=== PATIENT | female | born 1970 | race Caucasian/White ===

== ENCOUNTER 2023-03-22 10:15 | Outpatient (OUT) | payer BC, SELFPAY ==
[2023-03-22 10:49] LABS: Basophils Percent Auto 0.6 % (0.2-2.0); Eosinophils Absolute Auto 0.3 10^3/uL (0.0-0.7); Eosinophils Percent Auto 4.5 % (0.9-7.0); Hematocrit 43.8 % (36.0-48.0); Hemoglobin 14.2 g/dL (12.0-16.0); Immature Granulocytes Abs Auto 0.05 10^3/uL (0.00-0.03); Immature Granulocytes Pct Auto 0.7 % (0.0-0.5); Lymphocytes Absolute Auto 2.2 10^3/uL (1.2-3.8); Lymphocytes Percent Auto 30.7 % (20.5-60.0); Mean Corpuscular HGB Conc 32.4 g/dL (29.9-35.2); Mean Corpuscular Hemoglobin 29.3 pg (26.7-34.0); Mean Corpuscular Volume 90.3 fL (81.0-99.0); Mean Platelet Volume 8.5 fL (9.5-13.5); Monocytes Absolute Auto 0.5 10^3/uL (0.3-0.8); Monocytes Percent Auto 7.1 % (1.7-12.0); Neutrophils Percent Auto 56.4 % (43.0-75.0); Platelet Count 314 10^3/uL (150-450); Red Blood Count 4.85 10^6/uL (4.20-5.40); Red Cell Distribution Width 12.6 % (11.0-15.0); White Blood Count 7.1 10^3/uL (4.0-11.0)
[2023-03-22 11:02] LABS: INR 0.97; Partial Thromboplastin Time 28.5 sec (22.3-36.2); Prothrombin Time 10.3 sec (9.0-11.6)
[2023-03-22 11:44] LABS: Estimated Average Glucose 114 mg/dL; Glycohemoglobin A1C 5.6 % (4.5-6.2)
[2023-03-22 12:12] LABS: Alanine Aminotransferase 27 U/L (14-59); Albumin Globulin Ratio 0.9; Albumin Level 3.5 g/dL (3.4-5.0); Alkaline Phosphatase 122 U/L (46-116); Amylase 32 U/L (25-115); Anion Gap 12.2; Aspartate Amino Transferase 15 U/L (15-37); BUN Creatinine Ratio 24.7; Bilirubin Total 0.3 mg/dL (0.2-1.0); Calcium 9.2 mg/dL (8.5-10.1); Carbon Dioxide 26.6 mmol/L (21.0-32.0); Chloride 107 mmol/L (98-107); Chol HDL Ratio 4.7; Cholesterol 214 mg/dL (<=200); Estimated GFR (African America >60 (>=60); Estimated GFR (Non-African Ame >60 (>=60); Free Thyroxine Index 2.01 (1.30-4.50); Glucose 107 mg/dL (74-106); HDL Cholesterol 46 mg/dL (40-60); Potassium 3.8 mmol/L (3.5-5.1); Sodium 142 mmol/L (136-145); Thyroid Stimulating Hormone 1.529 uIU/mL (0.358-3.740); Total Protein 7.5 g/dL (6.4-8.2); Triglycerides 61 mg/dL (<=150); VLDL CHOLESTEROL 12.2 mg/dL
[2023-03-23 10:11] LABS: Insulin 18.6 uIU/mL (2.6-24.9)
== END 2023-03-22 10:16 | disposition home or self-care (01) ==
PROVIDERS: PCP Family Medicine; Visit Provider Family Medicine
DX: R10.11 Right upper quadrant pain (principal); D35.2 Benign neoplasm of pituitary gland; R23.8 Other skin changes; E78.5 Hyperlipidemia, unspecified; Z87.898 Personal history of other specified conditions; R73.09 Other abnormal glucose; Z12.12 Encounter for screening for malignant neoplasm of rectum; D64.9 Anemia, unspecified
CPT/HCPCS: 36415; 80053; 80061; 82150; 83036; 83525; 83540; 83690; 84436; 84443; 84479; 85002; 85025; 85610; 85730

== ENCOUNTER 2023-03-25 10:47 | Outpatient (OUT) | payer BC, SELFPAY ==
--- NOTE | 2023-03-25 11:00 | US_ITS ---
The [address] [address] Patient Name: FRED TREJO MRN: [id number] date: 1970 Sex: F Assigned Patient Location: US Current Patient Location: US Accession/Order Number: [id number] Exam Date: 03/25/2023 11:01 Report Date: 03/25/2023 11:44 At the request of: PAULETTE JAFFE Procedure: US right upper quadrant EXAMINATION: US right upper quadrant HISTORY: Right Upper Quadrant Pain R10.11 COMPARISON: No relevant comparison available. TECHNIQUE: Transabdominal evaluation of the right upper quadrant. FINDINGS: LIVER: Slightly increased echogenicity suggestive of fatty infiltration. Color Doppler demonstrates patent hepatic veins. PORTAL VEIN: Duplex Doppler demonstrates normal hepatopetal flow pattern with flow velocity averaging 29 cm/s. GALLBLADDER: No visible gallstones, wall thickening, or pericholecystic free fluid. Negative sonographic Persaud's sign. BILIARY: No abnormal dilation or stones. Common bile duct diameter is within normal limits. PANCREASE: No visible mass, abnormal atrophy, or duct dilation. KIDNEY: Nonobstructing 6 mm stone within inferior pole. Size: 9.8 x 5.2 x 5.2 cm US/US right upper quadrant IMPRESSION: 1. Mild fatty infiltration of the liver. 2. Nonobstructing right nephrolithiasis. 3. No acute findings to account for patient's symptoms. Electronically authenticated by: TIFFANY DAVALOS Date: 03/25/2023 11:44
== END 2023-03-25 10:48 | disposition home or self-care (01) ==
LOC: US 10:50
PROVIDERS: PCP Family Medicine; Visit Provider Family Medicine
DX: R10.11 Right upper quadrant pain (principal)
CPT/HCPCS: 76705

== ENCOUNTER 2023-10-05 14:50 | Outpatient (OUT) | payer BC, SELFPAY ==
--- NOTE | 2023-10-05 14:56 | XR_ITS ---
The [address] [address] Patient Name: FRED TREJO MRN: [id number] date: 1970 Sex: F Assigned Patient Location: LAB Current Patient Location: Accession/Order Number: [id number] Exam Date: 10/05/2023 15:00 Report Date: 10/06/2023 07:25 At the request of: PAULETTE JAFFE Procedure: XR knee LT 3V PROCEDURE: XR knee LT 3V HISTORY: M25.562pain in left knee , chronic COMPARISON: None. FINDINGS: BONES:Marked narrowing of the lateral joint space with gepi-[id number]-joto contact. Large periarticular degenerative osteophytes involving all 3 compartments. No fracture or dislocation. SOFT TISSUES:No visible soft tissue swelling. EFFUSION:None visible. OTHER: Negative. XR/XR knee LT 3V IMPRESSION: 1. Marked degenerative joint disease. No acute bone abnormality. Electronically authenticated by: TIFFANY DAVALOS Date: 10/06/2023 07:25
== END 2023-10-05 14:51 | disposition home or self-care (01) ==
LOC: LAB 14:51
PROVIDERS: PCP Family Medicine; Visit Provider Family Medicine
DX: M25.562 Pain in left knee (principal); M17.12 Unilateral primary osteoarthritis, left knee
CPT/HCPCS: 73562

== ENCOUNTER 2023-12-06 08:49 | Outpatient (OUT) | payer BC, SELFPAY ==
--- NOTE | 2023-12-06 09:06 | XR_ITS ---
The [address] [address] Patient Name: FRED TREJO MRN: [id number] date: 1970 Sex: F Assigned Patient Location: LAB Current Patient Location: Accession/Order Number: [id number] Exam Date: 12/06/2023 09:11 Report Date: 12/07/2023 05:42 At the request of: PAULETTE JAFFE Procedure: XR chest 2V EXAMINATION: XR chest 2V HISTORY: Acute Bronchiolitis J21.9 COMPARISON: XR chest 08/22/2016 FINDINGS: LUNGS: Slight wall thickening of a few central bronchi. No convincing infiltrates. Opacity within left lung base favors a prominent pericardial fat pad. VASCULATURE: No increased pulmonary vasculature. PLEURA: No pneumothorax, effusion, or pleural thickening. CARDIAC: No cardiomegaly or cardiac silhouette abnormality. MEDIASTINUM: No visible mass or adenopathy. BONES: No fracture or visible bone lesion. OTHER: Negative. XR/XR chest 2V IMPRESSION: 1. Mild bronchial wall thickening compatible with bronchiolitis. 2. No convincing peripheral infiltrates to suggest pneumonia. Electronically authenticated by: TIFFANY DAVALOS Date: 12/07/2023 05:42
[2023-12-06 09:12] LABS: Basophils Absolute Auto 0.1 10^3/uL (0.0-0.1); Basophils Percent Auto 0.5 % (0.2-2.0); Eosinophils Absolute Auto 0.1 10^3/uL (0.0-0.7); Eosinophils Percent Auto 0.9 % (0.9-7.0); Hematocrit 42.5 % (36.0-48.0); Hemoglobin 13.8 g/dL (12.0-16.0); Immature Granulocytes Abs Auto 0.08 10^3/uL (0.00-0.03); Immature Granulocytes Pct Auto 0.8 % (0.0-0.5); Lymphocytes Absolute Auto 2.9 10^3/uL (1.2-3.8); Lymphocytes Percent Auto 29.5 % (20.5-60.0); Mean Corpuscular HGB Conc 32.5 g/dL (29.9-35.2); Mean Corpuscular Hemoglobin 29.1 pg (26.7-34.0); Mean Corpuscular Volume 89.5 fL (81.0-99.0); Mean Platelet Volume 8.3 fL (9.5-13.5); Monocytes Absolute Auto 0.8 10^3/uL (0.3-0.8); Monocytes Percent Auto 8.2 % (1.7-12.0); Neutrophils Percent Auto 60.1 % (43.0-75.0); Platelet Count 319 10^3/uL (150-450); Red Blood Count 4.75 10^6/uL (4.20-5.40); Red Cell Distribution Width 12.8 % (11.0-15.0); White Blood Count 9.9 10^3/uL (4.0-11.0)
[2023-12-06 09:35] LABS: Alanine Aminotransferase 27 U/L (14-59); Albumin Globulin Ratio 0.8; Albumin Level 3.1 g/dL (3.4-5.0); Alkaline Phosphatase 141 U/L (46-116); Aspartate Amino Transferase 15 U/L (15-37); BUN Creatinine Ratio 19.1; Bilirubin Total 0.3 mg/dL (0.2-1.0); Calcium 9.4 mg/dL (8.5-10.1); Carbon Dioxide 27.7 mmol/L (21.0-32.0); Chloride 103 mmol/L (98-107); Estimated GFR (African America >60 (>=60); Estimated GFR (Non-African Ame 52 (>=60); Globulin 3.9 g/dL; Glucose 146 mg/dL (74-106); Potassium 3.7 mmol/L (3.5-5.1); Sodium 141 mmol/L (136-145)
== END 2023-12-06 08:50 | disposition home or self-care (01) ==
LOC: LAB 08:51
PROVIDERS: PCP Family Medicine; Visit Provider Family Medicine
DX: J21.9 Acute bronchiolitis, unspecified (principal); R05.9 Cough, unspecified
CPT/HCPCS: 36415; 71046; 80053; 85025

== ENCOUNTER 2024-02-08 10:37 | Outpatient (OUT) | payer BC, SELFPAY ==
--- NOTE | 2024-02-08 10:45 | XR_ITS ---
[address] [address] Patient Name: FRED TREJO MRN: [id number] date: 1970 Sex: F Assigned Patient Location: [facility] Current Patient Location: [facility] Accession/Order Number: [id number] Exam Date: 02/08/2024 10:50 Report Date: 02/08/2024 11:06 At the request of: PAULETTE JAFFE Procedure: XR knee HAYDEE 3V EXAMINATION: XR knee HAYDEE 3V HISTORY: Osteoarthritis M19.90 COMPARISON: No relevant comparison available. FINDINGS: RIGHT FINDINGS: BONES: No acute fracture or dislocation. Moderate to severe tricompartmental osteoarthropathy with marginal osteophyte formation. Moderate medial Joint space narrowing. Enthesopathic spurring of the patella at the quadriceps insertion SOFT TISSUES: Negative. No visible soft tissue swelling. OTHER: Negative. LEFT FINDINGS: BONES: No acute fracture or dislocation. Moderate to severe tricompartmental osteoarthropathy with marginal osteophyte formation. Severe lateral joint space narrowing. Enthesopathic spurring of the patella at the quadriceps insertion SOFT TISSUES: Negative. No visible soft tissue swelling. OTHER: Negative. 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
== END 2024-02-08 10:38 | disposition home or self-care (01) ==
LOC: RAD 10:38
PROVIDERS: PCP Family Medicine; Visit Provider Family Medicine
DX: M19.90 Unspecified osteoarthritis, unspecified site (principal); M17.0 Bilateral primary osteoarthritis of knee
CPT/HCPCS: 73562

== ENCOUNTER 2024-04-16 11:09 | Outpatient (OUT) | payer BC, SELFPAY ==
--- OUTSIDE RECORDS SUMMARY | 2024-04-16 11:16 | XMS_ITS | CCD ---
Author Organization [facility] CliniSytx Care Team Providers Care Skeiner Name Role Phone Paulette Santana MD Primary Care Provider [phone] JUAN BATISTA Referring Unavailable PAULETTE SANTANA Primary Care Unavailable SIGRIDY ., DR CALDWELL Consulting Unavailable HOY ., DR CALDWELL Primary Care Unavailable HOY ., DR CALDWELL Attending Unavailable HOY ., DR CALDWELL Admitting Unavailable ZIEBER, DR ASHOK Tucker Consulting Unavailable TERRENCE ., KESHIA Attending Unavailable TERRENCE ., KESHIA Admitting Unavailable HOY ., DR CALDWELL Primary Care Unavailable JOAN THOMAS Consulting UnavailESSENCE Pemberton Consulting Unavailable HOY ., DR CALDWELL Primary Care Unavailable HOY ., DR CALDWELL Attending Unavailable HOY ., DR CALDWELL Admdenice Unavailable SHILO, DR ADELAIDA Bingham Consulting Unavailable HOY ., DR CALDWELL Primary Care Unavailable MATILDE HENLEY Attending Unavailable MATILDE HENLEY Admitting Unavailable MATILDE HENLEY Consulting Unavailable HOY ., DR CALDWELL Consulting Unavailable HOY ., DR CALDWELL Primary Care Unavailable HOY ., DR CALDWELL Attending Unavailable HOY ., DR CALDWELL Admitting Unavailable HOY ., DR CALDWELL Consulting Unavailable HOY ., DR CALDWELL Primary Care Unavailable HOY ., DR CALDWELL Attending Unavailable HOY ., DR CALDWELL Admdenice Unavailable WEST, DR ADELAIDA Bingham Consulting Unavailable HOY ., DR CALDWELL Consulting Unavailable HOY ., DR CALDWELL Primary Care Unavailable HOY ., DR CALDWELL Attending Unavailable HOY ., DR CALDWELL Admitting Unavailable HOY ., DR CALDWELL Consulting Unavailable HOY ., DR CALDWELL Primary Care Unavailable HOY ., DR CALDWELL Attending Unavailable HOY ., DR CALDWELL Admdencie Unavailable HOY ., DR CALDWELL Consulting Unavailable HOY ., DR CALDWELL Primary Care Unavailable HOY ., DR CALDWELL Attending Unavailable HOY ., DR CALDWELL Admitting Unavailable DR ASHOK GRIER Consulting Unavailable ALANNAH ., DR CALDWELL Consulting Unavailable ALANNAH Walker, DR CALDWELL Primary Care Unavailable ALANNAH Walker, DR CALDWELL Attending Unavailable ALANNAH Walker, DR CALDWELL Admitting Unavailable JODI WEBER Consulting Unavailable Paulette Santana Primary Care Physician Niall RUSSELL Attending Unavailable Niall RUSSELL Attending Unavailable Niall RUSSELL Attending Unavailable DERREK Carrillo Attending Provider Matilde Carrillo Unavailable Matilde Carrillo Attending Unavailable Matilde Carrillo Admitting Unavailable Medications Current Medications Medication Drug Class(es) Dates Sig (Normalized) Sig (Original) amitriptyline hydrochloride 100 mg oral tablet (3 sources) Tricyclic Antidepressant Start: 10-06-2020 amitriptyline (ELAVIL) 100 MG tablet baclofen 20 mg oral tablet (3 sources) gamma-Aminobutyric Acid-ergic Agonist Start: 10-06-2020 baclofen (LIORESAL) 20 MG tablet diclofenac sodium 75 mg delayed release oral tablet (2 sources) Nonsteroidal Anti-inflammatory Drug Start: 10-06-2020 take 1 tablet by mouth twice daily diclofenac sodium 75 mg Oral EC Tab 75 mg = 1 tab(s), Oral, BID, # 60 tab(s), Refills(s) 0 Start Date: 10/06/20 Status: Ordered take 1 capsule by [facility] every eight hours Diclofenac 35 MG 1 capsule as needed Ora lly Three times a day Active levothyroxine sodium 0.05 mg oral tablet (2 sources) l-Thyroxine Start: 12-29-2022 take 1 tablet by mouth once daily levothyroxine 50 mcg (0.05 mg) Tab 50 mcg = 1 tab(s), Oral, Daily, Refills(s) 0 Start Date: 12/29/22 Status: Ordered take 1 tablet by [facility] once daily in the morning Levothyroxine Sodium 25 MCG 1 tablet in the morning on an empty stomach Orally Once a day Active liothyronine sodium 0.005 mg oral tablet (2 sources) l-Triiodothyronine Start: 12-29-2022 take 4 tablets by mouth once daily liothyronine 5 mcg Tab 20 mcg = 4 tab(s), Oral, Daily, Refills(s) 0 Start Date: 12/29/22 Status: Ordered take 1 tablet by khadar th every twenty-four hours Liothyronine Sodium 5 MCG 1 tablet on an empty stomach Orally Once a day Active lisinopril 40 mg oral tablet (3 sources) Angiotensin Converting Enzyme Inhibitor Start: 12-18-2021 lisinopril (PRINIVIL;ZESTRIL) 40 MG tablet Start: 10-06-2020 lisinopril 40 mg Tab 20 mg = 0.5 tab(s), Oral, Daily, Refills(s) 0 Start Date: 10/06/20 Status: Ordered take 1 tablet by khadar th every twenty-four hours Lisinopril 20 MG 1 tablet Orally Once a day Active mirtazapine 30 mg oral table t (3 sources) Start: 11-23-2021 mirtazapine (R EMERON) 30 MG tablet Start: 10-06-2020 take 2 tablets by mo [facility] once daily at bedtime mirtazapine 30 mg Tab 60 mg = 2 tab(s), Oral, Once a day (at bedtime), Refills(s) 0 Start Date: 10/06/20 Status: Ordered risperiDONE 2 mg oral tablet (4 sources) Atypical Antipsychotic Start: 10-06-2020 risperi DONE (RISPERDAL) 2 MG tablet Completed/Discontinued Medications Medication Drug Class(es) Dates Sig (Normalized) Sig (Original) tiZANidine 4 mg oral tablet (1 source) Central alpha-2 Adrenergic Agonist take 1-2 tablets by mouth at bedtime as needed for muscle spasms tiZANidine HCl 4 MG TAKE 1 TO 2 TABLETS BY MOUTH AT BEDTIME NEEDED FOR MUSCLE SPASMS Oral for 20 Not-Taking Problems Active Problems Problem Classification Problem Date Documented Da te Episodic/Chronic Allergic reactions (2 sources) Dermatitis, unspecified; Translations: [Vesicular eczema] Onset: 07-06-2022 10-06-2020 Episodic Anxiety disorders (1 source) Anxiety disorder, unspecified; Translations: [ANXIETY DISORDER UNSPECIFIED] Onset: 07-06-2022 Chronic Chronic obstructive pulmonary disease and bronchiectasis (4 sources) Centrilobular emphysema; Translations: [CENTRILOBULAR EMPHYSEMA] Onset: 12-04-2021 Chronic Essential hypertension (2 sources) Essential (primary) hypertension; Translations: [Hypertensive disorder] Onset: 07-06-2022 10-06-2020 Chronic Headache; including migraine (1 source) Migraine 10-06-2020 Chronic Mood disorders (1 source) Mood disorders; Translations: [DEPRESSION UNSPECIFIED] Onset: 07-06-2022 Neoplasms of unspecified nature or uncertain behavior (3 sources) Neoplasm of uncertain behavior of skin; Translations: [Neoplasm of uncertain behavior of skin] Onset: 01-11-2023 Episodic Osteoarthritis (4 sources) Unspecified osteoarthritis, unspecified site; Translations: [Unilateral primary osteoarthritis, right knee] Onset: 02-24-2022 Chronic Other and unspecified benign neoplasm (1 source) Benign neoplasm of soft tissue 10-06-2020 Episodic Other and unspecified benign neoplasm (1 source) Dermal cellular nevus 10-30-2020 Episodic Other and unspecified benign neoplasm (1 source) Pituitary adenoma 10-06-2020 Episodic Other gastrointestinal disorders (1 source) Irritable bowel syndrome without diarrhea; Translations: [IRRITABLE BOWEL SYND W/O DIARRHEA] Onset: 07-06-2022 Chronic Other gastrointestinal disorders (1 source) Irritable bowel syndrome 10-06-2020 Chronic Other non-traumatic joint disorders (5 sources) Pain in right knee; Translations: [PAIN IN RIGHT KNEE] Onset: 11-01-2022 Episodic Other nutritional; endocrine; and metabolic disorders (1 source) Body mass index 40+ - severely obese 01-11-2023 Chronic Other nutritional; endocrine; and metabolic disorders (1 source) Morbid obesity 01-11-2023 Chronic Other screening for suspected conditions (not mental disorders or infectious disease) (4 sources) Encounter for screening mammogram for malignant neoplasm of breast; Translations: [ENC SCR MAMMO MALIG NEOPLASM BREAST] Onset: 10-05-2022 Episodic Other skin disorders (1 source) Epidermoid cyst 10-10-2020 Episodic Other skin disorders (1 source) Multiple actinic keratoses 10-06-2020 Episodic Other upper respiratory infections (1 source) Chronic sinusitis, unspecified; Translations: [CHRONIC SINUSITIS UNSPECIFIED] Onset: 12-09-2021 Chronic Other upper respiratory infections (1 source) Acute sinusitis, unspecified; Translations: [ACUTE SINUSITIS UNSPECIFIED] Onset: 09-19-2022 Episodic Residual codes; unclassified (1 source) Insomnia 12-29-2022 Episodic Spondylosis; intervertebral disc disorders; other back problems (1 source) Degeneration of lumbar intervertebral disc 10-06-2020 Chronic Spondylosis; intervertebral disc disorders; other back problems (1 source) Cervical radiculopathy 10-06-2020 Episodic Thyroid disorders (4 sources) Hypothyroidism, unspecified; Translations: [HYPOTHYROIDISM UNSPECIFIED] Onset: 09-21-2022 Chronic Unclassified (4 sources) CONTACT W/AND (SUSP) EXPOS COVID-19; Translations: [CONTACT W/AND (SUSP) EXPOS COVID-19] Onset: 12-09-2021 Unclassified (1 source) Pain in right knee; Translations: [Pain in right knee] Onset: 04-13-2023 Past or Other Problems Problem Classification Problem Date Documented Date Episodic/Chronic Coagulation and hemorrhagic disorders (1 source) Spontaneous ecchymoses; Translations: [SPONTANEOUS ECCHYMOSES] Onset: 2 Episodic Diabetes mellitus without complication (1 source) Other abnormal glucose; Translations: [OTHER ABNORMAL GLUCOSE] Onset: 2 Episodic E Codes: Fall (1 source) Fall on same level from slipping, tripping and stumbling with subsequent striking against unspecified object, initial encounter; Translations: [FALL SAME LVL SLIP STRK UNS OBJ INT] Onset: 2 Episodic Immunizations and screening for infectious disease (1 source) Encounter for immunization; Translations: [ENCOUNTER FOR IMMUNIZATION] Onset: 2 Episodic Joint disorders and dislocations; trauma-related (1 source) Dislocation of metacarpophalangeal joint of left thumb, initial encounter; Translations: [DISLOCATION MCP JOINT LT THUMB INIT] Onset: 2 Episodic Malaise and fatigue (4 sources) Other fatigue; Translations: [OTHER FATIGUE] Onset: 2 Episodic Other aftercare (1 source) Other alf (current) drug therapy; Translations: [OTH MCC CURRENT DRUG THERAPY] Onset: 2 Episodic Other connective tissue disease (4 sources) Pain in left hand; Translations: [PAIN IN LEFT HAND] Onset: 3 Episodic Other injuries and conditions due to external causes (3 sources) Unspecified injury of left wrist, hand and finger(s), initial encounter; Translations: [UNS INJ LT WRIST HAND FINGERS INIT] Onset: 2 Episodic Other lower respiratory disease (1 source) Personal history of pneumonia (recurrent); Translations: [PERSONAL HX OF PNEUMONIA RECURRENT] Onset: 2 Episodic Screening and history of mental health and substance abuse codes (1 source) Personal history of nicotine dependence; Translations: [PERSONAL HISTORY OF NICOTINE DEPEND] Onset: 2 Episodic Unclassified (1 source) CONTACT W/AND (SUSP) EXPOS COVID-19; Translations: [CONTACT W/AND (SUSP) EXPOS COVID-19] Onset: 3 Results Test Name Value Interpretation Reference Range Facility XR knee RT 4V*on 04-13-2023 XR knee RT 4V* [place] [address] XRay Report Signed Patient: Fred Qureshi MR#: [id number] : 1970 Acct:[id number] Age/Sex: 52 / F ADM Date: 04/13/23 Loc: XDUC Room: Type: [facility] Attending Dr: Matilde ANGLIN Copies to: DERREK Head Ordering Provider: DERREK Head Date of Service: 04/13/23 XR/XR knee RT 4V*: Acute pain of right knee 4 views right knee plain film COMPARISON: None HISTORY: Right knee injury. Superior patellar pain. ACUTE FINDINGS: None DEGENERATIVE CHANGE: Moderate degeneration. SOFT TISSUE FINDINGS: Unremarkable JOINT EFFUSION: None POSTOP CHANGES: None BONE MINERALIZATION: Adequate XR/XR knee RT 4V* IMPRESSION: No acute findings Impression dictated by: Jose Moran M.D.04/13/2023 2:33 PM Dictation Location: [place] [address] Transcribed By: [facility] 04/13/23 143 Dictated By: Jose Moran DO 04/13/23 143 Signed By: 04/13/23 143 Normal [facility] XR knee RT 4V* [facility] [employer] Other XR knee RT 4V* [facility] Other XR knee RT 4V* [facility] Other XR knee RT 4V* [place] [address] No rt [facility] Other XR knee RT 4V* XRay Report [employer] Other XR knee RT 4V* Signed [employer] Other XR knee RT 4V* Patient: Sampson Qureshi MR#: [id number] [facility] Other XR knee RT 4V* 5905 [employer] Other XR knee RT 4V* : 1970 Acct:[id number] [facility] Other XR knee RT 4V* Age/Sex: 52 / F ADM Date: 04/13/23 Turn Other XR knee RT 4V* Loc: XDUCLY Room: Ty pe: REG CLI Turn Other XR knee RT 4V* Attending Dr: Matilde ANGLIN Turn Other XR knee RT 4V* Copies to: DERREK Head Turn Other XR knee RT 4V* Ordering Provider: DERREK Head Turn Other XR knee RT 4V* Date of Service: 04/13/23 Turn Other XR knee RT 4V* XR/XR knee RT 4V*: Acute pain of right knee Turn Other XR knee RT 4V* 4 views right knee plain film Turn Other XR knee RT 4V* COMPARISON: None [employer] Other XR knee RT 4V* HISTORY: Right knee injury. Superior patellar pain. Turn Other XR knee RT 4V* ACUTE FINDINGS: None Turn Other XR knee RT 4V* DEGENERATIVE CHANGE: Moderate degeneration. Turn Other XR knee RT 4V* SOFT TISSUE FINDINGS : Unremarkable Turn Other XR knee RT 4V* JOINT EFFUSION: None Turn Other XR knee RT 4V* POSTOP CHANGES: None Turn Other XR knee RT 4V* BONE MINERALIZATION: Adequate Turn Other XR knee RT 4V* XR/XR knee RT 4V* Turn Other XR knee RT 4V* IMPRESSION: No acute findings Turn Other XR knee RT 4V* Impression dictated by: Jose Moran M.D.04/13/2023 2:33 PM Turn Other XR knee RT 4V* Dictation Location: [place] [address] Turn Other XR knee RT 4V* Transcribed By: ARPIT 04/13/23 [facility] Turn Other XR knee RT 4V* Dictated By: Jose Moran DO 04/13/23 [facility] Turn Other XR knee RT 4V* Signed By: [employer] Other XR knee RT 4V* 04/13/23 [facility] [employer] Other Ambulatory Visit Summaryon 0 02-01-2023 Ambulatory Visit Summary FRED QURESHI :1970 Visit Date:02/01/2023 Ambulatory Visit Instructions Your Diagnosis Neoplasm of uncertain behavior of skin of forearm Your Care Team Attending Physician - Niall RUSSELL MD Primary Care Physician - Paulette Santana MD This Is Your Medications List Contact prescribing physician if questions or concerns amitriptyline (amitriptyline 100 mg oral tablet) baclofen (baclofen 20 mg Tab) diclofenac (diclofenac sodium 75 mg Oral EC Tab) levothyroxine (levothyroxine 50 mcg (0.05 mg) Tab) liothyronine (liothyronine 5 mcg Tab) lisinopril (lisinopril 40 mg Tab) mirtazapine (mirtazapine 30 mg Tab) risperidone (Risperdal 2 mg Tab) Procedures Performed Benign neoplasm of face, Breast reduction, Excision of ganglion cyst of wrist, recurrent, Tubal ligation. What to do next Scheduled Follow-Up Appointments Tuesday 1:00 PM EDT With: Niall RUSSELL MD Where: General Surgery Saima/Roberta Martinez [facility] General Surgery Office/Clini c Noteon 02-01-2023 General Surgery Office/Clinic Note Chief Complaint in-office excisional biopsy HPI Staff Presents for in-office excisional biopsy left forearm. History of Present Illness here for excisional biopsy changing lesion left arm; no change since recent evaluation. Review of Systems ROS - Provider Constitutional: no fever, no sweats, no weight loss. Eyes: no glasses, no blurred vision, no visual loss. ENMT: no dentures, no hoarseness, no swallowing difficulties, no hearing loss, no ear infection(s), no nose bleeds. Cardiovascular: normal blood pressure, no chest pain, regular heartbeat, no heart murmur. Respiratory: no shortness of breath, no cough, no asthma, no wheezing. Gastrointestinal: no nausea, no vomiting, no diarrhea, no constipation, no blood in stool, no change in bowel habits, no abdominal pain, no hepatitis. Genitourinary: no kidney stones, no urine infection, no dysuria. Musculoskeletal: no pain, no weakness. Skin: no changing moles, no rash, no skin lumps. Neurologic: no seizures, no epilepsy, no headache. Psychiatric: no emotional or psychiatric problem. Heme/Lymph: no bleeding problems, no anemia, no blood clots, no transfusions. Allergy/Immunologic: no swollen lymph nodes/glands, no IV drug abuse. Other: Additional ROS info: Except as noted in the above Review of Systems and in the History of Present Illness, all other systems have been reviewed and are negative or noncontributory. Physical Exam skin: 5 mm raised, nonpigmented lesion left arm, no ulceration. Procedure patient brought to the procedure room, placed in supine position, area prepped and draped in sterile fashion; anesthetized with 1 % lidocaine; lesion excised in elliptical fashion down to subcutaneous fat; closed with interrupted 4-0 nylon sutures; total length of incision 1.2 cm; tolerated well; ebl < 2ml; sterile dressing applied. Assessment/Plan 1. Neoplasm of uncertain behavior of skin of forearm (D48.5: Neoplasm of uncertain behavior of skin) excised under local anesthesia; patient tolerated well; tylenol or ibuprofen for pain; f/u in 7-10 days for suture removal; call sooner if problems/questions. 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 Medications amitriptyline 100 mg oral tablet, 100 mg= 1 tab(s), Oral, Once a day (at bedtime) baclofen 20 mg Tab, Oral, Bedtime diclofenac sodium 75 mg Oral EC Tab, 75 mg= 1 tab(s), Oral, BID levothyroxine 50 mcg (0.05 mg) Tab, 50 mcg= 1 tab(s), Oral, Daily liothyronine 5 mcg Tab, 20 mcg= 4 tab(s), Oral, Daily lisinopril 40 mg Tab, 20 mg= 0.5 tab(s), Oral, Daily mirtazapine 30 mg Tab, 60 mg= 2 tab(s), Oral, Once a day (at bedtime) Risperdal 2 mg Tab, 2 mg= 1 tab(s), Oral, Bedtime Allergies No Known Allergies Social History Alcohol - Denies Alcohol Use, 10/10/2020 Substance Abuse - Denies Substance Abuse, 10/10/2020 Tobacco Former smoker, quit more than 30 days ago Tobacco Use:. Never Smokeless Tobacco Use:. Cigarettes, Stopped age 24 Years., 01/11/2023 Family History Acute myocardial infarction: Father. Diabetes mellitus type 2: Mother.Negative: Father. Heart disease: Mother and Father. Hypertension: Mother and Father. Hypothyroidism: Sister. Immunizations Vaccine Date Status influenza virus vaccine, inactivated 05/10/2022 Recorded SARS-CoV-2 (COVID-19) mRNA-1273 vaccine 12/17/2021 Recorded SARS-CoV-2 (COVID-19) mRNA-1273 vaccine 08/14/2021 Recorded SARS-CoV-2 (COVID-19) mRNA-1273 vaccine 01/04/2021 Recorded SARS-CoV-2 (COVID-19) mRNA-1273 vaccine 12/07/2020 Recorded influenza virus vaccine, inactivated 04/17/2020 Recorded [facility] Comment on above: Result Comment: Elec tronically Signed By: SAIMA MCQUEEN, Niall Tucker\.br\Date and Time Signed: 02/01/23 14:23 EDT Pre-Certification Formon Pre-Certification Form [id number] CD:127 [facility] Facesheeton 01-12-2023 Facesheet [id number] D:127 [facility] Ambulatory Visit Summaryon 0 01-11-2023 Ambulatory Visit Summary FRED QURESHI Jose :1970 Visit Date:01/11/2023 Ambulatory Visit Instructions Your Care Team Attending Physician - SAIMA MCQUEEN, Niall Tucker Primary Care Physician - Paulette Santana MD This Is Your Medications List Contact prescribing physician if questions or concerns amitriptyline (amitriptyline 100 mg oral tablet) baclofen (baclofen 20 mg Tab) diclofenac (diclofenac sodium 75 mg Oral EC Tab) levothyroxine (levothyroxine 50 mcg (0.05 mg) Tab) liothyronine (liothyronine 5 mcg Tab) lisinopril (lisinopril 40 mg Tab) mirtazapine (mirtazapine 30 mg Tab) risperidone (Risperdal 2 mg Tab) Procedures Performed Benign neoplasm of face, Breast reduction, Excision of ganglion cyst of wrist, recurrent, Tubal ligation. Discharge Vitals Heart Rate (Peripheral) 76 Respiratory Rate 16 Blood Pressure 124/84 Height 157.48 cm Height 62 in Weight 145 kg Weight 319 lb BMI 58.47 Medications What How Much When Instructions Unchanged amitriptyline (amitriptyline 100 mg oral tablet) 1 Tablets By Mouth Once a day (at bedtime) Contact prescribing physician if questions or concerns Unchanged baclofen (baclofen 20 mg Tab) By Mouth At bedtime Contact prescribing physician if questions or concerns Unchanged diclofenac (diclofenac sodium 75 mg Oral EC Tab) 1 Tablets By Mouth 2 times a day Contact prescribing physician if questions or concerns Unchanged levothyroxine (levothyroxine 50 mcg (0.05 mg) Tab) 1 Tablets By Mouth Every day Contact prescribing physician if questions or concerns Unchanged liothyronine (liothyronine 5 mcg Tab) 4 Tablets By Mouth Every day Contact prescribing physician if questions or concerns Unchanged lisinopril (lisinopril 40 mg Tab) 0.5 Tablets By Mouth Every day Contact prescribing physician if questions or concerns Unchanged mirtazapine (mirtazapine 30 mg Tab) 2 Tablets By Mouth Once a day (at bedtime) Contact prescribing physician if questions or concerns Unchanged risperidone (Risperdal 2 mg Tab) 1 Tablets By Mouth At bedtime Contact prescribing physician if questions or concerns Allergies No Known Allergies Problems Ongoing - Any problem that you are currently receiving treatment for. Actinic keratoses BMI 50.0-59.9, adult Cervical radiculopathy Degenerative disc disease, lumbar Dyshidrotic eczema Hypertension IBS (irritable bowel syndrome) Inclusion cyst Insomnia Intradermal nevus of face Migraine Morbid obesity Nevus Pituitary adenoma Normal [facility] Physician Referralon 023 Physician Referral [id number] D:127 Normal [facility] MG MAMM SCREEN 3D HAYDEE CADon 10-05-2022 MG MAMM SCREEN 3D HAYDEE CAD Patient: FRED QURESHI Exam Date: 10/05/2022 : 1970 Gender:F Ordering : DR PAULETTE SANTANA . Admission #: [id number] Family : Order #: [id number] CLICK HERE TO VIEW EXAM RADIOLOGY REPORT PROCEDURE: MAMMOGRAM SCREENING 3D BILATERAL CAD COMPARISON: MG MAMM SCREEN 3D HAYDEE CAD, 09/21/2021. MG MAMM SCREEN HAYDEE W CAD, 09/01/2018. DIGITIZED_MAMMO, 05/25/2010. DIGITIZED_MAMMO, 06/20/2007. INDICATIONS: Screening mammography Calculator Name NCI Breast Cancer Risk Assessment Tool 5 Year Breast Cancer Risk 0.80% Lifetime Breast Cancer Risk 6.20% Personal Breast Cancer No Personal Ovarian Cancer No Treatments None Family Cancers None LOCATION: [facility] BREAST COMPOSITION: Scattered areas fibroglandular density. FINDINGS: DIAGNOSTIC CATEGORY 2--BENIGN FINDING: RIGHT BREAST: No significant suspicious finding. Scattered benign-appearing calcifications are present. No significant change has occurred. LEFT BREAST: No significant suspicious finding. Scattered benign-appearing calcifications are present. No significant change has occurred. RECOMMENDATIONS: ROUTINE MAMMOGRAM AND CLINICAL EVALUATION IN 12 MONTHS. PLEASE NOTE: A NORMAL MAMMOGRAM DOES NOT EXCLUDE THE POSSIBILITY OF BREAST CANCER. A CLINICALLY SUSPICIOUS PALPABLE LUMP SHOULD BE BIOPSIED. Dictated by: Ashok Grier M.D. on 10/05/2022 at 16:04 Approved by: Ashok Grier M.D. on 10/05/2022 at 16:12 Normal [facility] FREE T3on 09-21-2022 FREE T3 2.22 pg/mlL Normal 2.18-3.98 [facility] Comment on above: Performed By: #### F T3, T4, TSH ####[facility] [id number] [place], [place] [address]Ag. Jillian Jaime T4on 09-21-2022 T4 [Mass/Vol] 5.50 ug/dL Normal 4.80-13.90 [facility] [place] [facility] Comment on above: Performed By: #### F T3, T4, TSH ####[facility] [address] [place], [place] [address]QfAaron Jillian Jaime TSHon 09-21-2022 TSH 0.782 uIU/mL Normal 0.358-3.740 [facility] Comment on above: Performed By: #### F T3, T4, TSH ####[facility] [id number] [place], [place] [address]Gm. Jillian Jaime Covid-19 PCR ([facility])on SARS-CoV-2 (COVID-19) RNA FLORENCIA+probe Ql (Unsp spec) Not detected Normal NOT DETECTED [facility] [facility] Comment on above: Result Comment: When diagnostic testing is negative, the possibility of a false negative should be considered in the context of a patient's recent exposures and the presence of clinical signs and symptoms consistent with SARS-CoV-2. This test is not yet approved or cleared by the [place] FDA. When there are no FDA-approved or cleared tests available, and other criteria are met, FDA can make tests available under an emergency access mechanism called an Emergency Use Authorization (EUA). The EUA for this test is supported by the Emergency Telecommunications Dispatcher of Health and Human Service's declaration that circumstances exist to justify the emergency use of in vitro diagnostics for the detection and/or diagnosis of the virus that causes COVID-19. This EUA will remain in effect for the duration of the COVID-19 declaration justifying emergency of IVDs, unless it is terminated or revoked by the FDA (after which the test may no longer be used). Performed By: #### [facility] ####[facility] [address] [place], [place] [address]Gz. Jillian Jaime XR WRIST LT MIN 3 Von 2021 XR WRIST LT MIN 3 V EXAM: XR WRIST LT ID N 3 V HISTORY: Unspecified fall , now with pain COMPARISON: None. TECHNIQUE: 3 views of the left wrist were obtained. FINDINGS: There is dislocation of the proximal phalanx of the thumb radially at the first metacarpophalangeal joint, with overriding of the metacarpal head. This is incompletely visualized in this study of the wrist. The sesamoid bones may be interposed between the bases of the proximal phalanx and the metacarpal head. . There is no other evidence of an acute fracture or dislocation in the wrist. Ulnar minus variance is present. The joint spaces are intact throughout except for slight narrowing at the first carpometacarpal joint. No abnormal soft tissue calcifications are present. IMPRESSION: There is dislocation of the proximal phalanx of the thumb at the first metacarpophalangeal joint. The sesamoid bones may be situated between the base of the proximal phalanx and the metacarpal head. This area is incompletely visualized in the current study. Please see the hand x-ray study for more detail. There is no other evidence of an acute fracture or dislocation. The joint space otherwise intact. Electronically authenticated by: ESSENCE MONTEMAYOR Date: 2022-07-02 17:36 Normal [facility] CBC AUTO DIFFon 04-28-2022 BASO # 0.0 103/ul Normal 0.0-0.1 [facility] Comment on above: Performed By: #### C BC ####[facility] [address] [place], [place] [address]Dr. Jillian Jaime Basophils/100 WBC (Bld) 0.3 % Normal 0.2-2.0 [facility] Comment on above: Performed By: #### C BC ####[facility] [address] [place], [place] [address]DrAaron Jaime EO # 0.1 103/ul Normal 0.0-0.7 [facility] Comment on above: Performed By: #### C BC ####[facility] [address] [place], [place] [address]DrAaron Jaime Eosinophils/100 WBC (Bld) 1.3 % Normal 0.9-7.0 [facility] Comment on above: Performed By: #### C BC ####[facility] Hg[address] [place], [place] [address]Dr. Jillian Jaime Erythrocyte distribution width (RBC) [Ratio] 13.4 % Normal 11.0-15.0 [facility] Comment on above: Performed By: #### C BC ####[facility] L[address] [place], [place] [address]DrAaron Jaime Hematocrit (Bld) [Volume fraction] 43.0 % Normal 36.0-48.0 [facility] Comment on above: Performed By: #### C BC ####[facility] [address] [place], [place] [address]Dr. Jillian Jaime Hemoglobin (Bld) [Mass/Vol] 13.5 g/dL Normal 12.0-16.0 [facility] Comment on above: Performed By: #### C BC ####[facility] [address] [place] [address]Dr. Jillian Jaime IG # 0.05 10e3/ul Critically high 0.00-0.03 [facility] Comment on above: Performed By: #### C BC ####[facility] [address] [place] [address]Dr. Jillian Jaime IG % 0.5 % Normal 0.0-0.5 [facility] Comment on above: Performed By: #### C BC ####[facility] V[address] [place], [place] [address]Dr. Jillian Jaime LYMPH # 1.8 103/ul Normal 1.2-3.8 [facility] Comment on above: Performed By: #### C BC ####[facility] [address] [place], [place] [address]Dr. Jillian Jaime Lymphocytes/100 WBC (Bld) 18.3 % Critically low 20.5-60.0 [facility] Comment on above: Performed By: #### C BC ####[facility] [address] [place], [place] [address]Dr. Jillian Jaime MANUAL DIFF REQ NO Normal [facility] Comment on above: Performed By: #### C BC ####[facility] C[address] [place], [place] [address]Dr. Jillian Jaime MCH (RBC) [Entitic mass] 29.0 pg Normal 26.7-34.0 [facility] Comment on above: Performed By: #### C BC ####[facility] I[address] [place], [place] [address]Dr. Jillian Jaime MCHC (RBC) [Mass/Vol] 31.4 g/dL Normal 29.9-35.2 [facility] Comment on above: Performed By: #### C BC ####[facility] [address] [place], [place] [address]Dr. Jillian Jaime MCV (RBC) [Entitic vol] 92.5 fL Normal 81.0-99.0 [facility] Comment on above: Performed By: #### C BC ####[facility] [address] [place] [address]DrAaron Jillian Jaime MONO # 0.5 103/ul Normal 0.3-0.8 [facility] Comment on above: Performed By: #### C BC ####[facility] [address] [place] [address]DrAaron Jillian Jaime Monocytes/100 WBC (Bld) 5.1 % Normal 1.7-12.0 [facility] Comment on above: Performed By: #### C BC ####[facility] [address] [place], [place] [address]Dr. Jillian Jaime NEUT # 7.2 103/ul Critically high 1.4-6.5 [facility] Comment on above: Performed By: #### C BC ####[facility] [address] [place], [place] [address]Dr. Jillian Jaime Neutrophils/100 WBC (Bld) 74.5 % Normal 43.0-75.0 [facility] Comment on above: Performed By: #### C BC ####[facility] [address] [place], [place] [address]DrAaron Jillian Jaime Platelet mean volume (Bld) [Entitic vol] 8.2 fL Critically low 9.5-13.5 [facility] Comment on above: Performed By: #### C BC ####[facility] [address] [place], [place] [address]Dr. Jillian Addison PLT 304 103/ul Normal 150-450 [facility] Comment on above: Performed By: #### C BC ####[facility] [address] [place], [place] [address]Dr. Jillian Jaime RBC 4.65 106/ul Normal 4.20-5.40 [facility] Comment on above: Performed By: #### C BC ####[facility] [address] [place], [place] [address]Dr. Jillian Jaime WBC 9.7 103/ul Normal 4.0-11.0 [facility] Comment on above: Performed By: #### C BC ####[facility] [address] [place] [address]Dr. Jillian Jaime GLYCOHEMOGLOBIN A1Con 2021 ADA RECOMMENDATION SEE BELOW Normal [facility] Comment on above: Result Comment: ADA RECOMMENDED LIMIT 4.0 - 6.0 ADA THERAPEUTIC TARGET < 7.0 ACTION SUGGESTED > 7.0 Performed By: #### A 1C #### [facility] [address] [place] [address] [address] Jillian Jaime Glucose [Mass/Vol] 114 mg/dL Normal [facility] Comment on above: Performed By: #### A 1C #### [facility] [address] [place] [address] [address] Jillian Jaime HbA1c (Bld) [Mass fraction] 5.6 % Normal 4.5-6.2 [facility] Comment on above: Performed By: #### A 1C #### [facility] [address] [place] [address] [address] Jillian Jaime PROF 14(COMP METB)on 022 Albumin [Mass/Vol] 3.3 g/dL Critically low 3.4-5.0 [facility] Comment on above: Performed By: #### C MP ####[facility] [address] [place] [address]DrAaron Jaime Albumin/Globulin [Mass ratio] 0.8 {ratio} Normal [facility] Comment on above: Performed By: #### C MP ####[facility] [address] [place] [address]DrAaron Jaime ALP [Catalytic activity/Vol] 155 U/L Critically high 46-116 [facility] Comment on above: Performed By: #### C MP ####[facility] [address] [place] [address]DrAaron Jaime ALT [Catalytic activity/Vol] 27 U/L Normal 14-59 [facility] Comment on above: Performed By: #### C MP ####[facility] [address] [place] [address]Dr. Jillian Jaime Anion gap [Moles/Vol] 9.5 mmol/L Normal [facility] Comment on above: Performed By: #### C MP ####[facility] [address] [place], [place] [address]Dr. Jillian Jaime AST [Catalytic activity/Vol] 11 U/L Critically low 15-37 [facility] Comment on above: Performed By: #### C MP ####[facility] [address] [place], [place] [address]Dr. Jillian Addison Bilirubin [Mass/Vol] 0.3 mg/dL Normal 0.2-1.0 [facility] Comment on above: Performed By: #### C MP ####[facility] [address] [place], [place] [address]Dr. Jillian Jaime Calcium [Mass/Vol] 9.2 mg/dL Normal 8.5-10.1 [facility] Comment on above: Performed By: #### C MP ####[facility] [address] [place], [place] [address]Dr. Britneyglenroy Jaime Chloride [Moles/Vol] 104 mmol/L Normal 98-107 [facility] Comment on above: Performed By: #### C MP ####[facility] [address] [place], [place] [address]Dr. Jillian Jaime CO2 [Moles/Vol] 30.4 mmol/L Normal 21.0-32.0 [facility] Comment on above: Performed By: #### C MP ####[facility] [address] [place], [place] [address]Dr. Jillian Jaime Creatinine [Mass/Vol] 1.11 mg/dL Critically high 0.55-1.02 [facility] Comment on above: Performed By: #### C MP ####[facility] [address] [place], [place] [address]Dr. Jillian Jaime EGFR-AF ISRAELI >60 Normal >=60 [facility] Comment on above: Performed By: #### C MP ####[facility] [address] [place], [place] [address]Dr. Jillian Jaime EGFR-NON AF ISRAELI 52 mL/min/1.73m2 Critically low >=60 [facility] Comment on above: Performed By: #### C MP ####[facility] [address] [place] [address]Dr. Britneyglenroy Addison Globulin (S) [Mass/Vol] 4.1 g/dL Normal [facility] Comment on above: Performed By: #### C MP ####[facility] [address] [place] [address]Dr. Jillian Jaime Glucose [Mass/Vol] 152 mg/dL Critically high 74-106 [facility] Comment on above: Performed By: #### C MP ####[facility] [address] [place], [place] [address]Dr. Jillian Jaime Potassium [Moles/Vol] 3.9 mmol/L Normal 3.5-5.1 [facility] Comment on above: Performed By: #### C MP ####[facility] [address] [place], [place] [address]Dr. Jillian Jaime Protein [Mass/Vol] 7.4 g/dL Normal 6.4-8.2 [facility] Comment on above: Performed By: #### C MP ####[facility] [address] [place], [place] [address]Dr. Jillian Jaime Sodium [Moles/Vol] 140 mmol/L Normal 136-145 [facility] Comment on above: Performed By: #### C MP ####[facility] [address] [place], [place] [address]Dr. Jillian Jaime Urea nitrogen [Mass/Vol] 17.0 mg/dL Normal 7.0-18.0 [facility] Comment on above: Performed By: #### C MP ####[facility] [address] [place], [place] [address]Dr. Jillian Jaime Urea nitrogen/Creatinine [Mass ratio] 15.3 mg/mg Normal [facility] Comment on above: Performed By: #### C MP ####[facility] [address] [place], [place] [address]Dr. Jillian Jaime PROTIMEon 04-28-2022 INR Coag (PPP) [Relative time] 1.01 {INR} Normal [facility] Comment on above: Performed By: #### P TT, PT #### [facility] [address] [place] [address] Dr. Jillian Jaime INR GUIDELINES SEE BELOW Normal [facility] Comment on above: Result Comment: ARIANNA RED INR: 2.0 - 3.0 CONDITIONS NOT LISTED BELOW 2.5 - 3.5 FOR PROSTHETIC HEART VALVE REPLACEMENT 2.5 - 3.5 RECURRENT THROMBOSIS Performed By: #### P TT, PT #### [facility] [id number] Jillian Jaime PT Coag (PPP) [Time] 10.9 s Normal 9.0-11.6 [facility] Comment on above: Performed By: #### P TT, PT #### [facility] [address] [place] [address] Dr. Jillian Jaime PTTon 04-28-2022 aPTT Coag (Bld) [Time] 26.2 s Normal 22.3-36.2 [facility] Comment on above: Performed By: #### P TT, PT #### [facility] [address] [place], [place] [id number] Dr. Jillian Jaime Cytologyon 12-25-2021 Cytology (NOTE) INTERPRETATION Cervical material, (ThinPrep vial, Imaging-assisted review): Specimen Adequacy: Satisfactory for evaluation. -Endocervical/transform ation zone component is absent. Descriptive Diagnosis: Negative for intraepithelial lesion or malignancy. Shredder Operator: SILVIA VERDUGO(ASCP) Electronically Signed Out ey/12/31/2021 Source: A: Cervical material, (ThinPrep vial, Imaging-assisted review) Clinical History Z01.419 Routine pugger helper exam without abnormal findings High risk HPV DNA testing is requested if the diagnosis is abnormal GYNECOLOGIC CYTOLOGY REPORT Patient Name: FRED QURESHI [facility] Rec: [id number] Path Number: [id number] [facility] [employer] CONSULTING PATHOLOGISTS [facility] ANATOMIC PATHOLOGY [address] [place] [address]. [place], [place] [address] Normal [facility] Comment on above: Performed By: #### P PPVP #### [id number] [place] [address] Communications Editor: Griffin Bonilla MD Covid-19 PCR ([facility])on 11-16 SARS-CoV-2 (COVID-19) RNA FLORENCIA+probe Ql (Unsp spec) Not detected Normal NOT DETECTED [facility] Comment on above: Result Comment: This test is not yet approved or cleared by the [place] FDA. When there are no FDA-approved or cleared tests available, and other criteria are met, FDA can make tests available under an emergency access mechanism called an Emergency Use Authorization (EUA). The EUA for this test is supported by the [place] of Health and Human Service's (HHS's) declaration that circumstances exist to justify the emergency use of in vitro diagnostics for the detection and/or diagnosis of the virus that causes COVID-19. This EUA will remain in effect (meaning this test can be used) for the duration of the COVID-19 declaration justifying emergency of IVDs, unless it is terminated or revoked by FDA (after which the test may no longer be used). When diagnostic testing is negative, the possibility of a false negative should be considered in the context of a patient's recent exposures and the presence of clinical signs and symptoms consistent with SARS-CoV-2. Performed By: #### C VDTB #### [facility] [address] [place] [address] [address] Jillian Jaime SYMPTOMATIC COVID-19 ANTIGEN on 12-04-2021 EUA Statement SEE BELOW Normal [facility] [place] [facility] Comment on above: Result Comment: This test has not been FDA cleared or approved, but has been authorized by the FDA under an Emergency Use Authorization (EUA) for use by authorized laboratories certified under CLIA that meet the requirements to perform moderate or high complexity testing. This test has been authorized only for the detection of proteins from SARS-CoV-2, not for any other viruses or pathogens. The emergency use of this test is authorized for the duration of the declaration that circumstances exist justifying the authorization of emergency use of in vitro diagnostic tests for detection and/or diagnosis of Covid-19 under section 564(b)(1) of the Act, 21 U.S.C. 360bbb-3(b)(1), unless the declaration is terminated or authorization is revoked sooner. Performed By: #### C VDAGS ####[facility] [address] [place], [place] [address]Bu. Jillian Jaime SARS-CoV-2 (COVID-19) RNA FLORENCIA+probe Ql (Unsp spec) Negative Normal NEGATIVE [facility] Comment on above: Performed By: #### C VDAGS ####[facility] [address] [place], [place] [address]Mw. Jillian Jaime Vital Signs Date Time Vital Sign Value Performing Clinician Facility 04-13-2023 13:25-0400 Body height Matilde Vallejomond Other Turn Other 04-13-2023 13:25-0400 Body mass index (BMI) [Ratio] 57.79 kg/m2 Matilde Lorena Other Turn Other 04-13-2023 13:25-0400 Body temperature 97.5 [degF] Matilde Lorena Other Turn Other 04-13-2023 13:25-0400 Body weight 143.34 kg Matilde Lorena Other Turn Other 04-13-2023 13:25-0400 Diastolic blood pressure 96 mm[Hg] Matilde Lorena Other Turn Other 04-13-2023 13:25-0400 Respiratory rate 18 /min Matilde Lorena Other Turn Other 04-13-2023 13:25-0400 SaO2% (BldA) [Mass fraction] 96 % Matilde Carrillo Other Turn Other 04-13-2023 13:25-0400 Systolic blood pressure 164 mm[Hg] Matilde Carrillo Other Turn Other 01-11-2023 14:12-0400 Blood Pressure Location Niall NILL [facility] 01-11-2023 14:12-0400 Diastolic blood pressure 84 mm[Hg] [facility] N[facility] 01-11-2023 14:12-0400 Heart rate 76 /min Niall NILL [facility] 01-11-2023 14:12-0400 Respiratory rate 16 /min Niall NILL [facility] 01-11-2023 14:12-0400 Systolic blood pressure 124 mm[Hg] Niall NILL [facility] Encounters Encounter Date Encounter Type Care Provider Facility Start: 04-13-2023 End: 04-13-2023 ambulatory Matilde Carrillo Facility:[facility] Start: 04-13-2023 End: 04-13-2023 Patient encounter procedure HOT MILL SUPERVISOR-C Matilde Carrillo Work Phone: [facility] Work Phone: Start: 04-13-2023 End: 04-13-2023 ambulatory HOT MILL SUPERVISOR-C Matilde Carrillo Work Phone: [facility] Work Phone: Start: 04-13-2023 Office outpatient ne w 20 minutes Matilde Carrillo [facility] Start: 02-08-2023 [facility]ulatory [facility] Start: 02-01-2023 End: 02-02-2023 ambulatory Niall R NILL Facility: [facility] Start: 01-11-2023 End: 01-12-2023 ambulatory Niall R NILL Facility:[facility] Start: 01-11-2023 End: 01-11-2023 Patient encounter procedure Niall Caitlin RUSSELL [facility] Start: 11-01-2022 End: 11-02-[address] PAULETTE SANTANA . Facility:[facility] Start: 10-05-2022 End: 10-06-[address] PAULETTE SANTANA . Facility:[facility] Start: 09-21-2022 End: 09-22-[address] PAULETTE SANTANA . Facility:[facility] Start: 09-15-2022 End: 09-15-[address] PAULETTE SANTANA . Facility:[facility] Start: 2022 End: 08-17-[address] PAULETTE SANTANA . Facility:[facility] Start: 07-15-2022 End: 07-16-[address] PAULETTE SANTANA . Facility:[facility] Start: 07-02-2022 End: 07-02-[address] ASHOK GRIER Facility:[facility] Start: 04-28-2022 End: 04-29-[address] PAULETTE SANTANA . Facility:[facility] Start: 02-23-2022 End: 02-24-[address] ADELAIDA LAO Facility:[facility] Start: 12-25-2021 End: 12-26-2021 ambulatory JUAN BATISTA [facility] Start: 12-25-2021 End: 12-25-2021 Patient encounter status Paulette Santana MD Work Phone: [facility] Start: 12-25-2021 End: 12-25-2021 Subsequent hospital visit by physician Paulette Santana MD Work Phone: [facility] Comment on above: Encounter for gyneco logical examination Start: 12-04-2021 End: 12-04-[address] PAULETTE SANTANA . Facility: Procedures Date Procedure Procedure Detail Performing Clinician Start: 04-13-2023 X-ray of right knee HOT MILL SUPERVISOR- C Matilde Carrillo Work Phone: Benign neoplasm of f sheldon (disorder) Niall RUSSELL Excision of ganglion of wrist, recurrent Niall RUSSELL Ligation of fallopian tube Jose hinkle SAIMA Reduction mammoplasty Shine doan SAIMA Plan of Treatment Date Care Activity Detail Author Start: 03-18-2022 Influenza vaccination Flu vacc ine (Season Ended) [facility] [employer] [facility] Start: 2019 Screening for malign ant neoplasm of breast Breast cancer screen [facility] [employer] [facility] Start: 2014 Screening for malign ant neoplasm of colon [facility] [employer] [facility] Start: 2009 Lipid panel Lipids [facility] Start: 1999 Screening for malign ant neoplasm of cervix [facility] [employer] [facility] Start: 1990 Screening for malign ant neoplasm of cervix Pap smear [facility] Start: 1988 DTaP/Tdap/Td vaccine (1 - Tdap) DTaP/Tdap/Td vaccine ( - Tdap) [facility] Start: 1987 Hepatitis C screening Hepatitis C sc reen [facility] Start: 1984 HIV screening HIV screen [facility] Start: 1981 Depression Screen Depression Screen [facility] Start: 1974 COVID-19 Vaccine (1) COVID-19 Vaccin e (1) [facility] End: 12-25-2021 Cytopathology procedure, preparation of smear, genital source [facility] Routine Encounter for gynecological examination 1 Occurrences starting 12/25/2021 until 12/25/2021 [facility] Work Phone: Comment on above: 1 Occurrences starti ng 12/25/2021 until 12/25/2021 Immunizations Immunization Date Immunization Notes Care Provider Fa [facility] 05-10-2022 influenza virus vaccine, unspecified formulation Niall RUSSELL [facility] 12-17-2021 SARS-CoV-2 (COVID-19 ) mRNA-1273 vaccine Niall RUSSELL [facility] [place] 08-14-2021 SARS-CoV-2 (COVID-19 ) mRNA-1273 vaccine Niall GOMEZL [facility] [place] 01-04-2021 SARS-CoV-2 (COVID-19 ) mRNA-1273 vaccine Niall NILL [facility] [place] 12-07-2020 SARS-CoV-2 (COVID-19 ) mRNA-1273 vaccine Niall NILL [facility] [place] 04-17-2020 influenza virus vaccine, unspecified formulation Niall NILL [facility] [place] Payers Date Payer Category Payer Self-pay 1970 Unknown [id number] 2.16.8 [id number] 1970 Unknown [id number] 2.16.84 [id number] 1969 Unknown [id number] 2.16.84 0.1.050985.3.579.2.593 1969 Unknown [id number] 2.16.84 0.1.717587.3.579.2.593 1969 Unknown [id number] 2.16.84 0.1.925447.3.579.2.593 1969 Unknown [id number] 2.16.84 0.1.558787.3.579.2.593 1969 Unknown [id number] 2.16.84 0.1.282469.3.579.2.593 1969 Unknown [id number] 2.16.84 0.1.586675.3.579.2.593 1969 Unknown [id number] 2.16.84 0.1.031350.3.579.2.593 1969 Unknown [id number] 2.16.84 0.1.587837.3.579.2.593 1969 Unknown [id number] 2.16.84 0.1.358003.3.579.2.593 1969 Unknown [id number] 2.16.8 40.1.820813.3.579.2.727 1969 Unknown [id number] 2.16.8 40.1.992652.3.579.2.727 1969 Unknown [id number] 2.16.8 40.1.110005.3.579.2.727 1959 Unknown [id number] 1. [id number] Unknown [id number] 2.16.8 40.1.246404.3.579.2.531 Social History Date Type Detail Facility Start: 12-25-2021 End: 01-11-2023 Tobacco smoking status [facility] Ex-smoker [employer] Start: 12-25-2021 Cigarettes smoked current (pack per day) - Reported 1 [employer] Phone: Start: 12-25-2021 Tobacco use and exposure Smokeless tobacco non-user [employer] Phone: Start: 12-25-2021 Alcohol intake Ex-drinker (finding) [employer] [employer] Phone: Start: 1970 Sex Assigned At Not on file B ON [employer] Phone: Tobacco smoking status Never [facility] Sex Assigned At Female [facility] Start: 1970 Sex Assigned At Female [facility] Functional Status Date Assessment Result Facility 01-11-2023 Functional Status N/A [facility] Clinical Notes 02-23-2022 to 04-13-2023 Note Date & Type Note Facility 04-13-2023 Evaluation note Encounter Date Diagnosis Assessment Notes Mar, Acute pain of right knee (ICD-10 - M25.561) Mar, Arthritis of knee, right (ICD-10 - M17.11) Osteoarthritis home care material was printed Continue home medications as prescribed. Ice and elevate your knee 2-3 times a day. Use your cane for stability. Follow-up with your doctor next week as scheduled. Go to the ER for worsening symptoms or concerns Turn Other 06-27-2023 NoteChief Complaint consultation for nevus HPI Staff 52 year old female presents on consultation from Dr. Santana for left upper arm nevus. Reports lesion has been present for many years. Denies changes since first noted. This this being painful or tender.Denies bleeding. History of Present Illness 52 yo female with several year h/o left forearm pigmented lesion, gets irritated at times, no bleeding, slight increase in size; no h/o skin cancer; no asa or NSAID use. Review of Systems PHQ Score Initial Depression Screen Score: 0 ROS - Provider Constitutional: no fever, no sweats, no weight loss. Eyes: no glasses, no blurred vision, no visual loss. ENMT: no dentures, no hoarseness, no swallowing difficulties, no hearing loss, no ear infection(s),no nose bleeds. Cardiovascular: normal blood pressure, no chest pain, regular heartbeat, no heart murmur. Respiratory: no shortness of breath, no cough, no asthma, no wheezing. Gastrointestinal: no nausea, no vomiting, no diarrhea, no constipation, no blood in stool, no change in bowel habits, no abdominal pain, no hepatitis. Genitourinary: no kidney stones, no urine infection, no dysuria. Musculoskeletal: no pain, no weakness. Skin: no changing moles, no rash, no skin lumps. Neurologic: no seizures, no epilepsy, no headache. Psychiatric: no emotional or psychiatric problem. Heme/Lymph: no bleeding problems, no anemia, no blood clots, no transfusions. Allergy/Immunologic: no swollen lymph nodes/glands, no IV drug abuse. Other: Additional ROS info: Except as noted in the above Review of Systems and in the History of Present Illness, all other systems have been reviewed and are negative or noncontributory. Physical Exam Vitals & Measurements HR: 76(Peripheral) RR: 16 BP: 124/84 HT: 62 in HT: 157.48 cm WT: 145 kg WT: 319 lb BMI: 58.47 HEENT: normal conjunctiva, sclera clear, no scleral icterus, EOM intact, PERRLA, oral mucosa moist without lesions. Musculoskeletal: normal gait, digits and nails without infection, nodes, cyanosis, clubbing. Skin: no rashes, 4 mm raised left forearm lesion, pigmented, no ulceration or scab, no ulcers, no subcutaneous nodules, induration. Psychiatric/Neuro: oriented to time, place, person, judgement normal, affect appropriate for age, insight intact, no focal deficits. Tests: review of old records completed, Discussed surgical options, risks, and possible complications with patient. Assessment/Plan 1. Neoplasm of uncertain behavior of skin of forearm (D48.5: Neoplasm of uncertain behavior of skin) plan excisional biopsy under local anesthesia for definitive diagnosis and treatment. 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 Medications amitriptyline 100 mg oral tablet, 100 mg= 1 tab(s), Oral, Once a day (at bedtime) baclofen 20 mg Tab, Oral, Bedtime diclofenac sodium 75 mg Oral EC Tab, 75 mg= 1 tab(s), Oral, BID levothyroxine 50 mcg (0.05 mg) Tab, 50 mcg= 1 tab(s), Oral, Daily liothyronine 5 mcg Tab, 20 mcg= 4 tab(s), Oral, Daily lisinopril 40 mg Tab, 20 mg= 0.5 tab(s), Oral, Daily mirtazapine 30 mg Tab, 60 mg= 2 tab(s), Oral, Once a day (at bedtime) Risperdal 2 mg Tab, 2 mg= 1 tab(s), Oral, Bedtime Allergies No Known Allergies Social History Alcohol - Denies Alcohol Use, 10/10/2020 Substance Abuse - Denies Substance Abuse, 10/10/2020 Tobacco Former smoker, quit more than 30 days ago Tobacco Use:. Never Smokeless Tobacco Use:. Cigarettes, Stopped age 24 Years., 01/11/2023 Family History Acute myocardial infarction: Father. Diabetes mellitus type 2: Mother.Negative: Father. Heart disease: Mother and Father. Hypertension: Mother and Father. Hypothyroidism: Sister. Immunizations Vaccine Date Status influenza virus vaccine, inactivated 05/10/2022 Recorded SARS-CoV-2 (COVID-19) mRNA-1273 vaccine 12/17/2021 Recorded SARS-CoV-2 (COVID-19) mRNA-1273 vaccine 08/14/2021 Recorded SARS-CoV-2 (COVID-19) mRNA-1273 vaccine 01/04/2021 Recorded SARS-CoV-2 (COVID-19) mRNA-1273 vaccine 12/07/2020 Recorded influenza virus vaccine, inactivated 04/17/2020 [facility]Comment on above:Result Comment: Electronically Signed By: SAIMA MCQUEEN, Niall Collier\Date and Time Signed: 01/11/23 14:31 [id number] NotePROCEDURE: XR KNEE RT 3V DATE: 11/01/2022 10:53 AM CDT COMPARISONS: None CLINICAL INDICATION: Pain of right knee joint FINDINGS: There is no evidence of fractures or other acute osseous abnormalities. There is mild to moderate patellofemoral degenerative change. There is moderate medial compartment degenerative change and mild lateral compartment degenerative change. There is significant tricompartmental spurring. Lateral view shows some superior posterior spurring of the proximal tibia extending toward the femoral tibial joint space. Corticated ossific densities overlie the posterior aspect of the joint space and lateral view. There is no evidence of right knee joint effusion. IMPRESSION: 1. No fractures or other acute osseous abnormalities 2. Moderate tricompartmental knee degenerative changes including extensive spurring and scattered posterior corticated ossific densities. A free body in the joint space is not excluded based on these images.. Electronically authenticated by: JODI WEBER Date: 2022-11-01 12:17[facility]12-30-2022 NotePROCEDURE: XR HAND LT MIN 3V COMPARISON: 07/02/2022 HISTORY: Pain of left hand FINDINGS: BONES:No acute fracture or dislocation. Mild to moderate degenerative changes most significant along the distal interphalangeal joints where there is joint space narrowing and marginal osteophyte formation. SOFT TISSUES:Negative. No visible soft tissue swelling. EFFUSION:None visible. OTHER: Negative. IMPRESSION: Degenerative changes with no acute fracture Electronically authenticated by: ADELAIDA LAO Date: 2022-07-16 07:43[facility]12-16-2022 NotePROCEDURE: XR FINGER MIN 2 VIEWS HISTORY: Reduction deformity of upper limb COMPARISON: XR hand left 07/02/2022 FINDINGS: BONES:Successful reduction of the first metacarpophalangeal joint dislocation; no visible fracture at this level. Suspect remote, nondisplaced fracture involving a dorsal degenerative osteophyte at the first interphalangeal joint. SOFT TISSUES:Soft tissue swelling surrounding the base of thumb. EFFUSION:None visible. OTHER: Negative. IMPRESSION: 1. Successful reduction of the first metacarpophalangeal joint dislocation. No appreciable acute fracture. Electronically authenticated by: ASHOK GRIER Date: 2022-07-02 17:45[facility]12-16-2022 NotePROCEDURE: XR HAND LT MIN 3V HISTORY: Unspecified fall ; thumb pain COMPARISON: None. FINDINGS: BONES:Complete, lateral dislocation of the first proximal phalanx in relation to the first metacarpal. No visible fracture or articular surface irregularity. SOFT TISSUES:No visible soft tissue swelling. EFFUSION:None visible. OTHER: Negative. IMPRESSION: 1. Complete dislocation at the first metacarpophalangeal joint. No visible fracture. Electronically authenticated by: ASHOK GRIER Date: 2022-07-02 17:43[facility]08-09-2022 NotePROCEDURE: XR KNEE RT 4V or > COMPARISON: None. HISTORY: Pain of right knee joint FINDINGS: BONES:No acute fracture or dislocation. Moderate osteoarthropathy and marginal osteophyte formation. SOFT TISSUES:Negative. No visible soft tissue swelling. EFFUSION:None visible. OTHER: Negative. IMPRESSION: Moderate tricompartmental osteoarthritis Electronically authenticated by: ADELAIDA LAO Date: 2022-02-23 19:01[facility] Future Appointments Appointment Date:02/01/2023 02:00:00 PM Scheduled Provider:Niall RUSSELL MD Location:[facility] Appointment Type: Procedure 30 General [facility] Evaluation note* Diagnosis Encounter for gynecological examination documented in this encounter [facility] Work Phone: evaluation noteNo assessment information available [facility] Work Phone: History general Narrative - Reported* Type Description Date Medical History hypertension Medical History depression Medical History Hypothyroid Surgical History breast reduction Surgical History cyst removal, wrist Surgical History tubal ligation Hospitalization History see above Turn Other Hospital course Narrative No data available for this section [facility] Discharge instructions No data available for this section [facility] Progress note No data available for this section [facility] Summary Purpose Family History No Family History Records FoundNo Family History Records FoundNo Family History Records FoundNo Family History Records Found Advance Directives No Advanced Directives Records FoundNo Advanced Directives Records FoundNo Advanced Directives Records FoundNo Advanced Directives Records Found Additional Source Comments Care Teams (unrecognized sec tion and content) Skeiner Relationship Specialty Start Date End Date Paulette Santana MD [address] [place] [address] PCP - General Family Medicine 12/25/21 Team Status: Inactive Member Role Status Dates DERREK Sanchez Attending Provider Active INFORMATION SOURCE (unrecogn ized section and content) DATE CREATED AUTHOR [facility] DATE CREATED AUTHOR AUTHOR'S ORGANIZ ATION 11/07/2022 [facility] DATE CREATED AUTHOR AUTHOR'S ORGANIZ ATION 02/02/2023 [facility] DATE CREATED AUTHOR AUTHOR'S ORGANIZ ATION 04/21/2023 [facility] Goals (unrecognized section and content) Goals may be documented in a n alternate section REASON FOR VISIT (unrecogniz ed section and content) FELL DOWN STEPS YESTERDAY. R IGHT KNEE INJURY FOR RECORDS PERTAINING TO PATIENTS WHO ARE OR HAVE BEEN ENROLLED IN A CHEMICAL DEPENDENCY/SUBSTANCEABUSE PROGRAM, SOME INFORMATION MAY BE OMITTED. This clinical summary was aggregated from multiple sources. Caution should be exercised in using it in the provision of clinical care. This summary normalizes information from multiple sources, and as a consequence, information in this document may materially change the coding, format and clinical context of patient data. In addition, data may be omitted in some cases. CLINICAL DECISIONS SHOULD BE BASED ON THE PRIMARY CLINICAL RECORDS. [facility]. provides no warranty or guarantee of the accuracy or completeness of information in this document.
--- NOTE | 2024-04-16 12:38 | P.CN_ITS ---
Consult Note: HPI Data of Consult Patient: new to practice Consult date: 04/16/24 Requesting Physician: Deanna Godfrey MD Primary Care Provider: Khris Santana MD Consult Narrative Reason for consult: bilateral knee pain Narrative: 53yof who presents for evaluation. longstanding bilateral knee pain. has had steroid and gel injections in the past, which initially helped, but now relief is very transient and limited. was recommended to have bilateral genicular blocks. continues in a series of provider directed home exercises >6 weeks, with limited benefit. uses otc pain meds as needed. denies adverse med side effects. cc:: CC: Deanna Godfrey MD Review of Systems ROS Status of ROS 10 or more systems reviewed and unremark able except as noted in history and below Exam Narrative Exam Narrative: Psych-alert and oriented x 3.? Attentive and appropriate, constitutionally normal, displays normal mood and affect per situation.? There are no obvious deficits in memory, reasoning, or intellect. Extremities-lower extremities are warm with minimal edema and palpable pulses. Knee-examination of the bilateral knee reveals tenderness to palpation over the superior, inferior, lateral, and medial aspect of the knee.? Some swelling is noted without erythema. Pain is elicited with flexion and extension of the knee both actively and passively.? Some grinding is noted with these motions.? There is no notable ligamental laxity or instability.? Coordination remains intact.? Gait remains antalgic. Assessment and Plan Assessment and Plan (1) Bilateral knee pain: Qualifiers: Chronicity: chronic Qualified Code(s): M25.561 - Pain in right knee; M25.562 - Pain in left knee; G89.29 - Other chronic pain Plan 53yof who presents for evaluation. failed conservative measures, as noted. given failure to abreu benefit anymore from knee injections, prudent to proceed with bilateral genicular nerve blocks under fluoroscopic guidance for diagnostic and potentially therapeutic purposes. she is in agreement. meds reviewed, no changes. follow up after procedure.
== END 2024-04-16 11:10 | disposition home or self-care (01) ==
LOC: PM 11:09
PROVIDERS: PCP Family Medicine; Visit Provider Anesthesiology
DX: M25.561 Pain in right knee (principal); M25.562 Pain in left knee; G89.29 Other chronic pain
CPT/HCPCS: G0463

== ENCOUNTER 2024-07-30 16:43 | Outpatient (OUT) | payer BC, SELFPAY ==
--- OUTSIDE RECORDS SUMMARY | 2024-07-30 16:49 | XMS_ITS | CCD ---
Author Organization 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 Name Role Phone Paulette Santana MD Primary Care Provider [phone] JUAN BATISTA Referring Unavailable PAULETTE SANTANA Primary Care Unavailable SIGRIDY ., DR CALDWELL Consulting Unavailable HOY ., DR CALDWELL Primary Care Unavailable HOY ., DR CALDWELL Attending Unavailable HOY ., DR CALDWELL Admitting Unavailable ZIEBER, DR ASHOK Tucker Consulting Unavailable TERRENCE ., KESHIA Attending Unavailable TERRENCE ., KESHIA Admitting Unavailable HOY ., DR CALDWELL Primary Care Unavailable DOROTEO .JOAN Consulting UnavailESSENCE Pemberton Consulting Unavailable HOY ., DR CALDWELL Primary Care Unavailable HOY ., DR CALDWELL Attending Unavailable HOY ., DR CALDWELL Admitting Unavailable SHILO, DR ADELAIDA Bingham Consulting Unavailable [...] Unavailable HOY ., DR CALDWELL Admitting Unavailable SHILO, DR ADELAIDA Bingham Consulting Unavailable [...] Unavailable HOY ., DR CALDWELL Admitting Unavailable ANOOP, DR ASHOK Tucker Consulting Unavailable ALANNAH ., DR CALDWELL Consulting Unavailable ALANNAH Walker, DR CALDWELL Primary Care Unavailable ALANNAH Walker, DR CALDWELL Attending Unavailable ALANNAH ., DR CALDWELL Admitting Unavailable JODI WEBER Consulting Unavailable Paulette Santana Primary Care Physician Niall RUSSELL Attending Unavailable Niall RUSSELL Attending Unavailable Niall RUSSELL Attending Unavailable DERREK Carrillo Attending Provider [phone] Matilde Carrillo Unavailable Matilde Carrillo Attending Unavailable Matilde Carrillo Admitting Unavailable Epifanio MCQUEEN, Deanna Chase Attending Unavailable Medications Current Medications Medication Drug Class(es) [...] 10/06/20 Status: Ordered take 1 capsule by [facility] every eight hours Diclofenac 35 MG 1 capsule as needed Ora lly Three times a day Active levothyroxine sodium 0.05 mg oral tablet (2 sources) l-Thyroxine Start: 12-29-2022 take 1 tablet by mouth once daily levothyroxine 50 mcg (0.05 mg) Tab 50 mcg = 1 tab(s), Oral, Daily, Refills(s) 0 Start Date: 12/29/22 Status: Ordered take 1 tablet by [facility] once daily in the morning Levothyroxine [...] Start: 10-06-2020 take 2 tablets by mo [facility] once daily at bedtime mirtazapine 30 mg [...] 2 Episodic Other aftercare (1 source) Other hoister (current) drug therapy; Translations: [OTH SHELTER CURRENT DRUG THERAPY] Onset: 2 Episodic Other [...] RT 4V*on 04-13-2023 XR knee RT 4V* [place] [address] XRay Report Signed Patient: Fred Qureshi MR#: [id number] : 1970 Acct:[id number] Age/Sex: 52 / F ADM Date: 04/13/23 Loc: XDUC Room: Type: [facility] Attending Dr: Matilde ANGLIN Copies to: DERREK [...] Jose Moran M.D.04/13/2023 2:33 PM Dictation Location: [place] [address] Transcribed By: [facility] 04/13/23 143 Dictated By: Jose Moran DO 04/13/23 1432 Signed By: 04/13/23 143 [facility] XR knee RT 4V* [facility] [employer] Other XR knee RT 4V* [facility] Main [facility] [employer] Other XR knee RT 4V* [address] [facility] [employer] Other XR knee RT 4V* [place] [address] No rt [employer] Other XR knee RT 4V* XRay Report [employer] Other XR knee RT 4V* Signed [employer] Other XR knee RT 4V* Patient: Sampson Qureshi MR#: [id number] [place] [employer] Other XR knee RT 4V* 5905 [employer] Other XR knee RT 4V* : 1970 Acct:[id number] [employer] Other XR knee RT 4V* Age/Sex: 52 / F ADM Date: 04/13/23 [employer] Other XR knee RT 4V* Loc: XDUCLY [facility]: [facility] [employer] Other XR knee RT 4V* Attending Dr: Matilde ANGLIN [employer] Other XR knee RT 4V* Copies to: DERREK Head [employer] Other XR knee RT 4V* Ordering Provider: DERREK Head [employer] Other XR knee RT 4V* Date of Service: 04/13/23 [employer] Other XR knee RT 4V* XR/XR knee RT 4V*: Acute pain of right knee [employer] Other XR knee RT 4V* 4 views right knee plain film [employer] Other XR knee RT 4V* COMPARISON: None Nort [employer] Other XR knee RT 4V* HISTORY: Right knee injury. Superior patellar pain. [employer] Other XR knee RT 4V* ACUTE FINDINGS: None [employer] Other XR knee RT 4V* DEGENERATIVE CHANGE: Moderate degeneration. [employer] Other XR knee RT 4V* SOFT TISSUE FINDINGS : Unremarkable [employer] Other XR knee RT 4V* JOINT EFFUSION: None [employer] Other XR knee RT 4V* POSTOP CHANGES: None [employer] Other XR knee RT 4V* BONE MINERALIZATION: Adequate [employer] Other XR knee RT 4V* XR/XR knee RT 4V* [employer] Other XR knee RT 4V* IMPRESSION: No acute findings [employer] Other XR knee RT 4V* Impression dictated by: Jose Moran M.D.04/13/2023 2:33 PM [employer] Other XR knee RT 4V* Dictation Location: [place] [address] [employer] Other XR knee RT 4V* Transcribed By: [facility] 04/13/23 [facility] [employer] Other XR knee RT 4V* Dictated By: Jose Moran DO 04/13/23 [facility] [employer] Other XR knee RT 4V* Signed By: [employer] Other XR knee RT 4V* 04/13/23 [facility]3 [employer] Other Ambulatory Visit Summaryon 0 02-01-2023 Ambulatory Visit Summary FRED QURESHI DOB:1970 Visit Date:02/01/2023 Ambulatory Visit Instructions Your Diagnosis [...] RUSSELL MD Where: General Surgery Saima/Roberta Martinez [facility] General Surgery Office/Clini c Noteon 02-01-2023 General [...] Recorded influenza virus vaccine, inactivated 04/17/2020 Recorded [facility] Comment on above: Result Comment: Elec tronically Signed By: SAIMA MCQUEEN, Niall Tucker\.br\Date and Time Signed: 02/01/23 14:23 EDT Pre-Certification Formon Pre-Certification Form [id number] CD:127 [facility] Facesheeton 01-12-2023 Facesheet [id number] D:127 [facility] Ambulatory Visit Summaryon 0 01-11-2023 Ambulatory Visit Summary FRED QURESHI :1970 Visit Date:01/11/2023 Ambulatory Visit Instructions Your [...] Migraine Morbid obesity Nevus Pituitary adenoma Normal [facility] Physician Referralon 023 Physician Referral [id number] D:[address] [facility] MG MAMM SCREEN 3D HAYDEE CADon 03-21-2023 MG MAMM SCREEN 3D HAYDEE CAD Patient: FRED QURESHI Exam Date: 10/05/2022 : 1970 Gender:F Ordering : DR PAULETTE SANTANA . Admission #: [id number] Family : Order #: [id number] CLICK HERE TO VIEW EXAM RADIOLOGY REPORT [...] Treatments None Family Cancers None LOCATION: [facility] BREAST COMPOSITION: Scattered areas fibroglandular [...] M.D. on 10/05/2022 at 16:12 Normal [facility] FREE T3on 09-21-2022 FREE T3 2.22 pg/mlL Normal 2.18-3.98 [facility] Comment on above: Performed By: #### F T3, T4, TSH ####[facility] [address] [place], [place] [address]Kc. Jillian Jaime T4on 09-21-2022 T4 [Mass/Vol] 5.50 ug/dL Normal 4.80-13.90 [facility] Comment on above: Performed By: #### F T3, T4, TSH ####[facility] [address] [place], [place] [address]Wp. Jillian Jaime TSHon 09-21-2022 TSH 0.782 uIU/mL Normal 0.358-3.740 [facility] Comment on above: Performed By: #### F T3, T4, TSH ####[facility] [address] [place], [place] [address]Da. Jillian Jaime Covid-19 PCR ([facility]on SARS-CoV-2 (COVID-19) RNA FLORENCIA+probe Ql (Unsp spec) Not detected Normal NOT DETECTED [facility] Comment on above: Result [...] for this test is supported by the [place] of Health and Human Service's declaration that [...] longer be used). Performed By: #### C VDTB ####[facility] [address] [place], [place] [address]Qv. Jillian Jaime XR WRIST LT MIN 3 Von 2021 XR WRIST LT MIN 3 V EXAM: XR WRIST LT NM N 3 V HISTORY: Unspecified fall , [...] ESSENCE MONTEMAYOR Date: 2022-07-02 17:36 Normal [facility] CBC AUTO DIFFon 04-28-2022 BASO # 0.0 103/ul Normal 0.0-0.1 [facility] Comment on above: Performed By: #### C BC ####[facility] [address] [place] [address]Dr. Jillian Jaime Basophils/100 WBC (Bld) 0.3 % Normal 0.2-2.0 [facility] Comment on above: Performed By: #### C BC ####[facility] [address] [place], [place] [address]Dr. Jillian Jaime EO # 0.1 103/ul Normal 0.0-0.7 [facility] Comment on above: Performed By: #### C BC ####[facility] [address] [place], [place] [address]Dr. Jillian Jaime Eosinophils/100 WBC (Bld) 1.3 % Normal 0.9-7.0 [facility] Comment on above: Performed By: #### C BC ####[facility] [address] [place] [address]Dr. Jillian Jaime Erythrocyte distribution width (RBC) [Ratio] 13.4 % Normal 11.0-15.0 [facility] Comment on above: Performed By: #### C BC ####[facility] [address] [place] [address]Dr. Britneyglenroy Jaime Hematocrit (Bld) [Volume fraction] 43.0 % Normal 36.0-48.0 [facility] Comment on above: Performed By: #### C BC ####[facility] [address] [place] [id number]. Jillian Jaime Hemoglobin (Bld) [Mass/Vol] 13.5 g/dL Normal 12.0-16.0 [facility] Comment on above: Performed By: #### C BC ####[facility] [address] [place] [address]Dr. Jillian Jaime IG # 0.05 10e3/ul Critically high 0.00-0.03 [facility] Comment on above: Performed By: #### C BC ####[facility] [address] [place] [address]Dr. Jillian Jaime IG % 0.5 % Normal 0.0-0.5 [facility] Comment on above: Performed By: #### C BC ####[facility] [address] [place] [address]Dr. Jillian Jaime LYMPH # 1.8 103/ul Normal 1.2-3.8 [facility] Comment on above: Performed By: #### C BC ####[facility] [address] [place], [place] [address]Dr. Jillian Jaime Lymphocytes/100 WBC (Bld) 18.3 % Critically low 20.5-60.0 [facility] Comment on above: Performed By: #### C BC ####[facility] [address] [place] [address]Dr. Jillian Jaime MANUAL DIFF REQ NO Normal [facility] Comment on above: Performed By: #### C BC ####[facility] [address] [place], [place] [address]Dr. Jillian Jaime MCH (RBC) [Entitic mass] 29.0 pg Normal 26.7-34.0 [facility] Comment on above: Performed By: #### C BC ####[facility] [address] [place], [place] [address]Dr. Jillian Jaime MCHC (RBC) [Mass/Vol] 31.4 g/dL Normal 29.9-35.2 [facility] Comment on above: Performed By: #### C BC ####[facility] [address] [place] [phone]. Jillian Jaime MCV (RBC) [Entitic vol] 92.5 fL Normal 81.0-99.0 [facility] Comment on above: Performed By: #### C BC ####[facility] [address] [place] [address]Dr. Jillian Jaime MONO # 0.5 103/ul Normal 0.3-0.8 [facility] Comment on above: Performed By: #### C BC ####[facility] [address] [place] [address]Dr. Jillian Jaime Monocytes/100 WBC (Bld) 5.1 % Normal 1.7-12.0 [facility] Comment on above: Performed By: #### C BC ####[facility] [address] [place] [address]Dr. Jillian Jaime NEUT # 7.2 103/ul Critically high 1.4-6.5 [facility] Comment on above: Performed By: #### C BC ####[facility] [address] [place], [place] [address]Dr. Jillian Jaime Neutrophils/100 WBC (Bld) 74.5 % Normal 43.0-75.0 [facility] Comment on above: Performed By: #### C BC ####[facility] [address] [place] [address]Dr. Jillian Jaime Platelet mean volume (Bld) [Entitic vol] 8.2 fL Critically low 9.5-13.5 [facility] Comment on above: Performed By: #### C BC ####[facility] [address] [place] [address]Dr. Jillian Jaime PLT 304 103/ul Normal 150-450 [facility] Comment on above: Performed By: #### C BC ####[facility] [address] [place], [place] [address]Dr. Jillian Addison RBC 4.65 106/ul Normal 4.20-5.40 [facility] Comment on above: Performed By: #### C BC ####[facility] [address] [place] [address]DrAaron Jaime WBC 9.7 103/ul Normal 4.0-11.0 [facility] Comment on above: Performed By: #### C BC ####[facility] [address] [place] [phone]. Jillian Jaime GLYCOHEMOGLOBIN A1Con 2021 ADA RECOMMENDATION SEE BELOW Normal [facility] Comment on above: Result Comment: ADA RECOMMENDED LIMIT 4.0 - 6.0 ADA THERAPEUTIC TARGET < 7.0 ACTION SUGGESTED > 7.0 Performed By: #### A 1C #### [facility] Laboratory [address] [place] [address] [address] Jillian Jaime Glucose [Mass/Vol] 114 mg/dL Normal [facility] Comment on above: Performed By: #### A 1C #### [facility] [address] [place] [address] [address] Jillian Jaime HbA1c (Bld) [Mass fraction] 5.6 % Normal 4.5-6.2 [facility] Comment on above: Performed By: #### A 1C #### [facility] [address] [place] [address] [address] Jillian Jaime PROF 14(COMP METB)on 022 Albumin [Mass/Vol] 3.3 g/dL Critically low 3.4-5.0 [facility] Comment on above: Performed By: #### C MP ####[facility] [address] [place] [address]Dr. Jillian Jaime Albumin/Globulin [Mass ratio] 0.8 {ratio} Normal [facility] Comment on above: Performed By: #### C MP ####[facility] [address] [place] [phone] Jaime ALP [Catalytic activity/Vol] 155 U/L Critically high 46-116 [facility] Comment on above: Performed By: #### C MP ####[facility] [address] [place] [address]DrAaron Jaime ALT [Catalytic activity/Vol] 27 U/L Normal 14-59 [facility] Comment on above: Performed By: #### C MP ####[facility] [address] [place] [address]Dr. Jillian Jaime Anion gap [Moles/Vol] 9.5 mmol/L Normal [facility] Comment on above: Performed By: #### C MP ####[facility] [address] [place] [address]Dr. Jillian Jaime AST [Catalytic activity/Vol] 11 U/L Critically low 15-37 [facility] Comment on above: Performed By: #### C MP ####[facility] [address] [place] [address]Dr. Jillian Jaime Bilirubin [Mass/Vol] 0.3 mg/dL Normal 0.2-1.0 [facility] Comment on above: Performed By: #### C MP ####[facility] [address] [place], [place] [address]Dr. Jillian Jaime Calcium [Mass/Vol] 9.2 mg/dL Normal 8.5-10.1 [facility] Comment on above: Performed By: #### C MP ####[facility] [address] [place], [place] [address]Dr. Jillian Jaime Chloride [Moles/Vol] 104 mmol/L Normal 98-107 [facility] Comment on above: Performed By: #### C MP ####[facility] [address] [place], [place] [address]Dr. Jillian Jaime CO2 [Moles/Vol] 30.4 mmol/L Normal 21.0-32.0 The [facility] Comment on above: Performed By: #### C MP ####[facility] [address] [place], [place] [address]Dr. Jillian Jaime Creatinine [Mass/Vol] 1.11 mg/dL Critically high 0.55-1.02 [facility] Comment on above: Performed By: #### C MP ####[facility] [address] [place], [place] [address]Dr. Jillian Addison EGFR-AF TAJIK >60 Normal >=60 The [facility] Comment on above: Performed By: #### C MP ####[facility] [address] [place] [address]Dr. Jillian Jaime EGFR-NON AF TAJIK 52 mL/min/1.73m2 Critically low >=60 [facility] Comment on above: Performed By: #### C MP ####[facility] [address] [place] [address]Dr. Jillian Jaime Globulin (S) [Mass/Vol] 4.1 g/dL Normal [facility] Comment on above: Performed By: #### C MP ####[facility] [address] [place] [address]Dr. Jillian Jaime Glucose [Mass/Vol] 152 mg/dL Critically high 74-106 [facility] Comment on above: Performed By: #### C MP ####[facility] [address] [place] [address]Dr. Jillian Jaime Potassium [Moles/Vol] 3.9 mmol/L Normal 3.5-5.1 [facility] Comment on above: Performed By: #### C MP ####[facility] [address] [place] [address]Dr. Jillian Jaime Protein [Mass/Vol] 7.4 g/dL Normal 6.4-8.2 [facility] Comment on above: Performed By: #### C MP ####[facility] [address] [place] [address]Dr. Jillian Jaime Sodium [Moles/Vol] 140 mmol/L Normal 136-145 [facility] Comment on above: Performed By: #### C MP ####[facility] [address] [place] [address]Dr. Jillian Jaime Urea nitrogen [Mass/Vol] 17.0 mg/dL Normal 7.0-18.0 [facility] Comment on above: Performed By: #### C MP ####[facility] [address] [place] [address]Dr. Jillian Jaime Urea nitrogen/Creatinine [Mass ratio] 15.3 mg/mg Normal [facility] Comment on above: Performed By: #### C MP ####[facility] [address] [place], [place] [address]EfDr. Jillian Jaime PROTIMEon 04-28-2022 INR Coag (PPP) [Relative time] 1.01 {INR} Normal [facility] Comment on above: Performed By: #### P TT, PT #### [facility] Laboratory [address] [place], [place] [address] Dr. Jillian Jaime INR GUIDELINES SEE BELOW Normal The [facility] Comment on above: Result Comment: ARIANNA RED INR: 2.0 - 3.0 CONDITIONS NOT LISTED BELOW 2.5 - 3.5 FOR PROSTHETIC HEART VALVE REPLACEMENT 2.5 - 3.5 RECURRENT THROMBOSIS Performed By: #### P TT, PT #### [facility] [address] [place] [address] [address] Jillian Jaime PT Coag (PPP) [Time] 10.9 s Normal 9.0-11.6 [facility] Comment on above: Performed By: #### P TT, PT #### [facility] [address] [place] [address] [address] Jillian Jaime PTTon 04-28-2022 aPTT Coag (Bld) [Time] 26.2 s Normal 22.3-36.2 [facility] Comment on above: Performed By: #### P TT, PT #### [facility] [address] [place] [id number] Jillian Jaime Cytologyon 12-25-2021 Cytology (NOTE) INTERPRETATION Cervical material, (ThinPrep vial, Imaging-assisted review): Specimen Adequacy: Satisfactory for evaluation. -Endocervical/transform ation zone component is absent. Descriptive Diagnosis: Negative for intraepithelial lesion or malignancy. 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 [facility] ANATOMIC PATHOLOGY [address] [place] [address]. [place], [place] [address] Normal [facility] Comment on above: Performed By: #### P PPVP #### [facility] [address] [place], [place] [id number] Corporate Counsel: Griffin Bonilla MD Covid-19 PCR ([facility])on 11-16 SARS-CoV-2 (COVID-19) RNA FLORENCIA+probe Ql (Unsp spec) Not detected Normal NOT DETECTED [facility] Comment on above: Result Comment: This test is not yet approved or cleared by the [place] FDA. When there are no FDA-approved or cleared tests available, and other criteria are met, FDA can make tests available under an emergency access mechanism called an Emergency Use Authorization (EUA). The EUA for this test is supported by the [place] of Health and Human Service's (HHS's) declaration [...] SARS-CoV-2. Performed By: #### C VDTB #### [facility] Laboratory [address] [place] [address] Dr. Jillian Jaime SYMPTOMATIC COVID-19 ANTIGEN on 12-04-2021 EUA Statement SEE BELOW Normal [facility] Comment on above: Result Comment: This test [...] revoked sooner. Performed By: #### C VDAGS ####[facility] [address] [place], [place] [address]Fz. Jillian Jaime SARS-CoV-2 (COVID-19) RNA FLORENCIA+probe Ql (Unsp spec) Negative Normal NEGATIVE [facility] Comment on above: Performed By: #### C VDAGS ####[facility] [address] [place], [place] [address]Pp. Jillian Jaime Vital Signs Date Time Vital Sign Value Performing Clinician Facility 04-13-2023 13:25-0400 Body height Matilde Carrillo Other [facility] Other 04-13-2023 13:25-0400 Body mass index (BMI) [Ratio] 57.79 kg/m2 Matilde Carrillo Other [facility] Other 04-13-2023 13:25-0400 Body temperature 97.5 [degF] Matilde Carrillo Other [facility] Other 04-13-2023 13:25-0400 Body weight 143.34 kg Matilde Carrillo Other [facility] Other 04-13-2023 13:25-0400 Diastolic blood pressure 96 mm[Hg] Matilde Carrillo Other [facility] Other 04-13-2023 13:25-0400 Respiratory rate 18 /min Matilde Carrillo Other [facility] Other 04-13-2023 13:25-0400 SaO2% (BldA) [Mass fraction] 96 % Matilde Carrillo Other [facility] Other 04-13-2023 13:25-0400 Systolic blood pressure 164 mm[Hg] Matilde Carrillo Other [facility] Other 01-11-2023 14:12-0400 Blood Pressure Location Niall NILL General Surgery [place] 01-11-2023 14:12-0400 Diastolic blood pressure 84 mm[Hg] Niall NILL General [facility] [place] 01-11-2023 14:12-0400 Heart rate 76 /min Niall NILL [facility] [place] 01-11-2023 14:12-0400 Respiratory rate 16 /min Niall NILL [facility] [place] 01-11-2023 14:12-0400 Systolic blood pressure 124 mm[Hg] Niall NILL [facility] Encounters Encounter Date Encounter Type Care Provider Facility Start: 04-16-2024 End: 04-16-2024 [facility] Start: 04-13-2023 End: 04-13-2023 ambulatory Matilde Carrillo Facility:[facility] Start: 04-13-2023 End: 04-13-2023 Patient encounter procedure TEST PILOT-C Matilde Carrillo Work Phone: [facility] Work Phone: Start: 04-13-2023 End: 04-13-2023 ambulatory TEST PILOT-C Matilde Carrillo Work Phone: [facility] Work Phone: Start: 04-13-2023 Office outpatient ne w 20 minutes Matilde Carrillo [facility] Start: 02-08-2023 ambulatory Niall R NILL Facility :[facility]] Start: 02-01-2023 End: 02-02-2023 ambulatory Niall R NILL Facility: [facility] Start: 01-11-2023 End: 01-12-2023 ambulatory Niall R NILL Facility: [facility] Start: 01-11-2023 End: 01-11-2023 Patient encounter procedure Niall RUSSELL [facility] Start: 11-01-2022 End: 11-02-[address] [...] Start: 12-25-2021 End: 12-26-2021 ambulatory JUAN BATISTA [facility] Start: 12-25-2021 End: 12-25-2021 Patient encounter status Paulette Santana MD Work Phone: [facility] Start: 12-25-2021 End: 12-25-2021 Subsequent hospital visit by physician Paulette Santana MD Work Phone: [facility] Comment on above: Encounter for gyneco logical examination Start: 12-04-2021 End: 12-04-[address] PAULETTE SANTANA . Facility: Procedures Date Procedure Procedure Detail Performing Clinician Start: 04-13-2023 X-ray of right knee TEST PILOT- C Matilde Carrillo Work Phone: Benign neoplasm of f sheldon (disorder) Niall GOMEZValerie Excision of ganglion of wrist, recurrent Niall SAIMA Ligation of fallopian tube Jose GOMEZValerie Reduction mammoplasty Shine doan SAIMA Plan of Treatment Date Care Activity Detail Author Start: 03-18-2022 Influenza vaccination Flu vacc ine (Season Ended) [facility] Start: 2019 Screening for malign ant neoplasm of breast Breast cancer screen [facility] Start: 2014 Screening for malign ant neoplasm of colon [facility] [employer] Start: 2009 Lipid panel Lipids [facility] [employer] Start: 1999 Screening for malign ant neoplasm of cervix [facility] [employer] Start: 1990 Screening for malign ant neoplasm of cervix Pap smear [facility] [employer] Start: 1988 DTaP/Tdap/Td vaccine (1 - Tdap) DTaP/Tdap/Td vaccine (1 - Tdap) [facility] [employer] Start: 1987 Hepatitis C screening Hepatitis C sc reen [facility] [employer] Start: 1984 HIV screening HIV screen [facility] [employer] Start: 1981 Depression Screen Depression Screen [facility] [employer] Start: 1974 COVID-19 Vaccine (1) COVID-19 Vaccin e (1) [facility] [employer] End: 12-25-2021 Cytopathology procedure, preparation of smear, genital source [facility]ME[facility] Routine Encounter for gynecological examination 1 Occurrences starting 12/25/2021 until 12/25/2021 [facility] [employer] Work Phone: Comment on above: 1 Occurrences starti ng 12/25/2021 until 12/25/2021 Immunizations Immunization Date Immunization Notes Care Provider Jennie garvey 05-10-2022 influenza virus vaccine, unspecified formulation Niall RUSSELL [facility] [place] 12-17-2021 SARS-CoV-2 (COVID-19 ) mRNA-1273 vaccine Niall NILL [facility] 08-14-2021 SARS-CoV-2 (COVID-19 ) mRNA-1273 vaccine Niall NILL [facility] 01-04-2021 SARS-CoV-2 (COVID-19 ) mRNA-1273 vaccine Niall NILL [facility] 12-07-2020 SARS-CoV-2 (COVID-19 ) mRNA-1273 vaccine Niall NILL [facility] 04-17-2020 influenza virus vaccine, unspecified formulation Niall NILL [facility] [place] Payers Date Payer Category Payer Unknown 2023 Self-pay 1970 Unknown [id number] 2.16.8 [id number] 1970 Unknown [id number] 2.16.84 [id number] 1970 Unknown [id number] 2.16.84 0.1.337881.3.579.2.593 1970 Unknown [id number] 2.16.84 0.1.883599.3.579.2.593 1969 Unknown [id number] 2.16.84 0.1.993144.3.579.2.593 1970 Unknown [id number] 2.16.84 0.1.634650.3.579.2.593 1970 Unknown [id number] 2.16.84 0.1.058489.3.579.2.593 1969 Unknown [id number] 2.16.84 0.1.200194.3.579.2.593 1970 Unknown [id number] 2.16.84 0.1.558835.3.579.2.593 1969 Unknown [id number] 2.16.84 0.1.956903.3.579.2.593 1969 Unknown [id number] 2.16.84 0.1.844992.3.579.2.593 1969 Unknown [id number] 2.16.8 40.1.813360.3.579.2.727 1970 Unknown [id number] 2.16.8 40.1.089261.3.579.2.727 1969 Unknown [id number] 2.16.8 40.1.794471.3.579.2.727 1969 Unknown [id number] 2.16. 840.1.368395.3.579.2.196 1959 Unknown [id number] 1. [id number] Unknown [id number] 2.16.8 40.1.034512.3.579.2.531 Social History Date Type Detail Facility Start: 12-25-2021 End: 01-11-2023 Tobacco smoking status [facility] Ex-smoker [facility] Start: 12-25-2021 Cigarettes smoked current (pack per day) - Reported 1 [employer] Phone: Start: 12-25-2021 Tobacco use and exposure Smokeless tobacco non-user [employer] Phone: Start: 12-25-2021 Alcohol intake Ex-drinker (finding) [employer] Phone: Start: 1970 Sex Assigned At Not on file B ON [facility] Phone: Tobacco smoking status Never [facility] [place] Sex Assigned At Female [facility] Start: 1970 Sex Assigned At Female [facility] Functional Status Date Assessment Result Facility 01-11-2023 Functional Status N/A [facility] Clinical Notes 02-23-2022 to 04-13-2023 Note Date [...] the ER for worsening symptoms or concerns [facility] Other 06-27-2023 NoteChief Complaint consultation for nevus [...] 12/07/2020 Recorded influenza virus vaccine, inactivated 04/17/[facility]:Result Comment: Electronically Signed By: SAIMA MCQUEEN, Niall Collier\Date and Time Signed: 01/11/23 14:31 [id number] NotePROCEDURE: XR KNEE RT 3V DATE: 11/01/2022 [...] Electronically authenticated by: JODI WEBER Date: 2022-11-01 12:17[facility]12-30-2022 NotePROCEDURE: XR HAND LT MIN 3V [...] Electronically authenticated by: ADELAIDA LAO Date: 2022-07-16 07:43[facility]12-16-2022 NotePROCEDURE: XR FINGER MIN 2 VIEWS [...] Electronically authenticated by: ASHOK GRIER Date: 2022-07-02 17:45[facility]12-16-2022 NotePROCEDURE: XR HAND LT MIN 3V [...] Electronically authenticated by: ASHOK GRIER Date: 2022-07-02 17:43[facility]08-09-2022 NotePROCEDURE: XR KNEE RT 4V or > COMPARISON: None. HISTORY: Pain of right knee joint FINDINGS: BONES:No acute fracture or dislocation. Moderate osteoarthropathy and marginal osteophyte formation. SOFT TISSUES:Negative. No visible soft tissue swelling. EFFUSION:None visible. OTHER: Negative. IMPRESSION: Moderate tricompartmental osteoarthritis Electronically authenticated by: ADELAIDA LAO Date: 2022-02-23 19:01[facility] Future Appointments Appointment Date:02/01/2023 02:00:00 PM Scheduled Provider:Niall RUSSELL MD Location:[facility]3] Appointment Type: Procedure 30 [facility] [place] Evaluation note* Diagnosis Encounter for gynecological examination documented in this encounter [facility] Work Phone: evaluation noteNo assessment information available [facility] Work Phone: Hismnja general Narrative - Reported* Type Description Date Medical History hypertension Medical History depression Medical History Hypothyroid Surgical History breast reduction Surgical History cyst removal, wrist Surgical History tubal ligation Hospitalization History see above [facility] Other Hospital course Narrative No data available for this section [facility] [place] [facility] Discharge instructions No data available for this section [facility] [place] Progress note No data available for this section [facility] [place] Summary Purpose Family History No Family History Records FoundNo Family History Records FoundNo Family History Records FoundNo Family History Records FoundNo Family History Records Found Advance Directives No Advanced Directives Records FoundNo Advanced Directives Records FoundNo Advanced Directives Records FoundNo Advanced Directives Records FoundNo Advanced Directives Records Found Additional Source Comments Care Teams (unrecognized sec tion and content) 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 DATE CREATED AUTHOR AUTHOR'S ORGANIZ ATION 04/20/2024 [facility] Goals (unrecognized section and content) Goals may [...] BE BASED ON THE PRIMARY CLINICAL RECORDS. [facility]. provides no warranty or guarantee of the accuracy or completeness of information in this document.
--- NOTE | 2024-07-30 17:02 | XR_ITS ---
[place] [id number] Patient Name: FRED TREJO MRN: [id number] date: 1970 Sex: F Assigned Patient Location: [facility] Current Patient Location: Accession/Order Number: [id number] Exam Date: 07/30/2024 17:08 Report Date: 07/31/2024 14:32 At the request of: PAULETTE JAFFE Procedure: XR knee HAYDEE 3V EXAM: XR knee HAYDEE 3V HISTORY: Arthritis bilateral knee, M13.861 COMPARISON: None. FINDINGS/IMPRESSION: 1. No acute fracture or dislocation. 2. Moderate tricompartmental degeneration of the bilateral knee joints. 3. Small to moderate left knee joint effusion. No right knee joint effusion. 4. Normal alignment of the bilateral knee joints. Electronically authenticated by: RICH FRAUSTO Date: 07/31/2024 14:32
== END 2024-07-30 16:44 | disposition home or self-care (01) ==
PROVIDERS: PCP Family Medicine; Visit Provider Family Medicine
DX: M13.861 Other specified arthritis, right knee (principal); M25.462 Effusion, left knee
CPT/HCPCS: 73562

== ENCOUNTER 2024-08-08 10:44 | Outpatient (OUT) | payer BC, SELFPAY ==
--- NOTE | 2024-08-08 10:53 | XR_ITS ---
[address] [address] Patient Name: FRED TREJO MRN: [id number] date: 1970 Sex: F Assigned Patient Location: [facility] Current Patient Location: Accession/Order Number: [id number] Exam Date: 08/08/2024 10:55 Report Date: 08/09/2024 05:47 At the request of: PAULETTE JAFFE Procedure: XR knee RT 3V PROCEDURE: XR knee RT 3V HISTORY: Knee Pain COMPARISON: XR knee bilateral 07/30/2024 FINDINGS: BONES:Mild-moderate narrowing of the medial joint space and anterior compartment. Large degenerative osteophytes along the articular margins of all 3 compartments. Stable separate ossifications along superior margin of the patella. SOFT TISSUES:No visible soft tissue swelling. EFFUSION:None visible. OTHER: Negative. XR/XR knee RT 3V IMPRESSION: 1. Moderate degenerative joint disease. No acute abnormality. Electronically authenticated by: TIFFANY DAVALOS Date: 08/09/2024 05:47
--- OUTSIDE RECORDS SUMMARY | 2024-08-08 11:07 | XMS_ITS | CCD ---
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 Name Role Phone Paulette Santana MD Primary Care Provider [phone] JUAN BATISTA Referring Unavailable PAULETTE SANTANA [...] DR CALDWELL Admitting Unavailable SHILO, DR ADELAIDA Bingahm Consulting Unavailable HOY ., DR CALDWELL Primary [...] Consulting Unavailable Paulette Santana Primary Care Physician [phone] Niall RUSSELL Attending Unavailable Niall RUSSELL Attending Unavailable Niall RUSSELL Attending Unavailable DERREK Carrillo Attending Provider [phone] Matilde Carrillo Unavailable Matilde Carrillo Attending Unavailable [...] 10/06/20 Status: Ordered take 1 capsule by [facility] every eight hours Diclofenac 35 MG 1 capsule as needed Ora lly Three times a day Active levothyroxine sodium 0.05 mg oral tablet (2 sources) l-Thyroxine Start: 12-29-2022 take 1 tablet by mouth once daily levothyroxine 50 mcg (0.05 mg) Tab 50 mcg = 1 tab(s), Oral, Daily, Refills(s) 0 Start Date: 12/29/22 Status: Ordered take 1 tablet by [facility] once daily in the morning Levothyroxine Sodium [...] Start: 10-06-2020 take 2 tablets by mo [facility] once daily at bedtime mirtazapine 30 [...] 2 Episodic Other aftercare (1 source) 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; Translations: [OTH [facility] CURRENT DRUG THERAPY] Onset: 2 Episodic Other [...] RT 4V*on 04-13-2023 XR knee RT 4V* [facility] [place] [address] XRay Report Signed Patient: Fred Qureshi MR#: [id number] : 1970 Acct:[id number] Age/Sex: 52 / F ADM Date: 04/13/23 Loc: XDUC Room: Type: [facility] Attending Dr: Matilde ANGLIN Copies to: [...] Jose Moran M.D.04/13/2023 2:33 PM Dictation Location: [place] [address] Transcribed By: [facility] 04/13/23 143 Dictated By: Jose Moran DO 04/13/23 1432 Signed By: 04/13/23 143 [facility] XR knee RT 4V* [facility] Other XR knee RT 4V* [facility] [employer] Other XR knee RT 4V* [address] [facility] Other XR knee RT 4V* [place] [address] No rt [facility] Other XR knee RT 4V* XRay Report [employer] Other XR knee RT 4V* Signed [employer] Other XR knee RT 4V* Patient: Sampson Qureshi MR#: [id number] [employer] Other XR knee RT 4V* 5905 [employer] Other XR knee RT 4V* : 1970 Acct:[id number] [facility] Other XR knee RT 4V* Age/Sex: 52 / F ADM Date: 04/13/23 [facility] Other XR knee RT 4V* Loc: XDUCLY [facility] Other XR knee RT 4V* Attending Dr: Matilde ANGLIN [facility] Other XR knee RT 4V* Copies to: DERREK Head [facility] Other XR knee RT 4V* Ordering Provider: DERREK Head [facility] Other XR knee RT 4V* Date of Service: 04/13/23 [facility] Other XR knee RT 4V* XR/XR knee RT 4V*: Acute pain of right knee [facility] Other XR knee RT 4V* 4 views right knee plain film [facility] Other XR knee RT 4V* COMPARISON: None [facility] [employer] Other XR knee RT 4V* HISTORY: Right knee injury. Superior patellar pain. [facility] Other XR knee RT 4V* ACUTE FINDINGS: None [facility] Other XR knee RT 4V* DEGENERATIVE CHANGE: Moderate degeneration. [facility] Other XR knee RT 4V* SOFT TISSUE FINDINGS : Unremarkable [facility] Other XR knee RT 4V* JOINT EFFUSION: None [facility] Other XR knee RT 4V* POSTOP CHANGES: None [facility] Other XR knee RT 4V* BONE MINERALIZATION: Adequate [employer] Other XR knee RT 4V* XR/XR knee RT 4V* [employer] Other XR knee RT 4V* IMPRESSION: No acute findings [employer] Other XR knee RT 4V* Impression dictated by: Jose Moran M.D.04/13/2023 2:33 PM [employer] Other XR knee RT 4V* Dictation Location: [place] [address] [facility] Other XR knee RT 4V* Transcribed By: [facility] 04/13/23 [facility] [employer] Other XR knee RT 4V* Dictated By: Jose Moran DO 04/13/23 [facility] [employer] Other XR knee RT 4V* Signed By: [employer] Other XR knee RT 4V* 04/13/23 [facility] Other Ambulatory Visit Summaryon 0 02-01-2023 Ambulatory [...] RUSSELL MD Where: General Surgery Saima/Roberta Martinez [facility] General Surgery Office/Clini c Noteon 02-01-2023 [...] Recorded influenza virus vaccine, inactivated 04/17/2020 Recorded [facility] Comment on above: Result Comment: Elec tronically Signed By: SAIMA MCQUEEN, Niall Tucker\.br\Date and Time Signed: 02/01/23 14:23 EDT Pre-Certification Formon Pre-Certification Form [id number] CD:127 [facility] Facesheeton 01-12-2023 Facesheet [id number] D:127 [facility] Ambulatory Visit Summaryon 0 01-11-2023 Ambulatory Visit [...] Migraine Morbid obesity Nevus Pituitary adenoma Normal [facility] Physician Referralon 023 Physician Referral [id number] D:127 Normal [facility] MG MAMM SCREEN 3D HAYDEE CADon 03-21-2023 MG MAMM SCREEN 3D HAYDEE CAD Patient: FRED QURESHI Exam Date: 10/05/2022 : 1970 Gender:F Ordering : DR PAULETTE SANTANA . Admission #: [id number] Family : Order #: [id number] CLICK HERE TO VIEW EXAM RADIOLOGY REPORT [...] Treatments None Family Cancers None LOCATION: [facility] BREAST COMPOSITION: Scattered areas fibroglandular density. FINDINGS: [...] M.D. on 10/05/2022 at 16:12 Normal [facility] FREE T3on 09-21-2022 FREE T3 2.22 pg/mlL Normal 2.18-3.98 [facility] Comment on above: Performed By: #### F T3, T4, TSH ####[facility] [address] [place], [place] [address]Ut. Jillian Jaime T4on 09-21-2022 T4 [Mass/Vol] 5.50 ug/dL Normal 4.80-13.90 [facility] Comment on above: Performed By: #### F T3, T4, TSH ####[facility] [address] [place], [place] [address]Va. Jillian Jaime TSHon 09-21-2022 TSH 0.782 uIU/mL Normal 0.358-3.740 [facility] Comment on above: Performed By: #### F T3, T4, TSH ####[facility] [address] [place], [place] [address]Mz. Jillian Jaime [facility]on SARS-CoV-2 (COVID-19) RNA FLORENCIA+probe Ql (Unsp spec) Not detected Normal NOT DETECTED [facility] Comment on above: Result Comment: When diagnostic [...] for this test is supported by the [place] of Health and Human Service's declaration that [...] be used). Performed By: #### C VDTB ####[facility] [address] [place], [place] [address]Uj. Jillian Jaime XR WRIST LT MIN 3 Von 2021 XR WRIST LT MIN 3 V EXAM: XR WRIST LT WA N 3 V HISTORY: Unspecified fall , [...] ESSENCE MONTEMAYOR Date: 2022-07-02 17:36 Normal [facility] CBC AUTO DIFFon 04-28-2022 BASO # 0.0 103/ul Normal 0.0-0.1 [facility] Comment on above: Performed By: #### C BC ####[facility] [address] [place] [address]Dr. Jillian Jaime Basophils/100 WBC (Bld) 0.3 % Normal 0.2-2.0 [facility] Comment on above: Performed By: #### C BC ####[facility] [address] [place], [place] [address]Dr. Jillian Jaime EO # 0.1 103/ul Normal 0.0-0.7 [facility] Comment on above: Performed By: #### C BC ####[facility] [address] [place], [place] [address]Dr. Jillian Jaime Eosinophils/100 WBC (Bld) 1.3 % Normal 0.9-7.0 [facility] Comment on above: Performed By: #### C BC ####[facility] [address] [place] [address]Dr. Jillian Jaime Erythrocyte distribution width (RBC) [Ratio] 13.4 % Normal 11.0-15.0 [facility] Comment on above: Performed By: #### C BC ####[facility] [address] [place] [address]Dr. Britneyglenroy Jaime Hematocrit (Bld) [Volume fraction] 43.0 % Normal 36.0-48.0 [facility] Comment on above: Performed By: #### C BC ####[facility] [address] [place] [id number]. Jillian Jaime Hemoglobin (Bld) [Mass/Vol] 13.5 g/dL Normal 12.0-16.0 [facility] Comment on above: Performed By: #### C BC ####[facility] [address] [place] [phone]. Jillian Jaime IG # 0.05 10e3/ul Critically high 0.00-0.03 [facility] Comment on above: Performed By: #### C BC ####[facility] [address] [place] [address]Dr. Jillian Jaime IG % 0.5 % Normal 0.0-0.5 [facility] Comment on above: Performed By: #### C BC ####[facility] [address] [place] [address]Dr. Jillian Jaime LYMPH # 1.8 103/ul Normal 1.2-3.8 [facility] Comment on above: Performed By: #### C BC ####[facility] [address] [place], [place] [address]Dr. Jillian Jaime Lymphocytes/100 WBC (Bld) 18.3 % Critically low 20.5-60.0 [facility] Comment on above: Performed By: #### C BC ####[facility] [address] [place] [address]Dr. Jillian Jaime MANUAL DIFF REQ NO Normal [facility] Comment on above: Performed By: #### C BC ####[facility] [address] [place], [place] [address]Dr. Jillian Jaime MCH (RBC) [Entitic mass] 29.0 pg Normal 26.7-34.0 [facility] Comment on above: Performed By: #### C BC ####[facility] [address] [place], [place] [address]Dr. Jillian Jaime MCHC (RBC) [Mass/Vol] 31.4 g/dL Normal 29.9-35.2 [facility] Comment on above: Performed By: #### C BC ####[facility] [address] [place] [id number]. Jillian Jaime MCV (RBC) [Entitic vol] 92.5 fL Normal 81.0-99.0 [facility] Comment on above: Performed By: #### C BC ####[facility] [address] [place] [id number]. Jillian Jaime MONO # 0.5 103/ul Normal 0.3-0.8 [facility] Comment on above: Performed By: #### C BC ####[facility] [address] [place] [phone]. Jillian Jaime Monocytes/100 WBC (Bld) 5.1 % Normal 1.7-12.0 [facility] Comment on above: Performed By: #### C BC ####[facility] [address] [place] [phone]. Jillian Jaime NEUT # 7.2 103/ul Critically high 1.4-6.5 [facility] Comment on above: Performed By: #### C BC ####[facility] [address] [place], [place] [address]Dr. Jillian Jaime Neutrophils/100 WBC (Bld) 74.5 % Normal 43.0-75.0 [facility] Comment on above: Performed By: #### C BC ####[facility] [address] [place] [phone]. Jillian Jaime Platelet mean volume (Bld) [Entitic vol] 8.2 fL Critically low 9.5-13.5 [facility] Comment on above: Performed By: #### C BC ####[facility] [address] [place] [phone]. Jillian Jaime PLT 304 103/ul Normal 150-450 [facility] Comment on above: Performed By: #### C BC ####[facility] [address] [place], [place] [address]Dr. Jillian Addison RBC 4.65 106/ul Normal 4.20-5.40 [facility] Comment on above: Performed By: #### C BC ####[facility] [address] [place] [address]DrAaron Jaime WBC 9.7 103/ul Normal 4.0-11.0 [facility] Comment on above: Performed By: #### C BC ####[facility] [address] [place] [phone]. Jillian Jaime GLYCOHEMOGLOBIN A1Con 2021 ADA RECOMMENDATION SEE BELOW Normal [facility] Comment on above: Result Comment: ADA RECOMMENDED LIMIT 4.0 - 6.0 ADA THERAPEUTIC TARGET < 7.0 ACTION SUGGESTED > 7.0 Performed By: #### A 1C #### [facility] [address] [place] [address] [address] Jillian Jaime Glucose [Mass/Vol] 114 mg/dL Normal [facility] Comment on above: Performed By: #### A 1C #### [facility] [address] [place] [address] [address] Jillian Jaime HbA1c (Bld) [Mass fraction] 5.6 % Normal 4.5-6.2 [facility] Comment on above: Performed By: #### A 1C #### [facility] [address] [place] [address] [address] Jillian Jaime PROF 14(COMP METB)on 022 Albumin [Mass/Vol] 3.3 g/dL Critically low 3.4-5.0 Th [facility] Comment on above: Performed By: #### C MP ####[facility] [address] [place] [address]Dr. Jillian Jaime Albumin/Globulin [Mass ratio] 0.8 {ratio} Normal [facility] Comment on above: Performed By: #### C MP ####[facility] [address] [place] [phone] Jaime ALP [Catalytic activity/Vol] 155 U/L Critically high 46-116 [facility] Comment on above: Performed By: #### C MP ####[facility] [address] [place] [address]DrAaron Jaime ALT [Catalytic activity/Vol] 27 U/L Normal 14-59 [facility] Comment on above: Performed By: #### C MP ####[facility] [address] [place] [address]Dr. Jillian Jaime Anion gap [Moles/Vol] 9.5 mmol/L Normal [facility] Comment on above: Performed By: #### C MP ####[facility] [address] [place] [address]Dr. Jillian Jaime AST [Catalytic activity/Vol] 11 U/L Critically low 15-37 [facility] Comment on above: Performed By: #### C MP ####[facility] [address] [place] [address]Dr. Jillian Jaime Bilirubin [Mass/Vol] 0.3 mg/dL Normal 0.2-1.0 [facility] Comment on above: Performed By: #### C MP ####[facility] [address] [place], [place] [address]Dr. Jillian Jaime Calcium [Mass/Vol] 9.2 mg/dL Normal 8.5-10.1 [facility] Comment on above: Performed By: #### C MP ####[facility] [address] [place], [place] [address]Dr. Jillian Jaime Chloride [Moles/Vol] 104 mmol/L Normal 98-107 [facility] Comment on above: Performed By: #### C MP ####[facility] [address] [place], [place] [address]Dr. Jillian Jaime CO2 [Moles/Vol] 30.4 mmol/L Normal 21.0-32.0 [facility] Comment on above: Performed By: #### C MP ####[facility] [address] [place], [place] [address]Dr. Jillian Jaime Creatinine [Mass/Vol] 1.11 mg/dL Critically high 0.55-1.02 [facility] Comment on above: Performed By: #### C MP ####[facility] [address] [place], [place] [address]Dr. Jillian Addison EGFR-AF LIBYAN >60 Normal >=60 [facility] Comment on above: Performed By: #### C MP ####[facility] [address] [place] [phone]. Jillian aJime EGFR-NON AF LIBYAN 52 mL/min/1.73m2 Critically low >=60 [facility] Comment on above: Performed By: #### C MP ####[facility] [address] [place] [phone]. Jillian Jaime Globulin (S) [Mass/Vol] 4.1 g/dL Normal [facility] Comment on above: Performed By: #### C MP ####[facility] [address] [place] [phone]. Jillian Jaime Glucose [Mass/Vol] 152 mg/dL Critically high 74-106 T [facility] Comment on above: Performed By: #### C MP ####[facility] [address] [place] [address]Dr. Jillian Jaime Potassium [Moles/Vol] 3.9 mmol/L Normal 3.5-5.1 [facility] Comment on above: Performed By: #### C MP ####[facility] [address] [place] [address]Dr. Jillian Jaime Protein [Mass/Vol] 7.4 g/dL Normal 6.4-8.2 [facility] Comment on above: Performed By: #### C MP ####[facility] [address] [place] [address]Dr. Jillian Jaime Sodium [Moles/Vol] 140 mmol/L Normal 136-145 [facility] Comment on above: Performed By: #### C MP ####[facility] [address] [place] [address]Dr. Jillian Jaime Urea nitrogen [Mass/Vol] 17.0 mg/dL Normal 7.0-18.0 [facility] Comment on above: Performed By: #### C MP ####[facility] [address] [place] [phone]. Jillian Jaime Urea nitrogen/Creatinine [Mass ratio] 15.3 mg/mg Normal [facility] Comment on above: Performed By: #### C MP ####[facility] [address] [place], [place] [address]EoDr. Jillian Jaime PROTIMEon 04-28-2022 INR Coag (PPP) [Relative time] 1.01 {INR} Normal [facility] Comment on above: Performed By: #### P TT, PT #### [facility] [address] [place], [place] [address] Dr. Jillian Jaime INR GUIDELINES SEE BELOW Normal [facility] Comment on above: Result Comment: ARIANNA RED INR: 2.0 - 3.0 CONDITIONS NOT LISTED BELOW 2.5 - 3.5 FOR PROSTHETIC HEART VALVE REPLACEMENT 2.5 - 3.5 RECURRENT THROMBOSIS Performed By: #### P TT, PT #### [facility] [address] [place] [address] [address] Jillian Jaime PT Coag (PPP) [Time] 10.9 s Normal 9.0-11.6 [facility] Comment on above: Performed By: #### P TT, PT #### [facility] [address] [place] [address] [address] Jillian Jaime PTTon 04-28-2022 aPTT Coag (Bld) [Time] 26.2 s Normal 22.3-36.2 [facility] Comment on above: Performed By: #### P TT, PT #### [facility] [address] [place] [id number] Jillian Jaime Cytologyon 12-25-2021 Cytology (NOTE) INTERPRETATION Cervical material, (ThinPrep vial, Imaging-assisted review): Specimen Adequacy: Satisfactory for evaluation. -Endocervical/transform ation zone component is absent. Descriptive Diagnosis: Negative for intraepithelial lesion or malignancy. Cattle Killer: SILVIA VERDUGO(ASCP) Electronically Signed Out /12/31/2021 Source: A: Cervical material, (ThinPrep vial, Imaging-assisted review) Clinical History Z01.419 Routine obstetrician gynecologist exam without abnormal findings High risk HPV DNA testing is requested if the diagnosis is abnormal GYNECOLOGIC CYTOLOGY REPORT Patient Name: FRED QURESHI [facility] Rec: [id number] Path Number: [id number] [facility] ANATOMIC PATHOLOGY [address] [place] [address]. [place], [place] [address] Normal [facility] Comment on above: Performed By: #### P PPVP #### [facility] [address] [place], [place] [id number] [employer]: Griffin Bonilla MD Covid-19 PCR ([facility])on 11-16 SARS-CoV-2 (COVID-19) RNA FLORENCIA+probe Ql (Unsp spec) Not detected Normal NOT DETECTED [facility] Comment on above: Result Comment: This test is not yet approved or cleared by the [place] FDA. When there are no FDA-approved or cleared tests available, and other criteria are met, FDA can make tests available under an emergency access mechanism called an Emergency Use Authorization (EUA). The EUA for this test is supported by the [place] of Health and Human Service's (HHS's) declaration [...] SARS-CoV-2. Performed By: #### C VDTB #### [facility] [address] [place] [address] Dr. Jillian Jaime SYMPTOMATIC COVID-19 ANTIGEN on 12-04-2021 EUA Statement SEE BELOW Normal [facility] Comment on above: Result Comment: This [...] revoked sooner. Performed By: #### C VDAGS ####[facility] [address] [place], [place] [address]Gr. Jillian Jaime SARS-CoV-2 (COVID-19) RNA FLORENCIA+probe Ql (Unsp spec) Negative Normal NEGATIVE [facility] Comment on above: Performed By: #### C VDAGS ####[facility] [address] [place], [place] [address]Sx. Jillian Jaime Vital Signs Date Time Vital Sign Value Performing Clinician Facility 04-13-2023 13:25-0400 Body height Matilde Carrillo Other [facility] Other 04-13-2023 13:25-0400 Body mass index (BMI) [Ratio] 57.79 kg/m2 Matilde Carrillo Other [facility] Other 04-13-2023 13:25-0400 Body temperature 97.5 [degF] Matilde Carrillo Other [facility] Other 04-13-2023 13:25-0400 Body weight 143.34 kg Matilde Carrillo Other [facility] Other 04-13-2023 13:25-0400 Diastolic blood pressure 96 mm[Hg] Matilde Carrillo Other [facility] Other 04-13-2023 13:25-0400 Respiratory rate 18 /min Matilde Carrillo Other [facility] Other 04-13-2023 13:25-0400 SaO2% (BldA) [Mass fraction] 96 % Matilde Carrillo Other [facility] Other 04-13-2023 13:25-0400 Systolic blood pressure 164 mm[Hg] Matilde Carrillo Other [facility] Other 01-11-2023 14:12-0400 Blood Pressure Location Niall NILL [facility] [place] 01-11-2023 14:12-0400 Diastolic blood pressure 84 mm[Hg] Niall NILL [facility] [place] 01-11-2023 14:12-0400 Heart rate 76 /min Niall NILL [facility] [place] 01-11-2023 14:12-0400 Respiratory rate 16 /min Niall NILL [facility] [place] 01-11-2023 14:12-0400 Systolic blood pressure 124 mm[Hg] Niall NILL [facility] Encounters Encounter Date Encounter Type Care Provider Facility Start: 04-16-2024 End: 04-16-2024 [facility] Start: 04-13-2023 End: 04-13-2023 ambulatory Matilde Carrillo Facility:[facility] Start: 04-13-2023 End: 04-13-2023 Patient 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: [facility] Work Phone: Start: 04-13-2023 End: 04-13-2023 ambulatory [employer] ASSEM[employer]-C Matilde Carrillo Work Phone: [facility] Work Phone: Start: 04-13-2023 Office outpatient ne w 20 minutes Matilde Carrillo [facility] Start: 02-08-2023 ambulatory Niall R NILL Facility :[facility] Start: 02-01-2023 End: 02-02-2023 ambulatory Niall R [...] Start: 12-25-2021 End: 12-26-2021 ambulatory JUAN BATISTA [facility] Start: 12-25-2021 End: 12-25-2021 Patient encounter status Paulette Santana MD Work Phone: [facility] Start: 12-25-2021 End: 12-25-2021 Subsequent hospital visit by physician Paulette Santana MD Work Phone: [facility] Comment on above: Encounter for gyneco logical examination Start: 12-04-2021 End: 12-04-[address] PAULETTE SANTANA . 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 Matilde Carrillo Work Phone: Benign neoplasm of f sheldon (disorder) Niall GOMEZValerie Excision of ganglion of wrist, recurrent Niall SAIMA Ligation of fallopian tube Jose GOEMZValerie Reduction mammoplasty Shine doan SAIMA Plan of Treatment Date Care Activity Detail Author Start: 03-18-2022 Influenza vaccination [facility] 2019 Screening for malign ant neoplasm of breast [facility] Start: 2014 Screening for malign ant neoplasm of colon [facility] Frequency [employer] Start: 2009 Lipid panel Lipids [facility] Start: 1999 Screening for malign ant neoplasm of cervix [facility] Frequency [employer] Start: 1990 Screening for malign ant neoplasm of cervix Pap smear [facility] Frequency [employer] Start: 1988 DTaP/Tdap/Td vaccine (1 - Tdap) DTaP/Tdap/Td vaccine (1 - Tdap) [facility] Frequency [employer] Start: 1987 Hepatitis C screening Hepatitis C sc reen [facility] [employer] Start: 1984 HIV screening HIV screen [facility] [employer] Start: 1981 Depression Screen Depression Screen [facility] Start: 1974 COVID-19 Vaccine (1) COVID-19 Vaccin [facility] (1) [facility] End: 12-25-2021 Cytopathology procedure, preparation of smear, genital source [facility] Lab Routine Encounter for gynecological examination 1 Occurrences starting 12/25/2021 until 12/25/2021 [facility] [employer] Work Phone: Comment on above: 1 Occurrences starti ng 12/25/2021 until 12/25/2021 Immunizations Immunization Date Immunization Notes Care Provider Jennie garvey 05-10-2022 influenza virus vaccine, unspecified formulation Niall RUSSELL [facility] [place] 12-17-2021 SARS-CoV-2 (COVID-19 ) mRNA-1273 vaccine Niall NILL [facility] 08-14-2021 SARS-CoV-2 (COVID-19 ) mRNA-1273 vaccine Niall NILL [facility] 01-04-2021 SARS-CoV-2 (COVID-19 ) mRNA-1273 vaccine Niall NILL [facility] 12-07-2020 SARS-CoV-2 (COVID-19 ) mRNA-1273 vaccine Niall NILL [facility] 04-17-2020 influenza virus vaccine, unspecified formulation Niall NILL [facility] [place] Payers Date Payer Category Payer Unknown [id number] Self-pay 1970 Unknown [id number] 2.16.8 [id number] 1970 Unknown [id number] 2.16.84 0.1.689455.3.579.2.593 1970 Unknown [id number] 2.16.84 0.1.960985.3.579.2.593 1970 Unknown [id number] 2.16.84 0.1.285850.3.579.2.593 1970 Unknown [id number] 2.16.84 0.1.519108.3.579.2.593 1970 Unknown [id number] 2.16.84 0.1.970265.3.579.2.593 1970 Unknown [id number] 2.16.84 0.1.870301.3.579.2.593 1970 Unknown [id number] 2.16.84 0.1.552451.3.579.2.593 1970 Unknown [id number] 2.16.84 0.1.466607.3.579.2.593 1970 Unknown [id number] 2.16.84 0.1.086998.3.579.2.593 1970 Unknown [id number] 2.16.84 0.1.350357.3.579.2.593 1970 Unknown [id number] 2.16.8 40.1.049369.3.579.2.727 1970 Unknown [id number] 2.16.8 40.1.783757.3.579.2.727 1970 Unknown [id number] 2.16.8 40.1.629783.3.579.2.727 1970 Unknown [id number] 2.16. 840.1.161864.3.579.2.196 1959 Unknown [id number] 1. [id number] Unknown [id number] 2.16.8 40.1.442856.3.579.2.531 Social History Date Type Detail Facility Start: 12-25-2021 End: 01-11-2023 Tobacco smoking status TXIS Ex-smoker [employer] Start: 12-25-2021 Cigarettes smoked current (pack per day) - Reported 1 [employer] Phone: Start: 12-25-2021 Tobacco use and exposure Smokeless tobacco non-user [employer] Phone: Start: 12-25-2021 Alcohol intake Ex-drinker (finding) [employer] Phone: Start: 1970 Sex Assigned At Not on file B [facility] [employer] Phone: Tobacco smoking status Never [facility] [place] Sex Assigned At Female [facility] Start: 1970 Sex Assigned At Female [facility] Functional Status Date Assessment Result Facility 01-11-2023 [...] the ER for worsening symptoms or concerns [facility] Other 06-27-2023 NoteChief Complaint consultation for nevus [...] 12/07/2020 Recorded influenza virus vaccine, inactivated 04/17/2020 [facility]Result Comment: Electronically Signed By: SAIMA MCQUEEN, Niall Collier\Date and Time Signed: 01/11/23 14:31 [id number] NotePROCEDURE: XR KNEE RT 3V DATE: 11/01/2022 [...] Electronically authenticated by: JODI WEBER Date: 2022-11-01 12:17[facility]12-30-2022 NotePROCEDURE: XR HAND LT MIN 3V [...] Electronically authenticated by: ADELAIDA LAO Date: 2022-07-16 07:43[facility]12-16-2022 NotePROCEDURE: XR FINGER MIN 2 VIEWS [...] Electronically authenticated by: ASHOK GRIER Date: 2022-07-02 17:45[facility]12-16-2022 NotePROCEDURE: XR HAND LT MIN 3V [...] Electronically authenticated by: ASHOK GRIER Date: 2022-07-02 17:43[facility]08-09-2022 NotePROCEDURE: XR KNEE RT 4V or > COMPARISON: None. HISTORY: Pain of right knee joint FINDINGS: BONES:No acute fracture or dislocation. Moderate osteoarthropathy and marginal osteophyte formation. SOFT TISSUES:Negative. No visible soft tissue swelling. EFFUSION:None visible. OTHER: Negative. IMPRESSION: Moderate tricompartmental osteoarthritis Electronically authenticated by: ADELAIDA LAO Date: 2022-02-23 19:01[facility] Future App[facility]ments Appointment Date:02/01/2023 02:00:00 PM Scheduled Provider:Niall RUSSELL MD Location:[facility] Appointment Type: Procedure 30 [facility] [place] Evaluation note* Diagnosis Encounter for gynecological examination documented in this encounter [facility] Work Phone: evaluation noteNo assessment information available [facility] Work Phone: [employer] general Narrative - Reported* Type Description Date Medical History hypertension Medical History depression Medical History Hypothyroid Surgical History breast reduction Surgical History cyst removal, wrist Surgical History tubal ligation Hospitalization History see above [facility] Other Hospital course Narrative No data available for this section [facility] [place] [facility] Discharge instructions No data available for this section [facility] [place] Progress note No data available for this section [facility] [place] Summary Purpose Family History No Family History Records FoundNo Family History Records FoundNo Family History Records FoundNo Family History Records FoundNo Family History Records Found Advance Directives No Advanced Directives Records FoundNo Advanced Directives Records FoundNo Advanced Directives Records FoundNo Advanced Directives Records FoundNo Advanced Directives Records Found Additional Source Comments Care Teams (unrecognized sec tion and content) [employer] Relationship Specialty Start Date End Date Paulette Santana MD [address] [phone] PCP - General Family Medicine 12/25/21 Team Status: Inactive Member Role Status Dates DERREK Sanchez Attending Provider Active INFORMATION SOURCE (unrecogn ized section and content) DATE CREATED AUTHOR [facility]/01/2022 [facility] DATE CREATED AUTHOR AUTHOR'S ORGANIZ ATION 11/07/2022 [facility] DATE CREATED AUTHOR AUTHOR'S ORGANIZ ATION 02/02/[address] [facility] DATE CREATED AUTHOR AUTHOR'S ORGANIZ ATION 04/21/2023 [facility] DATE CREATED AUTHOR AUTHOR'S ORGANIZ ATION 04/20/2024 [facility] Goals (unrecognized section and content) Goals [...] BE BASED ON THE PRIMARY CLINICAL RECORDS. [facility] [employer] [facility]. provides no warranty or guarantee of the accuracy or completeness of information in this document.
== END 2024-08-08 10:45 | disposition home or self-care (01) ==
LOC: RAD 10:48
PROVIDERS: PCP Family Medicine; Visit Provider Family Medicine
DX: M25.561 Pain in right knee (principal)
CPT/HCPCS: 73562

== ENCOUNTER 2024-08-13 12:58 | Outpatient (OUT) | payer BC, SELFPAY ==
--- NOTE | 2024-08-13 | XR_ITS ---
The [address] [address] Patient Name: FRED TREJO MRN: [id number] date: 1970 Sex: F Assigned Patient Location: Current Patient Location: Accession/Order Number: [id number] Exam Date: 08/13/2024 13:10 Report Date: 08/14/2024 05:40 At the request of: EMILY AIKEN Procedure: XR knee HAYDEE 4V EXAMINATION: XR knee HAYDEE 4V HISTORY: BILATERAL KNEE PAIN COMPARISON: XR knee bilateral 07/30/2024 FINDINGS: RIGHT FINDINGS: BONES: Marked narrowing of the medial joint space with [id number] articulation. Large periarticular degenerative osteophytes involving the medial and lateral compartments. Separate ossification cephalad to the patella suggestive of fracture of prior degenerative enthesophyte.. SOFT TISSUES: No visible soft tissue swelling. OTHER: Negative. LEFT FINDINGS: BONES: Marked narrowing of the lateral joint space with large degenerative osteophytes along margins of the medial and lateral compartments. SOFT TISSUES: No visible soft tissue swelling. Large degenerative enthesophyte at quadriceps tendon insertion into the patella. OTHER: Negative. XR/XR knee HAYDEE 4V IMPRESSION: RIGHT CONCLUSION: Marked degenerative joint disease. No acute bone abnormality. LEFT CONCLUSION: Marked degenerative joint disease. No acute bone abnormality. Electronically authenticated by: TIFFANY DAVALOS Date: 08/14/2024 05:40
--- OUTSIDE RECORDS SUMMARY | 2024-08-13 13:11 | XMS_ITS | CCD ---
Author Organization [facility] Care Team Providers Care Log Inspector Name Role Phone Paulette Santana MD Primary Care Provider [phone] JUAN BATISTA Referring Unavailable PAULETTE SANTANA [...] UnavailESSENCE Pemberton Consulting Unavailable HOY ., DR CLADWELL Primary Care Unavailable HOY ., DR CALDWELL [...] Consulting Unavailable Paulette Santana Primary Care Physician [phone] Niall RUSSELL Attending Unavailable Niall RUSSELL Attending [...] 10/06/20 Status: Ordered take 1 capsule by [facility] every eight hours Diclofenac 35 MG 1 capsule as needed Ora lly Three times a day Active levothyroxine sodium 0.05 mg oral tablet (2 sources) l-Thyroxine Start: 12-29-2022 take 1 tablet by mouth once daily levothyroxine 50 mcg (0.05 mg) Tab 50 mcg = 1 tab(s), Oral, Daily, Refills(s) 0 Start Date: 12/29/22 Status: Ordered take 1 tablet by [facility] once daily in the morning [...] Start: 10-06-2020 take 2 tablets by mo [facility] once daily at bedtime mirtazapine 30 mg [...] 2 Episodic Other aftercare (1 source) 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; Translations: [OTH PRISON CURRENT DRUG THERAPY] Onset: 2 Episodic Other [...] RT 4V*on 04-13-2023 XR knee RT 4V* [facility] [place] [address] XRay Report Signed Patient: Fred Qureshi MR#: [id number] : 1970 Acct:[id number] Age/Sex: 52 / F ADM Date: 04/13/23 Loc: XDUC Room: Type: [facility] Attending Dr: Matilde ANGLIN Copies to: DERREK [...] Jose Moran M.D.04/13/2023 2:33 PM Dictation Location: [place] [address] Transcribed By: [facility] 04/13/23 143 Dictated By: Jose Moran DO 04/13/23 1432 Signed By: 04/13/23 143 [facility] XR knee RT 4V* [facility] Other XR knee RT 4V* [facility] Main [facility] [employer] Other XR knee RT 4V* [address] [facility] [employer] Other XR knee RT 4V* [place] [address] No rt [employer] Other XR knee RT 4V* XRay Report [employer] Other XR knee RT 4V* Signed [employer] Other XR knee RT 4V* Patient: Sampson Qureshi MR#: [id number] [place] [employer] Other XR knee RT 4V* 5905 [employer] Other XR knee RT 4V* : 1970 Acct:[id number] [facility] Other XR knee RT 4V* Age/Sex: 52 / F ADM Date: 04/13/23 [facility] Other XR knee RT 4V* Loc: XDUCLY Room: [facility] Other XR knee RT 4V* Attending Dr: Matilde ANGLIN [facility] Other XR knee RT 4V* Copies to: DERREK Head [facility] Other XR knee RT 4V* Ordering Provider: DERREK Head [facility] Other XR knee RT 4V* Date of Service: 04/13/23 [facility] Other XR knee RT 4V* XR/XR knee RT 4V*: Acute pain of right knee [facility] Other XR knee RT 4V* 4 views right knee plain film [facility] Other XR knee RT 4V* COMPARISON: None Nort [employer] Other XR knee RT 4V* HISTORY: Right knee injury. Superior patellar pain. [facility] Other XR knee RT 4V* ACUTE FINDINGS: None [facility] Other XR knee RT 4V* DEGENERATIVE CHANGE: Moderate degeneration. [facility] Other XR knee RT 4V* SOFT TISSUE FINDINGS : Unremarkable [employer] Other XR knee RT 4V* JOINT EFFUSION: None [employer] Other XR knee RT 4V* POSTOP CHANGES: None [employer] Other XR knee RT 4V* BONE MINERALIZATION: Adequate [employer] Other XR knee RT 4V* XR/XR knee RT 4V* [employer] Other XR knee RT 4V* IMPRESSION: No acute findings [facility] Other XR knee RT 4V* Impression dictated by: Jose Moran M.D.04/13/2023 2:33 PM [facility] Other XR knee RT 4V* Dictation Location: [place] [address] [facility] Other XR knee RT 4V* Transcribed By: [facility] 04/13/23 [facility] [employer] Other XR knee RT 4V* Dictated By: Jose Moran DO 04/13/23 [facility] [employer] Other XR knee RT 4V* Signed By: [employer] Other XR knee RT 4V* 04/13/23 [facility]3 [employer] Other Ambulatory Visit Summaryon 0 02-01-2023 Ambulatory [...] RUSSELL MD Where: General Surgery Saima/Roberta Martinez [facility] General Surgery Office/Clini c Noteon 02-01-2023 [...] Recorded influenza virus vaccine, inactivated 04/17/2020 Recorded [facility] Comment on above: Result Comment: Elec tronically Signed By: SAIMA MCQUEEN, Niall Tucker\.br\Date and Time Signed: 02/01/23 14:23 EDT Pre-Certification Formon Pre-Certification Form [id number] CD:127 [facility] Facesheeton 01-12-2023 Facesheet [id number] D:127 [facility] Ambulatory Visit Summaryon 0 01-11-2023 Ambulatory Visit [...] Migraine Morbid obesity Nevus Pituitary adenoma Normal [facility] Physician Referralon 023 Physician Referral [id number] D:127 Normal [facility] MG MAMM SCREEN 3D HAYDEE CADon 03-21-2023 MG MAMM SCREEN 3D HAYDEE CAD Patient: FRED QURESHI Exam Date: 10/05/2022 : 1970 Gender:F Ordering : DR PAULETTE SANTANA . Admission #: [id number] Family : Order #: [id number] CLICK HERE TO VIEW EXAM RADIOLOGY REPORT [...] Treatments None Family Cancers None LOCATION: [facility] BREAST COMPOSITION: Scattered areas fibroglandular density. [...] M.D. on 10/05/2022 at 16:12 Normal [facility] FREE T3on 09-21-2022 FREE T3 2.22 pg/mlL Normal 2.18-3.98 [facility] Comment on above: Performed By: #### F T3, T4, TSH ####[facility] [address] [place], [place] [address]Ph. Jillian Jaime T4on 09-21-2022 T4 [Mass/Vol] 5.50 ug/dL Normal 4.80-13.90 [facility] Comment on above: Performed By: #### F T3, T4, TSH ####[facility] [address] [place], [place] [address]Uh. Jillian Jaime TSHon 09-21-2022 TSH 0.782 uIU/mL Normal 0.358-3.740 [facility] Comment on above: Performed By: #### F T3, T4, TSH ####[facility] [address] [place], [place] [address]Wl. Jillian Jaime Covid-19 PCR ([facility]on SARS-CoV-2 (COVID-19) RNA FLORENCIA+probe Ql (Unsp spec) Not detected Normal NOT DETECTED [facility] Comment on above: Result Comment: When [...] for this test is supported by the [place] of Health and Human Service's declaration that [...] be used). Performed By: #### C VDTB ####[facility] Pf[address] [place], [place] [address]Vr. Jillian Jaime XR WRIST LT MIN 3 Von 2021 XR WRIST LT MIN 3 V EXAM: XR WRIST LT NC N 3 V HISTORY: Unspecified fall , [...] ESSENCE MONTEMAYOR Date: 2022-07-02 17:36 Normal [facility] CBC AUTO DIFFon 04-28-2022 BASO # 0.0 103/ul Normal 0.0-0.1 [facility] Comment on above: Performed By: #### C BC ####[facility] [address] [place] [address]Dr. Jillian Jaime Basophils/100 WBC (Bld) 0.3 % Normal 0.2-2.0 [facility] Comment on above: Performed By: #### C BC ####[facility] [address] [place], [place] [address]Dr. Jillian Jaime EO # 0.1 103/ul Normal 0.0-0.7 [facility] Comment on above: Performed By: #### C BC ####[facility] [address] [place], [place] [address]Dr. Jillian Jaime Eosinophils/100 WBC (Bld) 1.3 % Normal 0.9-7.0 [facility] Comment on above: Performed By: #### C BC ####[facility] [address] [place] [address]Dr. Jillian Jaime Erythrocyte distribution width (RBC) [Ratio] 13.4 % Normal 11.0-15.0 [facility] Comment on above: Performed By: #### C BC ####[facility] [address] [place] [address]Dr. Britneyglenroy Jaime Hematocrit (Bld) [Volume fraction] 43.0 % Normal 36.0-48.0 [facility] Comment on above: Performed By: #### C BC ####[facility] [address] [place] [address]Dr. Jillian Jaime Hemoglobin (Bld) [Mass/Vol] 13.5 g/dL Normal 12.0-16.0 [facility] Comment on above: Performed By: #### C BC ####[facility] [address] [place] [address]Dr. Jillian Jaime IG # 0.05 10e3/ul Critically high 0.00-0.03 [facility] Comment on above: Performed By: #### C BC ####[facility] [address] [place] [address]Dr. Jillian Jaime IG % 0.5 % Normal 0.0-0.5 [facility] Comment on above: Performed By: #### C BC ####[facility] [address] [place] [address]Dr. Jillian Jaime LYMPH # 1.8 103/ul Normal 1.2-3.8 [facility] Comment on above: Performed By: #### C BC ####[facility] [address] [place], [place] [address]Dr. Jillian Jaime Lymphocytes/100 WBC (Bld) 18.3 % Critically low 20.5-60.0 [facility] Comment on above: Performed By: #### C BC ####[facility] [address] [place] [address]Dr. Jillian Jaime MANUAL DIFF REQ NO Normal [facility] [place] [facility] Comment on above: Performed By: #### C BC ####[facility] [address] [place], [place] [address]Dr. Jillian Jaime MCH (RBC) [Entitic mass] 29.0 pg Normal 26.7-34.0 [facility] Comment on above: Performed By: #### C BC ####[facility] [address] [place], [place] [address]Dr. Jillian Jaime MCHC (RBC) [Mass/Vol] 31.4 g/dL Normal 29.9-35.2 [facility] Comment on above: Performed By: #### C BC ####[facility] [address] [place] [address]Dr. Jillian Jaime MCV (RBC) [Entitic vol] 92.5 fL Normal 81.0-99.0 [facility] Comment on above: Performed By: #### C BC ####[facility] [address] [place] [address]Dr. Jillian Jaime MONO # 0.5 103/ul Normal 0.3-0.8 [facility] Comment on above: Performed By: #### C BC ####[facility] [address] [place] [address]Dr. Jillian Jaime Monocytes/100 WBC (Bld) 5.1 % Normal 1.7-12.0 [facility] Comment on above: Performed By: #### C BC ####[facility] [address] [place] [address]Dr. Jillian Jaime NEUT # 7.2 103/ul Critically high 1.4-6.5 [facility] [place] [facility] Comment on above: Performed By: #### C BC ####[facility] [address] [place], [place] [address]Dr. Jillian Jaime Neutrophils/100 WBC (Bld) 74.5 % Normal 43.0-75.0 [facility] Comment on above: Performed By: #### C BC ####[facility] [address] [place] [address]Dr. Jillian Jaime Platelet mean volume (Bld) [Entitic vol] 8.2 fL Critically low 9.5-13.5 [facility] Comment on above: Performed By: #### C BC ####[facility] [address] [place] [address]Dr. Jillian Jaime PLT 304 103/ul Normal 150-450 [facility] Comment on above: Performed By: #### C BC ####[facility] Of[address] [place], [place] [address]Dr. Jillian Addison RBC 4.65 106/ul Normal 4.20-5.40 [facility] Comment on above: Performed By: #### C BC ####[facility] [address] [place] [address]DrAaron Jaime WBC 9.7 103/ul Normal 4.0-11.0 [facility] Comment on above: Performed By: #### C BC ####[facility] [address] [place] [address]Dr. Jillian Jaime GLYCOHEMOGLOBIN A1Con 2021 ADA RECOMMENDATION SEE BELOW Normal [facility] Comment on above: Result Comment: ADA RECOMMENDED LIMIT 4.0 - 6.0 ADA THERAPEUTIC TARGET < 7.0 ACTION SUGGESTED > 7.0 Performed By: #### A 1C #### [facility] Laboratory [address] [place] [address] [address] Jillian Jaime Glucose [Mass/Vol] 114 mg/dL Normal [facility] Comment on above: Performed By: #### A 1C #### [facility] Laboratory [address] [place] [address] [address] Jillian Jaime HbA1c (Bld) [Mass fraction] 5.6 % Normal 4.5-6.2 [facility] Comment on above: Performed By: #### A 1C #### [facility] Laboratory [address] [place] [address] [address] Jillian Jaime PROF 14(COMP METB)on 022 Albumin [Mass/Vol] 3.3 g/dL Critically low 3.4-5.0 Th [facility] Comment on above: Performed By: #### C MP ####[facility] Z[address] [place] [address]Dr. Jillian Jaime Albumin/Globulin [Mass ratio] 0.8 {ratio} Normal [facility] Comment on above: Performed By: #### C MP ####[facility] [address] [place] [address]11DrAaron Jaime ALP [Catalytic activity/Vol] 155 U/L Critically high 46-116 [facility] Comment on above: Performed By: #### C MP ####[facility] Q[address]tyqifv[address]66 [place] [address]DrAaron Jaime ALT [Catalytic activity/Vol] 27 U/L Normal 14-59 [facility] Comment on above: Performed By: #### C MP ####[facility] Us[address] [place] [address]Dr. Jillian Jaime Anion gap [Moles/Vol] 9.5 mmol/L Normal [facility] Comment on above: Performed By: #### C MP ####[facility] H[address]tp[address] [place] [address]Dr. Jillian Jaime AST [Catalytic activity/Vol] 11 U/L Critically low 15-37 [facility] Comment on above: Performed By: #### C MP ####[facility] [address] [place] [address]Dr. Jillian Jaime Bilirubin [Mass/Vol] 0.3 mg/dL Normal 0.2-1.0 [facility] Comment on above: Performed By: #### C MP ####[facility] [address] [place], [place] [address]Dr. Jillian Jaime Calcium [Mass/Vol] 9.2 mg/dL Normal 8.5-10.1 [facility] Comment on above: Performed By: #### C MP ####[facility] [address] [place], [place] [address]Dr. Jillian Jaime Chloride [Moles/Vol] 104 mmol/L Normal 98-107 [facility] Comment on above: Performed By: #### C MP ####[facility] [address] [place], [place] [address]Dr. Jillian Jaime CO2 [Moles/Vol] 30.4 mmol/L Normal 21.0-32.0 [facility] Comment on above: Performed By: #### C MP ####[facility] [address] [place], [place] [address]Dr. Jillian Jaime Creatinine [Mass/Vol] 1.11 mg/dL Critically high 0.55-1.02 [facility] Comment on above: Performed By: #### C MP ####[facility] [address] [place], [place] [address]Dr. Jillian Addison EGFR-AF PALESTINIAN >60 Normal >=60 [facility] Comment on above: Performed By: #### C MP ####[facility] [address] [place] [address]Dr. Jillian Jaime EGFR-NON AF PALESTINIAN 52 mL/min/1.73m2 Critically low >=60 [facility] Comment on above: Performed By: #### C MP ####[facility] [address] [place] [address]Dr. Jillian Jaime Globulin (S) [Mass/Vol] 4.1 g/dL Normal [facility] Comment on above: Performed By: #### C MP ####[facility] [address] [place] [address]Dr. Jillian Jaime Glucose [Mass/Vol] 152 mg/dL Critically high 74-106 [facility] Comment on above: Performed By: #### C MP ####[facility] [address] [place] [address]Dr. Jillian Jaime Potassium [Moles/Vol] 3.9 mmol/L Normal 3.5-5.1 [facility] Comment on above: Performed By: #### C MP ####[facility] [address] [place] [address]Dr. Jillian Jaime Protein [Mass/Vol] 7.4 g/dL Normal 6.4-8.2 [facility] Comment on above: Performed By: #### C MP ####[facility] [address] [place] [address]Dr. Jillian Jaime Sodium [Moles/Vol] 140 mmol/L Normal 136-145 [facility] Comment on above: Performed By: #### C MP ####[facility] [address]ws[address] [place] [address]Dr. Jillian Jaime Urea nitrogen [Mass/Vol] 17.0 mg/dL Normal 7.0-18.0 [facility] Comment on above: Performed By: #### C MP ####[facility] [address] [place] [address]Dr. Jillian Jaime Urea nitrogen/Creatinine [Mass ratio] 15.3 mg/mg Normal [facility] Comment on above: Performed By: #### C MP ####[facility] [address] [place], [place] [address]VkDr. Jillian Jaime PROTIMEon 04-28-2022 INR Coag (PPP) [Relative time] 1.01 {INR} Normal [facility] Comment on above: Performed By: #### P TT, PT #### [facility] Laboratory [address] [place], [place] [address] Dr. Jillian Jaime INR GUIDELINES SEE BELOW Normal [facility] Comment on above: Result Comment: ARIANNA RED INR: 2.0 - 3.0 CONDITIONS NOT LISTED BELOW 2.5 - 3.5 FOR PROSTHETIC HEART VALVE REPLACEMENT 2.5 - 3.5 RECURRENT THROMBOSIS Performed By: #### P TT, PT #### [facility] Laboratory [address] [place] [address] [address] Jillian Jaime PT Coag (PPP) [Time] 10.9 s Normal 9.0-11.6 [facility] Comment on above: Performed By: #### P TT, PT #### [facility] Laboratory [address] [place] [address] [address] Jillian Jaime PTTon 04-28-2022 aPTT Coag (Bld) [Time] 26.2 s Normal 22.3-36.2 [facility] Comment on above: Performed By: #### P TT, PT #### [facility] Laboratory [address] [place] [id number] Jillian Jaime Cytologyon 12-25-2021 Cytology (NOTE) INTERPRETATION Cervical material, (ThinPrep vial, Imaging-assisted review): Specimen Adequacy: Satisfactory for evaluation. -Endocervical/transform ation zone component is absent. Descriptive Diagnosis: Negative for intraepithelial lesion or malignancy. Timber Skidder: SILVIA VERDUGO(ASCP) Electronically Signed Out /12/31/2021 Source: A: Cervical material, (ThinPrep vial, Imaging-assisted review) Clinical History Z01.419 Routine children's minister exam without abnormal findings High risk HPV DNA testing is requested if the diagnosis is abnormal GYNECOLOGIC CYTOLOGY REPORT Patient Name: FRED QURESHI [facility] Rec: [id number] Path Number: [id number] [facility] ANATOMIC PATHOLOGY [address] [place] [address]. [place], [place] [address] Normal [facility] Comment on above: Performed By: #### P PPVP #### [facility] [address] [place], [place] [id number] [employer] Tv: Griffin Bonilla MD Covid-19 PCR ([facility])on 11-16 SARS-CoV-2 (COVID-19) RNA FLORENCIA+probe Ql (Unsp spec) Not detected Normal NOT DETECTED [facility] Comment on above: Result Comment: This test is not yet approved or cleared by the [place] FDA. When there are no FDA-approved or cleared tests available, and other criteria are met, FDA can make tests available under an emergency access mechanism called an Emergency Use Authorization (EUA). The EUA for this test is supported by the [place] of Health and Human Service's (HHS's) declaration [...] SARS-CoV-2. Performed By: #### C VDTB #### [facility] Laboratory [address] [place] [address] Dr. Jillian Jaime SYMPTOMATIC COVID-19 ANTIGEN on 12-04-2021 EUA Statement SEE BELOW Normal [facility] Comment on above: Result Comment: This [...] revoked sooner. Performed By: #### C VDAGS ####[facility] [address] [place], [place] [address]Aa. Jillian Jaime SARS-CoV-2 (COVID-19) RNA FLORENCIA+probe Ql (Unsp spec) Negative Normal NEGATIVE [facility] Comment on above: Performed By: #### C VDAGS ####[facility] [address] [place], [place] [address]Jg. Jillian Jaime Vital Signs Date Time Vital Sign Value Performing Clinician Facility 04-13-2023 13:25-0400 Body height Matilde Carrillo Other [facility] Other 04-13-2023 13:25-0400 Body mass index (BMI) [Ratio] 57.79 kg/m2 Matilde Carrillo Other [facility] Other 04-13-2023 13:25-0400 Body temperature 97.5 [degF] Matilde Carrillo Other [facility] Other 04-13-2023 13:25-0400 Body weight 143.34 kg Matilde Carrillo Other [facility] Other 04-13-2023 13:25-0400 Diastolic blood pressure 96 mm[Hg] Matilde Carrillo Other [facility] Other 04-13-2023 13:25-0400 Respiratory rate 18 /min Matilde Carrillo Other [facility] Other 04-13-2023 13:25-0400 SaO2% (BldA) [Mass fraction] 96 % Matilde Carrillo Other [facility] Other 04-13-2023 13:25-0400 Systolic blood pressure 164 mm[Hg] Matilde Carrillo Other [facility] Other 01-11-2023 14:12-0400 Blood Pressure Location Niall NILL [facility] [place] 01-11-2023 14:12-0400 Diastolic blood pressure 84 mm[Hg] Niall NILL [facility] [place] 01-11-2023 14:12-0400 Heart rate 76 /min Niall NILL [facility] [place] 01-11-2023 14:12-0400 Respiratory rate 16 /min Niall NILL [facility] [place] 01-11-2023 14:12-0400 Systolic blood pressure 124 mm[Hg] Niall NILL [facility] Encounters Encounter Date Encounter Type Care Provider Facility Start: 04-16-2024 End: 04-16-2024 [facility] Start: 04-13-2023 End: 04-13-2023 ambulatory Matilde Carrillo Facility:[facility] Start: 04-13-2023 End: 04-13-2023 Patient encounter procedure TRAINING COORDINATOR-C Matilde Carrillo Work Phone: [facility] Work Phone: Start: 04-13-2023 End: 04-13-2023 ambulatory TRAINING COORDINATOR-C Matilde Carrillo Work Phone: [facility] Work Phone: Start: 04-13-2023 Office outpatient ne w 20 minutes Matilde Carrillo [facility] Start: 02-08-2023 ambulatory Niall R NILL Facility :[facility] Start: 02-01-2023 End: 02-02-2023 ambulatory Niall R [...] Start: 12-25-2021 End: 12-26-[address] [facility] Start: 12-25-2021 End: 12-25-2021 Patient encounter status Paulette Santana MD Work Phone: [facility] Start: 12-25-2021 End: 12-25-2021 Subsequent hospital visit by physician Paulette Santana MD Work Phone: [facility] Comment on above: Encounter for gyneco logical examination Start: 12-04-2021 End: 12-04-[address] PAULETTE SANTANA . Facility: Procedures Date Procedure Procedure Detail Performing Clinician Start: 04-13-2023 X-ray of right knee TRAINING COORDINATOR- C Matilde [place] Work Phone: Benign neoplasm of f sheldon (disorder) Niall GOMEZValerie Excision of ganglion of wrist, recurrent Niall SAIMA Ligation of fallopian tube Jose GOMEZValerie Reduction mammoplasty Shine doan SAIMA Plan of Treatment Date Care Activity Detail Author Start: 03-18-2022 Influenza vaccination Flu vacc ine (Season Ended) [facility] Start: 2019 Screening for malign ant neoplasm of breast Breast cancer screen [facility] Start: 2014 Screening for malign ant neoplasm of colon [facility] [employer] [facility] Start: 2009 Lipid panel Lipids [facility] Start: 1999 Screening for malign ant neoplasm of cervix [facility] [employer] [facility] Start: 1990 Screening for malign ant neoplasm of cervix Pap smear [facility] [employer] [place] Start: 1988 DTaP/Tdap/Td vaccine (1 - Tdap) DTaP/Tdap/Td vaccine (1 - Tdap) [facility] [employer] [facility] Start: 1987 Hepatitis C screening Hepatitis C sc reen [facility] Start: 1984 HIV screening HIV screen [facility] Start: 1981 Depression Screen Depression Screen [facility] Start: 1974 COVID-19 Vaccine (1) COVID-19 Vaccin e (1) [facility] End: 12-25-2021 Cytopathology procedure, preparation of smear, genital source PAP SMEAR Lab Routine Encounter for gynecological examination 1 Occurrences starting 12/25/2021 until 12/25/2021 [facility] [employer] Work Phone: Comment on above: 1 Occurrences starti ng 12/25/2021 until 12/25/2021 Immunizations Immunization Date Immunization Notes Care Provider Jennie garvey 05-10-2022 influenza virus vaccine, unspecified formulation Niall RUSSELL [facility] [place] 12-17-2021 SARS-CoV-2 (COVID-19 ) mRNA-1273 vaccine Niall NILL [facility] 08-14-2021 SARS-CoV-2 (COVID-19 ) mRNA-1273 vaccine Niall NILL [facility] 01-04-2021 SARS-CoV-2 (COVID-19 ) mRNA-1273 vaccine Niall NILL [facility] 12-07-2020 SARS-CoV-2 (COVID-19 ) mRNA-1273 vaccine Niall NILL [facility] 04-17-2020 influenza virus vaccine, unspecified formulation Niall NILL [facility] [place] Payers Date Payer Category Payer Unknown 2023 Self-pay 1970 Unknown [id number] 2.16.8 [id number] 1970 Unknown [id number] 2.16.84 0.1.807235.3.579.2.593 1969 Unknown [id number] 2.16.84 0.1.291781.3.579.2.593 1969 Unknown [id number] 2.16.84 0.1.515577.3.579.2.593 1969 Unknown [id number] 2.16.84 0.1.285982.3.579.2.593 1969 Unknown [id number] 2.16.84 0.1.770059.3.579.2.593 1969 Unknown [id number] 2.16.84 0.1.487377.3.579.2.593 1969 Unknown [id number] 2.16.84 0.1.636879.3.579.2.593 1969 Unknown [id number] 2.16.84 0.1.765848.3.579.2.593 1969 Unknown [id number] 2.16.84 0.1.978253.3.579.2.593 1969 Unknown [id number] 2.16.84 0.1.151276.3.579.2.593 1969 Unknown [id number] 2.16.8 40.1.044019.3.579.2.727 1969 Unknown [id number] 2.16.8 40.1.980226.3.579.2.727 1969 Unknown [id number] 2.16.8 40.1.662234.3.579.2.727 1969 Unknown [id number] 2.16. 840.1.174522.3.579.2.196 1959 Unknown [id number] 1. [id number] Unknown [id number] 2.16.8 40.1.762013.3.579.2.531 Social History Date Type Detail Facility Start: 12-25-2021 End: 01-11-2023 Tobacco smoking status [facility] Ex-smoker [employer] Start: 12-25-2021 Cigarettes smoked current (pack per day) - Reported 1 [employer] Phone: Start: 12-25-2021 Tobacco use and exposure Smokeless tobacco non-user [employer] Phone: Start: 12-25-2021 Alcohol intake Ex-drinker (finding) [employer] Phone: Start: 1970 Sex Assigned At Not on file B ON [employer] Phone: Tobacco smoking status Never [facility] [place] Sex Assigned At Female [facility] Start: 1970 Sex Assigned At Female [facility] Functional Status Date Assessment Result Facility [...] the ER for worsening symptoms or concerns [employer] Other 06-27-2023 NoteChief Complaint consultation for nevus [...] 12/07/2020 Recorded influenza virus vaccine, inactivated 04/17/2020 [facility]:Result Comment: Electronically Signed By: SAIMA MCQUEEN, Niall Collier\Date and Time Signed: 01/11/23 14:31 [id number] NotePROCEDURE: XR KNEE RT 3V DATE: 11/01/2022 [...] Electronically authenticated by: JODI WEBER Date: 2022-11-01 12:17[facility]12-30-2022 NotePROCEDURE: XR HAND LT MIN 3V [...] no acute fracture Electronically authenticated by: ADELAIDA ALO Date: 2022-07-16 07:43[facility]12-16-2022 NotePROCEDURE: XR FINGER MIN 2 VIEWS [...] Electronically authenticated by: ASHOK GRIER Date: 2022-07-02 17:45[facility]12-16-2022 NotePROCEDURE: XR HAND LT MIN 3V [...] Electronically authenticated by: ASHOK GRIER Date: 2022-07-02 17:43[facility]08-09-2022 NotePROCEDURE: XR KNEE RT 4V or > COMPARISON: None. HISTORY: Pain of right knee joint FINDINGS: BONES:No acute fracture or dislocation. Moderate osteoarthropathy and marginal osteophyte formation. SOFT TISSUES:Negative. No visible soft tissue swelling. EFFUSION:None visible. OTHER: Negative. IMPRESSION: Moderate tricompartmental osteoarthritis Electronically authenticated by: ADELAIDA LAO Date: 2022-02-23 19:01[facility] [place] [facility] Future Appointments Appointment Date:02/01/2023 02:00:00 PM Scheduled Provider:Niall RUSSELL MD Location:[facility] Appointment Type: Procedure 30 General Surgery [place] Evaluation note* Diagnosis Encounter for gynecological examination documented in this encounter [facility] Work Phone: evaluation noteNo assessment information available [facility] Work Phone: Hishmdo general Narrative - Reported* Type Description Date Medical History hypertension Medical History depression Medical History Hypothyroid Surgical History breast reduction Surgical History cyst removal, wrist Surgical History tubal ligation Hospitalization History see above [employer] Other Hospital course Narrative No data available for this section [facility] [place] [facility] Discharge instructions No data available for this section [facility] [place] Progress note No data available for this section [facility] [place] Summary Purpose Family History No Family History Records FoundNo Family History Records FoundNo Family History Records FoundNo Family History Records FoundNo Family History Records Found Advance Directives No Advanced Directives Records FoundNo Advanced Directives Records FoundNo Advanced Directives Records FoundNo Advanced Directives Records FoundNo Advanced Directives Records Found Additional Source Comments Care Teams (unrecognized sec tion and content) Log Inspector Relationship Specialty Start Date End Date Paulette Santana MD [address] [phone] PCP - General Family Medicine 12/25/21 Team Status: Inactive Member Role Status Dates DERREK Sanchez Attending Provider Active INFORMATION SOURCE (unrecogn ized section and content) DATE CREATED AUTHOR [facility]/01[facility]2022 [facility] DATE CREATED AUTHOR AUTHOR'S ORGANIZ ATION 11/07/2022 [facility] [place] DATE CREATED AUTHOR AUTHOR'S ORGANIZ ATION 02/02/2023 [facility] DATE CREATED AUTHOR AUTHOR'S ORGANIZ ATION 04/21/2023 [facility] DATE CREATED AUTHOR AUTHOR'S ORGANIZ ATION 04/20/2024 [facility] Goals (unrecognized section and content) Goals [...] BE BASED ON THE PRIMARY CLINICAL RECORDS. [facility] [employer] [facility]. provides no warranty or guarantee of the accuracy or completeness of information in this document.
== END 2024-08-13 12:59 | disposition home or self-care (01) ==
LOC: EC 12:58
PROVIDERS: PCP Family Medicine; Visit Provider Student in an Organized Health Care Education/Training Program
DX: M17.0 Bilateral primary osteoarthritis of knee (principal)
CPT/HCPCS: 73564

== ENCOUNTER 2024-08-16 12:33 | Outpatient (OUT) | payer BC, SELFPAY ==
--- OUTSIDE RECORDS SUMMARY | 2024-08-16 12:37 | XMS_ITS | CCD ---
Author Organization [facility] Care Team Providers Care Knobber Name Role Phone Paulette Santana MD Primary Care Provider [phone] JUAN BATISTA Referring Unavailable PAULETTE SANTANA [...] 10/06/20 Status: Ordered take 1 capsule by [facility] every eight hours Diclofenac 35 MG 1 capsule as needed Ora lly Three times a day Active levothyroxine sodium 0.05 mg oral tablet (2 sources) l-Thyroxine Start: 12-29-2022 take 1 tablet by mouth once daily levothyroxine 50 mcg (0.05 mg) Tab 50 mcg = 1 tab(s), Oral, Daily, Refills(s) 0 Start Date: 12/29/22 Status: Ordered take 1 tablet by [facility] once daily in the morning Levothyroxine Sodium [...] Start: 10-06-2020 take 2 tablets by mo [facility] once daily at bedtime mirtazapine 30 [...] 2 Episodic Other aftercare (1 source) Other rigger up (current) drug therapy; Translations: [[facility] CURRENT DRUG THERAPY] Onset: 2 Episodic Other [...] RT 4V*on 04-13-2023 XR knee RT 4V* [facility] [place] [address] XRay Report Signed Patient: Fred Qureshi MR#: [id number] : 1970 Acct:[id number] Age/Sex: 52 / F ADM Date: 04/13/23 Loc: XDUC Room: Type: [facility] Attending Dr: Matilde ANGLIN Copies to: DERREK [...] Jose Moran M.D.04/13/2023 2:33 PM Dictation Location: [place] [address] Transcribed By: [facility] 04/13/23 143 Dictated By: Jose Moran DO 04/13/23 1432 Signed By: 04/13/23 143 [facility] XR knee RT 4V* [facility] [employer] Other XR knee RT 4V* [facility] [employer] Other XR knee RT 4V* [address] [facility] [employer] Other XR knee RT 4V* [place] [address] No rt [employer] Other XR knee RT 4V* XRay Report [employer] Other XR knee RT 4V* Signed [employer] Other XR knee RT 4V* Patient: Sampson Qureshi MR#: [id number] [facility] [employer] Other XR knee RT 4V* 5905 [employer] Other XR knee RT 4V* : 1970 Acct:[id number] [employer] Other XR knee RT 4V* Age/Sex: 52 / F ADM Date: 04/13/23 [employer] Other XR knee RT 4V* Loc: XDUCLY [facility] [employer] Other XR knee RT 4V* Attending Dr: Matilde ANGLIN [employer] Other XR knee RT 4V* Copies to: DERREK Head [employer] Other XR knee RT 4V* Ordering Provider: DERREK Haed [employer] Other XR knee RT 4V* Date of Service: 04/13/23 [employer] Other XR knee RT 4V* XR/XR knee RT 4V*: Acute pain of right knee [employer] Other XR knee RT 4V* 4 views right knee plain film [employer] Other XR knee RT 4V* COMPARISON: None [place] [employer] Other XR knee RT 4V* HISTORY: Right knee injury. Superior patellar pain. [employer] Other XR knee RT 4V* ACUTE FINDINGS: None [employer] Other XR knee RT 4V* DEGENERATIVE CHANGE: Moderate degeneration. [employer] Other XR knee RT 4V* SOFT TISSUE FINDINGS : Unremarkable [employer] Other XR knee RT 4V* JOINT EFFUSION: None [employer] Other XR knee RT 4V* POSTOP CHANGES: None [employer] Other XR knee RT 4V* BONE MINERALIZATION: Adequate [employer] Other XR knee RT 4V* XR/XR knee RT 4V* [employer] Other XR knee RT 4V* IMPRESSION: No acute findings [employer] Other XR knee RT 4V* Impression dictated by: Jose Moran M.D.04/13/2023 2:33 PM [employer] Other XR knee RT 4V* Dictation Location: [place] [address] [employer] Other XR knee RT 4V* Transcribed By: [facility] 04/13/23 [facility] [employer] Other XR knee RT 4V* Dictated By: Jose Moran DO 04/13/23 [facility] [employer] Other XR knee RT 4V* Signed By: [employer] Other XR knee RT 4V* 04/13/23 [facility]3 SeeWhy Other Ambulatory Visit Summaryon 0 02-01-2023 Ambulatory [...] RUSSELL MD Where: General Surgery Saima/Roberta Martinez [facility] General Surgery Office/Clini c Noteon 02-01-2023 General [...] Recorded influenza virus vaccine, inactivated 04/17/2020 Recorded [facility] Comment on above: Result Comment: Elec tronically Signed By: SAIMA MCQUEEN, Niall Tucker\.br\Date and Time Signed: 02/01/23 14:23 EDT Pre-Certification Formon Pre-Certification Form [id number] CD:127 [facility] Facesheeton 01-12-2023 Facesheet [id number] D:127 [facility] Ambulatory Visit Summaryon 0 01-11-2023 [...] Migraine Morbid obesity Nevus Pituitary adenoma Normal [facility] Physician Referralon 023 Physician Referral [id number] D:127 Normal [facility] MG MAMM SCREEN 3D HAYDEE CADon 03-21-2023 MG MAMM SCREEN 3D HAYDEE CAD Patient: FRED QURESHI Exam Date: 10/05/2022 : 1970 Gender:F Ordering : DR PAULETTE SANTANA . Admission #: [id number] Family : Order #: [id number] CLICK HERE TO VIEW EXAM RADIOLOGY REPORT [...] Treatments None Family Cancers None LOCATION: [facility] BREAST COMPOSITION: Scattered areas fibroglandular density. [...] M.D. on 10/05/2022 at 16:[address] [facility] FREE T3on 09-21-2022 FREE T3 2.22 pg/mlL Normal 2.18-3.98 [facility] Comment on above: Performed By: #### F T3, T4, TSH ####[facility] [address] [place], [place] [address]El. Jillian Jaime T4on 09-21-2022 T4 [Mass/Vol] 5.50 ug/dL Normal 4.80-13.90 [facility] Comment on above: Performed By: #### F T3, T4, TSH ####[facility] [address] [place], [place] [address]Sj. Jillian Jaime TSHon 09-21-2022 TSH 0.782 uIU/mL Normal 0.358-3.740 [facility] Comment on above: Performed By: #### F T3, T4, TSH ####[facility] [address] [place], [place] [address]Zv. Jillian Jaime [facility]on SARS-CoV-2 (COVID-19) RNA FLORENCIA+probe Ql (Unsp spec) Not detected Normal NOT DETECTED [facility] Comment on above: Result Comment: When [...] for this test is supported by the [place] of Health and Human Service's declaration that [...] be used). Performed By: #### C VDTB ####[facility] [address] [place], [place] [address]Ot. Jillian Jaime XR WRIST LT MIN 3 Von 2021 XR WRIST LT MIN 3 V EXAM: XR WRIST LT NE N 3 V HISTORY: Unspecified fall , [...] ESSENCE MONTEMAYOR Date: 2022-07-02 17:[address] [facility] CBC AUTO DIFFon 04-28-2022 BASO # 0.0 103/ul Normal 0.0-0.[address] [facility] Comment on above: Performed By: #### C BC ####[facility] [address] [place] [address]Dr. Jillian Jaime Basophils/100 WBC (Bld) 0.3 % Normal 0.2-2.[address] [facility] Comment on above: Performed By: #### C BC ####[facility] [address] [place], [place] [address]Dr. Jillian Jaime EO # 0.1 103/ul Normal 0.0-0.[address] [facility] Comment on above: Performed By: #### C BC ####[facility] [address] [place], [place] [address]Dr. Jillian Jaime Eosinophils/100 WBC (Bld) 1.3 % Normal 0.9-7.[address] [facility] Comment on above: Performed By: #### C BC ####[facility] [address] [place] [address]Dr. Jillian Jaime Erythrocyte distribution width (RBC) [Ratio] 13.4 % Normal 11.0-15.[address] [facility] Comment on above: Performed By: #### C BC ####[facility] [address] [place] [address]Dr. Britneyglenroy Jaime Hematocrit (Bld) [Volume fraction] 43.0 % Normal 36.0-48.[address] [facility] Comment on above: Performed By: #### C BC ####[facility] [address] [place] [id number]. Jillian Jaime Hemoglobin (Bld) [Mass/Vol] 13.5 g/dL Normal 12.0-16.[address] [facility] Comment on above: Performed By: #### C BC ####[facility] [address]ffil[address] [place] [id number]. Jillian Jaime IG # 0.05 10e3/ul Critically high 0.00-0.03 [facility] Comment on above: Performed By: #### C BC ####[facility] [address]ldlnh[address] [place] [address]Dr. Jillian Jaime IG % 0.5 % Normal 0.0-0.[address] [facility] Comment on above: Performed By: #### C BC ####[facility] [address]plebp[address] [place] [address]Dr. Jillian Jaime LYMPH # 1.8 103/ul Normal 1.2-3.[address] [facility] Comment on above: Performed By: #### C BC ####[facility] [address] [place], [place] [address]Dr. Jillian Jaime Lymphocytes/100 WBC (Bld) 18.3 % Critically low 20.5-60.[address] [facility] Comment on above: Performed By: #### C BC ####[facility] [address] [place] [address]Dr. Jillian Jaime MANUAL DIFF REQ NO Normal The [facility] Comment on above: Performed By: #### C BC ####[facility] [address] [place], [place] [address]Dr. Jillian Jaime MCH (RBC) [Entitic mass] 29.0 pg Normal 26.7-34.[address] [facility] Comment on above: Performed By: #### C BC ####[facility] [address] [place], [place] [address]Dr. Jillian Jaime MCHC (RBC) [Mass/Vol] 31.4 g/dL Normal 29.9-35.[address] [facility] Comment on above: Performed By: #### C BC ####[facility] [address]ds[address] [place] [id number]. Jillian Jaime MCV (RBC) [Entitic vol] 92.5 fL Normal 81.0-99.[address] [facility] Comment on above: Performed By: #### C BC ####[facility] [address] [place] [id number]. Jillian Jaime MONO # 0.5 103/ul Normal 0.3-0.[address] [facility] Comment on above: Performed By: #### C BC ####[facility] [address] [place] [id number]. Jillian Jaime Monocytes/100 WBC (Bld) 5.1 % Normal 1.7-12.[address] [facility] Comment on above: Performed By: #### C BC ####[facility] [address]so[address] [place] [id number]. Jillian Jaime NEUT # 7.2 103/ul Critically high 1.4-6.[address] [facility] Comment on above: Performed By: #### C BC ####[facility] [address] [place], [place] [address]Dr. Jillian Jaime Neutrophils/100 WBC (Bld) 74.5 % Normal 43.0-75.[address] [facility] Comment on above: Performed By: #### C BC ####[facility] [address]ksh[address] [place] [phone]. Jillian Jaime Platelet mean volume (Bld) [Entitic vol] 8.2 fL Critically low 9.5-13.[address] [facility] Comment on above: Performed By: #### C BC ####[facility] [address]sw[address] [place] [id number]. Jillian Jaime PLT 304 103/ul Normal 150-[address] [facility] Comment on above: Performed By: #### C BC ####[facility] [address]ect[address] [place], [place] [address]Dr. Jillian Addison RBC 4.65 106/ul Normal 4.20-5.[address] [facility] Comment on above: Performed By: #### C BC ####[facility] [address] [place] [address]DrAaron Jaime WBC 9.7 103/ul Normal 4.0-11.0 [facility] Comment on above: Performed By: #### C BC ####[facility] [address] [place] [phone]. Jillian Jaime GLYCOHEMOGLOBIN A1Con 2021 ADA RECOMMENDATION SEE BELOW Normal [facility] Comment on above: Result Comment: ADA RECOMMENDED LIMIT 4.0 - 6.0 ADA THERAPEUTIC TARGET < 7.0 ACTION SUGGESTED > 7.0 Performed By: #### A 1C #### [facility] [address] [place] [address] [address] Jillian Jaime Glucose [Mass/Vol] 114 mg/dL Normal The [facility] Comment on above: Performed By: #### A 1C #### [facility] [address] [place] [address] [address] Jillian Jaime HbA1c (Bld) [Mass fraction] 5.6 % Normal 4.5-6.2 [facility] Comment on above: Performed By: #### A 1C #### [facility] [address] [place] [address] [address] Jillian Jaime PROF 14(COMP METB)on 022 Albumin [Mass/Vol] 3.3 g/dL Critically low 3.4-5.[address] [facility] Comment on above: Performed By: #### C MP ####[facility] [address] [place] [address]Dr. Jillian Jaime Albumin/Globulin [Mass ratio] 0.8 {ratio} Normal [facility] Comment on above: Performed By: #### C MP ####[facility] [address] [place] [phone] Jaime ALP [Catalytic activity/Vol] 155 U/L Critically high 46-116 [facility] Comment on above: Performed By: #### C MP ####[facility] [address] [place] [address]DrAaron Jaime ALT [Catalytic activity/Vol] 27 U/L Normal 14-59 [facility] Comment on above: Performed By: #### C MP ####[facility] [address] [place] [address]Dr. Jillian Jaime Anion gap [Moles/Vol] 9.5 mmol/L Normal [facility] Comment on above: Performed By: #### C MP ####[facility] [address] [place] [address]Dr. Jillian Jaime AST [Catalytic activity/Vol] 11 U/L Critically low 15-37 [facility] Comment on above: Performed By: #### C MP ####[facility] [address]msxprema[address] [place] [address]Dr. Jillian Jaime Bilirubin [Mass/Vol] 0.3 mg/dL Normal 0.2-1.0 [facility] Comment on above: Performed By: #### C MP ####[facility] [address] [place], [place] [address]Dr. Jillian Jaime Calcium [Mass/Vol] 9.2 mg/dL Normal 8.5-10.1 [facility] Comment on above: Performed By: #### C MP ####[facility] [address] [place], [place] [address]Dr. Jillian Jaime Chloride [Moles/Vol] 104 mmol/L Normal 98-107 [facility] Comment on above: Performed By: #### C MP ####[facility] [address] [place], [place] [address]Dr. Jillian Jaime CO2 [Moles/Vol] 30.4 mmol/L Normal 21.0-32.0 The [facility] Comment on above: Performed By: #### C MP ####[facility] [address] [place], [place] [address]Dr. Jillian Jaime Creatinine [Mass/Vol] 1.11 mg/dL Critically high 0.55-1.02 [facility] Comment on above: Performed By: #### C MP ####[facility] [address] [place], [place] [address]Dr. Jillian Addison EGFR-AF SINGAPOREAN >60 Normal >=60 [facility] Comment on above: Performed By: #### C MP ####[facility] [address] [place] [phone]. Jillian Jaime EGFR-NON AF SINGAPOREAN 52 mL/min/1.73m2 Critically low >=60 [facility] Comment on above: Performed By: #### C MP ####[facility] [address] [place] [phone]. Jillian Jaime Globulin (S) [Mass/Vol] 4.1 g/dL Normal [facility] Comment on above: Performed By: #### C MP ####[facility] [address] [place] [phone]. Jillian Jaime Glucose [Mass/Vol] 152 mg/dL Critically high 74-106 [facility] Comment on above: Performed By: #### C MP ####[facility] [address] [place] [address]Dr. Jillian Jaime Potassium [Moles/Vol] 3.9 mmol/L Normal 3.5-5.1 [facility] Comment on above: Performed By: #### C MP ####[facility] [address] [place] [address]Dr. Jillian Jaime Protein [Mass/Vol] 7.4 g/dL Normal 6.4-8.2 [facility] Comment on above: Performed By: #### C MP ####[facility] [address] [place] [address]Dr. Jillian Jaime Sodium [Moles/Vol] 140 mmol/L Normal 136-145 [facility] Comment on above: Performed By: #### C MP ####[facility] [address] [place] [address]Dr. Jillian Jaime Urea nitrogen [Mass/Vol] 17.0 mg/dL Normal 7.0-18.0 [facility] Comment on above: Performed By: #### C MP ####[facility] [address]zr[address] [place] [phone]. Jillian Jaime Urea nitrogen/Creatinine [Mass ratio] 15.3 mg/mg Normal [facility] Comment on above: Performed By: #### C MP ####[facility] [address] [place], [place] [address]BxDr. Jillian Jaime PROTIMEon 04-28-2022 INR Coag (PPP) [Relative time] 1.01 {INR} Normal [facility] Comment on above: Performed By: #### P TT, PT #### [facility] [address] [place], [place] [address] Dr. Jillian Jaime INR GUIDELINES SEE BELOW Normal [facility] Comment on above: Result Comment: ARIANNA RED INR: 2.0 - 3.0 CONDITIONS NOT LISTED BELOW 2.5 - 3.5 FOR PROSTHETIC HEART VALVE REPLACEMENT 2.5 - 3.5 RECURRENT THROMBOSIS Performed By: #### P TT, PT #### [facility] [address] [place] [address] [address] Jillian Jaime PT Coag (PPP) [Time] 10.9 s Normal 9.0-11.[address] [facility] Comment on above: Performed By: #### P TT, PT #### [facility] [address] [place] [address] [address] Jillian Jaime PTTon 04-28-2022 aPTT Coag (Bld) [Time] 26.2 s Normal 22.3-36.2 [facility] Comment on above: Performed By: #### P TT, PT #### [facility] [address] [place] [id number] [address] Jillian Jaime Cytologyon 12-25-2021 Cytology (NOTE) INTERPRETATION Cervical material, (ThinPrep vial, Imaging-assisted review): Specimen Adequacy: Satisfactory for evaluation. -Endocervical/transform ation zone component is absent. Descriptive Diagnosis: Negative for intraepithelial lesion or malignancy. 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 [place], [place] [address] Normal [facility] Comment on above: Performed By: #### P PPVP #### [facility] [address] [place], [place] [id number] Breaker Tender: Griffin Bonilla MD Covid-19 PCR ([facility])on 11-16 SARS-CoV-2 (COVID-19) RNA FLORENCIA+probe Ql (Unsp spec) Not detected Normal NOT DETECTED [facility] Comment on above: Result Comment: This test is not yet approved or cleared by the [place] FDA. When there are no FDA-approved or cleared tests available, and other criteria are met, FDA can make tests available under an emergency access mechanism called an Emergency Use Authorization (EUA). The EUA for this test is supported by the [place] of Health and Human Service's (HHS's) declaration [...] SARS-CoV-2. Performed By: #### C VDTB #### [facility] [address] [place] [address] Dr. Jillian Jaime SYMPTOMATIC COVID-19 ANTIGEN on 12-04-2021 EUA Statement SEE BELOW Normal [facility] Comment on above: Result Comment: This [...] revoked sooner. Performed By: #### C VDAGS ####[facility] [address] [place], [place] [address]Ec. Jillian Jaime SARS-CoV-2 (COVID-19) RNA FLORENCIA+probe Ql (Unsp spec) Negative Normal NEGATIVE [facility] Comment on above: Performed By: #### C VDAGS ####[facility] [address] [place], [place] [address]Db. Jillian Jaime Vital Signs Date Time Vital Sign Value Performing Clinician Facility 04-13-2023 13:25-0400 Body height Matilde Carrillo Other [employer] Other 04-13-2023 13:25-0400 Body mass index (BMI) [Ratio] 57.79 kg/m2 Matilde Carrillo Other [employer] Other 04-13-2023 13:25-0400 Body temperature 97.5 [degF] Matilde Carrillo Other [employer] Other 04-13-2023 13:25-0400 Body weight 143.34 kg Matilde Carrillo Other [employer] Other 04-13-2023 13:25-0400 Diastolic blood pressure 96 mm[Hg] Matilde Carrillo Other [employer] Other 04-13-2023 13:25-0400 Respiratory rate 18 /min Matilde Carrillo Other [employer] Other 04-13-2023 13:25-0400 SaO2% (BldA) [Mass fraction] 96 % Matilde Carrillo Other [employer] Other 04-13-2023 13:25-0400 Systolic blood pressure 164 mm[Hg] Matilde Carrillo Other [employer] Other 01-11-2023 14:12-0400 Blood Pressure Location Niall NILL [facility] [place] 01-11-2023 14:12-0400 Diastolic blood pressure 84 mm[Hg] Niall NILL [facility] [place] 01-11-2023 14:12-0400 Heart rate 76 /min Niall NILL [facility] [place] 01-11-2023 14:12-0400 Respiratory rate 16 /min Niall NILL [facility] [place] 01-11-2023 14:12-0400 Systolic blood pressure 124 mm[Hg] Niall NILL [facility] Encounters Encounter Date Encounter Type Care Provider Facility Start: 04-16-2024 End: 04-16-2024 ambulatory [facility] Start: 04-13-2023 End: 04-13-2023 ambulatory Matilde Carrillo Facility:[facility] Start: 04-13-2023 End: 04-13-2023 Patient encounter procedure 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 Carrillo Work Phone: [facility] [place] [facility] Work Phone: Start: 04-13-2023 End: 04-13-2023 ambulatory 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 Matilde Carrillo Work Phone: [facility] [place] [facility] Work Phone: Start: 04-13-2023 Office outpatient ne w 20 minutes Matilde Carrillo [facility] Start: 02-08-2023 ambulatory Niall R NILL Facility :[facility] Start: 02-01-2023 End: 02-02-2023 ambulatory Niall R [...] Start: 12-25-2021 End: 12-26-2021 ambulatory JUAN BATISTA [facility] Start: 12-25-2021 End: 12-25-2021 Patient encounter status Paulette Santana MD Work Phone: [facility] Start: 12-25-2021 End: 12-25-2021 Subsequent hospital visit by physician Paulette Santana MD Work Phone: [facility] Comment on above: Encounter for gyneco logical examination Start: 12-04-2021 End: 12-04-[address] PAULETTE SANTANA . 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- C Matilde Carrillo Work Phone: Benign neoplasm of f sheldon (disorder) Niall GOMEZValerie Excision of ganglion of wrist, recurrent Niall SAIMA Ligation of fallopian tube Jose GOMEZValerie Reduction mammoplasty Shine doan SAIMA Plan of Treatment Date Care Activity Detail Author Start: 03-18-2022 Influenza vaccination Flu vacc ine (Season Ended) [facility] Start: 2019 Screening for malign ant neoplasm of breast Breast cancer screen [facility] Start: 2014 Screening for malign ant neoplasm of colon [facility] [employer] Start: 2009 Lipid panel Lipids [facility] [employer] [facility] [employer] Start: 1999 Screening for malign ant neoplasm of cervix [facility] [employer] Start: 1990 Screening for malign ant neoplasm of cervix Pap smear [facility] [employer] Start: 1988 DTaP/Tdap/Td vaccine (1 - Tdap) DTaP/Tdap/Td vaccine (1 - Tdap) [facility] [employer] Start: 1987 Hepatitis C screening Hepatitis C sc reen [facility] [employer] Start: 1984 HIV screening HIV screen [facility] [employer] Start: 1981 Depression Screen Depression Screen [facility] [employer] Start: 1974 COVID-19 Vaccine (1) COVID-19 Vaccin e (1) [facility] [employer] End: 12-25-2021 Cytopathology procedure, preparation of smear, genital source [facility] Routine Encounter for gynecological examination 1 Occurrences starting 12/25/2021 until 12/25/2021 [facility] [employer] Work Phone: Comment on above: 1 Occurrences starti ng 12/25/2021 until 12/25/2021 Immunizations Immunization Date Immunization Notes Care Provider Jennie garvey 05-10-2022 influenza virus vaccine, unspecified formulation Niall RUSSELL [facility] [facility] [place] 12-17-2021 SARS-CoV-2 (COVID-19 ) mRNA-1273 vaccine Niall NILL [facility] 08-14-2021 SARS-CoV-2 (COVID-19 ) mRNA-1273 vaccine Niall NILL [facility] 01-04-2021 SARS-CoV-2 (COVID-19 ) mRNA-1273 vaccine Niall NILL [facility] 12-07-2020 SARS-CoV-2 (COVID-19 ) mRNA-1273 vaccine Niall NILL [facility] 04-17-2020 influenza virus vaccine, unspecified formulation Niall NILL [facility] [place] Payers Date Payer Category Payer Unknown [id number] Self-pay 1970 Unknown [id number] 2.16.8 40.1.167424.3.579.2.173 1970 Unknown [id number] 2.16.84 0.1.139693.3.579.2.593 1970 Unknown [id number] 2.16.84 0.1.456661.3.579.2.593 1970 Unknown [id number] 2.16.84 0.1.989460.3.579.2.593 1970 Unknown [id number] 2.16.84 0.1.854993.3.579.2.593 1970 Unknown [id number] 2.16.84 0.1.443122.3.579.2.593 1970 Unknown [id number] 2.16.84 0.1.985412.3.579.2.593 1970 Unknown [id number] 2.16.84 0.1.352014.3.579.2.593 1970 Unknown [id number] 2.16.84 0.1.230079.3.579.2.593 1970 Unknown [id number] 2.16.84 0.1.092598.3.579.2.593 1970 Unknown [id number] 2.16.84 0.1.968654.3.579.2.593 1970 Unknown [id number] 2.16.8 40.1.014710.3.579.2.727 1970 Unknown [id number] 2.16.8 40.1.783026.3.579.2.727 1970 Unknown [id number] 2.16.8 40.1.430820.3.579.2.727 1970 Unknown [id number] 2.16. 840.1.947652.3.579.2.196 1959 Unknown [id number] 1. [id number] Unknown [id number] 2.16.8 40.1.805821.3.579.2.531 Social History Date Type Detail Facility Start: 12-25-2021 End: 01-11-2023 Tobacco smoking status NVIS Ex-smoker [facility] Start: 12-25-2021 Cigarettes smoked current (pack per day) - Reported 1 [facility] Phone: Start: 12-25-2021 Tobacco use and exposure Smokeless tobacco non-user [facility] Phone: Start: 12-25-2021 Alcohol intake Ex-drinker (finding) [facility] Phone: Start: 1970 Sex Assigned At Not on file B ON [employer] Phone: Tobacco smoking status Never [facility] [place] Sex Assigned At Female [facility] Start: 1970 Sex Assigned At Female [facility] Functional Status Date Assessment Result Facility [...] the ER for worsening symptoms or concerns [employer] Other 06-27-2023 NoteChief Complaint consultation for nevus [...] 12/07/2020 Recorded influenza virus vaccine, inactivated 04/17/2020 [facility]:Result Comment: Electronically Signed By: SAIMA MCQUEEN, Niall Collier\Date and Time Signed: 01/11/23 14:31 [id number] NotePROCEDURE: XR KNEE RT 3V DATE: 11/01/2022 [...] Electronically authenticated by: JODI WEBER Date: 2022-11-01 12:17[facility]12-30-2022 NotePROCEDURE: XR HAND LT MIN 3V COMPARISON: [...] Electronically authenticated by: ADELAIDA LAO Date: 2022-07-16 07:43[facility]12-16-2022 NotePROCEDURE: XR FINGER MIN 2 VIEWS HISTORY: [...] Electronically authenticated by: ASHOK GRIER Date: 2022-07-02 17:45[facility]12-16-2022 NotePROCEDURE: XR HAND LT MIN 3V HISTORY: [...] Electronically authenticated by: ASHOK GRIER Date: 2022-07-02 17:43[facility]08-09-2022 NotePROCEDURE: XR KNEE RT 4V or > COMPARISON: None. HISTORY: Pain of right knee joint FINDINGS: BONES:No acute fracture or dislocation. Moderate osteoarthropathy and marginal osteophyte formation. SOFT TISSUES:Negative. No visible soft tissue swelling. EFFUSION:None visible. OTHER: Negative. IMPRESSION: Moderate tricompartmental osteoarthritis Electronically authenticated by: ADELAIDA LAO Date: 2022-02-23 19:01[facility] [place] [facility] Future Appointments Appointment Date:02/01/2023 02:00:00 PM Scheduled Provider:Niall RUSSELL MD Location:[facility] Appointment Type: Procedure 30 [facility] [place] Evaluation note* Diagnosis Encounter for gynecological examination documented in this encounter [facility] Work Phone: evaluation noteNo assessment information available [facility] Work Phone: Hisbqat general Narrative - Reported* Type Description Date Medical History hypertension Medical History depression Medical History Hypothyroid Surgical History breast reduction Surgical History cyst removal, wrist Surgical History tubal ligation Hospitalization History see above [employer] Other Hospital course Narrative No data available for this section [facility] [place] [facility] Discharge instructions No data available for this section [facility] [place] Progress note No data available for this section [facility] [place] Summary Purpose Family History No Family History Records FoundNo Family History Records FoundNo Family History Records FoundNo Family History Records FoundNo Family History Records Found Advance Directives No Advanced Directives Records FoundNo Advanced Directives Records FoundNo Advanced Directives Records FoundNo Advanced Directives Records FoundNo Advanced Directives Records Found Additional Source Comments Care Teams (unrecognized sec tion and content) Knobber Relationship Specialty Start Date End Date Paulette Santaan MD [address] [phone] PCP - General Family Medicine 12/25/21 Team Status: Inactive Member Role Status Dates DERREK Sanchez Attending Provider Active INFORMATION SOURCE (unrecogn ized section and content) DATE CREATED AUTHOR [facility]01/2022 [facility] DATE CREATED AUTHOR AUTHOR'S ORGANIZ ATION 11/07/2022 [facility] DATE CREATED AUTHOR AUTHOR'S ORGANIZ ATION 02/02/2023 [facility] DATE CREATED AUTHOR AUTHOR'S ORGANIZ ATION 04/21/2023 [facility] DATE CREATED AUTHOR AUTHOR'S ORGANIZ ATION 04/20/2024 [facility] Goals (unrecognized section and content) Goals [...] BE BASED ON THE PRIMARY CLINICAL RECORDS. [facility]. provides no warranty or guarantee of the accuracy or completeness of information in this document.
--- NOTE | 2024-08-16 12:40 | XR_ITS ---
The [address] [address] Patient Name: FRED TREJO MRN: [id number] date: 1970 Sex: F Assigned Patient Location: [facility] Current Patient Location: Accession/Order Number: [id number] Exam Date: 08/16/2024 12:50 Report Date: 08/17/2024 07:09 At the request of: PAULETTE JAFFE Procedure: XR ankle RT min 3V PROCEDURE: XR ankle RT min 3V COMPARISON: None. HISTORY: Ankle pain FINDINGS: BONES:No acute fracture or dislocation. Moderate enthesopathic spurring of the calcaneus at the Achilles and plantar insertions. Corticated bone fragments along the medial talus likely representing remote injuries SOFT TISSUES:Medial soft tissue swelling EFFUSION:None visible. OTHER: Negative. XR/XR ankle RT min 3V IMPRESSION: Soft tissue swelling, no definite acute fracture Electronically authenticated by: ADELAIDA LAO Date: 08/17/2024 07:09
== END 2024-08-16 12:34 | disposition home or self-care (01) ==
PROVIDERS: PCP Family Medicine; Visit Provider Family Medicine
DX: M25.571 Pain in right ankle and joints of right foot (principal); M25.471 Effusion, right ankle
CPT/HCPCS: 73610

== ENCOUNTER 2024-08-19 14:33 | Emergency (ER) | payer BC, SELFPAY ==
[2024-08-19 14:36] VITALS: BP 178/80; PULSE 110; TEMP 36.5; O2SAT 97; BMI 63.6
--- OUTSIDE RECORDS SUMMARY | 2024-08-19 14:39 | XMS_ITS | CCD ---
Author Organization [facility] Care Team Providers Care Cma Name Role Phone Paulette Santana MD Primary Care Provider [phone] JUAN BATISTA Referring Unavailable PAULETTE SANTANA [...] 10/06/20 Status: Ordered take 1 capsule by 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; Translations: [OTH GROUP HOME CURRENT DRUG THERAPY] Onset: 2 Episodic Other [...] RT 4V*on 04-13-2023 XR knee RT 4V* [facility] [place] [address] XRay Report Signed Patient: Fred Qureshi MR#: [id number] : 1970 Acct:[id number] Age/Sex: 52 / F ADM Date: 04/13/23 Loc: XDUC Room: Type: [facility] Attending Dr: Matilde ANGLIN Copies to: DERREK [...] Jose Moran M.D.04/13/2023 2:33 PM Dictation Location: [place] [address] Transcribed By: [facility] 04/13/23 143 Dictated By: Jose Moran DO 04/13/23 1432 Signed By: 04/13/23 143 [facility] XR knee RT 4V* [facility] [employer] Other XR knee RT 4V* [facility] Main [facility] [employer] Other XR knee RT 4V* [address] [facility] [employer] Other XR knee RT 4V* [place] [address] No rt [employer] Other XR knee RT 4V* XRay Report [employer] Other XR knee RT 4V* Signed [employer] Other XR knee RT 4V* Patient: Sampson Qureshi MR#: [id number] [place] [employer] Other XR knee RT 4V* 5905 [employer] Other XR knee RT 4V* : 1970 Acct:[id number] [employer] Other XR knee RT 4V* Age/Sex: 52 / F ADM Date: 04/13/23 [employer] Other XR knee RT 4V* Loc: XDUCLY Room: [facility] [employer] Other XR knee RT 4V* Attending Dr: Matilde ANGLIN [employer] Other XR knee RT 4V* Copies to: DERREK Head [employer] Other XR knee RT 4V* Ordering Provider: DERREK Head [employer] Other XR knee RT 4V* Date of Service: 04/13/23 [employer] Other XR knee RT 4V* XR/XR knee RT 4V*: Acute pain of right knee [employer] Other XR knee RT 4V* 4 views right knee plain film [employer] Other XR knee RT 4V* COMPARISON: None Nort [employer] Other XR knee RT 4V* HISTORY: Right knee injury. Superior patellar pain. [employer] Other XR knee RT 4V* ACUTE FINDINGS: None [employer] Other XR knee RT 4V* DEGENERATIVE CHANGE: Moderate degeneration. [employer] Other XR knee RT 4V* SOFT TISSUE FINDINGS : Unremarkable [employer] Other XR knee RT 4V* JOINT EFFUSION: None [employer] Other XR knee RT 4V* POSTOP CHANGES: None [employer] Other XR knee RT 4V* BONE MINERALIZATION: Adequate [employer] Other XR knee RT 4V* XR/XR knee RT 4V* [employer] Other XR knee RT 4V* IMPRESSION: No acute findings [employer] Other XR knee RT 4V* Impression dictated by: Jose Moran M.D.04/13/2023 2:33 PM [employer] Other XR knee RT 4V* Dictation Location: [place] [address] [employer] Other XR knee RT 4V* Transcribed By: [facility] 04/13/23 [facility] [employer] Other XR knee RT 4V* Dictated By: Jose Moran DO 04/13/23 [facility] [employer] Other XR knee RT 4V* Signed By: [employer] Other XR knee RT 4V* 04/13/23 [facility] [employer] Other Ambulatory Visit Summaryon 0 02-01-2023 Ambulatory [...] RUSSELL MD Where: General Surgery Saima/Roberta Martinez [facility] General Surgery Office/Clini c Noteon 02-01-2023 General [...] Recorded influenza virus vaccine, inactivated 04/17/2020 Recorded [facility] Comment on above: Result Comment: Elec tronically Signed By: SAIMA MCQUEEN, Niall Tucker\.br\Date and Time Signed: 02/01/23 14:23 EDT Pre-Certification Formon Pre-Certification Form [id number]#[id number] CD:127 [facility] Facesheeton 01-12-2023 Facesheet [id number] D:127 [facility] Ambulatory Visit Summaryon 0 01-11-2023 Ambulatory [...] Migraine Morbid obesity Nevus Pituitary adenoma Normal [facility] Physician Referralon 023 Physician Referral [id number] D:127 Normal [facility] MG MAMM SCREEN 3D HAYDEE CADon 03-21-2023 MG MAMM SCREEN 3D HAYDEE CAD Patient: FRED QURESHI Exam Date: 10/05/2022 : 1970 Gender:F Ordering : DR PAULETTE SANTANA . Admission #: [id number] Family : Order #: [id number] CLICK HERE TO VIEW EXAM RADIOLOGY REPORT [...] Treatments None Family Cancers None LOCATION: [facility] BREAST COMPOSITION: Scattered areas fibroglandular density. [...] M.D. on 10/05/2022 at 16:12 Normal [facility] FREE T3on 09-21-2022 FREE T3 2.22 pg/mlL Normal 2.18-3.98 [facility] Comment on above: Performed By: #### F T3, T4, TSH ####[facility] [address] [place], [place] [address]Yq. Jillian Jaime T4on 09-21-2022 T4 [Mass/Vol] 5.50 ug/dL Normal 4.80-13.90 [facility] Comment on above: Performed By: #### F T3, T4, TSH ####[facility] [address] [place], [place] [address]Hs. Jillian Jaime TSHon 09-21-2022 TSH 0.782 uIU/mL Normal 0.358-3.740 [facility] Comment on above: Performed By: #### F T3, T4, TSH ####[facility] [address] [place], [place] [address]Ds. Jillian Jaime [facility]on SARS-CoV-2 (COVID-19) RNA FLORENCIA+probe Ql (Unsp spec) Not detected Normal NOT DETECTED [facility] Comment on above: Result Comment: When [...] for this test is supported by the [place] of Health and Human Service's declaration that [...] be used). Performed By: #### C VDTB ####[facility] [address] [place], [place] [address]Ex. Jillian Jaime XR WRIST LT MIN 3 Von 2021 XR WRIST LT MIN 3 V EXAM: XR WRIST LT WY N 3 V HISTORY: Unspecified fall , [...] ESSENCE MONTEMAYOR Date: 2022-07-02 17:36 Normal [facility] CBC AUTO DIFFon 04-28-2022 BASO # 0.0 103/ul Normal 0.0-0.1 [facility] Comment on above: Performed By: #### C BC ####[facility] [address] [place] [address]Dr. Jillian Jaime Basophils/100 WBC (Bld) 0.3 % Normal 0.2-2.0 [facility] Comment on above: Performed By: #### C BC ####[facility] [address] [place], [place] [address]Dr. Jillian Jaime EO # 0.1 103/ul Normal 0.0-0.7 [facility] Comment on above: Performed By: #### C BC ####[facility] [address] [place], [place] [address]Dr. Jillian Jaime Eosinophils/100 WBC (Bld) 1.3 % Normal 0.9-7.0 [facility] Comment on above: Performed By: #### C BC ####[facility] [address] [place] [address]Dr. Jillian Jaime Erythrocyte distribution width (RBC) [Ratio] 13.4 % Normal 11.0-15.0 [facility] Comment on above: Performed By: #### C BC ####[facility] [address] [place] [address]Dr. Britneyglenroy Jaime Hematocrit (Bld) [Volume fraction] 43.0 % Normal 36.0-48.0 [facility] Comment on above: Performed By: #### C BC ####[facility] [address] [place] [id number]. Jillian Jaime Hemoglobin (Bld) [Mass/Vol] 13.5 g/dL Normal 12.0-16.0 [facility] Comment on above: Performed By: #### C BC ####[facility] [address] [place] [id number]. Jillian Jaime IG # 0.05 10e3/ul Critically high 0.00-0.03 [facility] Comment on above: Performed By: #### C BC ####[facility] [address] [place] [address]Dr. Jillian Jaime IG % 0.5 % Normal 0.0-0.5 [facility] Comment on above: Performed By: #### C BC ####[facility] [address] [place] [address]Dr. Jillian Jaime LYMPH # 1.8 103/ul Normal 1.2-3.8 [facility] Comment on above: Performed By: #### C BC ####[facility] [address] [place], [place] [address]Dr. Jillian Jaime Lymphocytes/100 WBC (Bld) 18.3 % Critically low 20.5-60.0 [facility] Comment on above: Performed By: #### C BC ####[facility] [address] [place] [address]Dr. Jillian Jaime MANUAL DIFF REQ NO Normal [facility] Comment on above: Performed By: #### C BC ####[facility] [address] [place], [place] [address]Dr. Jillian Jaime MCH (RBC) [Entitic mass] 29.0 pg Normal 26.7-34.0 [facility] Comment on above: Performed By: #### C BC ####[facility] Ev[address] [place], [place] [address]Dr. Jillian Jaime MCHC (RBC) [Mass/Vol] 31.4 g/dL Normal 29.9-35.2 [facility] Comment on above: Performed By: #### C BC ####[facility] [address] [place] [id number]. Jillian Jaime MCV (RBC) [Entitic vol] 92.5 fL Normal 81.0-99.0 [facility] Comment on above: Performed By: #### C BC ####[facility] [address] [place] [id number]. Jillian Jaime MONO # 0.5 103/ul Normal 0.3-0.8 [facility] Comment on above: Performed By: #### C BC ####[facility] [address] [place] [id number]. Jillian Jaime Monocytes/100 WBC (Bld) 5.1 % Normal 1.7-12.0 [facility] Comment on above: Performed By: #### C BC ####[facility] [address]cl[address] [place] [id number]. Jillian Jaime NEUT # 7.2 103/ul Critically high 1.4-6.5 [facility] Comment on above: Performed By: #### C BC ####[facility] [address] [place], [place] [address]Dr. Jillian Jaime Neutrophils/100 WBC (Bld) 74.5 % Normal 43.0-75.0 [facility] Comment on above: Performed By: #### C BC ####[facility] [address] [place] [phone]. Jillian Jaime Platelet mean volume (Bld) [Entitic vol] 8.2 fL Critically low 9.5-13.5 [facility] Comment on above: Performed By: #### C BC ####[facility] [address] [place] [id number]. Jillian Jaime PLT 304 103/ul Normal 150-450 [facility] Comment on above: Performed By: #### C BC ####[facility] X[address] [place], [place] [address]Dr. Jillian Addison RBC 4.65 106/ul Normal 4.20-5.40 [facility] Comment on above: Performed By: #### C BC ####[facility] [address] [place] [address]DrAaron Jaime WBC 9.7 103/ul Normal 4.0-11.0 [facility] Comment on above: Performed By: #### C BC ####[facility] [address] [place] [id number]. Jillian Jaime GLYCOHEMOGLOBIN A1Con 2021 ADA RECOMMENDATION SEE BELOW Normal [facility] Comment on above: Result Comment: ADA RECOMMENDED LIMIT 4.0 - 6.0 ADA THERAPEUTIC TARGET < 7.0 ACTION SUGGESTED > 7.0 Performed By: #### A 1C #### [facility] [address] [place] [address] [address] Jillian Jaime Glucose [Mass/Vol] 114 mg/dL Normal [facility] Comment on above: Performed By: #### A 1C #### [facility] [address] [place] [address] [address] Jillian Jaime HbA1c (Bld) [Mass fraction] 5.6 % Normal 4.5-6.2 [facility] Comment on above: Performed By: #### A 1C #### [facility] [address] [place] [address] [address] Jillian Jaime PROF 14(COMP METB)on 022 Albumin [Mass/Vol] 3.3 g/dL Critically low 3.4-5.0 [facility] Comment on above: Performed By: #### C MP ####[facility] [address] [place] [address]Dr. Jillian Jaime Albumin/Globulin [Mass ratio] 0.8 {ratio} Normal [facility] Comment on above: Performed By: #### C MP ####[facility] [address]ks[address] [place] [id number] Jaime ALP [Catalytic activity/Vol] 155 U/L Critically high 46-116 [facility] Comment on above: Performed By: #### C MP ####[facility] [address] [place] [address]DrAaron Jaime ALT [Catalytic activity/Vol] 27 U/L Normal 14-59 [facility] Comment on above: Performed By: #### C MP ####[facility] [address]yp[address] [place] [address]Dr. Jillian Jaime Anion gap [Moles/Vol] 9.5 mmol/L Normal [facility] Comment on above: Performed By: #### C MP ####[facility] [address]ws[address] [place] [address]Dr. Jillian Jaime AST [Catalytic activity/Vol] 11 U/L Critically low 15-37 [facility] Comment on above: Performed By: #### C MP ####[facility] [address] [place] [address]Dr. Jillian Jaime Bilirubin [Mass/Vol] 0.3 mg/dL Normal 0.2-1.0 [facility] Comment on above: Performed By: #### C MP ####[facility] [address] [place], [place] [address]Dr. Jillian Jaime Calcium [Mass/Vol] 9.2 mg/dL Normal 8.5-10.[address] [facility] Comment on above: Performed By: #### C MP ####[facility] [address] [place], [place] [address]Dr. Jillian Jaime Chloride [Moles/Vol] 104 mmol/L Normal 98-107 [facility] Comment on above: Performed By: #### C MP ####[facility] [address] [place], [place] [address]Dr. Jillian Jaime CO2 [Moles/Vol] 30.4 mmol/L Normal 21.0-32.0 [facility] Comment on above: Performed By: #### C MP ####[facility] [address] [place], [place] [address]Dr. Jillian Jaime Creatinine [Mass/Vol] 1.11 mg/dL Critically high 0.55-1.02 [facility] Comment on above: Performed By: #### C MP ####[facility] [address] [place], [place] [address]Dr. Jillian Addison EGFR-AF ERITREAN >60 Normal >=60 [facility] Comment on above: Performed By: #### C MP ####[facility] [address] [place] [phone]. Jillian Jaime EGFR-NON AF ERITREAN 52 mL/min/1.73m2 Critically low >=60 [facility] Comment on above: Performed By: #### C MP ####[facility] [address] [place] [phone]. Jillian Jaime Globulin (S) [Mass/Vol] 4.1 g/dL Normal [facility] Comment on above: Performed By: #### C MP ####[facility] [address] [place] [phone]. Jillian Jaime Glucose [Mass/Vol] 152 mg/dL Critically high 74-[address] [facility] Comment on above: Performed By: #### C MP ####[facility] [address] [place] [address]Dr. Jillian Jaime Potassium [Moles/Vol] 3.9 mmol/L Normal 3.5-5.1 [facility] Comment on above: Performed By: #### C MP ####[facility] [address] [place] [address]Dr. Jillian Jaime Protein [Mass/Vol] 7.4 g/dL Normal 6.4-8.[address] [facility] Comment on above: Performed By: #### C MP ####[facility] [address] [place] [address]Dr. Jillian Jaime Sodium [Moles/Vol] 140 mmol/L Normal 136-145 [facility] Comment on above: Performed By: #### C MP ####[facility] [address] [place] [address]Dr. Jillian Jaime Urea nitrogen [Mass/Vol] 17.0 mg/dL Normal 7.0-18.0 [facility] Comment on above: Performed By: #### C MP ####[facility] [address] [place] [phone]. Jillian Jaime Urea nitrogen/Creatinine [Mass ratio] 15.3 mg/mg Normal [facility] Comment on above: Performed By: #### C MP ####[facility] [address] [place], [place] [address]Dr. Jillian Jaime PROTIMEon 04-28-2022 INR Coag (PPP) [Relative time] 1.01 {INR} Normal [facility] Comment on above: Performed By: #### P TT, PT #### [facility] [address] [place], [place] [address] Dr. Jillian Jaime INR GUIDELINES SEE BELOW Normal [facility] Comment on above: Result Comment: ARIANNA RED INR: 2.0 - 3.0 CONDITIONS NOT LISTED BELOW 2.5 - 3.5 FOR PROSTHETIC HEART VALVE REPLACEMENT 2.5 - 3.5 RECURRENT THROMBOSIS Performed By: #### P TT, PT #### [facility] [address] [place] [address] [address] Jillian Jaime PT Coag (PPP) [Time] 10.9 s Normal 9.0-11.6 [facility] Comment on above: Performed By: #### P TT, PT #### [facility] [address] [place] [address] [address] Jillian Jaime PTTon 04-28-2022 aPTT Coag (Bld) [Time] 26.2 s Normal 22.3-36.2 [facility] Comment on above: Performed By: #### P TT, PT #### [facility] [address] [place] [id number] Jillian Jaime Cytologyon 12-25-2021 Cytology (NOTE) INTERPRETATION Cervical material, (ThinPrep vial, Imaging-assisted review): Specimen Adequacy: Satisfactory for evaluation. -Endocervical/transform ation zone component is absent. Descriptive Diagnosis: Negative for intraepithelial lesion or malignancy. International Sales Representative: SILVIA VERDUGO(ASCP) Electronically Signed Out /12/31/2021 Source: A: Cervical material, (ThinPrep vial, Imaging-assisted review) Clinical History Z01.419 Routine publications sales representative exam without abnormal findings High risk HPV DNA testing is requested if the diagnosis is abnormal GYNECOLOGIC CYTOLOGY REPORT Patient Name: FRED QURESHI [facility] Rec: [id number] Path Number: [id number] [facility] ANATOMIC PATHOLOGY [address] [place] [address]. [place], [place] [address] Normal [facility] Comment on above: Performed By: #### P PPVP #### [facility] [address] [place], [place] [id number] Director Of Medical Review: Griffin Bonilla MD Covid-19 PCR ([facility])on 11-16 SARS-CoV-2 (COVID-19) RNA FLORENCIA+probe Ql (Unsp spec) Not detected Normal NOT DETECTED [facility] Comment on above: Result Comment: This test is not yet approved or cleared by the [place] FDA. When there are no FDA-approved or cleared tests available, and other criteria are met, FDA can make tests available under an emergency access mechanism called an Emergency Use Authorization (EUA). The EUA for this test is supported by the [place] of Health and Human Service's (HHS's) declaration [...] SARS-CoV-2. Performed By: #### C VDTB #### [facility] [address] [place] [address] Dr. Jillian Jaime SYMPTOMATIC COVID-19 ANTIGEN on 12-04-2021 EUA Statement SEE BELOW Normal [facility] Comment on above: Result Comment: This [...] revoked sooner. Performed By: #### C VDAGS ####[facility] [address] [place], [place] [address]Nv. Jillian Jaime SARS-CoV-2 (COVID-19) RNA FLORENCIA+probe Ql (Unsp spec) Negative Normal NEGATIVE [facility] Comment on above: Performed By: #### C VDAGS ####[facility] [address] [place], [place] [address]Ow. Jillian Jaime Vital Signs Date Time Vital Sign Value Performing Clinician Facility 04-13-2023 13:25-0400 Body height Matilde Carrillo Other [facility] Other 04-13-2023 13:25-0400 Body mass index (BMI) [Ratio] 57.79 kg/m2 Matilde Carrillo Other [facility] Other 04-13-2023 13:25-0400 Body temperature 97.5 [degF] Matilde Carrillo Other [facility] Other 04-13-2023 13:25-0400 Body weight 143.34 kg Matilde Carrillo Other [facility] Other 04-13-2023 13:25-0400 Diastolic blood pressure 96 mm[Hg] Matilde Carrillo Other [facility] Other 04-13-2023 13:25-0400 Respiratory rate 18 /min Matilde Carrillo Other [facility] Other 04-13-2023 13:25-0400 SaO2% (BldA) [Mass fraction] 96 % Matilde Carrillo Other [facility] Other 04-13-2023 13:25-0400 Systolic blood pressure 164 mm[Hg] Matilde Carrillo Other [facility] Other 01-11-2023 14:12-0400 Blood Pressure Location Niall NILL [facility] [place] 01-11-2023 14:12-0400 Diastolic blood pressure 84 mm[Hg] Niall NILL [facility] [place] 01-11-2023 14:12-0400 Heart rate 76 /min Niall NILL [facility] [place] 01-11-2023 14:12-0400 Respiratory rate 16 /min Niall NILL [facility] [place] 01-11-2023 14:12-0400 Systolic blood pressure 124 mm[Hg] Niall NILL [facility] Encounters Encounter Date Encounter Type Care Provider Facility Start: 04-16-2024 End: 04-16-2024 [facility] Start: 04-13-2023 End: 04-13-2023 ambulatory Matilde Carrillo Facility:[facility] Start: 04-13-2023 End: 04-13-2023 Patient encounter procedure BLAST FURNACE BLOWER-C Matilde Carrillo Work Phone: [facility] Work Phone: Start: 04-13-2023 End: 04-13-2023 ambulatory BLAST FURNACE BLOWER-C Matilde Carrillo Work Phone: [facility] Work Phone: Start: 04-13-2023 Office outpatient ne w 20 minutes Matilde Carrillo [facility] Start: 02-08-2023 ambulatory Niall R NILL Facility [facility] Start: 02-01-2023 End: 02-02-2023 ambulatory Niall R [...] Start: 12-25-2021 End: 12-26-2021 ambulatory JUAN BATISTA [facility] Start: 12-25-2021 End: 12-25-2021 Patient encounter status Paulette Santana MD Work Phone: [facility] Start: 12-25-2021 End: 12-25-2021 Subsequent hospital visit by physician Paulette Santana MD Work Phone: [facility] Comment on above: Encounter for gyneco logical examination Start: 12-04-2021 End: 12-04-[address] PAULETTE SANTANA . Facility: Procedures Date Procedure Procedure Detail Performing Clinician Start: 04-13-2023 X-ray of right knee BLAST FURNACE BLOWER- C Matilde Carrillo Work Phone: Benign neoplasm of f sheldon (disorder) Niall GOMEZValerie Excision of ganglion of wrist, recurrent Niall SAIMA Ligation of fallopian tube Jose GOMEZValerie Reduction mammoplasty Shine doan SAIMA Plan of Treatment Date Care Activity Detail Author Start: 03-18-2022 Influenza vaccination Flu vacc ine (Season Ended) [facility] Start[facility] 2019 Screening for malign ant neoplasm of breast Breast cancer screen [facility] Start: 2014 Screening for malign ant neoplasm of colon [facility] [employer] Start: 2009 Lipid panel Lipids [facility] [employer] Start: 1999 Screening for malign ant neoplasm of cervix [facility] [employer] Start: 1990 Screening for malign ant neoplasm of cervix Pap smear [facility] [employer] Start: 1988 DTaP/Tdap/Td vaccine (1 - Tdap) DTaP/Tdap/Td vaccine (1 - Tdap) [facility] [employer] Start: 1987 Hepatitis C screening Hepatitis C sc reen [facility] [employer] Start: 1984 HIV screening HIV screen [facility] [employer] Start: 1981 Depression Screen Depression Screen [facility] [employer] Start: 1974 COVID-19 Vaccine (1) COVID-19 Vaccin e (1) [facility] [employer] End: 12-25-2021 Cytopathology procedure, preparation of smear, genital source [facility] Routine Encounter for gynecological examination 1 Occurrences starting 12/25/2021 until 12/25/2021 [facility] Dagne [place] Work Phone: Comment on above: 1 Occurrences starti ng 12/25/2021 until 12/25/2021 Immunizations Immunization Date Immunization Notes Care Provider Jennie garvey 05-10-2022 influenza virus vaccine, unspecified formulation Niall RUSSELL [facility] [place] 12-17-2021 SARS-CoV-2 (COVID-19 ) mRNA-1273 vaccine Niall NILL [facility] 08-14-2021 SARS-CoV-2 (COVID-19 ) mRNA-1273 vaccine Niall NILL [facility] 01-04-2021 SARS-CoV-2 (COVID-19 ) mRNA-1273 vaccine Niall NILL [facility] 12-07-2020 SARS-CoV-2 (COVID-19 ) mRNA-1273 vaccine Niall NILL [facility] 04-17-2020 influenza virus vaccine, unspecified formulation Niall NILL [facility] [place] Payers Date Payer Category Payer Unknown [id number] Self-pay 1970 Unknown [id number] 2.16.8 [id number] 1970 Unknown [id number] 2.16.84 [id number] 1970 Unknown [id number] 2.16.84 0.1.682038.3.579.2.593 1970 Unknown [id number] 2.16.84 0.1.881840.3.579.2.593 1970 Unknown [id number] 2.16.84 0.1.750578.3.579.2.593 1970 Unknown [id number] 2.16.84 0.1.546733.3.579.2.593 1970 Unknown [id number] 2.16.84 0.1.046028.3.579.2.593 1970 Unknown [id number] 2.16.84 0.1.800513.3.579.2.593 1970 Unknown [id number] 2.16.84 0.1.648614.3.579.2.593 1970 Unknown [id number] 2.16.84 0.1.856787.3.579.2.593 1969 Unknown [id number] 2.16.84 0.1.557535.3.579.2.593 1970 Unknown [id number] 2.16.8 40.1.351380.3.579.2.727 1970 Unknown [id number] 2.16.8 40.1.542932.3.579.2.727 1970 Unknown [id number] 2.16.8 40.1.535014.3.579.2.727 1970 Unknown [id number] 2.16. 840.1.847944.3.579.2.196 1959 Unknown [id number] 1. [id number] Unknown [id number] 2.16.8 40.1.293499.3.579.2.531 Social History Date Type Detail Facility Start: 12-25-2021 End: 01-11-2023 Tobacco smoking status IDIS Ex-smoker [facility] Start: 12-25-2021 Cigarettes smoked current (pack per day) - Reported 1 [facility] Phone: Start: 12-25-2021 Tobacco use and exposure Smokeless tobacco non-user [facility] Phone: Start: 12-25-2021 Alcohol intake Ex-drinker (finding) [facility] Phone: Start: 1970 Sex Assigned At Not on file B ON [employer] Phone: Tobacco smoking status Never [facility] [place] Sex Assigned At Female [facility] Start: 1970 Sex Assigned At Female [facility] Functional Status Date Assessment Result Facility [...] the ER for worsening symptoms or concerns [facility] Other 06-27-2023 NoteChief Complaint consultation for nevus [...] 12/07/2020 Recorded influenza virus vaccine, inactivated 04/17/2020 [facility]Result Comment: Electronically Signed By: SAIMA MCQUEEN, Niall Collier\Date and Time Signed: 01/11/23 14:31 [id number] NotePROCEDURE: XR KNEE RT 3V DATE: 11/01/2022 [...] Electronically authenticated by: JODI WEBER Date: 2022-11-01 12:17[facility]12-30-2022 NotePROCEDURE: XR HAND LT MIN 3V [...] Electronically authenticated by: ADELAIDA LAO Date: 2022-07-16 07:43[facility]12-16-2022 NotePROCEDURE: XR FINGER MIN 2 VIEWS [...] Electronically authenticated by: ASHOK GRIER Date: 2022-07-02 17:45[facility]12-16-2022 NotePROCEDURE: XR HAND LT MIN 3V [...] Electronically authenticated by: ASHOK GRIER Date: 2022-07-02 17:43[facility]08-09-2022 NotePROCEDURE: XR KNEE RT 4V or > COMPARISON: None. HISTORY: Pain of right knee joint FINDINGS: BONES:No acute fracture or dislocation. Moderate osteoarthropathy and marginal osteophyte formation. SOFT TISSUES:Negative. No visible soft tissue swelling. EFFUSION:None visible. OTHER: Negative. IMPRESSION: Moderate tricompartmental osteoarthritis Electronically authenticated by: ADELAIDA LAO Date: 2022-02-23 19:01[facility] [place] Future Appointments Appointment Date:02/01/2023 02:00:00 PM Scheduled Provider:Niall RUSSELL MD [facility] Appointment Type: Procedure 30 [facility] [place] Evaluation note* Diagnosis Encounter for gynecological examination documented in this encounter [facility] Work Phone: evaluation noteNo assessment information available [facility] Work Phone: Hisnzny general Narrative - Reported* Type Description Date Medical History hypertension Medical History depression Medical History Hypothyroid Surgical History breast reduction Surgical History cyst removal, wrist Surgical History tubal ligation Hospitalization History see above [facility] Other Hospital course Narrative No data available for this section [facility] [place] [facility] Discharge instructions No data available for this section [facility] [place] Progress note No data available for this section [facility] [place] Summary Purpose Family History No Family History Records FoundNo Family History Records FoundNo Family History Records FoundNo Family History Records FoundNo Family History Records Found Advance Directives No Advanced Directives Records FoundNo Advanced Directives Records FoundNo Advanced Directives Records FoundNo Advanced Directives Records FoundNo Advanced Directives Records Found Additional Source Comments Care Teams (unrecognized sec tion and content) Cma Relationship Specialty Start Date End Date Paulette Santana MD [address] [phone] PCP - General Family Medicine 12/25/21 Team Status: Inactive Member Role Status Dates DERREK Sanchez Attending Provider Active INFORMATION SOURCE (unrecogn ized section and content) DATE CREATED AUTHOR 01/01/2022 [facility] DATE CREATED AUTHOR AUTHOR'S ORGANIZ ATION 11/07/2022 [facility] DATE CREATED AUTHOR AUTHOR'S ORGANIZ ATION 02/02/2023 [facility] DATE CREATED AUTHOR AUTHOR'S ORGANIZ ATION 04/21/2023 [facility] DATE CREATED AUTHOR AUTHOR'S ORGANIZ ATION 04/20/2024 [facility] Goals (unrecognized section and content) Goals may [...] BE BASED ON THE PRIMARY CLINICAL RECORDS. [facility]. provides no warranty or guarantee of the accuracy or completeness of information in this document.
[2024-08-19 15:29] LABS: Basophils Percent Auto 0.3 % (0.2-2.0); Eosinophils Absolute Auto 0.2 10^3/uL (0.0-0.7); Eosinophils Percent Auto 1.3 % (0.9-7.0); Hemoglobin 14.2 g/dL (12.0-16.0); Immature Granulocytes Abs Auto 0.03 10^3/uL (0.00-0.03); Immature Granulocytes Pct Auto 0.3 % (0.0-0.5); Lymphocytes Absolute Auto 1.4 10^3/uL (1.2-3.8); Lymphocytes Percent Auto 12.1 % (20.5-60.0); Mean Corpuscular HGB Conc 32.3 g/dL (29.9-35.2); Mean Corpuscular Hemoglobin 29.3 pg (26.7-34.0); Mean Corpuscular Volume 90.9 fL (81.0-99.0); Mean Platelet Volume 8.4 fL (9.5-13.5); Monocytes Absolute Auto 0.9 10^3/uL (0.3-0.8); Monocytes Percent Auto 7.9 % (1.7-12.0); Neutrophils Absolute Auto 9.1 10^3/uL (1.4-6.5); Neutrophils Percent Auto 78.1 % (43.0-75.0); Platelet Count 329 10^3/uL (150-450); Red Blood Count 4.84 10^6/uL (4.20-5.40); Red Cell Distribution Width 13.1 % (11.0-15.0); White Blood Count 11.6 10^3/uL (4.0-11.0)
--- NOTE | 2024-08-19 15:33 | XR_ITS ---
The [address] [address] Patient Name: FRED TREJO MRN: [id number] date: 1970 Sex: F Assigned Patient Location: ER Current Patient Location: Accession/Order Number: [id number] Exam Date: 08/19/2024 15:48 Report Date: 08/19/2024 17:27 At the request of: LUCRETIA TOMAS Procedure: XR tibia fibula RT 2V EXAM: XR tibia fibula RT 2V HISTORY: infection and swelling COMPARISON: 08/16/2024 and 08/08/2024 TECHNIQUE: 2 views of the right tibia and fibula were obtained. FINDINGS: There is no apparent acute fracture or dislocation. There is significant narrowing of all of the joint spaces at the knee, accompanied by osteophytes as well as calcification of the meniscal cartilage. A small osteophyte arises from the dorsal aspect of the talus. Calcifications are seen in the distal Achilles tendon and an osteophyte arises from the plantar calcaneus. Soft tissue swelling anterior to the tibia is noted. XR/XR tibia fibula RT 2V IMPRESSION: No acute fracture or dislocation. Degenerative changes are present. These findings appear unchanged. Soft tissue swelling anterior to the tibia is noted. Electronically authenticated by: ESSENCE MONTEMAYOR Date: 08/19/2024 17:27
[2024-08-19 15:42] LABS: Erythrocyte Sedimentation Rate 76 mm/hr (<=30)
[2024-08-19 15:44] LABS: D Dimer 0.47 mg/L FEU (<=0.59)
[2024-08-19 15:46] LABS: Lactate/Lactic Acid 1.4 mmol/L (0.4-2.0)
[2024-08-19 15:52] LABS: Alanine Aminotransferase 29 U/L (14-59); Albumin Globulin Ratio 0.8; Albumin Level 3.4 g/dL (3.4-5.0); Alkaline Phosphatase 147 U/L (46-116); Aspartate Amino Transferase 16 U/L (15-37); BUN Creatinine Ratio 15.5; Bilirubin Total 0.7 mg/dL (0.2-1.0); Calcium 9.5 mg/dL (8.5-10.1); Carbon Dioxide 26.2 mmol/L (21.0-32.0); Chloride 97 mmol/L (98-107); Estimated GFR (African America >60 (>=60 mL/min/1.73m^2); Estimated GFR (Non-African Ame 52 (>=60 mL/min/1.73m^2); Globulin 4.2 g/dL; Glucose 98 mg/dL (74-106); Potassium 4.2 mmol/L (3.5-5.1); Sodium 133 mmol/L (136-145); Total Protein 7.6 g/dL (6.4-8.2)
[2024-08-19] MEDS: AMPICILLIN SODIUM/SULBACTAM NA 3 GM in 0.9 % SODIUM CHLORIDE 100 ML IV (16:23)
--- NOTE | 2024-08-19 17:23 | ED_ITS ---
HPI HPI - Extremity Injury (Lower) General Chief Complaint: Extremity Injury, Lower Stated Complaint: LOWER EXTREMITY PAIN Time Seen by Provider: 08/19/24 14:45 Source: patient Mode of arrival: walk-in History of Present Illness HPI Narrative: The patient had a fall 2 weeks ago and she ended up having contusion to right leg mostly the knee and the ankle, she mentioned that at that time she had an x- ray done after her primary care doctor ordered it and it was negative for any acute pathology at that time She noticed over the last 24 hours she started having redness in the area she really had a pain when she stand up and walk but that was after the injury and she noticed increasing pain in the area after the redness started, patient have no fever no chills otherwise Related Data Home Medications ?Medication ?Instructions ?Recorded ?Confirmed amitriptyline 100 mg tablet 100 mg PO DAILY 04/16/24 08/19/24 baclofen 20 mg tablet 10 mg PO BID 04/16/24 08/19/24 diclofenac sodium 75 mg 75 mg PO BID 04/16/24 08/19/24 tablet,delayed release liothyronine 5 mcg tablet 5 mcg PO DAILY 04/16/24 08/19/24 lisinopril 20 mg tablet 20 mg PO DAILY 04/16/24 08/19/24 mirtazapine 30 mg tablet 30 mg PO DAILY 04/16/24 08/19/24 risperidone 2 mg tablet 2 mg PO DAILY 04/16/24 08/19/24 levothyroxine 50 mcg tablet 50 mcg PO DAILY 08/19/24 08/19/24 phentermine 37.5 mg tablet 37.5 mg PO QAM 08/19/24 08/19/24 Previous Rx's ?Medication ?Instructions ?Recorded amoxicillin 875 mg-potassium 1 tab PO Q12H #20 tabs 08/19/24 clavulanate 125 mg tablet Allergies Allergy/AdvReac Type Severity Reaction Status Date / Time No Known Drug Allergies Allergy Verified 04/16/24 13:15 Opioid HPI Opioid Management Most Recent Pain and Opioid Data: No Data to Display Review of Systems ROS Status of ROS 10 or more systems reviewed and unremark able except as noted in history and below [facility] Medical History (Updated 08/19/24 @ 17:10 by Hilary Glover MD) Hypertension ?I10 - Essential (primary) hypertension (ICD-10) Surgical History (Updated 04/16/24 @ 13:20 by Laurence Da Silva) H/O bilateral breast reduction surgery ?Z98.890 - Other specified postprocedural states (ICD-10) H/O tubal ligation ?Z98.51 - Tubal ligation status (ICD-10) Social History Little interest or pleasure in doing things: not at all Feeling down, depressed, or hopeless: not at all Exam Narrative Exam Narrative: Nurses notes and vital signs reviewed and patient is not hypoxic. Right lower extremity: The patient have a good anterior tibial pulse no vascular injury detected, there is a contusion on the posterior aspect of the calf but it is was noted redness extending from the knee until the ankle anteriorly this redness is associated with mild warmth, she also had mild tenderness on exam. There is no fluctuation and there is no open wound General: Well-appearing and in no apparent distress. Skin: Warm, dry, no pallor noted. No rash. Head: Normocephalic, atraumatic. Neck: Supple, non-tender. Eye: Pupils are equal, round and EOMI. No scleral icterus. Constitutional Vital Signs, click to edit/add: Last Vital Signs Temp 97.7 F 08/19/24 14:36 Pulse 110 H 08/19/24 14:36 Resp 20 08/19/24 14:36 BP 178/80 H 08/19/24 14:36 Pulse Ox 97 08/19/24 14:36 O2 Del Method Room Air 08/19/24 14:36 Course Vital Signs Vital signs: Vital Signs Temperature 97.7 F 08/19/24 14:36 Pulse Rate 110 H 08/19/24 14:36 Respiratory Rate 20 08/19/24 14:36 Blood Pressure 178/80 H 08/19/24 14:36 Pulse Oximetry 97 08/19/24 14:36 Oxygen Delivery Method Room Air 08/19/24 14:36 Temperature 97.7 F 08/19/24 14:36 Pulse Rate 110 H 08/19/24 14:36 Respiratory Rate 20 08/19/24 14:36 Blood Pressure 178/80 H 08/19/24 14:36 Pulse Oximetry 97 08/19/24 14:36 Oxygen Delivery Method Room Air 08/19/24 14:36 MDM - Extremity Injury (Lower) MDM Narrative Medical decision making narrative: The patient developed an subcutaneous hematoma after falling and that mostly was a good environment for infection Today she is presenting to us with cellulitis her blood workup shows a mild elevation white blood cell and no lactic elevation The patient had a chemistry as well showing no acute significant pathology X-ray tibia and fibula showed only soft tissue swelling The patient was provided in the ER with Unasyn after which there was some improvement of the redness of her lower extremity The patient was discharged home with Augmentin after she had the cellulitis marked and I did explain to her that in case of any increasing redness or any fever she is to come back to the ER The patient is to follow up with primary care physician in next 2-3 days or to return to the emergency department should any of the signs or symptoms worsen or new symptoms develop. The patient agrees with the following Diagnosis and Treatment plan and the patient will be discharged home. Lab Data Labs: Lab Results 08/19/24 Range/Units 15:11 WBC 11.6 H (4.0-11.0) 10^3/uL RBC 4.84 (4.20-5.40) 10^6/uL Hgb 14.2 (12.0-16.0) g/dL Hct 44.0 (36.0-48.0) % MCV 90.9 (81.0-99.0) fL MCH 29.3 (26.7-34.0) pg MCHC 32.3 (29.9-35.2) g/dL RDW 13.1 (11.0-15.0) % Plt Count 329 (150-450) 10^3/uL MPV 8.4 L (9.5-13.5) fL Neut % (Auto) 78.1 H (43.0-75.0) % Lymph % (Auto) 12.1 L (20.5-60.0) % Mcminn % (Auto) 7.9 (1.7-12.0) % Eos % (Auto) 1.3 (0.9-7.0) % Baso % (Auto) 0.3 (0.2-2.0) % Neut # (Auto) 9.1 H (1.4-6.5) 10^3/uL Lymph # (Auto) 1.4 (1.2-3.8) 10^3/uL Mcminn # (Auto) 0.9 H (0.3-0.8) 10^3/uL Eos # (Auto) 0.2 (0.0-0.7) 10^3/uL Baso # (Auto) 0.0 (0.0-0.1) 10^3/uL Abs Immat Gran (auto) 0.03 (0.00-0.03) 10^3/uL Imm/Tot Granulo (auto) 0.3 (0.0-0.5) % ESR 76 H (<=30) mm/hr D-Dimer 0.47 (<=0.59) mg/L FEU Sodium 133 L (136-145) mmol/L Potassium 4.2 (3.5-5.1) mmol/L Chloride 97 L (98-107) mmol/L Carbon Dioxide 26.2 (21.0-32.0) mmol/L Anion Gap 14.0 BUN 17.0 (7.0-18.0) mg/dL Creatinine 1.10 H (0.55-1.02) mg/dL Est GFR ( Amer) >60 (>=60 mL/min/1.73m^2) Est GFR (Non-Af Amer) 52 L (>=60 mL/min/1.73m^2) BUN/Creatinine Ratio 15.5 Glucose 98 (74-106) mg/dL Lactate 1.4 (0.4-2.0) mmol/L Calcium 9.5 (8.5-10.1) mg/dL Total Bilirubin 0.7 (0.2-1.0) mg/dL AST 16 (15-37) U/L ALT 29 (14-59) U/L Alkaline Phosphatase 147 H (46-116) U/L C-Reactive Protein 8.60 H (<=0.50) mg/dL Total Protein 7.6 (6.4-8.2) g/dL Albumin 3.4 (3.4-5.0) g/dL Globulin 4.2 g/dL Albumin/Globulin Ratio 0.8 Discharge Plan Discharge Chief Complaint: Extremity Injury, Lower Clinical Impression: Cellulitis Qualifiers: Site of cellulitis: extremity Site of cellulitis of extremity: lower extremity Laterality: right Qualified Code(s): L03.115 - Cellulitis of right lower limb Patient Disposition: Home, Self-Care Time of Disposition Decision: 17:10 Condition: Good Prescriptions / Home Meds: New amoxicillin-pot clavulanate 875-125 mg tablet 1 tab PO Q12H Qty: 20 0RF No Action mirtazapine 30 mg tablet 30 mg PO DAILY risperidone 2 mg tablet 2 mg PO DAILY amitriptyline 100 mg tablet 100 mg PO DAILY lisinopril 20 mg tablet 20 mg PO DAILY diclofenac sodium 75 mg tablet,delayed release (DR/EC) 75 mg PO BID liothyronine 5 mcg tablet 5 mcg PO DAILY baclofen 20 mg tablet 10 mg PO BID levothyroxine 50 mcg tablet 50 mcg PO DAILY phentermine 37.5 mg tablet 37.5 mg PO QAM Print Language: Stateless Instructions: Cellulitis (ED) Referrals: Khris Santana MD [Primary Care Provider] - 1 week Discharge Date/Time: 08/19/24 17:18
== END 2024-08-19 17:18 | disposition home or self-care (01) ==
PROVIDERS: Emergency Provider Emergency Medicine; PCP Family Medicine
DX: L03.115 Cellulitis of right lower limb (principal); Z98.51 Tubal ligation status
CPT/HCPCS: 36415; 73590; 80053; 83605; 85025; 85378; 85652; 86140; 96365; 99285; J0295

== ENCOUNTER 2024-08-21 09:13 | Observation (INO) | payer BC, SELFPAY ==
[2024-08-21] VITALS (8 sets, daily range): BP systolic 149–168; BP diastolic 68–85; PULSE 97–110; TEMP 36.8–37.4; O2SAT 91–96; BMI 63.6; BMI 62.4
--- NOTE | 2024-08-21 09:29 | PC.NURSE ---
receiving tx for cellulitis since tuesday - pt states redness is getting worse. swelling is the same. no drainage noted
--- NOTE | 2024-08-21 09:36 | ED.GENADUL1 ---
HPI HPI - General Adult General Chief complaint: Extremity Injury, Lower Stated complaint: CELLULITIS - LOWER EXTREMITY Time Seen by Provider: 08/21/24 09:17 Source: patient Mode of arrival: walk-in Limitations: no limitations History of Present Illness HPI narrative: 54-year-old female presented to the emergency department for redness to her right lower leg. She had fallen just over 2 weeks ago and has had several negative x-rays. She was seen here 2 days ago and was diagnosed with cellulitis of the right lower leg anteriorly and she has been on Augmentin but the intensity of the redness seems to be increasing. No fever or vomiting. She was worried about a worsening infection. Related Data Home Medications ?Medication ?Instructions ?Recorded ?Confirmed amitriptyline 100 mg tablet 100 mg PO DAILY 04/16/24 08/19/24 baclofen 20 mg tablet 10 mg PO BID 04/16/24 08/19/24 diclofenac sodium 75 mg 75 mg PO BID 04/16/24 08/19/24 tablet,delayed release liothyronine 5 mcg tablet 5 mcg PO DAILY 04/16/24 08/19/24 lisinopril 20 mg tablet 20 mg PO DAILY 04/16/24 08/19/24 mirtazapine 30 mg tablet 30 mg PO DAILY 04/16/24 08/19/24 risperidone 2 mg tablet 2 mg PO DAILY 04/16/24 08/19/24 levothyroxine 50 mcg tablet 50 mcg PO DAILY 08/19/24 08/19/24 phentermine 37.5 mg tablet 37.5 mg PO QAM 08/19/24 08/19/24 Previous Rx's ?Medication ?Instructions ?Recorded amoxicillin 875 mg-potassium 1 tab PO Q12H #20 tabs 08/19/24 clavulanate 125 mg tablet Allergies Allergy/AdvReac Type Severity Reaction Status Date / Time No Known Drug Allergies Allergy Verified 04/16/24 13:15 Opioid HPI Opioid Management Most Recent Opioid Data: No Data to Display Review of Systems ROS Narrative A ten point review of systems is negative except as noted above. [facility] Medical History (Updated 08/21/24 @ 11:00 by Galdino Licona MD) Hypertension ?I10 - Essential (primary) hypertension (ICD-10) Surgical History (Updated 04/16/24 @ 13:20 by Laurence Rekha) H/O bilateral breast reduction surgery ?Z98.890 - Other specified postprocedural states (ICD-10) H/O tubal ligation ?Z98.51 - Tubal ligation status (ICD-10) Social History Little interest or pleasure in doing things: not at all Feeling down, depressed, or hopeless: not at all Exam Narrative Exam Narrative: Nurses note and vital signs reviewed and patient is not hypoxic. General: The patient appears well and in no apparent distress. Patient is resting comfortably on cart. Skin: Warm, dry, no pallor noted. There is no rash noted. Head: Normocephalic, atraumatic Eye: Normal conjunctiva, no drainage Ears, Nose, Mouth, and Throat: oral mucosa is moist. Nares patent. Cardiovascular: Regular Rate and Rhythm Respiratory: Patient is in no distress, no accessory muscle use, lungs are clear to auscultation, no wheezing, rales or rhonchi Back: non-tender GI: Soft and non- Musculoskeletal: She has bruising on the anterior and inferior aspect of the knee. There is erythema that extends from the knee down to the ankle and it is warm to touch. There is no purulent drainage. Neurological: A&O, normal speech Psychiatric: Cooperative Constitutional Vital Signs, click to edit/add: Last Vital Signs Temp 98.2 F 08/21/24 09:21 Pulse 100 H 08/21/24 09:26 Resp 18 08/21/24 09:21 BP 168/85 H 08/21/24 09:21 Pulse Ox 96 08/21/24 09:21 O2 Del Method Room Air 08/21/24 09:21 Course Vital Signs Vital signs: Vital Signs Temperature 98.2 F 08/21/24 09:21 Pulse Rate 110 H 08/21/24 09:21 Respiratory Rate 18 08/21/24 09:21 Blood Pressure 168/85 H 08/21/24 09:21 Pulse Oximetry 96 08/21/24 09:21 Oxygen Delivery Method Room Air 08/21/24 09:21 Temperature 98.2 F 08/21/24 09:21 Pulse Rate 100 H 08/21/24 09:26 Respiratory Rate 18 08/21/24 09:21 Blood Pressure 168/85 H 08/21/24 09:21 Pulse Oximetry 96 08/21/24 09:21 Oxygen Delivery Method Room Air 08/21/24 09:21 Medical Decision Making MDM Narrative Medical decision making narrative: The patient has failed outpatient therapy and will be admitted for IV antibiotics. Case discussed with Dr. Santana and she is ordered Vanco and Zosyn. Treatment diagnosis and disposition were discussed with the patient. Differential Diagnosis Differential Diagnosis: Cellulitis Lab Data Lab results reviewed: Yes I reviewed the patient's lab results Labs: Lab Results 08/21/24 Range/Units 09:54 WBC 11.8 H (4.0-11.0) 10^3/uL RBC 4.62 (4.20-5.40) 10^6/uL Hgb 13.6 (12.0-16.0) g/dL Hct 42.3 (36.0-48.0) % MCV 91.6 (81.0-99.0) fL MCH 29.4 (26.7-34.0) pg MCHC 32.2 (29.9-35.2) g/dL RDW 13.2 (11.0-15.0) % Plt Count 310 (150-450) 10^3/uL MPV 8.5 L (9.5-13.5) fL Neut % (Auto) 82.2 H (43.0-75.0) % Lymph % (Auto) 8.6 L (20.5-60.0) % Latimer % (Auto) 7.2 (1.7-12.0) % Eos % (Auto) 1.4 (0.9-7.0) % Baso % (Auto) 0.3 (0.2-2.0) % Neut # (Auto) 9.7 H (1.4-6.5) 10^3/uL Lymph # (Auto) 1.0 L (1.2-3.8) 10^3/uL Latimer # (Auto) 0.9 H (0.3-0.8) 10^3/uL Eos # (Auto) 0.2 (0.0-0.7) 10^3/uL Baso # (Auto) 0.0 (0.0-0.1) 10^3/uL Abs Immat Gran (auto) 0.04 H (0.00-0.03) 10^3/uL Imm/Tot Granulo (auto) 0.3 (0.0-0.5) % Sodium 138 (136-145) mmol/L Potassium 4.0 (3.5-5.1) mmol/L Chloride 100 (98-107) mmol/L Carbon Dioxide 29.1 (21.0-32.0) mmol/L Anion Gap 12.9 BUN 22.0 H (7.0-18.0) mg/dL Creatinine 1.26 H (0.55-1.02) mg/dL Est GFR ( Amer) 53 L (>=60 mL/min/1.73m^2) Est GFR (Non-Af Amer) 44 L (>=60 mL/min/1.73m^2) BUN/Creatinine Ratio 17.5 Glucose 103 (74-106) mg/dL Calcium 9.6 (8.5-10.1) mg/dL Discharge Plan Discharge Chief Complaint: Extremity Injury, Lower Clinical Impression: Cellulitis Qualifiers: Site of cellulitis: extremity Site of cellulitis of extremity: lower extremity Laterality: right Qualified Code(s): L03.115 - Cellulitis of right lower limb Patient Disposition: Admitted As Inpatient Time of Disposition Decision: 11:00 Condition: Fair
--- OUTSIDE RECORDS SUMMARY | 2024-08-21 09:40 | XMS_ITS | CCD ---
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 Name Role Phone Paulette Santana MD Primary Care Provider [phone] JUAN BATISTA Referring Unavailable PAULETTE SANTANA [...] 10/06/20 Status: Ordered take 1 capsule by [facility] every eight hours Diclofenac 35 MG 1 capsule as needed Ora lly Three times a day Active levothyroxine sodium 0.05 mg oral tablet (2 sources) l-Thyroxine Start: 12-29-2022 take 1 tablet by mouth once daily levothyroxine 50 mcg (0.05 mg) Tab 50 mcg = 1 tab(s), Oral, Daily, Refills(s) 0 Start Date: 12/29/22 Status: Ordered take 1 tablet by [facility] once daily in the morning Levothyroxine [...] Start: 10-06-2020 take 2 tablets by mo 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; Translations: [OTH CARE HOME CURRENT DRUG THERAPY] Onset: 2 Episodic [...] RT 4V*on 04-13-2023 XR knee RT 4V* [facility] [place] [address] XRay Report Signed Patient: Fred Qureshi MR#: [id number] : 1970 Acct:[id number] Age/Sex: 52 / F ADM Date: 04/13/23 Loc: XDUC Room: Type: [facility] Attending Dr: Matilde ANGLIN Copies to: DERREK [...] Jose Moran M.D.04/13/2023 2:33 PM Dictation Location: [place] [address] Transcribed By: [facility] 04/13/23 143 Dictated By: Jose Moran DO 04/13/23 1432 Signed By: 04/13/23 143 [facility] XR knee RT 4V* [facility] [employer] Other XR knee RT 4V* [facility] [employer] Other XR knee RT 4V* [address] [facility] [employer] Other XR knee RT 4V* [place] [address] No rt [employer] Other XR knee RT 4V* XRay [facility] [employer] Other XR knee RT 4V* Signed [employer] Other XR knee RT 4V* Patient: Sampson Qureshi MR#: [id number] [place] [employer] Other XR knee RT 4V* 5905 [employer] Other XR knee RT 4V* : 1970 Acct:[id number] [employer] Other XR knee RT 4V* Age/Sex: 52 / F ADM Date: 04/13/23 [employer] Other XR knee RT 4V* [facility]: [facility]DUCLY [facility] Other XR knee RT 4V* Attending Dr: Matiled ANGLIN [employer] Other XR knee RT 4V* Copies to: DERREK Head [employer] Other XR knee RT 4V* Ordering Provider: DERREK eHad [employer] Other XR knee RT 4V* Date of Service: 04/13/23 [employer] Other XR knee RT 4V* XR/XR knee RT 4V*: Acute pain of right knee [employer] Other XR knee RT 4V* 4 views right knee plain film [employer] Other XR knee RT 4V* COMPARISON: None [facility] [employer] Other XR knee RT 4V* HISTORY: Right knee injury. Superior patellar pain. [employer] Other XR knee RT 4V* ACUTE FINDINGS: None [employer] Other XR knee RT 4V* DEGENERATIVE CHANGE: Moderate degeneration. [employer] Other XR knee RT 4V* SOFT TISSUE FINDINGS : Unremarkable [employer] Other XR knee RT 4V* JOINT EFFUSION: None [employer] Other XR knee RT 4V* POSTOP CHANGES: None [employer] Other XR knee RT 4V* BONE MINERALIZATION: Adequate [employer] Other XR knee RT 4V* XR/XR knee RT 4V* [employer] Other XR knee RT 4V* IMPRESSION: No acute findings [employer] Other XR knee RT 4V* Impression dictated by: Jose Moran M.D.04/13/2023 2:33 PM [employer] Other XR knee RT 4V* Dictation Location: [place] [address] [employer] Other XR knee RT 4V* Transcribed By: [facility] 04/13/23 [facility] [employer] Other XR knee RT 4V* Dictated By: Jose Moran DO 04/13/23 [facility] [employer] Other XR knee RT 4V* Signed By: [employer] Other XR knee RT 4V* 04/13/23 [facility] [employer] Other Ambulatory Visit Summaryon 0 02-01-2023 Ambulatory [...] RUSSELL MD Where: General Surgery Saima/Roberta Martinez [facility] General Surgery Office/Clini c Noteon 02-01-2023 [...] 02/01/23 14:23 EDT Pre-Certification Formon Pre-Certification Form [id number] CD:127 [facility] Facesheeton 01-12-2023 Facesheet [id number] D:127 [facility] Ambulatory Visit Summaryon [...] Migraine Morbid obesity Nevus Pituitary adenoma Normal [facility] Physician Referralon 023 Physician Referral [id number] D:127 Normal [facility] MG MAMM SCREEN 3D HAYDEE CADon 03-21-2023 MG MAMM SCREEN 3D HAYDEE CAD Patient: FRED QURESHI Exam Date: 10/05/2022 : 1970 Gender:F Ordering : DR PAULETTE SANTANA . Admission #: [id number] Family : Order #: [id number] CLICK HERE TO VIEW EXAM RADIOLOGY REPORT [...] Treatments None Family Cancers None LOCATION: [facility] BREAST COMPOSITION: Scattered areas fibroglandular [...] M.D. on 10/05/2022 at 16:12 Normal [facility] FREE T3on 09-21-2022 FREE T3 2.22 pg/mlL Normal 2.18-3.98 [facility] Comment on above: Performed By: #### F T3, T4, TSH ####[facility] [address] [place], [place] [address]Ll. Jillian Jaime T4on 09-21-2022 T4 [Mass/Vol] 5.50 ug/dL Normal 4.80-13.90 [facility] Comment on above: Performed By: #### F T3, T4, TSH ####[facility] [address] [place], [place] [address]Ta. Jillian Jaime TSHon 09-21-2022 TSH 0.782 uIU/mL Normal 0.358-3.740 [facility] Comment on above: Performed By: #### F T3, T4, TSH ####[facility] [address] [place], [place] [address]Bi. Jillian Jaime Covid-19 PCR ([facility]on SARS-CoV-2 (COVID-19) RNA FLORENCIA+probe Ql (Unsp spec) Not detected Normal NOT DETECTED [facility] Comment on above: Result Comment: [...] for this test is supported by the [place] of Health and Human Service's declaration that [...] be used). Performed By: #### C VDTB ####[facility] [address] [place], [place] [address]Sb. Jillian Jaime XR WRIST LT MIN 3 Von 2021 XR WRIST LT MIN 3 V EXAM: XR WRIST LT AR N 3 V HISTORY: Unspecified fall , [...] ESSENCE MONTEMAYOR Date: 2022-07-02 17:36 Normal [facility] CBC AUTO DIFFon 04-28-2022 BASO # 0.0 103/ul Normal 0.0-0.1 [facility] Comment on above: Performed By: #### C BC ####[facility] [address] [place] [address]Dr. Jillian Jaime Basophils/100 WBC (Bld) 0.3 % Normal 0.2-2.0 [facility] Comment on above: Performed By: #### C BC ####[facility] [address] [place], [place] [address]Dr. Jillian Jaime EO # 0.1 103/ul Normal 0.0-0.7 [facility] Comment on above: Performed By: #### C BC ####[facility] [address] [place], [place] [address]Dr. Jillian Jaime Eosinophils/100 WBC (Bld) 1.3 % Normal 0.9-7.0 [facility] Comment on above: Performed By: #### C BC ####[facility] [address] [place] [address]Dr. Jillian Jaime Erythrocyte distribution width (RBC) [Ratio] 13.4 % Normal 11.0-15.0 [facility] Comment on above: Performed By: #### C BC ####[facility] [address] [place] [address]Dr. Britneyglenroy Jaime Hematocrit (Bld) [Volume fraction] 43.0 % Normal 36.0-48.0 [facility] Comment on above: Performed By: #### C BC ####[facility] [address] [place] [address]Dr. Jillian Jaime Hemoglobin (Bld) [Mass/Vol] 13.5 g/dL Normal 12.0-16.0 [facility] Comment on above: Performed By: #### C BC ####[facility] [address] [place] [address]Dr. Jillian Jaime IG # 0.05 10e3/ul Critically high 0.00-0.03 [facility] Comment on above: Performed By: #### C BC ####[facility] [address] [place] [address]Dr. Jillian Jaime IG % 0.5 % Normal 0.0-0.5 [facility] Comment on above: Performed By: #### C BC ####[facility] [address] [place] [address]Dr. Jillian Jaime LYMPH # 1.8 103/ul Normal 1.2-3.8 [facility] Comment on above: Performed By: #### C BC ####[facility] [address] [place], [place] [address]Dr. Jillian Jaime Lymphocytes/100 WBC (Bld) 18.3 % Critically low 20.5-60.0 [facility] Comment on above: Performed By: #### C BC ####[facility] [address] [place] [address]Dr. Jillian Jaime MANUAL DIFF REQ NO Normal The [facility] Comment on above: Performed By: #### C BC ####[facility] [address] [place], [place] [address]Dr. Jillian Jaime MCH (RBC) [Entitic mass] 29.0 pg Normal 26.7-34.0 [facility] Comment on above: Performed By: #### C BC ####[facility] [address] [place], [place] [address]Dr. Jillian Jaime MCHC (RBC) [Mass/Vol] 31.4 g/dL Normal 29.9-35.2 [facility] Comment on above: Performed By: #### C BC ####[facility] [address] [place] [address]Dr. Jillian Jaime MCV (RBC) [Entitic vol] 92.5 fL Normal 81.0-99.0 [facility] Comment on above: Performed By: #### C BC ####[facility] [address] [place] [address]Dr. Jillian Jaime MONO # 0.5 103/ul Normal 0.3-0.8 [facility] Comment on above: Performed By: #### C BC ####[facility] [address] [place] [address]Dr. Jillian Jaime Monocytes/100 WBC (Bld) 5.1 % Normal 1.7-12.0 [facility] Comment on above: Performed By: #### C BC ####[facility] [address] [place] [address]Dr. Jillian Jaime NEUT # 7.2 103/ul Critically high 1.4-6.5 The [facility] Comment on above: Performed By: #### C BC ####[facility] [address] [place], [place] [address]Dr. Jillian Jaime Neutrophils/100 WBC (Bld) 74.5 % Normal 43.0-75.0 [facility] Comment on above: Performed By: #### C BC ####[facility] [address] [place] [address]Dr. Jillian Jaime Platelet mean volume (Bld) [Entitic vol] 8.2 fL Critically low 9.5-13.5 [facility] Comment on above: Performed By: #### C BC ####[facility] [address] [place] [address]Dr. Jillian Jaime PLT 304 103/ul Normal 150-450 [facility] Comment on above: Performed By: #### C BC ####[facility] [address] [place], [place] [address]Dr. Jillian Addison RBC 4.65 106/ul Normal 4.20-5.40 [facility] Comment on above: Performed By: #### C BC ####[facility] [address] [place] [address]DrAaron Jaime WBC 9.7 103/ul Normal 4.0-11.0 [facility] Comment on above: Performed By: #### C BC ####[facility] [address] [place] [address]Dr. Jillian Jaime GLYCOHEMOGLOBIN A1Con 2021 ADA RECOMMENDATION SEE BELOW Normal [facility] Comment on above: Result Comment: ADA RECOMMENDED LIMIT 4.0 - 6.0 ADA THERAPEUTIC TARGET < 7.0 ACTION SUGGESTED > 7.0 Performed By: #### A 1C #### [facility] [address] [place] [address] [address] Jillian Jaime Glucose [Mass/Vol] 114 mg/dL Normal [facility] Comment on above: Performed By: #### A 1C #### [facility] [address] [place] [address] [address] Jillian Jaime HbA1c (Bld) [Mass fraction] 5.6 % Normal 4.5-6.2 [facility] Comment on above: Performed By: #### A 1C #### [facility] [address] [place] [address] [address] Jillian Jaime PROF 14(COMP METB)on 022 Albumin [Mass/Vol] 3.3 g/dL Critically low 3.4-5.0 Th [facility] Comment on above: Performed By: #### C MP ####[facility] [address] [place] [address]Dr. Jillian Jaime Albumin/Globulin [Mass ratio] 0.8 {ratio} Normal [facility] Comment on above: Performed By: #### C MP ####[facility] [address] [place] [address]DrAaron Jaime ALP [Catalytic activity/Vol] 155 U/L Critically high 46-116 [facility] Comment on above: Performed By: #### C MP ####[facility] S[address] [place] [address]DrAaron Jaime ALT [Catalytic activity/Vol] 27 U/L Normal 14-59 [facility] Comment on above: Performed By: #### C MP ####[facility] Q[address] [place] [address]Dr. Jillian Jaime Anion gap [Moles/Vol] 9.5 mmol/L Normal [facility] Comment on above: Performed By: #### C MP ####[facility] [address] [place] [address]Dr. Jillian Jaime AST [Catalytic activity/Vol] 11 U/L Critically low 15-37 [facility] Comment on above: Performed By: #### C MP ####[facility] [address] [place] [address]Dr. Jillian Jaime Bilirubin [Mass/Vol] 0.3 mg/dL Normal 0.2-1.0 [facility] Comment on above: Performed By: #### C MP ####[facility] [address] [place], [place] [address]Dr. Jillian Jaime Calcium [Mass/Vol] 9.2 mg/dL Normal 8.5-10.1 [facility] Comment on above: Performed By: #### C MP ####[facility] [address] [place], [place] [address]Dr. Jillian Jaime Chloride [Moles/Vol] 104 mmol/L Normal 98-107 [facility] Comment on above: Performed By: #### C MP ####[facility] [address] [place], [place] [address]Dr. Jillian Jaime CO2 [Moles/Vol] 30.4 mmol/L Normal 21.0-32.0 The [facility] Comment on above: Performed By: #### C MP ####[facility] [address] [place], [place] [address]Dr. Jillian Jaime Creatinine [Mass/Vol] 1.11 mg/dL Critically high 0.55-1.02 [facility] Comment on above: Performed By: #### C MP ####[facility] [address] [place], [place] [address]Dr. Jillian Addison EGFR-AF VENEZUELAN >60 Normal >=60 [facility] Comment on above: Performed By: #### C MP ####[facility] [address] [place] [address]Dr. Jillian Jaime EGFR-NON AF VENEZUELAN 52 mL/min/1.73m2 Critically low >=60 [facility] Comment on above: Performed By: #### C MP ####[facility] [address] [place] [address]Dr. Jillian Jaime Globulin (S) [Mass/Vol] 4.1 g/dL Normal [facility] Comment on above: Performed By: #### C MP ####[facility] [address] [place] [address]Dr. Jillian Jaime Glucose [Mass/Vol] 152 mg/dL Critically high 74-106 T [facility] Comment on above: Performed By: #### C MP ####[facility] [address]so[address] [place] [address]Dr. Jillian Jaime Potassium [Moles/Vol] 3.9 mmol/L Normal 3.5-5.1 [facility] Comment on above: Performed By: #### C MP ####[facility] [address] [place] [address]Dr. Jillian Jaime Protein [Mass/Vol] 7.4 g/dL Normal 6.4-8.2 [facility] Comment on above: Performed By: #### C MP ####[facility] [address] [place] [address]Dr. Jillian Jaime Sodium [Moles/Vol] 140 mmol/L Normal 136-145 [facility] Comment on above: Performed By: #### C MP ####[facility] [address] [place] [address]Dr. Jillian Jaime Urea nitrogen [Mass/Vol] 17.0 mg/dL Normal 7.0-18.0 [facility] Comment on above: Performed By: #### C MP ####[facility] [address]ch[address] [place] [address]Dr. Jillian Jaime Urea nitrogen/Creatinine [Mass ratio] 15.3 mg/mg Normal [facility] Comment on above: Performed By: #### C MP ####[facility] [address] [place], [place] [address]Dr. Jillian Jaime PROTIMEon 04-28-2022 INR Coag (PPP) [Relative time] 1.01 {INR} Normal [facility] Comment on above: Performed By: #### P TT, PT #### [facility] [address] [place], [place] [address] Dr. Jillian Jaime INR GUIDELINES SEE BELOW Normal The [facility] Comment on above: Result Comment: ARIANNA RED INR: 2.0 - 3.0 CONDITIONS NOT LISTED BELOW 2.5 - 3.5 FOR PROSTHETIC HEART VALVE REPLACEMENT 2.5 - 3.5 RECURRENT THROMBOSIS Performed By: #### P TT, PT #### [facility] [address] [place] [address] [address] Jillian Jaime PT Coag (PPP) [Time] 10.9 s Normal 9.0-11.6 [facility] Comment on above: Performed By: #### P TT, PT #### [facility] [address] [place] [address] [address] Jillian Jaime PTTon 04-28-2022 aPTT Coag (Bld) [Time] 26.2 s Normal 22.3-36.2 [facility] Comment on above: Performed By: #### P TT, PT #### [facility] [address] [place] [id number] Jillian Jaime Cytologyon 12-25-2021 Cytology (NOTE) INTERPRETATION Cervical material, (ThinPrep vial, Imaging-assisted review): Specimen Adequacy: Satisfactory for evaluation. -Endocervical/transform ation zone component is absent. Descriptive Diagnosis: Negative for intraepithelial lesion or malignancy. 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 [place], [place] [address] Normal [facility] Comment on above: Performed By: #### P PPVP #### [facility] [address] [place], [place] [id number] Mobile Sales Assistant: Griffin Bonilla MD Covid-19 PCR ([facility])on 11-16 SARS-CoV-2 (COVID-19) RNA FLORENCIA+probe Ql (Unsp spec) Not detected Normal NOT DETECTED [facility] Comment on above: Result Comment: This test is not yet approved or cleared by the [place] FDA. When there are no FDA-approved or cleared tests available, and other criteria are met, FDA can make tests available under an emergency access mechanism called an Emergency Use Authorization (EUA). The EUA for this test is supported by the [place] of Health and Human Service's (HHS's) declaration [...] SARS-CoV-2. Performed By: #### C VDTB #### [facility] [address] [place] [address] Dr. Jillian Jaime SYMPTOMATIC COVID-19 ANTIGEN on 12-04-2021 EUA Statement SEE BELOW Normal [facility] Comment on above: Result Comment: This [...] revoked sooner. Performed By: #### C VDAGS ####[facility] [address] [place], [place] [address]Tb. Jillian Jaime SARS-CoV-2 (COVID-19) RNA FLORENCIA+probe Ql (Unsp spec) Negative Normal NEGATIVE [facility] Comment on above: Performed By: #### C VDAGS ####[facility] [address] [place], [place] [address]Kb. Jillian Jaime Vital Signs Date Time Vital Sign Value Performing Clinician Facility 04-13-2023 13:25-0400 Body height Matilde Carrillo Other [facility] Other 04-13-2023 13:25-0400 Body mass index (BMI) [Ratio] 57.79 kg/m2 Matilde Carrillo Other [facility] Other 04-13-2023 13:25-0400 Body temperature 97.5 [degF] Matilde Carrillo Other [facility] Other 04-13-2023 13:25-0400 Body weight 143.34 kg Matilde Carrillo Other [facility] Other 04-13-2023 13:25-0400 Diastolic blood pressure 96 mm[Hg] Matilde Carrillo Other [facility] Other 04-13-2023 13:25-0400 Respiratory rate 18 /min Matilde Carrillo Other [facility] Other 04-13-2023 13:25-0400 SaO2% (BldA) [Mass fraction] 96 % Matilde Carrillo Other [facility] Other 04-13-2023 13:25-0400 Systolic blood pressure 164 mm[Hg] Matilde Carrillo Other [facility] Other 01-11-2023 14:12-0400 Blood Pressure Location Niall NILL [facility] [place] 01-11-2023 14:12-0400 Diastolic blood pressure 84 mm[Hg] Niall N[facility] [place] 01-11-2023 14:12-0400 Heart rate 76 /min Niall NILL [facility] [place] 01-11-2023 14:12-0400 Respiratory rate 16 /min Niall NILL [facility] [place] 01-11-2023 14:12-0400 Systolic blood pressure 124 mm[Hg] Niall NILL [facility] Encounters Encounter Date Encounter Type Care Provider Facility Start: 04-16-2024 End: 04-16-2024 [facility] Start: 04-13-2023 End: 04-13-2023 ambulatory Matilde Carrillo Facility:[facility] Start: 04-13-2023 End: 04-13-2023 Patient encounter procedure RELIGIOUS ASSISTANT-C Matilde Carrillo Work Phone: [facility] Work Phone: Start: 04-13-2023 End: 04-13-2023 ambulatory RELIGIOUS ASSISTANT-C Matilde Carrillo Work Phone: [facility] Work Phone: Start: 04-13-2023 Office outpatient ne w 20 minutes Matilde Carrillo [facility] Start: 02-08-2023 ambulatory Niall R NILL Facility :[facility] Start: 02-01-2023 End: 02-02-2023 ambulatory Niall R [...] Start: 12-25-2021 End: 12-26-2021 ambulatory JUAN BATISTA [facility] Start: 12-25-2021 End: 12-25-2021 Patient encounter status Paulette Santana MD Work Phone: [facility] Start: 12-25-2021 End: 12-25-2021 Subsequent hospital visit by physician Paulette Santana MD Work Phone: [facility] Comment on above: Encounter for gyneco logical examination Start: 12-04-2021 End: 12-04-[address] PAULETTE SANTANA . Facility: Procedures Date Procedure Procedure Detail Performing Clinician Start: 04-13-2023 X-ray of right knee RELIGIOUS ASSISTANT- C Matilde Carrillo Work Phone: Benign neoplasm of f sheldon (disorder) Niall GOMEZValerie Excision of ganglion of wrist, recurrent Niall SAIMA Ligation of fallopian tube Jose GOMEZValerie Reduction mammoplasty Shine doan SAIMA Plan of Treatment Date Care Activity Detail Author Start: 03-18-2022 Influenza vaccination Flu vacc ine (Season Ended) [facility] Start: 2019 Screening for malign ant neoplasm of breast Breast cancer screen [facility] [facility] Start: 2014 Screening for malign ant neoplasm of colon [facility] [email or web address] Start: 2009 Lipid panel Lipids [facility] [email or web address] Start: 1999 Screening for malign ant neoplasm of cervix [facility] [email or web address] Start: 1990 Screening for malign ant neoplasm of cervix Pap smear [facility] [email or web address] Start: 1988 DTaP/Tdap/Td vaccine (1 - Tdap) DTaP/Tdap/Td vaccine (1 - Tdap) [facility] [email or web address] Start: 1987 Hepatitis C screening Hepatitis C sc reen [facility] [email or web address] Start: 1984 HIV screening HIV screen [facility] [email or web address] Start: 1981 Depression Screen Depression Screen [facility] [email or web address] Start: 1974 COVID-19 Vaccine (1) COVID-19 Vaccin e (1) [email or web address] End: 12-25-2021 Cytopathology procedure, preparation of smear, genital source PAP SMEAR Lab Routine Encounter for gynecological examination 1 Occurrences starting 12/25/2021 until 12/25/2021 [facility] [employer] [facility] Work Phone: Comment on above: 1 Occurrences starti ng 12/25/2021 until 12/25/2021 Immunizations Immunization Date Immunization Notes Care Provider Jennie garvey 05-10-2022 influenza virus vaccine, unspecified formulation Niall RUSSELL [facility] [place] 12-17-2021 SARS-CoV-2 (COVID-19 ) mRNA-1273 vaccine Niall NILL [facility] 08-14-2021 SARS-CoV-2 (COVID-19 ) mRNA-1273 vaccine Niall NILL [facility] 01-04-2021 SARS-CoV-2 (COVID-19 ) mRNA-1273 vaccine Niall NILL [facility] 12-07-2020 SARS-CoV-2 (COVID-19 ) mRNA-1273 vaccine Niall NILL [facility] 04-17-2020 influenza virus vaccine, unspecified formulation Niall NILL [facility] [place] Payers Date Payer Category Payer Unknown 2023 Self-pay 1970 Unknown [id number] 2.16.8 [id number] 1970 Unknown [id number] 2.16.84 [id number] 1969 Unknown [id number] 2.16.84 0.1.803303.3.579.2.593 1969 Unknown [id number] 2.16.84 0.1.976593.3.579.2.593 1969 Unknown [id number] 2.16.84 0.1.675740.3.579.2.593 1969 Unknown [id number] 2.16.84 0.1.076490.3.579.2.593 1969 Unknown [id number] 2.16.84 0.1.948053.3.579.2.593 1969 Unknown [id number] 2.16.84 0.1.048498.3.579.2.593 1969 Unknown [id number] 2.16.84 0.1.553163.3.579.2.593 1969 Unknown [id number] 2.16.84 0.1.222105.3.579.2.593 1969 Unknown [id number] 2.16.84 0.1.898379.3.579.2.593 1969 Unknown [id number] 2.16.8 40.1.355394.3.579.2.727 1969 Unknown [id number] 2.16.8 40.1.669668.3.579.2.727 1969 Unknown [id number] 2.16.8 40.1.973910.3.579.2.727 1969 Unknown [id number] 2.16. 840.1.814426.3.579.2.196 1959 Unknown [id number] 1. [id number] Unknown [id number] 2.16.8 [id number] Social History Date Type Detail Facility Start: 12-25-2021 End: 01-11-2023 Tobacco smoking status OHIS Ex-smoker [employer] Start: 12-25-2021 Cigarettes smoked current (pack per day) - Reported 1 [employer] Phone: Start: 12-25-2021 Tobacco use and exposure Smokeless tobacco non-user [employer] Phone: Start: 12-25-2021 Alcohol intake Ex-drinker (finding) [employer] Phone: Start: 1970 Sex Assigned At Not on file B ON [employer] Phone: Tobacco smoking status Never [facility] [place] Sex Assigned At Female [facility] Start: 1970 Sex Assigned At Female [facility] Functional Status Date Assessment Result [...] the ER for worsening symptoms or concerns [employer] Other 06-27-2023 NoteChief Complaint consultation for nevus [...] 12/07/2020 Recorded influenza virus vaccine, inactivated 04/17/2020 [facility]:Result Comment: Electronically Signed By: SAIAM MCQUEEN, Niall Collier\Date and Time Signed: 01/11/23 14:31 [id number] NotePROCEDURE: XR KNEE RT 3V DATE: 11/01/2022 [...] Electronically authenticated by: JODI WEBER Date: 2022-11-01 12:17[facility]12-30-2022 NotePROCEDURE: XR HAND LT MIN 3V COMPARISON: [...] Electronically authenticated by: ADELAIDA LAO Date: 2022-07-16 07:43[facility]12-16-2022 NotePROCEDURE: XR FINGER MIN 2 VIEWS HISTORY: [...] Electronically authenticated by: ASHOK GRIER Date: 2022-07-02 17:45[facility]12-16-2022 NotePROCEDURE: XR HAND LT MIN 3V HISTORY: [...] Electronically authenticated by: ASHOK GRIER Date: 2022-07-02 17:43[facility]08-09-2022 NotePROCEDURE: XR KNEE RT 4V or > COMPARISON: None. HISTORY: Pain of right knee joint FINDINGS: BONES:No acute fracture or dislocation. Moderate osteoarthropathy and marginal osteophyte formation. SOFT TISSUES:Negative. No visible soft tissue swelling. EFFUSION:None visible. OTHER: Negative. IMPRESSION: Moderate tricompartmental osteoarthritis Electronically authenticated by: ADELAIDA LAO Date: 2022-02-23 19:01[facility] Future Appointments Appointment Date:02/01/2023 02:00:00 PM Scheduled Provider:Niall RUSSELL MD Location:[facility] Appointment Type: Procedure 30 [facility] [place] Evaluation note* Diagnosis Encounter for gynecological examination documented in this encounter [facility] Work Phone: evaluation noteNo assessment information available [facility] Work Phone: Hishtlw general Narrative - Reported* Type Description Date Medical History hypertension Medical History depression Medical History Hypothyroid Surgical History breast reduction Surgical History cyst removal, wrist Surgical History tubal ligation Hospitalization History see above [facility] Other Hospital course Narrative No data available for this section [facility] [place] [facility] Discharge instructions No data available for this section [facility] [place] Progress note No data available for this section [facility] [place] Summary Purpose Family History No Family History Records FoundNo Family History Records FoundNo Family History Records FoundNo Family History Records FoundNo Family History Records Found Advance Directives No Advanced Directives Records FoundNo Advanced Directives Records FoundNo Advanced Directives Records FoundNo Advanced Directives Records FoundNo Advanced Directives Records Found Additional Source Comments Care Teams (unrecognized sec tion and content) [employer] Relationship Specialty Start Date End Date Paulette Santana MD [address] [phone] PCP - General Family Medicine 12/25/21 Team Status: Inactive Member Role Status Dates DERREK Sanchez Attending Provider Active INFORMATION SOURCE (unrecogn ized section and content) DATE CREATED AUTHOR 01/01/2022 [facility] DATE CREATED AUTHOR AUTHOR'S ORGANIZ ATION 11/07/2022 [facility] DATE CREATED AUTHOR AUTHOR'S ORGANIZ ATION 02/02/2023 [facility] DATE CREATED AUTHOR AUTHOR'S ORGANIZ ATION 04/21/2023 [facility] DATE CREATED AUTHOR AUTHOR'S ORGANIZ ATION 04/20/2024 [facility] Goals (unrecognized section and content) [...] BE BASED ON THE PRIMARY CLINICAL RECORDS. [facility]. provides no warranty or guarantee of the accuracy or completeness of information in this document.
[2024-08-21 10:04] LABS: Basophils Percent Auto 0.3 % (0.2-2.0); Eosinophils Absolute Auto 0.2 10^3/uL (0.0-0.7); Eosinophils Percent Auto 1.4 % (0.9-7.0); Hematocrit 42.3 % (36.0-48.0); Hemoglobin 13.6 g/dL (12.0-16.0); Immature Granulocytes Abs Auto 0.04 10^3/uL (0.00-0.03); Immature Granulocytes Pct Auto 0.3 % (0.0-0.5); Lymphocytes Percent Auto 8.6 % (20.5-60.0); Mean Corpuscular HGB Conc 32.2 g/dL (29.9-35.2); Mean Corpuscular Hemoglobin 29.4 pg (26.7-34.0); Mean Corpuscular Volume 91.6 fL (81.0-99.0); Mean Platelet Volume 8.5 fL (9.5-13.5); Monocytes Absolute Auto 0.9 10^3/uL (0.3-0.8); Monocytes Percent Auto 7.2 % (1.7-12.0); Neutrophils Absolute Auto 9.7 10^3/uL (1.4-6.5); Neutrophils Percent Auto 82.2 % (43.0-75.0); Platelet Count 310 10^3/uL (150-450); Red Blood Count 4.62 10^6/uL (4.20-5.40); Red Cell Distribution Width 13.2 % (11.0-15.0); White Blood Count 11.8 10^3/uL (4.0-11.0)
[2024-08-21 10:12] LABS: Anion Gap 12.9; BUN Creatinine Ratio 17.5; Calcium 9.6 mg/dL (8.5-10.1); Carbon Dioxide 29.1 mmol/L (21.0-32.0); Chloride 100 mmol/L (98-107); Estimated GFR (African America 53 (>=60 mL/min/1.73m^2); Estimated GFR (Non-African Ame 44 (>=60 mL/min/1.73m^2); Glucose 103 mg/dL (74-106); Sodium 138 mmol/L (136-145)
[2024-08-21] MEDS: PIPERACILLIN SODIUM/TAZOBACTAM 3.375 GM in 0.9 % SODIUM CHLORIDE 50 ML IV (11:20)
[2024-08-21 11:29] LABS: Lactate/Lactic Acid 1.1 mmol/L (0.4-2.0)
[2024-08-21] MEDS: VANCOMYCIN HCL 2,000 MG in 0.9 % SODIUM CHLORIDE 500 ML 250 MG IV (11:52)
--- NOTE | 2024-08-21 12:45 | P.HP_ITS ---
HPI H&P: HPI History of Present Illness Chief complaint: CELLULITIS - LOWER EXTREMITY Opioid HPI Opioid Management Most Recent Pain and Opioid Data: No Data to Display [facility] PFS Medical History (Updated 08/21/24 @ 11:00 by Galdino Licona MD) Hypertension ?I10 - Essential (primary) hypertension (ICD-10) Surgical History (Updated 04/16/24 @ 13:20 by Laurence Da Silva) H/O bilateral breast reduction surgery ?Z98.890 - Other specified postprocedural states (ICD-10) H/O tubal ligation ?Z98.51 - Tubal ligation status (ICD-10) Social History Little interest or pleasure in doing things: not at all Feeling down, depressed, or hopeless: not at all Meds Home Medications and Allergies Home Medications ?Medication ?Instructions ?Recorded ?Confirmed ?Type amitriptyline 100 mg tablet 100 mg PO DAILY 04/16/24 08/19/24 History baclofen 20 mg tablet 10 mg PO BID 04/16/24 08/19/24 History diclofenac sodium 75 mg 75 mg PO BID 04/16/24 08/19/24 History tablet,delayed release liothyronine 5 mcg tablet 5 mcg PO DAILY 04/16/24 08/19/24 History lisinopril 20 mg tablet 20 mg PO DAILY 04/16/24 08/19/24 History mirtazapine 30 mg tablet 30 mg PO DAILY 04/16/24 08/19/24 History risperidone 2 mg tablet 2 mg PO DAILY 04/16/24 08/19/24 History amoxicillin 875 mg-potassium 1 tab PO Q12H #20 tabs 08/19/24 Rx clavulanate 125 mg tablet levothyroxine 50 mcg tablet 50 mcg PO DAILY 08/19/24 08/19/24 History phentermine 37.5 mg tablet 37.5 mg PO QAM 08/19/24 08/19/24 History Allergies Allergy/AdvReac Type Severity Reaction Status Date / Time No Known Drug Allergies Allergy Verified 04/16/24 13:15 Exam Constitutional Vital Signs, click to edit/add: Last Vital Signs Temp 98.2 F 08/21/24 09:21 Pulse 100 H 08/21/24 09:26 Resp 18 08/21/24 09:21 BP 168/85 H 08/21/24 09:21 Pulse Ox 96 08/21/24 09:21 O2 Del Method Room Air 08/21/24 09:21 Results Labs Labs: Short CBC 08/21/24 Range/Units 09:54 WBC 11.8 H (4.0-11.0) 10^3/uL Hgb 13.6 (12.0-16.0) g/dL Hct 42.3 (36.0-48.0) % Plt Count 310 (150-450) 10^3/uL BMP 08/21/24 09:54 Sodium 138 Potassium 4.0 Chloride 100 Carbon Dioxide 29.1 BUN 22.0 H Creatinine 1.26 H Glucose 103 Calcium 9.6
--- NOTE | 2024-08-21 12:45 | P.HP_ITS ---
HPI H&P: HPI History of Present Illness Chief complaint: CELLULITIS - LOWER EXTREMITY Narrative: Patient was seen in the office about 2 weeks ago status post fall, this is a recurrent fall for her, left hand and injured her left knee this time injured her right, significant bruising at the time, no signs of infection, over the last several days has noticed increasing redness and warmth to the area presented to the emergency room treated with Augmentin with the significant difficult leukocytosis with left shift consistent with bacterial process, over the next couple days she did not have any significant improvement in the erythema, or the redness is actually darkened since seen in the ER, with failed outpatient treatment for cellulitis should be admitted for IV antibiotics When I saw patient in the emergency room, she is resting fairly comfortably in bed, no significant complaint of pain at rest, just hurts with ambulation. The right leg feeling tight Opioid HPI Opioid Management Most Recent Pain and Opioid Data: No Data to Display Review of Systems ROS Status of ROS 10 or more systems reviewed and unremark able except as noted in history and below PFSH PFS Medical History (Updated 08/21/24 @ 11:00 by Galdino Licona MD) Hypertension ?I10 - Essential (primary) hypertension (ICD-10) Surgical History (Updated 04/16/24 @ 13:20 by Laurence Da Silva) H/O bilateral breast reduction surgery ?Z98.890 - Other specified postprocedural states (ICD-10) H/O tubal ligation ?Z98.51 - Tubal ligation status (ICD-10) Social History Little interest or pleasure in doing things: not at all Feeling down, depressed, or hopeless: not at all Meds Home Medications and Allergies Home Medications ?Medication ?Instructions ?Recorded ?Confirmed ?Type amitriptyline 100 mg tablet 100 mg PO DAILY 04/16/24 08/19/24 History baclofen 20 mg tablet 10 mg PO BID 04/16/24 08/19/24 History diclofenac sodium 75 mg 75 mg PO BID 04/16/24 08/19/24 History tablet,delayed release liothyronine 5 mcg tablet 5 mcg PO DAILY 04/16/24 08/19/24 History lisinopril 20 mg tablet 20 mg PO DAILY 04/16/24 08/19/24 History mirtazapine 30 mg tablet 30 mg PO DAILY 04/16/24 08/19/24 History risperidone 2 mg tablet 2 mg PO DAILY 04/16/24 08/19/24 History amoxicillin 875 mg-potassium 1 tab PO Q12H #20 tabs 08/19/24 Rx clavulanate 125 mg tablet levothyroxine 50 mcg tablet 50 mcg PO DAILY 08/19/24 08/19/24 History phentermine 37.5 mg tablet 37.5 mg PO QAM 08/19/24 08/19/24 History Allergies Allergy/AdvReac Type Severity Reaction Status Date / Time No Known Drug Allergies Allergy Verified 04/16/24 13:15 Exam Constitutional Vital Signs, click to edit/add: Last Vital Signs Temp 98.2 F 08/21/24 09:21 Pulse 100 H 08/21/24 09:26 Resp 18 08/21/24 09:21 BP 168/85 H 08/21/24 09:21 Pulse Ox 96 08/21/24 09:21 O2 Del Method Room Air 08/21/24 09:21 Documenting provider has reviewed patient's vital signs: yes Common normals: no apparent distress Chest Common normals: inspection of chest normal Respiratory Common normals: normal respiratory effort Cardio Common normals: regular rate and regular rhythm Extremity Common normals: abnormal to inspection (Right knee with significant bruising but also significant erythema, calor ) General: abnormal exam (Area of erythema is marked) Results Labs Labs: Short CBC 08/21/24 Range/Units 09:54 WBC 11.8 H (4.0-11.0) 10^3/uL Hgb 13.6 (12.0-16.0) g/dL Hct 42.3 (36.0-48.0) % Plt Count 310 (150-450) 10^3/uL [facility] 08/21/24 09:54 Sodium 138 Potassium 4.0 Chloride 100 Carbon Dioxide 29.1 BUN 22.0 H Creatinine 1.26 H Glucose 103 Calcium 9.6 Assessment and Plan Assessment and Plan (1) Hypertension: (2) Cellulitis: Qualifiers: Laterality: right Site of cellulitis: extremity Site of cellulitis of extremity: lower extremity Qualified Code(s): L03.115 - Cellulitis of right l ower limb Plan Admission findings: Sinus tachycardia, mild, uncontrolled hypertension, mild, leukocytosis with left shift that is further elevated compared to 2 days ago when she was started on antibiotics, mild elevation in creatinine due to cellulitis right lower extremity Cellulitis right lower extremity-discussed antibiosis with emergency room physician and started on vancomycin and Zosyn, after further consideration will try patient on levofloxacin and clindamycin as those can be changed to oral agents if it is improved tomorrow Hypertension-continue with home medications Back pain-continue with home medications Hypothyroidism-continue with current medications Insomnia and anxiety continue with current medications Admission status: Patient with failed outpatient treatment of cellulitis right lower extremity, she is on Augmentin, white blood cell count higher, try patient on IV levofloxacin and clindamycin, if improved tomorrow possible discharge tomorrow, with medically necessary treatment only spanning 1 midnight will start patient off as observational status. If med necessary treatment is required past tomorrow, medically necessary treatment will then span 2 midnights and she will be changed to inpatient status
--- OUTSIDE RECORDS SUMMARY | 2024-08-21 13:44 | XMS_ITS | CCD ---
Author Organization [facility] Care Team Providers Care Brand Attendant Name Role Phone Paulette Santana MD Primary Care Provider [phone] JUAN BATISTA Referring Unavailable PAULETTE SANTANA [...] RUSSELL Attending Unavailable DERREK Carrillo Attending Provider [phone] Matilde Carrillo Unavailable Matilde Carrillo Attending Unavailable [...] 10/06/20 Status: Ordered take 1 capsule by [facility] every eight hours Diclofenac 35 MG 1 capsule as needed Ora lly Three times a day Active levothyroxine sodium 0.05 mg oral tablet (2 sources) l-Thyroxine Start: 12-29-2022 take 1 tablet by mouth once daily levothyroxine 50 mcg (0.05 mg) Tab 50 mcg = 1 tab(s), Oral, Daily, Refills(s) 0 Start Date: 12/29/22 Status: Ordered take 1 tablet by [facility] once daily in the morning Levothyroxine [...] Start: 10-06-2020 take 2 tablets by mo [facility] once daily at bedtime mirtazapine [...] 2 Episodic Other aftercare (1 source) 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 (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) drug therapy; Translations: [OTH ASSISTED CURRENT DRUG THERAPY] Onset: 2 Episodic Other [...] RT 4V*on 04-13-2023 XR knee RT 4V* [facility] [place] [address] XRay Report Signed Patient: Fred Qureshi MR#: [id number] : 1970 Acct:[id number] Age/Sex: 52 / F ADM Date: 04/13/23 Loc: XDUC Room: Type: [facility] Attending Dr: Matilde ANGLIN Copies [...] Jose Moran M.D.04/13/2023 2:33 PM Dictation Location: [place] [address] Transcribed By: [facility] 04/13/23 143 Dictated By: Jose Moran DO 04/13/23 1432 Signed By: 04/13/23 143 [facility] XR knee RT 4V* [facility] Other XR knee RT 4V* [facility] [employer] Other XR knee RT 4V* [address] [facility] [employer] Other XR knee RT 4V* [place] [address] No rt [employer] Other XR knee RT 4V* XRay Report [employer] Other XR knee RT 4V* Signed [employer] Other XR knee RT 4V* Patient: Sampson Qureshi MR#: [id number] My[place]le [employer] Other XR knee RT 4V* 5905 [employer] Other XR knee RT 4V* : 1970 Acct:[id number] [facility] Other XR knee RT 4V* Age/Sex: 52 / F ADM Date: 04/13/23 [employer] Other XR knee RT 4V* Loc: XDUCLY Room: [facility] [employer] Other XR knee RT 4V* Attending Dr: Matilde ANGLIN [facility] Other XR knee RT 4V* Copies to: DERREK Head [employer] Other XR knee RT 4V* Ordering Provider: DERREK Head [employer] Other XR knee RT 4V* Date of Service: 04/13/23 [employer] Other XR knee RT 4V* XR/XR knee RT 4V*: Acute pain of right knee [employer] Other XR knee RT 4V* 4 views right knee plain film [employer] Other XR knee RT 4V* COMPARISON: None Nort [employer] Other XR knee RT 4V* HISTORY: Right knee injury. Superior patellar pain. [employer] Other XR knee RT 4V* ACUTE FINDINGS: None [employer] Other XR knee RT 4V* DEGENERATIVE CHANGE: Moderate degeneration. [employer] Other XR knee RT 4V* SOFT TISSUE FINDINGS : Unremarkable [employer] Other XR knee RT 4V* JOINT EFFUSION: None [employer] Other XR knee RT 4V* POSTOP CHANGES: None [employer] Other XR knee RT 4V* BONE MINERALIZATION: Adequate [employer] Other XR knee RT 4V* XR/XR knee RT 4V* [employer] Other XR knee RT 4V* IMPRESSION: No acute findings [employer] Other XR knee RT 4V* Impression dictated by: Jose Moran M.D.04/13/2023 2:33 PM [employer] Other XR knee RT 4V* Dictation Location: [place] [address] [employer] Other XR knee RT 4V* Transcribed By: [facility] 04/13/23 [facility] [employer] Other XR knee RT 4V* Dictated By: Jose Moran DO 04/13/23 [facility] Other XR knee RT 4V* Signed By: [employer] Other XR knee RT 4V* 04/13/23 [facility]3 beqom Other Ambulatory Visit Summaryon 0 02-01-2023 Ambulatory [...] Saima/Roberta Martinez [facility] General Surgery Office/Clini c Noteon 02-01-2023 General [...] Recorded influenza virus vaccine, inactivated 04/17/2020 Recorded [facility] Comment on above: Result Comment: Elec tronically Signed By: SAIMA MCQUEEN, Niall Tucker\.br\Date and Time Signed: 02/01/23 14:23 EDT Pre-Certification Formon Pre-Certification Form [id number]#1.00 CD:127 [facility] Facesheeton 01-12-2023 Facesheet [id number]#1.00C D:127 [facility] Ambulatory Visit Summaryon 0 01-11-2023 Ambulatory [...] adenoma Normal [facility] Physician Referralon 023 Physician Referral [id number] D:127 Normal [facility] MG MAMM SCREEN 3D HAYDEE CADon 03-21-2023 MG MAMM SCREEN 3D HAYDEE CAD Patient: FRED QURESHI Exam Date: 10/05/2022 : 1970 Gender:F Ordering : DR PAULETTE SANTANA . Admission #: [id number] Family : Order #: [id number] CLICK HERE TO VIEW EXAM RADIOLOGY REPORT [...] Treatments None Family Cancers None LOCATION: [facility] BREAST COMPOSITION: Scattered areas fibroglandular density. [...] M.D. on 10/05/2022 at 16:12 Normal [facility] FREE T3on 09-21-2022 FREE T3 2.22 pg/mlL Normal 2.18-3.98 [facility] Comment on above: Performed By: #### F T3, T4, TSH ####[facility] [address] [place], [place] [address]Ss. Jillian Jaime T4on 09-21-2022 T4 [Mass/Vol] 5.50 ug/dL Normal 4.80-13.90 [facility] Comment on above: Performed By: #### F T3, T4, TSH ####[facility] [address] [place], [place] [address]Po. Jillian Jaime TSHon 09-21-2022 TSH 0.782 uIU/mL Normal 0.358-3.740 [facility] Comment on above: Performed By: #### F T3, T4, TSH ####[facility] [address] [place], [place] [address]Kf. Jillian Jaime [facility]on SARS-CoV-2 (COVID-19) RNA FLORENCIA+probe Ql (Unsp spec) Not detected Normal NOT DETECTED [facility] Comment on above: Result Comment: When [...] for this test is supported by the [place] of Health and Human Service's declaration that [...] be used). Performed By: #### C VDTB ####[facility] [address] [place], [place] [address]Yu. Jillian Jaime XR WRIST LT MIN 3 Von 2021 XR WRIST LT MIN 3 V EXAM: XR WRIST LT MS N 3 V HISTORY: Unspecified fall , [...] ESSENCE MONTEMAYOR Date: 2022-07-02 17:36 Normal [facility] CBC AUTO DIFFon 04-28-2022 BASO # 0.0 103/ul Normal 0.0-0.1 [facility] Comment on above: Performed By: #### C BC ####[facility] [address] [place] [address]Dr. Jillian Jaime Basophils/100 WBC (Bld) 0.3 % Normal 0.2-2.0 [facility] Comment on above: Performed By: #### C BC ####[facility] [address] [place], [place] [address]Dr. Jillian Jaime EO # 0.1 103/ul Normal 0.0-0.7 [facility] Comment on above: Performed By: #### C BC ####[facility] [address] [place], [place] [address]Dr. Jillian Jaime Eosinophils/100 WBC (Bld) 1.3 % Normal 0.9-7.0 [facility] Comment on above: Performed By: #### C BC ####[facility] [address] [place] [address]Dr. Jillian Jaime Erythrocyte distribution width (RBC) [Ratio] 13.4 % Normal 11.0-15.0 [facility] Comment on above: Performed By: #### C BC ####[facility] [address] [place] [address]Dr. Britneyglenroy Jaime Hematocrit (Bld) [Volume fraction] 43.0 % Normal 36.0-48.0 [facility] Comment on above: Performed By: #### C BC ####[facility] [address] [place] [id number]. Jillian Jaime Hemoglobin (Bld) [Mass/Vol] 13.5 g/dL Normal 12.0-16.0 [facility] Comment on above: Performed By: #### C BC ####[facility] [address] [place] [address]Dr. Jillian Jaime IG # 0.05 10e3/ul Critically high 0.00-0.03 [facility] Comment on above: Performed By: #### C BC ####[facility] [address] [place] [address]Dr. Jillian Jaime IG % 0.5 % Normal 0.0-0.5 [facility] Comment on above: Performed By: #### C BC ####[facility] [address] [place] [address]Dr. Jillian Jaime LYMPH # 1.8 103/ul Normal 1.2-3.8 [facility] Comment on above: Performed By: #### C BC ####[facility] [address] [place], [place] [address]Dr. Jillian Jaime Lymphocytes/100 WBC (Bld) 18.3 % Critically low 20.5-60.0 [facility] Comment on above: Performed By: #### C BC ####[facility] [address] [place] [address]Dr. Jillian Jaime MANUAL DIFF REQ NO Normal [facility] Comment on above: Performed By: #### C BC ####[facility] [address] [place], [place] [address]Dr. Jillian Jaime MCH (RBC) [Entitic mass] 29.0 pg Normal 26.7-34.0 [facility] Comment on above: Performed By: #### C BC ####[facility] [address] [place], [place] [address]Dr. Jillian Jaime MCHC (RBC) [Mass/Vol] 31.4 g/dL Normal 29.9-35.2 [facility] Comment on above: Performed By: #### C BC ####[facility] [address] [place] [address]Dr. Jillian Jaime MCV (RBC) [Entitic vol] 92.5 fL Normal 81.0-99.0 [facility] Comment on above: Performed By: #### C BC ####[facility] [address] [place] [address]Dr. Jillian Jaime MONO # 0.5 103/ul Normal 0.3-0.8 [facility] Comment on above: Performed By: #### C BC ####[facility] [address]ynwi[address] [place] [address]Dr. Jillian Jaime Monocytes/100 WBC (Bld) 5.1 % Normal 1.7-12.0 [facility] Comment on above: Performed By: #### C BC ####[facility] X[address]peqrcn[address] [place] [address]Dr. Jillian Jaime NEUT # 7.2 103/ul Critically high 1.4-6.5 [facility] Comment on above: Performed By: #### C BC ####[facility] [address] [place], [place] [address]Dr. Jillian Jaime Neutrophils/100 WBC (Bld) 74.5 % Normal 43.0-75.0 [facility] Comment on above: Performed By: #### C BC ####[facility] [address] [place] [id number]. Jillian Jaime Platelet mean volume (Bld) [Entitic vol] 8.2 fL Critically low 9.5-13.5 [facility] Comment on above: Performed By: #### C BC ####[facility] [address]cm[address]ue[address] [place] [address]Dr. Jillian Jaime PLT 304 103/ul Normal 150-450 [facility] Comment on above: Performed By: #### C BC ####[facility] [address] [place], [place] [address]Dr. Jillian Addison RBC 4.65 106/ul Normal 4.20-5.40 [facility] Comment on above: Performed By: #### C BC ####[facility] [address] [place] [address]DrAaron Jaime WBC 9.7 103/ul Normal 4.0-11.0 [facility] Comment on above: Performed By: #### C BC ####[facility] [address] [place] [id number]. Jillian Jaime GLYCOHEMOGLOBIN A1Con 2021 ADA RECOMMENDATION SEE BELOW Normal [facility] Comment on above: Result Comment: ADA RECOMMENDED LIMIT 4.0 - 6.0 ADA THERAPEUTIC TARGET < 7.0 ACTION SUGGESTED > 7.0 Performed By: #### A 1C #### [facility] [address] [place] [address] [address] Jillian Jaime Glucose [Mass/Vol] 114 mg/dL Normal [facility] Comment on above: Performed By: #### A 1C #### [facility] [address] [place] [address] [address] Jillian Jaime HbA1c (Bld) [Mass fraction] 5.6 % Normal 4.5-6.2 [facility] Comment on above: Performed By: #### A 1C #### [facility] [address] [place] [address] [address] Jillian Jaime PROF 14(COMP METB)on 022 Albumin [Mass/Vol] 3.3 g/dL Critically low 3.4-5.0 [facility] Comment on above: Performed By: #### C MP ####[facility] [address] [place] [address]Dr. Jillian Jaime Albumin/Globulin [Mass ratio] 0.8 {ratio} Normal [facility] Comment on above: Performed By: #### C MP ####[facility] [address] [place] [id number] Jaime ALP [Catalytic activity/Vol] 155 U/L Critically high 46-116 [facility] Comment on above: Performed By: #### C MP ####[facility] [address] [place] [address]DrAaron Jaime ALT [Catalytic activity/Vol] 27 U/L Normal 14-59 [facility] Comment on above: Performed By: #### C MP ####[facility] [address]izz[address] [place] [address]Dr. Jillian Jaime Anion gap [Moles/Vol] 9.5 mmol/L Normal [facility] Comment on above: Performed By: #### C MP ####[facility] [address] [place] [address]Dr. Jillian Jaime AST [Catalytic activity/Vol] 11 U/L Critically low 15-37 [facility] Comment on above: Performed By: #### C MP ####[facility] L[address]li[address] [place] [address]Dr. Jillian Jaime Bilirubin [Mass/Vol] 0.3 mg/dL Normal 0.2-1.0 [facility] Comment on above: Performed By: #### C MP ####[facility] [address] [place], [place] [address]Dr. Jillian Jaime Calcium [Mass/Vol] 9.2 mg/dL Normal 8.5-10.1 [facility] Comment on above: Performed By: #### C MP ####[facility] [address] [place], [place] [address]Dr. Jillian Jaime Chloride [Moles/Vol] 104 mmol/L Normal 98-107 [facility] Comment on above: Performed By: #### C MP ####[facility] [address] [place], [place] [address]Dr. Jillian Jaime CO2 [Moles/Vol] 30.4 mmol/L Normal 21.0-32.0 [facility] Comment on above: Performed By: #### C MP ####[facility] [address] [place], [place] [address]Dr. Jillian Jaime Creatinine [Mass/Vol] 1.11 mg/dL Critically high 0.55-1.02 [facility] Comment on above: Performed By: #### C MP ####[facility] [address] [place], [place] [address]Dr. Jillian Addison EGFR-AF [place] >60 Normal >=60 [facility] Comment on above: Performed By: #### C MP ####[facility] [address]vx[address] [place] [id number]. Jillian Jaime EGFR-NON AF [place] 52 mL/min/1.73m2 Critically low >=60 [facility] Comment on above: Performed By: #### C MP ####[facility] [address]xcswfvr65[address] [place] [address]Dr. Jillian Jaime Globulin (S) [Mass/Vol] 4.1 g/dL Normal [facility] Comment on above: Performed By: #### C MP ####[facility] [address] [place] [address]Dr. Jillian Jaime Glucose [Mass/Vol] 152 mg/dL Critically high 74-106 T [facility] Comment on above: Performed By: #### C MP ####[facility] [address] [place] [address]Dr. Jillian Jaime Potassium [Moles/Vol] 3.9 mmol/L Normal 3.5-5.1 [facility] Comment on above: Performed By: #### C MP ####[facility] [address]rv[address] [place] [address]Dr. Jillian Jaime Protein [Mass/Vol] 7.4 g/dL Normal 6.4-8.2 [facility] Comment on above: Performed By: #### C MP ####[facility] [address]udrn[address] [place] [address]Dr. Jillian Jaime Sodium [Moles/Vol] 140 mmol/L Normal 136-145 [facility] Comment on above: Performed By: #### C MP ####[facility] [address]ie[address] [place] [address]Dr. Jillian Jaime Urea nitrogen [Mass/Vol] 17.0 mg/dL Normal 7.0-18.0 [facility] Comment on above: Performed By: #### C MP ####[facility] [address] [place] [id number]. Jillian Jaime Urea nitrogen/Creatinine [Mass ratio] 15.3 mg/mg Normal [facility] Comment on above: Performed By: #### C MP ####[facility] [address] [place], [place] [address]Dr. Jillian Jaime PROTIMEon 04-28-2022 INR Coag (PPP) [Relative time] 1.01 {INR} Normal [facility] Comment on above: Performed By: #### P TT, PT #### [facility] [address] [place], [place] [address] Dr. Jillian Jaime INR GUIDELINES SEE BELOW Normal [facility] Comment on above: Result Comment: ARIANNA RED INR: 2.0 - 3.0 CONDITIONS NOT LISTED BELOW 2.5 - 3.5 FOR PROSTHETIC HEART VALVE REPLACEMENT 2.5 - 3.5 RECURRENT THROMBOSIS Performed By: #### P TT, PT #### [facility] [address] [place] [address] [address] Jillian Jaime PT Coag (PPP) [Time] 10.9 s Normal 9.0-11.6 [facility] Comment on above: Performed By: #### P TT, PT #### [facility] [address] [place] [address] [address] Jillian Jaime PTTon 04-28-2022 aPTT Coag (Bld) [Time] 26.2 s Normal 22.3-36.2 [facility] Comment on above: Performed By: #### P TT, PT #### [facility] [address] [place] [id number] Jillian Jaime Cytologyon 12-25-2021 Cytology (NOTE) INTERPRETATION Cervical material, (ThinPrep vial, Imaging-assisted review): Specimen Adequacy: Satisfactory for evaluation. -Endocervical/transform ation zone component is absent. Descriptive Diagnosis: Negative for intraepithelial lesion or malignancy. Intelligence Director: SILVIA VERDUGO(ASCP) Electronically Signed Out /12/31/2021 Source: A: Cervical material, (ThinPrep vial, Imaging-assisted review) Clinical History Z01.419 Routine paid search marketing strategist exam without abnormal findings High risk HPV DNA testing is requested if the diagnosis is abnormal GYNECOLOGIC CYTOLOGY REPORT Patient Name: FRED QURESHI [facility] Rec: [id number] Path Number: [id number] [facility] ANATOMIC PATHOLOGY [address] [place] [address]. [place], [place] [address] [facility] Comment on above: Performed By: #### P PPVP #### [facility] [address] [place], [place] [id number] Hand Ornament Maker: Griffin Bonilla MD Covid-19 PCR ([facility])on 11-16 SARS-CoV-2 (COVID-19) RNA FLORENCIA+probe Ql (Unsp spec) Not detected Normal NOT DETECTED [facility] Comment on above: Result Comment: This test is not yet approved or cleared by the [place] FDA. When there are no FDA-approved or cleared tests available, and other criteria are met, FDA can make tests available under an emergency access mechanism called an Emergency Use Authorization (EUA). The EUA for this test is supported by the [place] of Health and Human Service's (HHS's) declaration [...] SARS-CoV-2. Performed By: #### C VDTB #### [facility] [address] [place] [address] Dr. Jillian Jaime SYMPTOMATIC COVID-19 ANTIGEN on 12-04-2021 EUA Statement SEE BELOW Normal [facility] Comment on [...] revoked sooner. Performed By: #### C VDAGS ####[facility] [address] [place], [place] [address]Az. Jillian Jaime SARS-CoV-2 (COVID-19) RNA FLORENCIA+probe Ql (Unsp spec) Negative Normal NEGATIVE [facility] Comment on above: Performed By: #### C VDAGS ####[facility] [address] [place], [place] [address]Tx. Jillian Jaime Vital Signs Date Time Vital Sign Value Performing Clinician Facility 04-13-2023 13:25-0400 Body height Matilde Carrillo Other [facility] Other 04-13-2023 13:25-0400 Body mass index (BMI) [Ratio] 57.79 kg/m2 Matilde Carrillo Other [facility] Other 04-13-2023 13:25-0400 Body temperature 97.5 [degF] Matilde Carrillo Other [facility] Other 04-13-2023 13:25-0400 Body weight 143.34 kg Matilde Carrillo Other [facility] Other 04-13-2023 13:25-0400 Diastolic blood pressure 96 mm[Hg] Matilde Carrillo Other [facility] Other 04-13-2023 13:25-0400 Respiratory rate 18 /min Matilde Carrillo Other [facility] Other 04-13-2023 13:25-0400 SaO2% (BldA) [Mass fraction] 96 % Matilde Carrillo Other [facility] Other 04-13-2023 13:25-0400 Systolic blood pressure 164 mm[Hg] Matilde Carrillo Other [facility] Other 01-11-2023 14:12-0400 Blood Pressure Location Niall [facility] [place] 01-11-2023 14:12-0400 Diastolic blood pressure 84 mm[Hg] Niall [facility] 01-11-2023 14:12-0400 Heart rate 76 /min Niall N[facility] 01-11-2023 14:12-0400 Respiratory rate 16 /min Niall N[facility] [place] 01-11-2023 14:12-0400 Systolic blood pressure 124 mm[Hg] Niall NILL [facility] Encounters Encounter Date Encounter Type Care Provider Facility Start: 04-16-2024 End: 04-16-2024 [facility] Start: 04-13-2023 End: 04-13-2023 ambulatory Matilde Carrillo Facility:[facility] Start: 04-13-2023 End: 04-13-2023 Patient encounter procedure LINUX CONSULTANT-C Matilde Carrillo Work Phone: [facility] Work Phone: Start: 04-13-2023 End: 04-13-2023 ambulatory LINUX CONSULTANT-C Matilde Carrillo Work Phone: [facility] Work Phone: Start: 04-13-2023 Office outpatient ne w 20 minutes Matilde Carrillo [facility] Start: 02-08-2023 ambulatory Niall R NILL Facility :[facility] Start: 02-01-2023 End: 02-02-2023 ambulatory [...] Start: 12-25-2021 End: 12-26-2021 ambulatory JUAN BATISTA [facility] Start: 12-25-2021 End: 12-25-2021 Patient encounter status Paulette Santana MD Work Phone: [facility] Start: 12-25-2021 End: 12-25-2021 Subsequent hospital visit by physician Paulette Santana MD Work Phone: [facility] Comment on above: Encounter for gyneco logical examination Start: 12-04-2021 End: 12-04-[address] PAULETTE SANTANA . Facility: Procedures Date Procedure Procedure Detail Performing Clinician Start: 04-13-2023 X-ray of right knee LINUX CONSULTANT- C Matilde Carrillo Work Phone: Benign neoplasm of f sheldon (disorder) Niall GOMEZValerie Excision of ganglion of wrist, recurrent Niall SAIMA Ligation of fallopian tube Jose GOMEZValerie Reduction mammoplasty Shine doan SAIMA Plan of Treatment Date Care Activity Detail Author Start: 03-18-2022 Influenza vaccination Flu vacc ine (Season Ended) [facility] Start: 2019 Screening for malign ant neoplasm of breast Breast cancer screen [facility] Start: 2014 Screening for malign ant neoplasm of colon [facility] [employer] Start: 2009 Lipid panel Lipids [facility] [employer] Start: 1999 Screening for malign ant neoplasm of cervix [facility] [employer] Start: 1990 Screening for malign ant neoplasm of cervix Pap smear [facility] [employer] Start: 1988 DTaP/Tdap/Td vaccine (1 - Tdap) DTaP/Tdap/Td vaccine (1 - Tdap) [facility] [employer] Start: 1987 Hepatitis C screening Hepatitis C sc reen [facility] [employer] Start: 1984 HIV screening HIV screen [facility] [employer] Start: 1981 Depression Screen Depression Screen [facility] [employer] Start: 1974 COVID-19 Vaccine (1) COVID-19 Vaccin e (1) [facility] [employer] End: 12-25-2021 Cytopathology procedure, preparation of smear, genital source [facility] Lab Routine Encounter for gynecological examination 1 Occurrences starting 12/25/2021 until 12/25/2021 [facility] [employer] Work Phone: Comment on above: 1 Occurrences starti ng 12/25/2021 until 12/25/2021 Immunizations Immunization Date Immunization Notes Care Provider Jennie garvey 05-10-2022 influenza virus vaccine, unspecified formulation Niall RUSSELL [facility] [place] 12-17-2021 SARS-CoV-2 (COVID-19 ) mRNA-1273 vaccine Niall NILL [facility] 08-14-2021 SARS-CoV-2 (COVID-19 ) mRNA-1273 vaccine Niall NILL [facility] 01-04-2021 SARS-CoV-2 (COVID-19 ) mRNA-1273 vaccine Niall NILL [facility] 12-07-2020 SARS-CoV-2 (COVID-19 ) mRNA-1273 vaccine Niall NILL [facility] 04-17-2020 influenza virus vaccine, unspecified formulation Niall NILL [facility] [place] Payers Date Payer Category Payer Unknown [id number] Self-pay 1970 Unknown [id number] 2.16.8 [id number] 1970 Unknown [id number] 2.16.84 0.1.096580.3.579.2.593 1970 Unknown [id number] 2.16.84 0.1.444753.3.579.2.593 1969 Unknown [id number] 2.16.84 0.1.765321.3.579.2.593 1969 Unknown [id number] 2.16.84 0.1.716481.3.579.2.593 1969 Unknown [id number] 2.16.84 0.1.175480.3.579.2.593 1969 Unknown [id number] 2.16.84 0.1.130607.3.579.2.593 1969 Unknown [id number] 2.16.84 0.1.670029.3.579.2.593 1969 Unknown [id number] 2.16.84 0.1.247262.3.579.2.593 1969 Unknown [id number] 2.16.84 0.1.602811.3.579.2.593 1969 Unknown [id number] 2.16.84 0.1.843197.3.579.2.593 1969 Unknown [id number] 2.16.8 40.1.565694.3.579.2.727 1969 Unknown [id number] 2.16.8 40.1.123392.3.579.2.727 1969 Unknown [id number] 2.16.8 40.1.697430.3.579.2.727 1969 Unknown [id number] 2.16. 840.1.535223.3.579.2.196 1959 Unknown [id number] 1. [id number] Unknown [id number] 2.16.8 40.1.014447.3.579.2.531 Social History Date Type Detail Facility Start: 12-25-2021 End: 01-11-2023 Tobacco smoking status [facility] Ex-smoker [facility] Start: 12-25-2021 Cigarettes smoked current (pack per day) - Reported 1 [facility] Phone: Start: 12-25-2021 Tobacco use and exposure Smokeless tobacco non-user [facility] Phone: Start: 12-25-2021 Alcohol intake Ex-drinker (finding) [facility] Phone: Start: 1970 Sex Assigned At Not on file B ON [employer] Phone: Tobacco smoking status Never [facility] [place] Sex Assigned At Female [facility] Start: 1970 Sex Assigned At Female [facility] Functional Status Date Assessment Result Facility [...] the ER for worsening symptoms or concerns [facility] Other 06-27-2023 NoteChief Complaint consultation for nevus [...] inactivated 04/17/2020 [facility]Comment on above:Result Comment: Electronically Signed By: SAIMA MCQUEEN, Niall Collier\Date and Time Signed: 01/11/23 14:31 [id number] NotePROCEDURE: XR KNEE RT 3V DATE: 11/01/2022 [...] Electronically authenticated by: JODI WEBER Date: 2022-11-01 12:17[facility]12-30-2022 NotePROCEDURE: XR HAND LT MIN [...] Electronically authenticated by: ADELAIDA LAO Date: 2022-07-16 07:43[facility]12-16-2022 NotePROCEDURE: XR FINGER MIN 2 [...] Electronically authenticated by: ASHOK GRIER Date: 2022-07-02 17:45[facility]12-16-2022 NotePROCEDURE: XR HAND LT MIN [...] Electronically authenticated by: ASHOK GRIER Date: 2022-07-02 17:43[facility]08-09-2022 NotePROCEDURE: XR KNEE RT 4V or > COMPARISON: None. HISTORY: Pain of right knee joint FINDINGS: BONES:No acute fracture or dislocation. Moderate osteoarthropathy and marginal osteophyte formation. SOFT TISSUES:Negative. No visible soft tissue swelling. EFFUSION:None visible. OTHER: Negative. IMPRESSION: Moderate tricompartmental osteoarthritis Electronically authenticated by: ADELAIDA LAO Date: 2022-02-23 19:01[facility] [place] Future Appointments Appointment Date:02/01/2023 02:00:00 PM Scheduled Provider:Niall RUSSELL MD Location:[facility] Appointment Type: Procedure 30 [facility] [place] Evaluation note* Diagnosis Encounter for gynecological examination documented in this encounter [facility] Work Phone: evaluation noteNo assessment information available [facility] Work Phone: [facility] general Narrative - Reported* Type Description Date Medical History hypertension Medical History depression Medical History Hypothyroid Surgical History breast reduction Surgical History cyst removal, wrist Surgical History tubal ligation Hospitalization History see above [facility] Hospital course Narrative No data available for this section [facility] [place] [facility] Discharge instructions No data available for this section [facility] [place] Progress note No data available for this section [facility] [place] Summary Purpose Family History No Family History Records FoundNo Family History Records FoundNo Family History Records FoundNo Family History Records FoundNo Family History Records Found Advance Directives No Advanced Directives Records FoundNo Advanced Directives Records FoundNo Advanced Directives Records FoundNo Advanced Directives Records FoundNo Advanced Directives Records Found Additional Source Comments Care Teams (unrecognized sec tion and content) Brand Attendant Relationship Specialty Start Date End Date Paulette Santana MD [address] [phone] PCP - General Family Medicine 12/25/21 Team Status: Inactive Member Role Status Dates DERREK Sanchez Attending Provider Active INFORMATION SOURCE (unrecogn ized section and content) DATE CREATED AUTHOR [facility]/01/2022 [facility] DATE CREATED AUTHOR AUTHOR'S ORGANIZ ATION 11/07/2022 [facility] DATE CREATED AUTHOR AUTHOR'S ORGANIZ ATION 02/02/[address] [facility] DATE CREATED AUTHOR AUTHOR'S ORGANIZ ATION 04/21/2023 [place] DATE CREATED AUTHOR AUTHOR'S ORGANIZ ATION 04/20/2024 [facility] Goals (unrecognized section and content) Goals [...] BE BASED ON THE PRIMARY CLINICAL RECORDS. [facility] [employer] [facility]. provides no warranty or guarantee of the accuracy or completeness of information in this document.
--- NOTE | 2024-08-21 13:45 | PC.NURSE ---
right lower leg
[2024-08-21] MEDS: 0.9 % SODIUM CHLORIDE 250 ML 10 ML IV (18:11)
[2024-08-21] MEDS: CLINDAMYCIN PHOSPHATE/D5W 600 MG/50 ML PREMIX 100 MG IV ×2 (18:11→23:34)
[2024-08-21] MEDS: LEVOFLOXACIN IN DEXTROSE 5 % 750 MG/150 ML PREMIX 100 MG IV (20:37)
[2024-08-21] MEDS: risperiDONE 1 MG TABLET 2 MG PO (22:04)
[2024-08-21] MEDS: AMITRIPTYLINE HCL 50 MG TABLET 100 MG PO (22:04)
[2024-08-21] MEDS: MIRTAZAPINE 15 MG TABLET 30 MG PO (22:05)
[2024-08-21] MEDS: DICLOFENAC SODIUM 25 MG TABLET.DR 75 MG PO (22:05)
[2024-08-21] MEDS: LISINOPRIL 20 MG TABLET PO (22:38)
[2024-08-22 04:00] VITALS: BP 147/75; PULSE 98; TEMP 36.6; O2SAT 90
[2024-08-22 05:25] LABS: Basophils Percent Auto 0.4 % (0.2-2.0); Eosinophils Absolute Auto 0.2 10^3/uL (0.0-0.7); Eosinophils Percent Auto 2.1 % (0.9-7.0); Hematocrit 36.5 % (36.0-48.0); Hemoglobin 11.7 g/dL (12.0-16.0); Immature Granulocytes Abs Auto 0.06 10^3/uL (0.00-0.03); Immature Granulocytes Pct Auto 0.5 % (0.0-0.5); Lymphocytes Absolute Auto 1.4 10^3/uL (1.2-3.8); Lymphocytes Percent Auto 12.2 % (20.5-60.0); Mean Corpuscular HGB Conc 32.1 g/dL (29.9-35.2); Mean Corpuscular Hemoglobin 29.5 pg (26.7-34.0); Mean Corpuscular Volume 92.2 fL (81.0-99.0); Mean Platelet Volume 8.6 fL (9.5-13.5); Monocytes Absolute Auto 1.1 10^3/uL (0.3-0.8); Monocytes Percent Auto 9.5 % (1.7-12.0); Neutrophils Absolute Auto 8.4 10^3/uL (1.4-6.5); Neutrophils Percent Auto 75.3 % (43.0-75.0); Platelet Count 332 10^3/uL (150-450); Red Blood Count 3.96 10^6/uL (4.20-5.40); Red Cell Distribution Width 13.2 % (11.0-15.0); White Blood Count 11.2 10^3/uL (4.0-11.0)
[2024-08-22 05:34] LABS: Anion Gap 13.3; BUN Creatinine Ratio 17.4; Calcium 9.1 mg/dL (8.5-10.1); Chloride 102 mmol/L (98-107); Estimated GFR (African America 59 (>=60 mL/min/1.73m^2); Estimated GFR (Non-African Ame 49 (>=60 mL/min/1.73m^2); Glucose 96 mg/dL (74-106); Potassium 4.3 mmol/L (3.5-5.1); Sodium 139 mmol/L (136-145)
[2024-08-22] MEDS: CLINDAMYCIN PHOSPHATE/D5W 600 MG/50 ML PREMIX 100 MG IV (05:46)
[2024-08-22] MEDS: LEVOTHYROXINE SODIUM 25 MCG TABLET 50 MCG PO (05:46)
--- OUTSIDE RECORDS SUMMARY | 2024-08-22 07:18 | XMS_ITS | CCD ---
Author Organization [facility] Care Team Providers Care Manager Benefit Name Role Phone Paulette Santana MD Primary Care Provider [phone] JUAN BATISTA Referring Unavailable PAULETTE SANTANA [...] RUSSELL Attending Unavailable DERREK Carrillo Attending Provider [phone] Matilde Carrillo Unavailable Matilde Carrillo Attending Unavailable [...] 10/06/20 Status: Ordered take 1 capsule by [facility] every eight hours Diclofenac 35 MG 1 capsule as needed Ora lly Three times a day Active levothyroxine sodium 0.05 mg oral tablet (2 sources) l-Thyroxine Start: 12-29-2022 take 1 tablet by mouth once daily levothyroxine 50 mcg (0.05 mg) Tab 50 mcg = 1 tab(s), Oral, Daily, Refills(s) 0 Start Date: 12/29/22 Status: Ordered take 1 tablet by [facility] once daily in the morning [...] Start: 10-06-2020 take 2 tablets by mo [facility] once daily at bedtime mirtazapine [...] Episodic Other aftercare (1 source) 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 Attending Dr: Matilde ANGLIN Copies to: DERREK [...] Jose Moran M.D.04/13/2023 2:33 PM Dictation Location: [place] [address] Transcribed By: [facility] 04/13/23 143 Dictated By: Jose Moran DO 04/13/23 1432 Signed By: 04/13/23 143 [facility] XR knee RT 4V* [facility] [employer] Other XR knee RT 4V* [facility] [employer] Other XR knee RT 4V* [address] [facility] [employer] Other XR knee RT 4V* [place] [address] No rt [employer] Other XR knee RT 4V* XRay Report [employer] Other XR knee RT 4V* Signed [employer] Other XR knee RT 4V* Patient: Sampson Qureshi MR#: [id number] [facility] [employer] Other XR knee RT 4V* 5905 [employer] Other XR knee RT 4V* : 1970 Acct:[id number] [employer] Other XR knee RT 4V* Age/Sex: 52 / F ADM Date: 04/13/23 [employer] Other XR knee RT 4V* Loc: XDUCLY Room: pe: [facility] [employer] Other XR knee RT 4V* Attending Dr: Matilde ANGLIN [employer] Other XR knee RT 4V* Copies to: DERREK Head [employer] Other XR knee RT 4V* Ordering Provider: DERREK Head [employer] Other XR knee RT 4V* Date of Service: 04/13/23 [employer] Other XR knee RT 4V* XR/XR knee RT 4V*: Acute pain of right knee [employer] Other XR knee RT 4V* 4 views right knee plain film [employer] Other XR knee RT 4V* COMPARISON: None [place] [employer] Other XR knee RT 4V* HISTORY: Right knee injury. Superior patellar pain. [employer] Other XR knee RT 4V* ACUTE FINDINGS: None [employer] Other XR knee RT 4V* DEGENERATIVE CHANGE: Moderate degeneration. [employer] Other XR knee RT 4V* SOFT TISSUE FINDINGS : Unremarkable [employer] Other XR knee RT 4V* JOINT EFFUSION: None [employer] Other XR knee RT 4V* POSTOP CHANGES: None [employer] Other XR knee RT 4V* BONE MINERALIZATION: Adequate [employer] Other XR knee RT 4V* XR/XR knee RT 4V* [employer] Other XR knee RT 4V* IMPRESSION: No acute findings [employer] Other XR knee RT 4V* Impression dictated by: Jose Moran M.D.04/13/2023 2:33 PM [employer] Other XR knee RT 4V* Dictation Location: [place] [address] [employer] Other XR knee RT 4V* Transcribed By: [facility] 04/13/23 [facility] [employer] Other XR knee RT 4V* Dictated By: Jose Moran DO 04/13/23 [facility] [employer] Other XR knee RT 4V* Signed By: [employer] Other XR knee RT 4V* 04/13/23 [facility]3 WhoKnows Other Ambulatory Visit Summaryon 0 02-01-2023 Ambulatory [...] RUSSELL MD Where: General Surgery Saima/Roberta Martinez [facility] General Surgery Office/Clini c Noteon 02-01-2023 [...] Recorded influenza virus vaccine, inactivated 04/17/[address] [facility] Comment on above: Result Comment: Elec tronically Signed By: SAIMA MCQUEEN, Niall Tucker\.br\Date and Time Signed: 02/01/23 14:23 EDT Pre-Certification Formon Pre-Certification Form [id number] CD:127 [facility] Facesheeton 01-12-2023 Facesheet [id number]#1.00C D:127 [facility] Ambulatory Visit Summaryon 0 01-11-2023 Ambulatory [...] Migraine Morbid obesity Nevus Pituitary adenoma Normal [facility] Physician Referralon 023 Physician Referral [id number] D:[address] [facility] MG MAMM SCREEN 3D HAYDEE CADon 03-21-2023 MG MAMM SCREEN 3D HAYDEE CAD Patient: FRED QURESHI Exam Date: 10/05/2022 : 1970 Gender:F Ordering : DR PAULETTE SANTANA . Admission #: [id number] Family : Order #: [id number] CLICK HERE TO VIEW EXAM RADIOLOGY REPORT [...] Treatments None Family Cancers None LOCATION: [facility] BREAST COMPOSITION: Scattered areas fibroglandular density. FINDINGS: [...] M.D. on 10/05/2022 at 16:12 Normal [facility] FREE T3on 09-21-2022 FREE T3 2.22 pg/mlL Normal 2.18-3.98 [facility] Comment on above: Performed By: #### F T3, T4, TSH ####[facility] [address] [place], [place] [address]Nm. Jillian Jaime T4on 09-21-2022 T4 [Mass/Vol] 5.50 ug/dL Normal 4.80-13.90 [facility] Comment on above: Performed By: #### F T3, T4, TSH ####[facility] [address] [place], [place] [address]Fv. Jillian Jaime TSHon 09-21-2022 TSH 0.782 uIU/mL Normal 0.358-3.740 [facility] Comment on above: Performed By: #### F T3, T4, TSH ####[facility] [address] [place], [place] [address]Oz. Jillian Jaime Covid-19 PCR ([facility]on SARS-CoV-2 (COVID-19) RNA FLORENCIA+probe Ql (Unsp spec) Not detected Normal NOT DETECTED [facility] Comment on above: Result Comment: When diagnostic [...] for this test is supported by the [place] of Health and Human Service's declaration that [...] be used). Performed By: #### C VDTB ####[facility] [address] [place], [place] [address]Wk. Jillian Jaime XR WRIST LT MIN 3 Von 2021 XR WRIST LT MIN 3 V EXAM: XR WRIST LT OK N 3 V HISTORY: Unspecified fall , [...] ESSENCE MONTEMAYOR Date: 2022-07-02 17:36 Normal [facility] CBC AUTO DIFFon 04-28-2022 BASO # 0.0 103/ul Normal 0.0-0.1 [facility] Comment on above: Performed By: #### C BC ####[facility] [address] [place] [address]Dr. Jillian Jaime Basophils/100 WBC (Bld) 0.3 % Normal 0.2-2.0 [facility] Comment on above: Performed By: #### C BC ####[facility] [address] [place], [place] [address]Dr. Jillian Jaime EO # 0.1 103/ul Normal 0.0-0.7 [facility] Comment on above: Performed By: #### C BC ####[facility] [address] [place], [place] [address]Dr. Jillian Jaime Eosinophils/100 WBC (Bld) 1.3 % Normal 0.9-7.0 [facility] Comment on above: Performed By: #### C BC ####[facility] [address] [place] [address]Dr. Jillian Jaime Erythrocyte distribution width (RBC) [Ratio] 13.4 % Normal 11.0-15.0 [facility] Comment on above: Performed By: #### C BC ####[facility] [address] [place] [address]Dr. Britneyglenroy Jaime Hematocrit (Bld) [Volume fraction] 43.0 % Normal 36.0-48.0 [facility] Comment on above: Performed By: #### C BC ####[facility] [address] [place] [id number]. Jillian Jaime Hemoglobin (Bld) [Mass/Vol] 13.5 g/dL Normal 12.0-16.0 [facility] Comment on above: Performed By: #### C BC ####[facility] [address] [place] [id number]. Jillian Jaime IG # 0.05 10e3/ul Critically high 0.00-0.03 [facility] Comment on above: Performed By: #### C BC ####[facility] [address] [place] [address]Dr. Jillian Jaime IG % 0.5 % Normal 0.0-0.5 [facility] Comment on above: Performed By: #### C BC ####[facility] [address] [place] [address]Dr. Jillian Jaime LYMPH # 1.8 103/ul Normal 1.2-3.8 [facility] Comment on above: Performed By: #### C BC ####[facility] [address] [place], [place] [address]Dr. Jillian Jaime Lymphocytes/100 WBC (Bld) 18.3 % Critically low 20.5-60.0 [facility] Comment on above: Performed By: #### C BC ####[facility] [address] [place] [address]Dr. Jillian Jaime MANUAL DIFF REQ NO Normal The [facility] Comment on above: Performed By: #### C BC ####[facility] [address] [place], [place] [address]Dr. Jillian Jaime MCH (RBC) [Entitic mass] 29.0 pg Normal 26.7-34.0 [facility] Comment on above: Performed By: #### C BC ####[facility] [address] [place], [place] [address]Dr. Jillian Jaime MCHC (RBC) [Mass/Vol] 31.4 g/dL Normal 29.9-35.2 [facility] Comment on above: Performed By: #### C BC ####[facility] [address] [place] [id number]. Jillian Jaime MCV (RBC) [Entitic vol] 92.5 fL Normal 81.0-99.0 [facility] Comment on above: Performed By: #### C BC ####[facility] [address] [place] [id number]. Jillain Jaime MONO # 0.5 103/ul Normal 0.3-0.8 [facility] Comment on above: Performed By: #### C BC ####[facility] [address] [place] [address]Dr. Jillian Jaime Monocytes/100 WBC (Bld) 5.1 % Normal 1.7-12.0 [facility] Comment on above: Performed By: #### C BC ####[facility] [address] [place] [id number]. Jillian Jaime NEUT # 7.2 103/ul Critically high 1.4-6.[address] [facility] Comment on above: Performed By: #### C BC ####[facility] [address] [place], [place] [address]Dr. Jillian Jaime Neutrophils/100 WBC (Bld) 74.5 % Normal 43.0-75.0 [facility] Comment on above: Performed By: #### C BC ####[facility] [address] [place] [id number]. Jillian Jaime Platelet mean volume (Bld) [Entitic vol] 8.2 fL Critically low 9.5-13.5 [facility] Comment on above: Performed By: #### C BC ####[facility] [address] [place] [phone]. Jillian Jaime PLT 304 103/ul Normal 150-450 [facility] Comment on above: Performed By: #### C BC ####[facility] [address] [place], [place] [address]Dr. Jillian Addison RBC 4.65 106/ul Normal 4.20-5.40 [facility] Comment on above: Performed By: #### C BC ####[facility] [address] [place] [address]DrAaron Jaime WBC 9.7 103/ul Normal 4.0-11.0 [facility] Comment on above: Performed By: #### C BC ####[facility] [address] [place] [id number]. Jillian Jaime GLYCOHEMOGLOBIN A1Con 2021 ADA RECOMMENDATION SEE BELOW Normal [facility] Comment on above: Result Comment: ADA RECOMMENDED LIMIT 4.0 - 6.0 ADA THERAPEUTIC TARGET < 7.0 ACTION SUGGESTED > 7.0 Performed By: #### A 1C #### [facility] [address] [place] [address] [address] Jillian Jaime Glucose [Mass/Vol] 114 mg/dL Normal [facility] Comment on above: Performed By: #### A 1C #### [facility] [address] [place] [address] [address] Jillian Jaime HbA1c (Bld) [Mass fraction] 5.6 % Normal 4.5-6.2 [facility] Comment on above: Performed By: #### A 1C #### [facility] [address] [place] [address] [address] Jillian Jaime PROF 14(COMP METB)on 022 Albumin [Mass/Vol] 3.3 g/dL Critically low 3.4-5.0 Th [facility] Comment on above: Performed By: #### C MP ####[facility] [address] [place] [address]Dr. Jillian Jaime Albumin/Globulin [Mass ratio] 0.8 {ratio} Normal [facility] Comment on above: Performed By: #### C MP ####[facility] [address] [place] [id number] Jaime ALP [Catalytic activity/Vol] 155 U/L Critically high 46-116 [facility] Comment on above: Performed By: #### C MP ####[facility] [address] [place] [address]DrAaron Jaime ALT [Catalytic activity/Vol] 27 U/L Normal 14-59 [facility] Comment on above: Performed By: #### C MP ####[facility] [address] [place] [address]Dr. Jillian Jaime Anion gap [Moles/Vol] 9.5 mmol/L Normal [facility] Comment on above: Performed By: #### C MP ####[facility] [address] [place] [address]Dr. Jillian Jaime AST [Catalytic activity/Vol] 11 U/L Critically low 15-37 [facility] Comment on above: Performed By: #### C MP ####[facility] [address] [place] [address]Dr. Jillian Jaime Bilirubin [Mass/Vol] 0.3 mg/dL Normal 0.2-1.0 [facility] Comment on above: Performed By: #### C MP ####[facility] [address] [place], [place] [address]Dr. Jillian Jaime Calcium [Mass/Vol] 9.2 mg/dL Normal 8.5-10.1 [facility] Comment on above: Performed By: #### C MP ####[facility] [address] [place], [place] [address]Dr. Jillian Jaime Chloride [Moles/Vol] 104 mmol/L Normal 98-107 [facility] Comment on above: Performed By: #### C MP ####[facility] [address] [place], [place] [address]Dr. Jillian Jaime CO2 [Moles/Vol] 30.4 mmol/L Normal 21.0-32.0 [facility] Comment on above: Performed By: #### C MP ####[facility] [address] [place], [place] [address]Dr. Jillian Jaime Creatinine [Mass/Vol] 1.11 mg/dL Critically high 0.55-1.02 [facility] Comment on above: Performed By: #### C MP ####[facility] [address] [place], [place] [address]Dr. Jillian Addison EGFR-AF STATELESS >60 Normal >=60 [facility] Comment on above: Performed By: #### C MP ####[facility] [address] [place] [id number]. Jillian Jaime EGFR-NON AF STATELESS 52 mL/min/1.73m2 Critically low >=60 [facility] Comment on above: Performed By: #### C MP ####[facility] [address] [place] [phone]. Jillian Jaime Globulin (S) [Mass/Vol] 4.1 g/dL Normal [facility] Comment on above: Performed By: #### C MP ####[facility] [address] [place] [address]Dr. Jillian Jaime Glucose [Mass/Vol] 152 mg/dL Critically high 74-106 [facility] [place] [facility] Comment on above: Performed By: #### C MP ####[facility] [address] [place] [address]Dr. Jillian Jaime Potassium [Moles/Vol] 3.9 mmol/L Normal 3.5-5.1 [facility] Comment on above: Performed By: #### C MP ####[facility] [address] [place] [address]Dr. Jillian Jaime Protein [Mass/Vol] 7.4 g/dL Normal 6.4-8.2 [facility] Comment on above: Performed By: #### C MP ####[facility] [address] [place] [address]Dr. Jillian Jaime Sodium [Moles/Vol] 140 mmol/L Normal 136-145 [facility] Comment on above: Performed By: #### C MP ####[facility] [address] [place] [address]Dr. Jillian Jaime Urea nitrogen [Mass/Vol] 17.0 mg/dL Normal 7.0-18.0 [facility] Comment on above: Performed By: #### C MP ####[facility] [address] [place] [id number]. Jillian Jaime Urea nitrogen/Creatinine [Mass ratio] 15.3 mg/mg Normal [facility] Comment on above: Performed By: #### C MP ####[facility] [address] [place], [place] [address]Dr. Jillian Jaime PROTIMEon 04-28-2022 INR Coag (PPP) [Relative time] 1.01 {INR} Normal [facility] Comment on above: Performed By: #### P TT, PT #### [facility] [address] [place], [place] [address] Dr. Jillian Jaime INR GUIDELINES SEE BELOW Normal [facility] Comment on above: Result Comment: ARIANNA RED INR: 2.0 - 3.0 CONDITIONS NOT LISTED BELOW 2.5 - 3.5 FOR PROSTHETIC HEART VALVE REPLACEMENT 2.5 - 3.5 RECURRENT THROMBOSIS Performed By: #### P TT, PT #### [facility] [address] [place] [address] [address] Jillian Jaime PT Coag (PPP) [Time] 10.9 s Normal 9.0-11.6 [facility] Comment on above: Performed By: #### P TT, PT #### [facility] [address] [place] [address] [address] Jillian Jaime PTTon 04-28-2022 aPTT Coag (Bld) [Time] 26.2 s Normal 22.3-36.2 [facility] Comment on above: Performed By: #### P TT, PT #### [facility] [address] [place] [id number] Jillian Jaime Cytologyon 12-25-2021 Cytology (NOTE) INTERPRETATION Cervical material, (ThinPrep vial, Imaging-assisted review): Specimen Adequacy: Satisfactory for evaluation. -Endocervical/transform ation zone component is absent. Descriptive Diagnosis: Negative for intraepithelial lesion or malignancy. 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 [place], [place] [address] Normal [facility] Comment on above: Performed By: #### P PPVP #### [facility] [address] [place], [place] [address] Personal Property Appraiser: Griffin Bonilla MD Covid-19 PCR ([facility])on 11-16 SARS-CoV-2 (COVID-19) RNA FLORENCIA+probe Ql (Unsp spec) Not detected Normal NOT DETECTED [facility] Comment on above: Result Comment: This test is not yet approved or cleared by the [place] FDA. When there are no FDA-approved or cleared tests available, and other criteria are met, FDA can make tests available under an emergency access mechanism called an Emergency Use Authorization (EUA). The EUA for this test is supported by the [place] of Health and Human Service's (HHS's) declaration [...] SARS-CoV-2. Performed By: #### C VDTB #### [facility] [address] [place] [address] Dr. Jillian Jaime SYMPTOMATIC COVID-19 ANTIGEN on 12-04-2021 EUA Statement SEE BELOW Normal [facility] Comment on above: Result Comment: This test [...] revoked sooner. Performed By: #### C VDAGS ####[facility] [address] [place], [place] [address]Ou. Jillian Jaime SARS-CoV-2 (COVID-19) RNA FLORENCIA+probe Ql (Unsp spec) Negative Normal NEGATIVE [facility] Comment on above: Performed By: #### C VDAGS ####[facility] [address] [place], [place] [address]Xt. Jillian Jaime Vital Signs Date Time Vital Sign Value Performing Clinician Facility 04-13-2023 13:25-0400 Body height Matilde Carrillo Other [facility] Other 04-13-2023 13:25-0400 Body mass index (BMI) [Ratio] 57.79 kg/m2 Matilde Carrillo Other [facility] Other 04-13-2023 13:25-0400 Body temperature 97.5 [degF] Matilde Carrillo Other [facility] Other 04-13-2023 13:25-0400 Body weight 143.34 kg Matilde Carrillo Other [facility] Other 04-13-2023 13:25-0400 Diastolic blood pressure 96 mm[Hg] Matilde Carrillo Other [facility] Other 04-13-2023 13:25-0400 Respiratory rate 18 /min Matilde Carrillo Other [facility] Other 04-13-2023 13:25-0400 SaO2% (BldA) [Mass fraction] 96 % Matilde Carrillo Other [facility] Other 04-13-2023 13:25-0400 Systolic blood pressure 164 mm[Hg] Matilde Carrillo Other [facility] Other 01-11-2023 14:12-0400 Blood Pressure Location Niall NILL [facility] 01-11-2023 14:12-0400 Diastolic blood pressure 84 mm[Hg] Niall NILL [facility] 01-11-2023 14:12-0400 Heart rate 76 /min Niall NILL [facility] 01-11-2023 14:12-0400 Respiratory rate 16 /min Niall NILL [facility] [place] 01-11-2023 14:12-0400 Systolic blood pressure 124 mm[Hg] Niall NILL [facility] Encounters Encounter Date Encounter Type Care Provider Facility Start: 04-16-2024 End: 04-16-2024 [facility] Start: 04-13-2023 End: 04-13-2023 ambulatory Matilde Carrillo Facility:[facility] Start: 04-13-2023 End: 04-13-2023 Patient encounter procedure READING INSTRUCTOR-C Matilde Carrillo Work Phone: [facility] Work Phone: Start: 04-13-2023 End: 04-13-2023 ambulatory READING INSTRUCTOR-C Matilde Carrillo Work Phone: [facility] Work Phone: Start: 04-13-2023 Office outpatient ne w 20 minutes Matilde Carrillo [facility] Start: 02-08-2023 ambulatory Niall R NILL [facility] Start: 02-01-2023 End: 02-02-2023 ambulatory Niall R [...] Start: 12-25-2021 End: 12-26-2021 ambulatory JUAN BATISTA [facility] Start: 12-25-2021 End: 12-25-2021 Patient encounter status Paulette Santana MD Work Phone: [facility] Start: 12-25-2021 End: 12-25-2021 Subsequent hospital visit by physician Paulette Santana MD Work Phone: [facility] Comment on above: Encounter for gyneco logical examination Start: 12-04-2021 End: 12-04-[address] PAULETTE SANTANA . Facility: Procedures Date Procedure Procedure Detail Performing Clinician Start: 04-13-2023 X-ray of right knee READING INSTRUCTOR- C Matilde Carrillo Work Phone: Benign neoplasm of f shelodn (disorder) Niall GOMEZValerie Excision of ganglion of wrist, recurrent Niall SAIMA Ligation of fallopian tube Jose GOMEZValerie Reduction mammoplasty Shine doan SAIMA Plan of Treatment Date Care Activity Detail Author Start: 03-18-2022 Influenza vaccination Flu vacc ine (Season Ended) [facility] 2019 Screening for malign ant neoplasm of breast [facility] Start: 2014 Screening for malign ant neoplasm of colon [facility] Start: 2009 Lipid panel Lipids [facility] Start: 1999 Screening for malign ant neoplasm of cervix [facility] Start: 1990 Screening for malign ant neoplasm of cervix Pap smear [facility] Start: 1988 DTaP/Tdap/Td vaccine (1 - Tdap) DTaP/Tdap/Td vaccine (1 - Tdap) [facility] Start: 1987 Hepatitis C screening Hepatitis C sc reen [facility] Start: 1984 HIV screening HIV screen [facility] Start: 1981 Depression Screen Depression Screen [facility] Start: 1974 COVID-19 Vaccine (1) COVID-19 Vaccin e (1) [facility] End: 12-25-2021 Cytopathology procedure, preparation of smear, genital source PAP SMEAR Lab Routine Encounter for gynecological examination 1 Occurrences starting 12/25/2021 until 12/25/2021 [employer] Work Phone: Comment on above: 1 Occurrences starti ng 12/25/2021 until 12/25/2021 Immunizations Immunization Date Immunization Notes Care Provider Jennie garvey 05-10-2022 influenza virus vaccine, unspecified formulation Niall RUSSELL [facility] [place] 12-17-2021 SARS-CoV-2 (COVID-19 ) mRNA-1273 vaccine Niall NILL [facility] 08-14-2021 SARS-CoV-2 (COVID-19 ) mRNA-1273 vaccine Niall NILL [facility] 01-04-2021 SARS-CoV-2 (COVID-19 ) mRNA-1273 vaccine Niall NILL [facility] 12-07-2020 SARS-CoV-2 (COVID-19 ) mRNA-1273 vaccine Niall NILL [facility] 04-17-2020 influenza virus vaccine, unspecified formulation Niall NILL [facility] Payers Date Payer Category Payer Unknown [id number] Self-pay 1970 Unknown [id number] 2.16.8 [id number] 1970 Unknown [id number] 2.16.84 0.1.724422.3.579.2.593 1970 Unknown [id number] 2.16.84 0.1.812413.3.579.2.593 1969 Unknown [id number] 2.16.84 0.1.000263.3.579.2.593 1969 Unknown [id number] 2.16.84 0.1.319673.3.579.2.593 1969 Unknown [id number] 2.16.84 0.1.749669.3.579.2.593 1969 Unknown [id number] 2.16.84 0.1.274605.3.579.2.593 1969 Unknown [id number] 2.16.84 0.1.675919.3.579.2.593 1969 Unknown [id number] 2.16.84 0.1.953583.3.579.2.593 1969 Unknown [id number] 2.16.84 0.1.070867.3.579.2.593 1969 Unknown [id number] 2.16.84 0.1.579190.3.579.2.593 1969 Unknown [id number] 2.16.8 40.1.847481.3.579.2.727 1969 Unknown [id number] 2.16.8 40.1.760502.3.579.2.727 1969 Unknown [id number] 2.16.8 40.1.581943.3.579.2.727 1969 Unknown [id number] 2.16. 840.1.304398.3.579.2.196 1959 Unknown [id number] 1. [id number] Unknown [id number] 2.16.8 40.1.550215.3.579.2.531 Social History Date Type Detail Facility Start: 12-25-2021 End: 01-11-2023 Tobacco smoking status IAIS Ex-smoker [facility] Start: 12-25-2021 Cigarettes smoked current (pack per day) - Reported 1 [employer] Phone: Start: 12-25-2021 Tobacco use and exposure Smokeless tobacco non-user [employer] Phone: Start: 12-25-2021 Alcohol intake Ex-drinker (finding) [employer] Phone: Start: 1970 Sex Assigned At Not on file B ON [employer] Phone: Tobacco smoking status Never [facility] Sex Assigned At Female [facility] Start: 1970 Sex Assigned At Female [facility] Functional Status Date Assessment Result [...] the ER for worsening symptoms or concerns [facility] Other 06-27-2023 NoteChief Complaint consultation for nevus [...] 12/07/2020 Recorded influenza virus vaccine, inactivated 04/17/[address] [facility] HospitalComment on above:Result Comment: Electronically Signed By: SAIMA MCQUEEN, Niall Collier\Date and Time Signed: 01/11/23 14:31 [id number] NotePROCEDURE: XR KNEE RT 3V DATE: 11/01/2022 [...] Electronically authenticated by: JODI WEBER Date: 2022-11-01 12:17[facility]12-30-2022 NotePROCEDURE: XR HAND LT MIN 3V COMPARISON: [...] Electronically authenticated by: ADELAIDA LAO Date: 2022-07-16 07:43[facility]12-16-2022 NotePROCEDURE: XR FINGER MIN 2 VIEWS HISTORY: [...] Electronically authenticated by: ASHOK GRIER Date: 2022-07-02 17:45[facility]12-16-2022 NotePROCEDURE: XR HAND LT MIN 3V HISTORY: [...] Electronically authenticated by: ASHOK GRIER Date: 2022-07-02 17:43[facility]08-09-2022 NotePROCEDURE: XR KNEE RT 4V or > COMPARISON: None. HISTORY: Pain of right knee joint FINDINGS: BONES:No acute fracture or dislocation. Moderate osteoarthropathy and marginal osteophyte formation. SOFT TISSUES:Negative. No visible soft tissue swelling. EFFUSION:None visible. OTHER: Negative. IMPRESSION: Moderate tricompartmental osteoarthritis Electronically authenticated by: ADELAIDA LAO Date: 2022-02-23 19:01[facility] Future Appointments Appointment Date:02/01/2023 02:00:00 PM Scheduled Provider:Niall RUSSELL MD Location:[facility] Appointment Type: Procedure 30 General Surgery [facility] Evaluation note* Diagnosis Encounter for gynecological examination documented in this encounter [facility] Work Phone: evaluation noteNo assessment information available [facility] Work Phone: [facility] general Narrative - Reported* Type Description Date Medical History hypertension Medical History depression Medical History Hypothyroid Surgical History breast reduction Surgical History cyst removal, wrist Surgical History tubal ligation Hospitalization History see above [facility] Other Hospital course Narrative No data available for this section [facility] Discharge instructions No data available for this section General Surgery [facility] Progress note No data available for this section General Surgery [facility] Summary Purpose Family History No Family History Records FoundNo Family History Records FoundNo Family History Records FoundNo Family History Records FoundNo Family History Records Found Advance Directives No Advanced Directives Records FoundNo Advanced Directives Records FoundNo Advanced Directives Records FoundNo Advanced Directives Records FoundNo Advanced Directives Records Found Additional Source Comments Care Teams (unrecognized sec tion and content) Manager Benefit Relationship Specialty Start Date End Date Paulette Santana MD [address] [phone] PCP - General Family Medicine 12/25/21 Team Status: Inactive Member Role Status Dates DERREK Sanchez Attending Provider Active INFORMATION SOURCE (unrecogn ized section and content) DATE CREATED AUTHOR 01/01/2022 [facility] DATE CREATED AUTHOR AUTHOR'S ORGANIZ ATION 11/07/2022 [facility] DATE CREATED AUTHOR AUTHOR'S ORGANIZ ATION 02/02/2023 [facility] DATE CREATED AUTHOR AUTHOR'S ORGANIZ ATION 04/21/2023 [facility] DATE CREATED AUTHOR AUTHOR'S ORGANIZ ATION 04/20/2024 [facility] Goals (unrecognized section and content) [...] BE BASED ON THE PRIMARY CLINICAL RECORDS. [facility] [employer] [facility]. provides no warranty or guarantee of the accuracy or completeness of information in this document.
--- NOTE | 2024-08-22 07:23 | P.DS_ITS ---
DS: Providers Provider Date of admission: 08/21/24 13:21 Primary care physician: Khris Santana MD Consults: 08/21/24 12:45 Consult to Pharmacy Routine Consulting Provider: Reason for consultation: Please [place] me when Med Rec is Updated Has provider been notified: No DS: Diagnosis Discharge Diagnosis (1) Hypertension: (2) Cellulitis: Qualifiers: Laterality: right Site of cellulitis: extremity Site of cellulitis of extremity: lower extremity Qualified Code(s): L03.115 - Cellulitis of right lower limb Plan Admission findings: Sinus tachycardia, mild, uncontrolled hypertension, mild, leukocytosis with left shift that is further elevated compared to 2 days ago when she was started on antibiotics, mild elevation in creatinine due to cellulitis right lower extremity Cellulitis right lower extremity-improving at the time of discharge Hypertension-stable Back pain-stable Hypothyroidism-continue with current medications Insomnia and anxiety continue with current medications Admission status: Patient with failed outpatient treatment of cellulitis right lower extremity, she is on Augmentin, white blood cell count higher, try patient on IV levofloxacin and clindamycin, if improved tomorrow possible discharge tomorrow, with medically necessary treatment only spanning 1 midnight will start patient off as observational status. If med necessary treatment is required past tomorrow, medically necessary treatment will then span 2 midnights and she will be changed to inpatient status ? DS: Summary Hospital Course Hospital Course: Patient was treated as an outpatient for cellulitis right lower extremity, she was treated with Augmentin through the emergency room, 3 days later the erythema had progressed, white blood cell count also higher, patient was admitted overnight, the erythema is now is inside the line of demarcation with levofloxac in and clindamycin, since those can be changed to oral agents will give doses of IV this morning and then discharged to home on oral dosing. See me in the office within the next 1 to 2 days Time Spent with Patient Time attestation: Total time spent providing and/or coordinating discharge services: Exam Constitutional Vital Signs, click to edit/add: Last Vital Signs Temp 97.9 F 08/22/24 04:00 Pulse 98 H 08/22/24 04:00 Resp 18 08/22/24 04:00 BP 147/75 H 08/22/24 04:00 Pulse Ox 90 L 08/22/24 04:00 O2 Del Method Room Air 08/22/24 04:00 Documenting provider has reviewed patient's vital signs: yes Common normals: no apparent distress Chest Common normals: inspection of chest normal Respiratory Common normals: normal respiratory effort Cardio Common normals: regular rate and regular rhythm Extremity Common normals: abnormal to inspection (Erythema faded, inside the line of demarcation) General: abnormal exam (Area of erythema is marked) DS: Data Data Completed and Pending Labs on day of discharge: Labs from last 24 hours 08/22/24 08/21/24 04:58 09:54 WBC 11.2 H 11.8 H RBC 3.96 L 4.62 Hgb 11.7 L 13.6 Hct 36.5 42.3 MCV 92.2 91.6 MCH 29.5 29.4 MCHC 32.1 32.2 RDW 13.2 13.2 Plt Count 332 310 MPV 8.6 L 8.5 L Neut % (Auto) 75.3 H 82.2 H Lymph % (Auto) 12.2 L 8.6 L Sac % (Auto) 9.5 7.2 Eos % (Auto) 2.1 1.4 Baso % (Auto) 0.4 0.3 Neut # (Auto) 8.4 H 9.7 H Lymph # (Auto) 1.4 1.0 L Sac # (Auto) 1.1 H 0.9 H Eos # (Auto) 0.2 0.2 Baso # (Auto) 0.0 0.0 Abs Immat Gran (auto) 0.06 H 0.04 H Imm/Tot Granulo (auto) 0.5 0.3 Sodium 139 138 Potassium 4.3 4.0 Chloride 102 100 Carbon Dioxide 28.0 29.1 Anion Gap 13.3 12.9 BUN 20.0 H 22.0 H Creatinine 1.15 H 1.26 H Est GFR ( Amer) 59 L 53 L Est GFR (Non-Af Amer) 49 L 44 L BUN/Creatinine Ratio 17.4 17.5 Glucose 96 103 Lactate 1.1 Calcium 9.1 9.6 Discharge Plan Discharge Disposition: Home, Self-Care Condition: Fair Discharge Medications: New levofloxacin 750 mg tablet 750 mg PO Q24H 14 Days Qty: 14 0RF clindamycin HCl 300 mg capsule 300 mg PO Q6H 14 Days Qty: 56 0RF Continued mirtazapine 30 mg tablet 30 mg PO .qhs risperidone 2 mg tablet 2 mg PO .qhs amitriptyline 100 mg tablet 100 mg PO .qhs lisinopril 20 mg tablet 20 mg PO DAILY diclofenac sodium 75 mg tablet,delayed release (DR/EC) 75 mg PO BID liothyronine 5 mcg tablet 5 mcg PO DAILY levothyroxine 50 mcg tablet 50 mcg PO .ACB phentermine 37.5 mg tablet 37.5 mg PO DAILY Print Language: Malagasy Forms: Portal Instructions
[2024-08-22 07:57] VITALS: BP 112/74; PULSE 90; TEMP 36.6; O2SAT 92
[2024-08-22] MEDS: DICLOFENAC SODIUM 25 MG TABLET.DR 75 MG PO (09:09)
[2024-08-22] MEDS: LIOTHYRONINE SODIUM 5 MCG TABLET PO (09:09)
[2024-08-22] MEDS: PNEUMOC 20-VAL CONJ-DIP CRM/PF 0.5 ML SYRINGE IM (09:10)
--- NOTE | 2024-08-23 14:52 | CM.DCFOLLOWU ---
1st attempt 08/23/24, no answer
--- NOTE | 2024-08-27 11:38 | SWNOTE1 ---
Pt returned to hospital on 08/22/24
== END 2024-08-22 10:49 | disposition home or self-care (01) ==
LOC: ER 11:00 → MS 08-22 07:16
PROVIDERS: Admitting Provider Family Medicine; Emergency Provider Emergency Medicine; PCP Family Medicine; Visit Provider Family Medicine
DX: L03.115 Cellulitis of right lower limb (principal); M79.604 Pain in right leg; M79.89 Other specified soft tissue disorders; Z23 Encounter for immunization; I10 Essential (primary) hypertension; M54.9 Dorsalgia, unspecified; E03.9 Hypothyroidism, unspecified; F41.9 Anxiety disorder, unspecified; G47.00 Insomnia, unspecified; Z91.81 History of falling; Z98.51 Tubal ligation status
CPT/HCPCS: 36415; 80048; 83605; 85025; 87040; 90677; 93971; 94667; 94668; 94761; 96365; 96366; 96367; 99284; 99285; G0009; G0378; J2543; J3370

== ENCOUNTER 2024-08-22 21:12 | Emergency (ER) | payer BC, SELFPAY ==
[2024-08-22 21:16] VITALS: BP 212/84; PULSE 118; TEMP 36.6; O2SAT 95; BMI 63.6
--- OUTSIDE RECORDS SUMMARY | 2024-08-22 21:18 | XMS_ITS | CCD ---
Author Organization [facility] Care Team Providers Care Relocation Director Name Role Phone Paulette Santana MD Primary Care Provider [phone] JUAN BATISTA Referring Unavailable PAULETTE SANTANA [...] 10/06/20 Status: Ordered take 1 capsule by [facility] every eight hours Diclofenac 35 MG 1 capsule as needed Ora lly Three times a day Active levothyroxine sodium 0.05 mg oral tablet (2 sources) l-Thyroxine Start: 12-29-2022 take 1 tablet by mouth once daily levothyroxine 50 mcg (0.05 mg) Tab 50 mcg = 1 tab(s), Oral, Daily, Refills(s) 0 Start Date: 12/29/22 Status: Ordered take 1 tablet by [facility] once daily in the morning [...] Start: 10-06-2020 take 2 tablets by mo [facility] once daily at bedtime mirtazapine 30 mg [...] 2 Episodic Other aftercare (1 source) 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 Main [facility] [employer] Other XR knee RT 4V* [address] [facility] [employer] Other XR knee RT 4V* [place] [address] No rt [employer] Other XR knee RT 4V* XRay Report [facility] Other XR knee RT 4V* Signed [facility] Other XR knee RT 4V* Patient: Sampson Qureshi MR#: [id number] [place] [employer] Other XR knee RT 4V* 5905 [employer] Other XR knee RT 4V* : 1970 Acct:[id number] [employer] [facility] Other XR knee RT 4V* Age/Sex: 52 / F ADM Date: 04/13/23 [facility] Other XR knee RT 4V* Loc: XDUCLY [facility] Other XR knee RT 4V* Attending Dr: Matilde ANGLIN [facility] Other XR knee RT 4V* Copies to: DERREK Head [facility] Other XR knee RT 4V* Ordering Provider: DERREK Head [facility] Other XR knee RT 4V* Date of Service: 04/13/23 [facility] Other XR knee RT 4V* XR/XR knee RT 4V*: Acute pain of right knee [facility] Other XR knee RT 4V* 4 views right knee plain film [facility] Other XR knee RT 4V* COMPARISON: None Nort [employer] Other XR knee RT 4V* HISTORY: Right knee injury. Superior patellar pain. [facility] Other XR knee RT 4V* ACUTE FINDINGS: None [facility] Other XR knee RT 4V* DEGENERATIVE CHANGE: Moderate degeneration. [facility] Other XR knee RT 4V* SOFT TISSUE FINDINGS : Unremarkable [employer] [facility] [employer] Other XR knee RT 4V* JOINT EFFUSION: None [facility] Other XR knee RT 4V* POSTOP CHANGES: None [employer] [facility] Other XR knee RT 4V* BONE MINERALIZATION: Adequate [facility] Other XR knee RT 4V* XR/XR knee RT 4V* [facility] Other XR knee RT 4V* IMPRESSION: No acute findings [facility] Other XR knee RT 4V* Impression dictated by: Jose Moran M.D.04/13/2023 2:33 PM [facility] Other XR knee RT 4V* Dictation Location: [place] [address] [employer] [facility] Other XR knee RT 4V* Transcribed By: [facility] 04/13/23 [facility] [employer] [facility] Other XR knee RT 4V* Dictated By: Jose Moran DO 04/13/23 [facility] [employer] [facility] Other XR knee RT 4V* Signed By: [employer] Other XR knee RT 4V* 04/13/23 [facility] [employer] Other Ambulatory Visit Summaryon 0 02-01-2023 Ambulatory [...] RUSSELL MD Where: General Surgery Saima/Roberta Martinez [facility] General Surgery Office/Clini c Noteon 02-01-2023 General [...] Recorded influenza virus vaccine, inactivated 04/17/2020 Recorded [facility] Comment on above: Result Comment: Elec tronically Signed By: SAIMA MCQUEEN, Niall Tucker\.br\Date and Time Signed: 02/01/23 14:23 EDT Pre-Certification Formon Pre-Certification Form [id number] CD:127 [facility] Facesheeton 01-12-2023 Facesheet [id number] D:127 [facility] Ambulatory Visit Summaryon 0 01-11-2023 Ambulatory [...] Migraine Morbid obesity Nevus Pituitary adenoma Normal [facility] Physician Referralon 023 Physician Referral [id number] D:127 Normal [facility] MG MAMM SCREEN 3D HAYDEE CADon 03-21-2023 MG MAMM SCREEN 3D HAYDEE CAD Patient: FRED QURESHI Exam Date: 10/05/2022 : 1970 Gender:F Ordering : DR PAULETTE SANTANA . Admission #: [id number] Family : Order #: [id number] CLICK HERE TO VIEW EXAM RADIOLOGY REPORT [...] Treatments None Family Cancers None LOCATION: [facility] BREAST COMPOSITION: Scattered areas fibroglandular density. [...] M.D. on 10/05/2022 at 16:12 Normal [facility] FREE T3on 09-21-2022 FREE T3 2.22 pg/mlL Normal 2.18-3.98 [facility] Comment on above: Performed By: #### F T3, T4, TSH ####[facility] [address] [place], [place] [address]Rt. Jillian Jaime T4on 09-21-2022 T4 [Mass/Vol] 5.50 ug/dL Normal 4.80-13.90 [facility] Comment on above: Performed By: #### F T3, T4, TSH ####[facility] [address] [place], [place] [address]Tp. Jillian Jaime TSHon 09-21-2022 TSH 0.782 uIU/mL Normal 0.358-3.740 [facility] Comment on above: Performed By: #### F T3, T4, TSH ####[facility] [address] [place], [place] [address]Jr. Jillian Jaime Cov[facility]on SARS-CoV-2 (COVID-19) RNA FLORENCIA+probe Ql (Unsp spec) Not detected Normal NOT DETECTED [facility] Comment on above: Result Comment: When [...] for this test is supported by the [place] of Health and Human Service's declaration that [...] be used). Performed By: #### C VDTB ####[facility] [address] [place], [place] [address]Ae. Jillian Jaime XR WRIST LT MIN 3 Von 2021 XR WRIST LT MIN 3 V EXAM: XR WRIST LT VT N 3 V HISTORY: Unspecified fall , [...] ESSENCE MONTEMAYOR Date: 2022-07-02 17:36 Normal [facility] CBC AUTO DIFFon 04-28-2022 BASO # 0.0 103/ul Normal 0.0-0.1 [facility] Comment on above: Performed By: #### C BC ####[facility] [address] [place] [address]Dr. Jillian Jaime Basophils/100 WBC (Bld) 0.3 % Normal 0.2-2.0 [facility] Comment on above: Performed By: #### C BC ####[facility] [address] [place], [place] [address]Dr. Jillian Jaime EO # 0.1 103/ul Normal 0.0-0.7 [facility] Comment on above: Performed By: #### C BC ####[facility] [address] [place], [place] [address]Dr. Jillian Jaime Eosinophils/100 WBC (Bld) 1.3 % Normal 0.9-7.0 [facility] Comment on above: Performed By: #### C BC ####[facility] [address] [place] [address]Dr. Jillian Jaime Erythrocyte distribution width (RBC) [Ratio] 13.4 % Normal 11.0-15.0 [facility] Comment on above: Performed By: #### C BC ####[facility] [address] [place] [address]Dr. Britneyglenroy Jaime Hematocrit (Bld) [Volume fraction] 43.0 % Normal 36.0-48.0 [facility] Comment on above: Performed By: #### C BC ####[facility] [address] [place] [id number]. Jillian Jaime Hemoglobin (Bld) [Mass/Vol] 13.5 g/dL Normal 12.0-16.0 [facility] Comment on above: Performed By: #### C BC ####[facility] [address] [place] [id number]. Jillian Jaime IG # 0.05 10e3/ul Critically high 0.00-0.03 [facility] Comment on above: Performed By: #### C BC ####[facility] [address] [place] [address]Dr. Jillian Jaime IG % 0.5 % Normal 0.0-0.5 [facility] Comment on above: Performed By: #### C BC ####[facility] [address] [place] [address]Dr. Jillian Jaime LYMPH # 1.8 103/ul Normal 1.2-3.8 [facility] Comment on above: Performed By: #### C BC ####[facility] [address] [place], [place] [address]Dr. Jillian Jaime Lymphocytes/100 WBC (Bld) 18.3 % Critically low 20.5-60.0 [facility] Comment on above: Performed By: #### C BC ####[facility] [address] [place] [address]Dr. Jillian Jaime MANUAL DIFF REQ NO Normal The [facility] Comment on above: Performed By: #### C BC ####[facility] [address] [place], [place] [address]Dr. Jillian Jaime MCH (RBC) [Entitic mass] 29.0 pg Normal 26.7-34.0 [facility] Comment on above: Performed By: #### C BC ####[facility] [address] [place], [place] [address]Dr. Jillian Jiame MCHC (RBC) [Mass/Vol] 31.4 g/dL Normal 29.9-35.2 [facility] Comment on above: Performed By: #### C BC ####[facility] [address] [place] [id number]. Jillian Jaime MCV (RBC) [Entitic vol] 92.5 fL Normal 81.0-99.0 [facility] Comment on above: Performed By: #### C BC ####[facility] [address] [place] [id number]. Jillian Jaime MONO # 0.5 103/ul Normal 0.3-0.8 [facility] Comment on above: Performed By: #### C BC ####[facility] [address] [place] [id number]. Jillian Jaime Monocytes/100 WBC (Bld) 5.1 % Normal 1.7-12.0 [facility] Comment on above: Performed By: #### C BC ####[facility] [address] [place] [id number]. Jillian Jaime NEUT # 7.2 103/ul Critically high 1.4-6.5 The [facility] Comment on above: Performed By: #### C BC ####[facility] [address] [place], [place] [address]Dr. Jillian Jaime Neutrophils/100 WBC (Bld) 74.5 % Normal 43.0-75.0 [facility] Comment on above: Performed By: #### C BC ####[facility] [address] [place] [id number]. Jillian Jaime Platelet mean volume (Bld) [Entitic vol] 8.2 fL Critically low 9.5-13.5 [facility] Comment on above: Performed By: #### C BC ####[facility] [address] [place] [id number]. Jillian Jaime PLT 304 103/ul Normal 150-450 [facility] Comment on above: Performed By: #### C BC ####[facility] [address] [place], [place] [id number]. Jillian Addison RBC 4.65 106/ul Normal 4.20-5.40 [facility] Comment on above: Performed By: #### C BC ####[facility] [address] [place] [address]DrAaron Jaime WBC 9.7 103/ul Normal 4.0-11.0 [facility] Comment on above: Performed By: #### C BC ####[facility] [address] [place] [id number]. Jillian Jaime GLYCOHEMOGLOBIN A1Con 2021 ADA RECOMMENDATION SEE BELOW Normal [facility] Comment on above: Result Comment: ADA RECOMMENDED LIMIT 4.0 - 6.0 ADA THERAPEUTIC TARGET < 7.0 ACTION SUGGESTED > 7.0 Performed By: #### A 1C #### [facility] [address] [place] [address] [address] Jillian Jaime Glucose [Mass/Vol] 114 mg/dL Normal The [facility] Comment on above: Performed By: #### A 1C #### [facility] [address] [place] [address] [address] Jillian Jaime HbA1c (Bld) [Mass fraction] 5.6 % Normal 4.5-6.2 [facility] Comment on above: Performed By: #### A 1C #### [facility] [address] [place] [address] [address] Jillian Jaime PROF 14(COMP METB)on 022 Albumin [Mass/Vol] 3.3 g/dL Critically low 3.4-5.0 Th [facility] Comment on above: Performed By: #### C MP ####[facility] [address] [place] [address]Dr. Jillian Jaime Albumin/Globulin [Mass ratio] 0.8 {ratio} Normal [facility] Comment on above: Performed By: #### C MP ####[facility] [address] [place] [id number] Jaime ALP [Catalytic activity/Vol] 155 U/L Critically high 46-116 [facility] Comment on above: Performed By: #### C MP ####[facility] [address] [place] [address]DrAaron Jaime ALT [Catalytic activity/Vol] 27 U/L Normal 14-59 [facility] Comment on above: Performed By: #### C MP ####[facility] [address] [place] [address]Dr. Jillian Jaime Anion gap [Moles/Vol] 9.5 mmol/L Normal [facility] Comment on above: Performed By: #### C MP ####[facility] [address] [place] [address]Dr. Jillian Jaime AST [Catalytic activity/Vol] 11 U/L Critically low 15-37 [facility] Comment on above: Performed By: #### C MP ####[facility] [address] [place] [address]Dr. Jillian Jaime Bilirubin [Mass/Vol] 0.3 mg/dL Normal 0.2-1.0 [facility] Comment on above: Performed By: #### C MP ####[facility] [address] [place], [place] [address]Dr. Jillian Jaime Calcium [Mass/Vol] 9.2 mg/dL Normal 8.5-10.1 [facility] Comment on above: Performed By: #### C MP ####[facility] [address] [place], [place] [address]Dr. Jillian Jaime Chloride [Moles/Vol] 104 mmol/L Normal 98-107 [facility] Comment on above: Performed By: #### C MP ####[facility] [address] [place], [place] [address]Dr. Jillian Jaime CO2 [Moles/Vol] 30.4 mmol/L Normal 21.0-32.0 The [facility] Comment on above: Performed By: #### C MP ####[facility] [address] [place], [place] [address]Dr. Jillian Jaime Creatinine [Mass/Vol] 1.11 mg/dL Critically high 0.55-1.02 [facility] Comment on above: Performed By: #### C MP ####[facility] [address] [place], [place] [address]Dr. Jillian Addison EGFR-AF ESTONIAN >60 Normal >=60 The [facility] Comment on above: Performed By: #### C MP ####[facility] [address] [place] [id number]. Jillian Jaime EGFR-NON AF ESTONIAN 52 mL/min/1.73m2 Critically low >=60 [facility] Comment on above: Performed By: #### C MP ####[facility] [address] [place] [id number]. Jillian Jaime Globulin (S) [Mass/Vol] 4.1 g/dL Normal [facility] Comment on above: Performed By: #### C MP ####[facility] [address] [place] [id number]. Jillian Jaime Glucose [Mass/Vol] 152 mg/dL Critically high 74-106 T [facility] Comment on above: Performed By: #### C MP ####[facility] [address] [place] [address]Dr. Jillian Jaime Potassium [Moles/Vol] 3.9 mmol/L Normal 3.5-5.1 [facility] Comment on above: Performed By: #### C MP ####[facility] [address] [place] [address]Dr. Jillian Jaime Protein [Mass/Vol] 7.4 g/dL Normal 6.4-8.2 [facility] Comment on above: Performed By: #### C MP ####[facility] [address] [place] [address]Dr. Jillian Jaime Sodium [Moles/Vol] 140 mmol/L Normal 136-145 The [facility] Comment on above: Performed By: #### C MP ####[facility] [address] [place] [address]Dr. Jillian Jaime Urea nitrogen [Mass/Vol] 17.0 mg/dL Normal 7.0-18.0 [facility] Comment on above: Performed By: #### C MP ####[facility] [address] [place] [id number]. Jillian Jaime Urea nitrogen/Creatinine [Mass ratio] 15.3 mg/mg Normal [facility] Comment on above: Performed By: #### C MP ####[facility] [address] [place], [place] [address]Dr. Jillian Jaime PROTIMEon 04-28-2022 INR Coag (PPP) [Relative time] 1.01 {INR} Normal [facility] Comment on above: Performed By: #### P TT, PT #### [facility] [address] [place], [place] [address] Dr. Jillian Jaime INR GUIDELINES SEE BELOW Normal The [facility] Comment on above: Result Comment: ARIANNA RED INR: 2.0 - 3.0 CONDITIONS NOT LISTED BELOW 2.5 - 3.5 FOR PROSTHETIC HEART VALVE REPLACEMENT 2.5 - 3.5 RECURRENT THROMBOSIS Performed By: #### P TT, PT #### [facility] [address] [place] [address] [address] Jillian Jaime PT Coag (PPP) [Time] 10.9 s Normal 9.0-11.6 [facility] Comment on above: Performed By: #### P TT, PT #### [facility] [address] [place] [address] [address] Jillian Jaime PTTon 04-28-2022 aPTT Coag (Bld) [Time] 26.2 s Normal 22.3-36.2 [facility] Comment on above: Performed By: #### P TT, PT #### [facility] [address] [place] [id number] [address] Jillian Jaime Cytologyon 12-25-2021 Cytology (NOTE) INTERPRETATION Cervical material, (ThinPrep vial, Imaging-assisted review): Specimen Adequacy: Satisfactory for evaluation. -Endocervical/transform ation zone component is absent. Descriptive Diagnosis: Negative for intraepithelial lesion or malignancy. 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 [place], [place] [address] Normal [facility] Comment on above: Performed By: #### P PPVP #### [facility] [address] [place], [place] [id number] Emergency Communications Operator: Griffin Bonilla MD Covid-19 PCR ([facility])on 11-16 SARS-CoV-2 (COVID-19) RNA FLORENCIA+probe Ql (Unsp spec) Not detected Normal NOT DETECTED [facility] Comment on above: Result Comment: This test is not yet approved or cleared by the [place] FDA. When there are no FDA-approved or cleared tests available, and other criteria are met, FDA can make tests available under an emergency access mechanism called an Emergency Use Authorization (EUA). The EUA for this test is supported by the [place] of Health and Human Service's (HHS's) declaration [...] SARS-CoV-2. Performed By: #### C VDTB #### [facility] [address] [place] [address] Dr. Jillian Jaime SYMPTOMATIC COVID-19 ANTIGEN on 12-04-2021 EUA Statement SEE BELOW Normal The [facility] Comment on above: Result Comment: This [...] revoked sooner. Performed By: #### C VDAGS ####[facility] [address] [place], [place] [address]Qn. Jillian Jaime SARS-CoV-2 (COVID-19) RNA FLORENCIA+probe Ql (Unsp spec) Negative Normal NEGATIVE [facility] Comment on above: Performed By: #### C VDAGS ####[facility] [address] [place], [place] [address]Ww. Jillian Jaime Vital Signs Date Time Vital Sign Value Performing Clinician Facility 04-13-2023 13:25-0400 Body height Matilde Carrillo Other [facility] Other 04-13-2023 13:25-0400 Body mass index (BMI) [Ratio] 57.79 kg/m2 Matilde Carrillo Other [facility] Other 04-13-2023 13:25-0400 Body temperature 97.5 [degF] Matidle Carrillo Other [facility] Other 04-13-2023 13:25-0400 Body weight 143.34 kg Matilde Carrillo Other [facility] Other 04-13-2023 13:25-0400 Diastolic blood pressure 96 mm[Hg] Matilde Carrillo Other [facility] Other 04-13-2023 13:25-0400 Respiratory rate 18 /min Matilde Carrillo Other [facility] Other 04-13-2023 13:25-0400 SaO2% (BldA) [Mass fraction] 96 % Matilde Carrillo Other [facility] Other 04-13-2023 13:25-0400 Systolic blood pressure 164 mm[Hg] Matilde Carrillo Other [facility] Other 01-11-2023 14:12-0400 Blood Pressure Location Niall NILL [facility] [place] 01-11-2023 14:12-0400 Diastolic blood pressure 84 mm[Hg] Niall NILL [facility] [place] 01-11-2023 14:12-0400 Heart rate 76 /min Niall NILL [facility] [place] 01-11-2023 14:12-0400 Respiratory rate 16 /min Niall NILL [facility] [place] 01-11-2023 14:12-0400 Systolic blood pressure 124 mm[Hg] Niall NILL [facility] Encounters Encounter Date Encounter Type Care Provider Facility Start: 04-16-2024 End: 04-16-2024 [facility]ulatory 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 ACCOUNT MANAGER-C Matilde Carrillo Work Phone: [facility] Work Phone: Start: 04-13-2023 Office outpatient ne w 20 minutes Matilde Carrillo [facility] Start: 02-08-2023 ambulatory Niall R NILL Facility :[facility] Start: 02-01-2023 End: 02-02-2023 ambulatory [...] Start: 12-25-2021 End: 12-26-2021 ambulatory JUAN BATISTA [facility] Start: 12-25-2021 End: 12-25-2021 Patient encounter status Paulette Santana MD Work Phone: [facility] Start: 12-25-2021 End: 12-25-2021 Subsequent hospital visit by physician Paulette Santana MD Work Phone: [facility] Comment on above: Encounter for gyneco logical examination Start: 12-04-2021 End: 12-04-[address] PAULETTE SANTANA . Facility: Procedures Date Procedure Procedure Detail Performing Clinician Start: 04-13-2023 X-ray of right knee EXECUTIVE ACCOUNT MANAGER- C Matilde Carrillo Work Phone: Benign neoplasm of f sheldon (disorder) Niall GOMEZValerie Excision of ganglion of wrist, recurrent Niall SAIMA Ligation of fallopian tube Jose GOMEZValerie Reduction mammoplasty Shine doan SAIMA Plan of Treatment Date Care Activity Detail Author Start: 03-18-2022 Influenza vaccination Flu vacc ine (Season Ended) [facility] Start: 2019 Screening for malign ant neoplasm of breast Breast cancer [facility] Start: 2014 Screening for malign ant neoplasm of colon [facility] [employer] Start: 2009 Lipid panel Lipids [facility] [employer] Start: 1999 Screening for malign ant neoplasm of cervix [facility] [employer] Start: 1990 Screening for malign ant neoplasm of cervix Pap smear [facility] [employer] Start: 1988 DTaP/Tdap/Td vaccine (1 - Tdap) DTaP/Tdap/Td vaccine (1 - Tdap) [facility] [employer] Start: 1987 Hepatitis C screening Hepatitis C sc reen [facility] [employer] Start: 1984 HIV screening HIV screen [facility] [employer] Start: 1981 Depression Screen Depression Screen [facility] [employer] Start: 1974 COVID-19 Vaccine (1) COVID-19 Vaccin e (1) [facility] [employer] End: 12-25-2021 Cytopathology procedure, preparation of smear, genital source [facility] Routine Encounter for gynecological examination 1 Occurrences starting 12/25/2021 until 12/25/2021 [facility] [employer] Work Phone: Comment on above: 1 Occurrences starti ng 12/25/2021 until 12/25/2021 Immunizations Immunization Date Immunization Notes Care Provider Jennie garvey 05-10-2022 influenza virus vaccine, unspecified formulation Niall RUSSELL [facility] [place] 12-17-2021 SARS-CoV-2 (COVID-19 ) mRNA-1273 vaccine Niall NILL [facility] 08-14-2021 SARS-CoV-2 (COVID-19 ) mRNA-1273 vaccine Niall NILL [facility] 01-04-2021 SARS-CoV-2 (COVID-19 ) mRNA-1273 vaccine Niall NILL [facility] 12-07-2020 SARS-CoV-2 (COVID-19 ) mRNA-1273 vaccine Niall NILL [facility] 04-17-2020 influenza virus vaccine, unspecified formulation Niall NILL [facility] [place] Payers Date Payer Category Payer Unknown 2023 Self-pay 1970 Unknown [id number] 2.16.8 [id number] 1970 Unknown [id number] 2.16.84 [id number] 1970 Unknown [id number] 2.16.84 0.1.472078.3.579.2.593 1970 Unknown [id number] 2.16.84 0.1.853172.3.579.2.593 1970 Unknown [id number] 2.16.84 0.1.764309.3.579.2.593 1970 Unknown [id number] 2.16.84 0.1.433962.3.579.2.593 1970 Unknown [id number] 2.16.84 0.1.281087.3.579.2.593 1970 Unknown [id number] 2.16.84 0.1.593607.3.579.2.593 1970 Unknown [id number] 2.16.84 0.1.445660.3.579.2.593 1970 Unknown [id number] 2.16.84 0.1.122540.3.579.2.593 1970 Unknown [id number] 2.16.84 0.1.965427.3.579.2.593 1970 Unknown [id number] 2.16.8 40.1.324393.3.579.2.727 1970 Unknown [id number] 2.16.8 40.1.992527.3.579.2.727 1970 Unknown [id number] 2.16.8 40.1.033033.3.579.2.727 1970 Unknown [id number] 2.16. 840.1.144825.3.579.2.196 1959 Unknown [id number] 1. [id number] Unknown [id number] 2.16.8 40.1.546550.3.579.2.531 Social History Date Type Detail Facility Start: 12-25-2021 End: 01-11-2023 Tobacco smoking status DCIS Ex-smoker [facility] Start: 12-25-2021 Cigarettes smoked current (pack per day) - Reported 1 [facility] Phone: Start: 12-25-2021 Tobacco use and exposure Smokeless tobacco non-user [facility] Phone: Start: 12-25-2021 Alcohol intake Ex-drinker (finding) [facility] Phone: Start: 1970 Sex Assigned At Not on file [facility] [employer] Phone: Tobacco smoking status Never [facility] [place] Sex Assigned At Female [facility] Start: 1970 Sex Assigned At Female [facility] Functional Status Date Assessment Result [...] the ER for worsening symptoms or concerns [facility] Other 06-27-2023 NoteChief Complaint consultation for nevus [...] 12/07/2020 Recorded influenza virus vaccine, inactivated 04/17/2020 [facility]:Result Comment: Electronically Signed By: SAIMA MCQUEEN, Niall Collier\Date and Time Signed: 01/11/23 14:31 [id number] NotePROCEDURE: XR KNEE RT 3V DATE: 11/01/2022 [...] Electronically authenticated by: JODI WEBER Date: 2022-11-01 12:17[facility]12-30-2022 NotePROCEDURE: XR HAND LT MIN 3V [...] Electronically authenticated by: ADELAIDA LAO Date: 2022-07-16 07:43[facility]12-16-2022 NotePROCEDURE: XR FINGER MIN 2 VIEWS [...] Electronically authenticated by: ASHOK GRIER Date: 2022-07-02 17:45[facility]12-16-2022 NotePROCEDURE: XR HAND LT MIN 3V [...] Electronically authenticated by: ASHOK GRIER Date: 2022-07-02 17:43[facility]08-09-2022 NotePROCEDURE: XR KNEE RT 4V or > COMPARISON: None. HISTORY: Pain of right knee joint FINDINGS: BONES:No acute fracture or dislocation. Moderate osteoarthropathy and marginal osteophyte formation. SOFT TISSUES:Negative. No visible soft tissue swelling. EFFUSION:None visible. OTHER: Negative. IMPRESSION: Moderate tricompartmental osteoarthritis Electronically authenticated by: ADELAIDA LAO Date: 2022-02-23 19:01[facility] [place] [facility] Future Appointments Appointment Date:02/01/2023 02:00:00 PM Scheduled Provider:Niall RUSSELL MD Location:[facility] Appointment Type: Procedure 30 General Surgery [place] Evaluation note* Diagnosis Encounter for gynecological examination documented in this encounter [facility] Work Phone: evaluation noteNo assessment information available [facility] Work Phone: Hisxffy general Narrative - Reported* Type Description Date Medical History hypertension Medical History depression Medical History Hypothyroid Surgical History breast reduction Surgical History cyst removal, wrist Surgical History tubal ligation Hospitalization History see above [facility] Other Hospital course Narrative No data available for this section [facility] [place] [facility] Discharge instructions No data available for this section General Surgery [place] Progress note No data available for this section General [facility] [place] Summary Purpose Family History No Family History Records FoundNo Family History Records FoundNo Family History Records FoundNo Family History Records FoundNo Family History Records Found Advance Directives No Advanced Directives Records FoundNo Advanced Directives Records FoundNo Advanced Directives Records FoundNo Advanced Directives Records FoundNo Advanced Directives Records Found Additional Source Comments Care Teams (unrecognized sec tion and content) Relocation Director Relationship Specialty Start Date End Date Paulette Santana MD [address] [phone] PCP - General Family Medicine 12/25/21 Team Status: Inactive Member Role Status Dates DERREK Sanchez Attending Provider Active INFORMATION SOURCE (unrecogn ized section and content) DATE CREATED AUTHOR 01/01/2022 [facility] DATE CREATED AUTHOR AUTHOR'S ORGANIZ ATION 11/07/2022 [facility] DATE CREATED AUTHOR AUTHOR'S ORGANIZ ATION 02/02/2023 [facility] DATE CREATED AUTHOR AUTHOR'S ORGANIZ ATION 04/21/2023 [facility] DATE CREATED AUTHOR AUTHOR'S ORGANIZ ATION 04/20/2024 [facility] Goals (unrecognized section and content) [...] BE BASED ON THE PRIMARY CLINICAL RECORDS. [facility]. provides no warranty or guarantee of the accuracy or completeness of information in this document.
--- NOTE | 2024-08-22 21:31 | US_ITS ---
The [address] [address] Patient Name: FRED TREJO MRN: [id number] date: 1970 Sex: F Assigned Patient Location: ER Current Patient Location: ED.MAIN Accession/Order Number: [id number] Exam Date: 08/22/2024 21:39 Report Date: 08/22/2024 22:45 At the request of: RYAN DOSHI Procedure: US venous doppler LE RT ULTRASOUND OF THE LOWER EXTREMITY VENOUS LEFT HISTORY: Extremity edema and pain. COMPARISON: None. TECHNIQUE: Multiple sonographic images are performed of the extremity venous system with both color Doppler and grayscale Doppler. Doppler spectral analysis and color flow were performed of the extremity. FINDINGS: There is no evidence of thrombus within the visualized veins. There is adequate phasic and spontaneous flow. There is adequate compression. There is adequate augmentation. No evidence of DVT within the visualized veins of the visualized extremity. No popliteal fluid collection. US/US venous doppler LE RT IMPRESSION: No evidence of DVT within visualized veins. Electronically authenticated by: KT CLEARY Date: 08/22/2024 22:45
--- NOTE | 2024-08-22 21:37 | ED_ITS ---
HPI - Extremity Problem General Chief complaint: Extremity Problem, Nontraumatic Stated complaint: LOWER PAIN RIGHT LEG Time Seen by Provider: 08/22/24 21:29 Source: patient Mode of arrival: Wheelchair History of Present Illness HPI Narrative: 54-year-old female presents for swelling of the right knee. She had been admitted to this hospital yesterday morning for cellulitis of the right lower leg and she received IV vancomycin and IV Zosyn. She was released from the hospital this morning and she noted that her right knee was a bit more swollen and she was concerned so she came back here tonight. She was discharged home on oral antibiotics. No new trauma. Related Data Home Medications ?Medication ?Instructions ?Recorded ?Confirmed amitriptyline 100 mg tablet 100 mg PO .qhs 04/16/24 08/21/24 diclofenac sodium 75 mg 75 mg PO BID 04/16/24 08/21/24 tablet,delayed release liothyronine 5 mcg tablet 5 mcg PO DAILY 04/16/24 08/21/24 lisinopril 20 mg tablet 20 mg PO DAILY 04/16/24 08/21/24 mirtazapine 30 mg tablet 30 mg PO .qhs 04/16/24 08/21/24 risperidone 2 mg tablet 2 mg PO .qhs 04/16/24 08/21/24 levothyroxine 50 mcg tablet 50 mcg PO .ACB 08/19/24 08/21/24 phentermine 37.5 mg tablet 37.5 mg PO DAILY 08/21/24 08/21/24 Previous Rx's ?Medication ?Instructions ?Recorded clindamycin HCl 300 mg capsule 300 mg PO Q6H 14 days #56 caps 08/22/24 levofloxacin 750 mg tablet 750 mg PO Q24H 14 days #14 tabs 08/22/24 Allergies Allergy/AdvReac Type Severity Reaction Status Date / Time No Known Drug Allergies Allergy Verified 08/22/24 21:24 Review of Systems ROS Narrative A ten point review of systems is negative except as noted above. [facility] Medical History (Updated 08/22/24 @ 22:50 by Galdino Licona MD) Depression ?F32.A - Depression, unspecified (ICD-10) Anxiety ?F41.9 - Anxiety disorder, unspecified (ICD-10) Hypothyroidism ?E03.9 - Hypothyroidism, unspecified (ICD-10) Hypertension ?I10 - Essential (primary) hypertension (ICD-10) Surgical History (Updated 08/21/24 @ 13:42 by Lalita Mendoza) H/O right wrist surgery ?Z98.890 - Other specified postprocedural states (ICD-10) H/O bilateral breast reduction surgery ?Z98.890 - Other specified postprocedural states (ICD-10) H/O tubal ligation ?Z98.51 - Tubal ligation status (ICD-10) Family History (Updated 08/21/24 @ 13:46 by Lalita Mendoza) Mother Family history of CHF (congestive heart failure) Family history of diabetes mellitus Family history of hypertension Grandfather Family history of diabetes mellitus Family history of hypertension Grandmother Family history of diabetes mellitus Family history of hypertension Father Family history of myocardial infarction Social History (Updated 08/21/24 @ 13:55 by Lalita Mendoza) Within the past year, how often did you have a drink containing alcohol: monthly or less Within the past year, how often did you have six or more drinks on one occasion: never Smoking status: Former smoker Non-prescribed substance use: cannabis (any form) Highest level of school completed/degree received: high school graduate Are you now , , , , never or living with a partner: don't know In a typical week, how many times do you talk on the telephone with family, f riends, or neighbors: 3 or more times per week How often do you get together with friends or relatives: 3 or more times per week How often do you attend protestant or presybeterian services: never Do you belong to any clubs or organizations such as protestant groups unions, fraternal or athletic groups, or school groups: no Total score: 1 Score interpretation: A score of less than or equal to 1 indicates the most soc ially isolated. Little interest or pleasure in doing things: not at all Feeling down, depressed, or hopeless: not at all Feel stressed/tense/nervous/anxious/difficulty sleeping: not at all Gender Identity: female Exam Narrative Exam Narrative: Nurses note and vital signs reviewed and patient is not hypoxic. General: The patient appears well and in no apparent distress. Patient is resting comfortably on cart. Skin: Warm, dry, no pallor noted. There is no rash noted. Head: Normocephalic, atraumatic Eye: Normal conjunctiva, no drainage Ears, Nose, Mouth, and Throat: oral mucosa is moist. Nares patent. Cardiovascular: Regular Rate and Rhythm Respiratory: Patient is in no distress, no accessory muscle use, lungs are clear to auscultation, no wheezing, rales or rhonchi Back: non-tender GI: Soft and nontender Musculoskeletal: She has erythema and some swelling to her anterior right lower leg. There is some edema around the right knee anteriorly. There is no open area or drainage. Neurological: A&O, normal speech Psychiatric: Cooperative Constitutional Vital Signs, click to edit/add: Last Vital Signs Temp 97.8 F 08/22/24 21:16 Pulse 118 H 08/22/24 21:16 BP 212/84 H 08/22/24 21:16 Pulse Ox 95 08/22/24 21:16 O2 Del Method Room Air 08/22/24 21:16 Course Vital Signs Vital signs: Vital Signs Temperature 97.8 F 08/22/24 21:16 Pulse Rate 118 H 08/22/24 21:16 Blood Pressure 212/84 H 08/22/24 21:16 Pulse Oximetry 95 08/22/24 21:16 Oxygen Delivery Method Room Air 08/22/24 21:16 Temperature 97.8 F 08/22/24 21:16 Pulse Rate 118 H 08/22/24 21:16 Blood Pressure 212/84 H 08/22/24 21:16 Pulse Oximetry 95 08/22/24 21:16 Oxygen Delivery Method Room Air 08/22/24 21:16 MDM - Extremity (Nontraumatic) MDM Narrative Medical decision making narrative: Doppler is negative. She will be discharged home and has an appointment with her PCP in the morning that she will keep. Treatment diagnosis and follow-up were discussed with the patient. Differential Diagnosis Differential diagnosis: Likely other (Cellulitis, superficial thrombophlebitis, DVT) Imaging Data Venous Doppler: Radiologist's impression: ITS Impressions Venous Doppler Study 08/22/24 21:31 IMPRESSION: No evidence of DVT within visualized veins. Electronically authenticated by: KT CLEARY Date: 08/22/2024 22:45 Discharge Plan Discharge Chief Complaint: Extremity Problem, Nontraumatic Clinical Impression: Cellulitis Qualifiers: Site of cellulitis: extremity Site of cellulitis of extremity: lower extremity Laterality: right Qualified Code(s): L03.115 - Cellulitis of right lower limb Patient Disposition: Home, Self-Care Time of Disposition Decision: 22:49 Condition: Good Mode of Transportation: Private Vehicle Prescriptions / Home Meds: No Action mirtazapine 30 mg tablet 30 mg PO .qhs risperidone 2 mg tablet 2 mg PO .qhs amitriptyline 100 mg tablet 100 mg PO .qhs lisinopril 20 mg tablet 20 mg PO DAILY diclofenac sodium 75 mg tablet,delayed release (DR/EC) 75 mg PO BID liothyronine 5 mcg tablet 5 mcg PO DAILY levothyroxine 50 mcg tablet 50 mcg PO .ACB phentermine 37.5 mg tablet 37.5 mg PO DAILY levofloxacin 750 mg tablet 750 mg PO Q24H 14 Days Qty: 14 0RF clindamycin HCl 300 mg capsule 300 mg PO Q6H 14 Days Qty: 56 0RF Print Language: Albanian Instructions: Cellulitis (ED) Additional Instructions: See Dr. Santana at your appointment in the morning. Referrals: Khris Santana MD [Primary Care Provider] - 1 week
--- NOTE | 2024-08-22 21:46 | PC.NURSE ---
US in room.
== END 2024-08-22 23:00 | disposition home or self-care (01) ==
PROVIDERS: Emergency Provider Emergency Medicine; PCP Family Medicine
DX: L03.115 Cellulitis of right lower limb (principal); M79.604 Pain in right leg; M79.89 Other specified soft tissue disorders; Z98.51 Tubal ligation status; Z87.891 Personal history of nicotine dependence
CPT/HCPCS: 93971; 99284

== ENCOUNTER 2024-08-23 13:23 | Inpatient (IN) | payer BC, SELFPAY ==
[2024-08-23] VITALS (7 sets, daily range): BP systolic 165–182; BP diastolic 66–96; PULSE 98–104; TEMP 36.6–36.7; O2SAT 92–96; BMI 62.0; BMI 61.9
--- NOTE | 2024-08-23 14:29 | ED.GENADUL1 ---
HPI HPI - General Adult General Chief complaint: Extremity Problem, Nontraumatic Stated complaint: CELLULITUS Time Seen by Provider: 08/23/24 13:27 Mode of arrival: walk-in History of Present Illness HPI narrative: Patient presents to ED for evaluation of right lower extremity redness and swelling. Patient fell and suffered an injury to her lower leg and then developed a cellulitis after that. She has been managed outpatient by Dr. Santana but the clindamycin is no longer working. The cellulitis redness and swelling is getting worse. She was also in the ER last night and they did rule out a blood clot at that time. She saw Dr. Santana today who wanted her to be sent back over to the ER for workup and admission for IV antibiotics. Patient has pain and swelling redness and drainage from the right lower extremity. No fever here no nausea. Patient is stable answering questions appropriately Related Data Home Medications ?Medication ?Instructions ?Recorded ?Confirmed amitriptyline 100 mg tablet 100 mg PO .qhs 04/16/24 08/23/24 diclofenac sodium 75 mg 75 mg PO BID 04/16/24 08/23/24 tablet,delayed release liothyronine 5 mcg tablet 5 mcg PO DAILY 04/16/24 08/23/24 lisinopril 20 mg tablet 20 mg PO DAILY 04/16/24 08/23/24 mirtazapine 30 mg tablet 30 mg PO .qhs 04/16/24 08/23/24 risperidone 2 mg tablet 2 mg PO .qhs 04/16/24 08/23/24 levothyroxine 50 mcg tablet 50 mcg PO .ACB 08/19/24 08/23/24 phentermine 37.5 mg tablet 37.5 mg PO DAILY 08/21/24 08/23/24 Previous Rx's ?Medication ?Instructions ?Recorded clindamycin HCl 300 mg capsule 300 mg PO Q6H 14 days #56 caps 08/22/24 levofloxacin 750 mg tablet 750 mg PO Q24H 14 days #14 tabs 08/22/24 Allergies Allergy/AdvReac Type Severity Reaction Status Date / Time No Known Drug Allergies Allergy Verified 08/22/24 21:24 Opioid HPI Opioid Management Most Recent Opioid Data: Last Pain Scale 3 08/21/24 20:00 08/21/24 Last Pain Assessment 08/22/24 09:41 Last ORT Total Score 1 08/21/24 14:17 08/21/24 Last ORT Risk Category Low Risk 08/21/24 14:17 08/21/24 Review of Systems ROS Status of ROS 10 or more systems reviewed and unremarkable except as noted in history and below PFSH PFS Medical History (Updated 08/23/24 @ 15:00 by Pamela Mccain DO) Cellulitis ?L03.90 - Cellulitis, unspecified (ICD-10) Depression ?F32.A - Depression, unspecified (ICD-10) Anxiety ?F41.9 - Anxiety disorder, unspecified (ICD-10) Hypothyroidism ?E03.9 - Hypothyroidism, unspecified (ICD-10) Hypertension ?I10 - Essential (primary) hypertension (ICD-10) Surgical History (Updated 08/21/24 @ 13:42 by Lalita Mendoza) H/O right wrist surgery ?Z98.890 - Other specified postprocedural states (ICD-10) H/O bilateral breast reduction surgery ?Z98.890 - Other specified postprocedural states (ICD-10) H/O tubal ligation ?Z98.51 - Tubal ligation status (ICD-10) Family History (Updated 08/21/24 @ 13:46 by Lalita Mendoza) Mother Family history of CHF (congestive heart failure) Family history of diabetes mellitus Family history of hypertension Grandfather Family history of diabetes mellitus Family history of hypertension Grandmother Family history of diabetes mellitus Family history of hypertension Father Family history of myocardial infarction Social History (Updated 08/21/24 @ 13:55 by Lalita Mendoza) Within the past year, how often did you have a drink containing alcohol: monthly or less Within the past year, how often did you have six or more drinks on one occasion: never Smoking status: Former smoker Non-prescribed substance use: cannabis (any form) Highest level of school completed/degree received: high school graduate Are you now , , , , never or living with a partner: don't know In a typical week, how many times do you talk on the telephone with family, friends, or neighbors: 3 or more times per week How often do you get together with friends or relatives: 3 or more times per week How often do you attend pentecostal or anglican services: never Do you belong to any clubs or organizations such as pentecostal groups unions, fraternal or athletic groups, or school groups: no Total score: 1 Score interpretation: A score of less than or equal to 1 indicates the most socially isolated. Little interest or pleasure in doing things: not at all Feeling down, depressed, or hopeless: not at all Feel stressed/tense/nervous/anxious/difficulty sleeping: not at all Gender Identity: female Exam Narrative Exam Narrative: General: alert, no acute distress Cardiovascular: regular rate and rhythm, normal peripheral perfusion. Respiratory: Lungs CTA, respirations non labored. Extremities: Right lower extremity cellulitis and ecchymosis with wounds and weeping. Diffuse swelling of both lower extremities worse on the right Neurological: oriented x 4, LOC appropriate for age. Constitutional Vital Signs, click to edit/add: Last Vital Signs Temp 98.0 F 08/23/24 13:43 Pulse 101 H 08/23/24 13:43 Resp 18 08/23/24 13:43 BP 179/79 H 08/23/24 13:43 Pulse Ox 96 08/23/24 13:43 O2 Del Method Room Air 08/23/24 13:43 Course Vital Signs Vital signs: Vital Signs Temperature 98.0 F 08/23/24 13:43 Pulse Rate 101 H 08/23/24 13:43 Respiratory Rate 18 08/23/24 13:43 Blood Pressure 179/79 H 08/23/24 13:43 Pulse Oximetry 96 08/23/24 13:43 Oxygen Delivery Method Room Air 08/23/24 13:43 Temperature 98.0 F 08/23/24 13:43 Pulse Rate 101 H 08/23/24 13:43 Respiratory Rate 18 08/23/24 13:43 Blood Pressure 179/79 H 08/23/24 13:43 Pulse Oximetry 96 08/23/24 13:43 Oxygen Delivery Method Room Air 08/23/24 13:43 Medical Decision Making MDM Narrative Medical decision making narrative: I spoke to Dr. Santana who will admit the patient for IV antibiotics and further care of the right lower extremity cellulitis. Patient stable and comfortable care plan for admission. Differential Diagnosis Differential Diagnosis: Cellulitis, blood clot, vasculitis vascular insufficiency Medical Records Medical records reviewed: Yes I reviewed the patient's medical records Lab Data Lab results reviewed: Yes I reviewed the patient's lab results Labs: Lab Results 08/23/24 Range/Units 14:23 WBC 11.7 H (4.0-11.0) 10^3/uL RBC 4.61 (4.20-5.40) 10^6/uL Hgb 13.6 (12.0-16.0) g/dL Hct 42.0 (36.0-48.0) % MCV 91.1 (81.0-99.0) fL MCH 29.5 (26.7-34.0) pg MCHC 32.4 (29.9-35.2) g/dL RDW 13.1 (11.0-15.0) % Plt Count 366 (150-450) 10^3/uL MPV 8.3 L (9.5-13.5) fL Neut % (Auto) 79.7 H (43.0-75.0) % Lymph % (Auto) 11.5 L (20.5-60.0) % [place] % (Auto) 6.8 (1.7-12.0) % Eos % (Auto) 1.3 (0.9-7.0) % Baso % (Auto) 0.3 (0.2-2.0) % Neut # (Auto) 9.3 H (1.4-6.5) 10^3/uL Lymph # (Auto) 1.3 (1.2-3.8) 10^3/uL [place] # (Auto) 0.8 (0.3-0.8) 10^3/uL Eos # (Auto) 0.2 (0.0-0.7) 10^3/uL Baso # (Auto) 0.0 (0.0-0.1) 10^3/uL Abs Immat Gran (auto) 0.05 H (0.00-0.03) 10^3/uL Imm/Tot Granulo (auto) 0.4 (0.0-0.5) % Sodium 140 (136-145) mmol/L Potassium 4.0 (3.5-5.1) mmol/L Chloride 101 (98-107) mmol/L Carbon Dioxide 28.4 (21.0-32.0) mmol/L Anion Gap 14.6 BUN 14.0 (7.0-18.0) mg/dL Creatinine 1.06 H (0.55-1.02) mg/dL Est GFR ( Amer) >60 (>=60 mL/min/1.73m^2) Est GFR (Non-Af Amer) 54 L (>=60 mL/min/1.73m^2) BUN/Creatinine Ratio 13.2 Glucose 102 (74-106) mg/dL Calcium 9.5 (8.5-10.1) mg/dL Total Bilirubin 0.4 (0.2-1.0) mg/dL AST 26 (15-37) U/L ALT 30 (14-59) U/L Alkaline Phosphatase 135 H (46-116) U/L Total Protein 7.8 (6.4-8.2) g/dL Albumin 3.1 L (3.4-5.0) g/dL Globulin 4.7 g/dL Albumin/Globulin Ratio 0.7 Discharge Plan Discharge Chief Complaint: Extremity Problem, Nontraumatic Clinical Impression: Cellulitis Patient Disposition: Admitted As Inpatient Time of Disposition Decision: 15:00 Condition: Fair Prescriptions / Home Meds: No Action mirtazapine 30 mg tablet 30 mg PO .qhs risperidone 2 mg tablet 2 mg PO .qhs amitriptyline 100 mg tablet 100 mg PO .qhs lisinopril 20 mg tablet 20 mg PO DAILY diclofenac sodium 75 mg tablet,delayed release (DR/EC) 75 mg PO BID liothyronine 5 mcg tablet 5 mcg PO DAILY levothyroxine 50 mcg tablet 50 mcg PO .ACB phentermine 37.5 mg tablet 37.5 mg PO DAILY levofloxacin 750 mg tablet 750 mg PO Q24H 14 Days Qty: 14 0RF clindamycin HCl 300 mg capsule 300 mg PO Q6H 14 Days Qty: 56 0RF Print Language: Guyanese Referrals: Khris Santana MD [Primary Care Provider] - 1 week
[2024-08-23 14:36] LABS: Basophils Percent Auto 0.3 % (0.2-2.0); Eosinophils Absolute Auto 0.2 10^3/uL (0.0-0.7); Eosinophils Percent Auto 1.3 % (0.9-7.0); Hemoglobin 13.6 g/dL (12.0-16.0); Immature Granulocytes Abs Auto 0.05 10^3/uL (0.00-0.03); Immature Granulocytes Pct Auto 0.4 % (0.0-0.5); Lymphocytes Absolute Auto 1.3 10^3/uL (1.2-3.8); Lymphocytes Percent Auto 11.5 % (20.5-60.0); Mean Corpuscular HGB Conc 32.4 g/dL (29.9-35.2); Mean Corpuscular Hemoglobin 29.5 pg (26.7-34.0); Mean Corpuscular Volume 91.1 fL (81.0-99.0); Mean Platelet Volume 8.3 fL (9.5-13.5); Monocytes Absolute Auto 0.8 10^3/uL (0.3-0.8); Monocytes Percent Auto 6.8 % (1.7-12.0); Neutrophils Absolute Auto 9.3 10^3/uL (1.4-6.5); Neutrophils Percent Auto 79.7 % (43.0-75.0); Platelet Count 366 10^3/uL (150-450); Red Blood Count 4.61 10^6/uL (4.20-5.40); Red Cell Distribution Width 13.1 % (11.0-15.0); White Blood Count 11.7 10^3/uL (4.0-11.0)
--- NOTE | 2024-08-23 14:37 | P.HP_ITS ---
HPI H&P: HPI History of Present Illness Chief complaint: CELLULITUS, RLE Narrative: Patient was seen and evaluated in the office, recently discharged for treatment of cellulitis she is he appeared to be responding to clindamycin and levofloxacin IV, he was converted to oral, in the last 24 hours though her erythema has progressed and is now outside the line of demarcation, swelling is worse, ultrasound showed no DVT, with worsening symptoms despite adequate oral medication, patient has failed now 3 different medications orally, patient needs IV antibiotics and likely prolonged therapy Opioid HPI Opioid Management Most Recent Pain and Opioid Data: Last Pain Scale 3 08/21/24 20:00 08/21/24 Last Pain Assessment 08/23/24 17:02 Last ORT Total Score 1 08/23/24 16:15 08/23/24 Last ORT Risk Category Low Risk 08/23/24 16:15 08/23/24 Review of Systems ROS Status of ROS 10 or more systems reviewed and unremark able except as noted in history and below PFSH PFS Medical History (Updated 08/23/24 @ 15:00 by Pamela Mccain DO) Cellulitis ?L03.90 - Cellulitis, unspecified (ICD-10) Depression ?F32.A - Depression, unspecified (ICD-10) Anxiety ?F41.9 - Anxiety disorder, unspecified (ICD-10) Hypothyroidism ?E03.9 - Hypothyroidism, unspecified (ICD-10) Hypertension ?I10 - Essential (primary) hypertension (ICD-10) Surgical History (Updated 08/21/24 @ 13:42 by Lalita Mendoza) H/O right wrist surgery ?Z98.890 - Other specified postprocedural states (ICD-10) H/O bilateral breast reduction surgery ?Z98.890 - Other specified postprocedural states (ICD-10) H/O tubal ligation ?Z98.51 - Tubal ligation status (ICD-10) Family History (Updated 08/21/24 @ 13:46 by Lalita Mendoza) Mother Family history of CHF (congestive heart failure) Family history of diabetes mellitus Family history of hypertension Grandfather Family history of diabetes mellitus Family history of hypertension Grandmother Family history of diabetes mellitus Family history of hypertension Father Family history of myocardial infarction Social History (Updated 08/21/24 @ 13:55 by Lalita Mendoza) Within the past year, how often did you have a drink containing alcohol: monthly or less Within the past year, how often did you have six or more drinks on one occasion: never Smoking status: Former smoker Non-prescribed substance use: cannabis (any form) Highest level of school completed/degree received: high school graduate Are you now , , , , never or living with a partner: don't know In a typical week, how many times do you talk on the telephone with family, friends, or neighbors: 3 or more times per week How often do you get together with friends or relatives: 3 or more times per week How often do you attend congregation or scientology services: never Do you belong to any clubs or organizations such as congregation groups unions, [employer] or athletic groups, or school groups: no Total score: 1 Score interpretation: A score of less than or equal to 1 indicates the most socially isolated. Little interest or pleasure in doing things: several days Feeling down, depressed, or hopeless: several days Feel stressed/tense/nervous/anxious/difficulty sleeping: not at all Gender Identity: female Meds Home Medications and Allergies Home Medications ?Medication ?Instructions ?Recorded ?Confirmed ?Type amitriptyline 100 mg tablet 100 mg PO .qhs 04/16/24 08/23/24 History diclofenac sodium 75 mg 75 mg PO BID 04/16/24 08/23/24 History tablet,delayed release liothyronine 5 mcg tablet 5 mcg PO DAILY 04/16/24 08/23/24 History lisinopril 20 mg tablet 20 mg PO DAILY 04/16/24 08/23/24 History mirtazapine 30 mg tablet 30 mg PO .q 04/16/24 08/23/24 History risperidone 2 mg tablet 2 mg PO .qhs 04/16/24 08/23/24 History levothyroxine 50 mcg tablet 50 mcg PO .ACB 08/19/24 08/23/24 History phentermine 37.5 mg tablet 37.5 mg PO DAILY 08/21/24 08/23/24 History clindamycin HCl 300 mg capsule 300 mg PO Q6H 14 days #56 caps 08/22/24 08/23/24 Rx levofloxacin 750 mg tablet 750 mg PO Q24H 14 days #14 tabs 08/22/24 08/23/24 Rx Allergies Allergy/AdvReac Type Severity Reaction Status Date / Time No Known Drug Allergies Allergy Verified 08/22/24 21:24 Exam Constitutional Vital Signs, click to edit/add: Last Vital Signs Temp 98.0 F 08/23/24 13:43 Pulse 101 H 08/23/24 13:43 Resp 18 08/23/24 13:43 BP 179/79 H 08/23/24 13:43 Pulse Ox 96 08/23/24 13:43 O2 Del Method Room Air 08/23/24 13:43 Documenting provider has reviewed patient's vital signs: yes Common normals: no apparent distress Chest Common normals: inspection of chest normal Respiratory Common normals: normal respiratory effort and no retractions GI Common normals: negative for Normal to inspection, nondistended, normoactive bowel sounds present (Obese) Extremity Common normals: abnormal to inspection (Right lower extremity with swelling, erythema, outside the line) Assessment and Plan Assessment and Plan (1) Cellulitis: (2) Anxiety: (3) Hypothyroidism: (4) Hypertension: Plan Admission findings: Sinus tachycardia, uncontrolled hypertension, leukocytosis, right lower extremity cellulitis with worsening despite multiple outpatient oral medications as well as IV medications with recent hospitalization. At this point patient may need long prolonged therapy Cellulitis right lower extremity-progressive despite multiple oral antibiotics, levofloxacin, clindamycin, cephalexin. At this point we will try patient on Zosyn and vancomycin. She may need PICC line placed for long-term antibiotics depending on progression of symptoms Uncontrolled hypertension-start home medications and as needed IV medications Mild elevation in creatinine-this is actually at her baseline Hypothyroidism-continue with home medications Insomnia-continue with home medications Admission status: Patient has failed multiple outpatient oral antibiotics as well as recent observational status, with failing observational status will start patient off as inpatient as she likely needs 3 to 4-day IV antibiotics, blood cultures from initial admission are still pending
[2024-08-23] MEDS: PIPERACILLIN SODIUM/TAZOBACTAM 3.375 GM in 0.9 % SODIUM CHLORIDE 50 ML IV ×2 (14:51→23:13)
[2024-08-23 14:54] LABS: Alanine Aminotransferase 30 U/L (14-59); Albumin Globulin Ratio 0.7; Albumin Level 3.1 g/dL (3.4-5.0); Alkaline Phosphatase 135 U/L (46-116); Anion Gap 14.6; Aspartate Amino Transferase 26 U/L (15-37); BUN Creatinine Ratio 13.2; Bilirubin Total 0.4 mg/dL (0.2-1.0); Calcium 9.5 mg/dL (8.5-10.1); Carbon Dioxide 28.4 mmol/L (21.0-32.0); Chloride 101 mmol/L (98-107); Estimated GFR (African America >60 (>=60 mL/min/1.73m^2); Estimated GFR (Non-African Ame 54 (>=60 mL/min/1.73m^2); Globulin 4.7 g/dL; Glucose 102 mg/dL (74-106); Sodium 140 mmol/L (136-145); Total Protein 7.8 g/dL (6.4-8.2)
--- OUTSIDE RECORDS SUMMARY | 2024-08-23 14:57 | XMS_ITS | CCD ---
Author Organization [facility] Care Team Providers Care 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 Name Role Phone Paulette Santana MD Primary Care Provider [phone] JUAN BATISTA Referring Unavailable PAULETTE SANTANA [...] Consulting Unavailable Paulette Santana Primary Care Physician [phone] Niall RUSSELL Attending Unavailable Niall RUSSELL Attending Unavailable Niall RUSSELL Attending Unavailable DERREK Carrillo Attending Provider [phone] Matilde Carrillo Unavailable Matilde Carrillo Attending Unavailable [...] 10/06/20 Status: Ordered take 1 capsule [address] [facility] every eight hours Diclofenac 35 MG 1 capsule as needed Ora lly Three times a day Active levothyroxine sodium 0.05 mg oral tablet (2 sources) l-Thyroxine Start: 12-29-2022 take 1 tablet by mouth once daily levothyroxine 50 mcg (0.05 mg) Tab 50 mcg = 1 tab(s), Oral, Daily, Refills(s) 0 Start Date: 12/29/22 Status: Ordered take 1 tablet by [facility] once daily in the morning Levothyroxine Sodium [...] 10-06-2020 take 2 tablets by mo [facility] once daily at bedtime mirtazapine 30 mg [...] 2 Episodic Other aftercare (1 source) Other [employer] (current) drug therapy; Translations: [OTH SNF CURRENT DRUG THERAPY] Onset: 2 Episodic Other [...] RT 4V*on 04-13-2023 XR knee RT 4V* [facility] [place] [address] XRay Report Signed Patient: Fred Qureshi MR#: [id number] : 1970 Acct:[id number] Age/Sex: 52 / F ADM Date: 04/13/23 Loc: XDUC Room: Type: [facility] Attending Dr: Matilde ANGLIN Copies to: [...] Jose Moran M.D.04/13/2023 2:33 PM Dictation Location: [place] [address] Transcribed By: [facility] 04/13/23 143 Dictated By: Jose Moran DO 04/13/23 1432 Signed By: 04/13/23 143 [facility] XR knee RT 4V* [facility] [employer] Other XR knee RT 4V* [facility] [employer] Other XR knee RT 4V* [address] [facility] [employer] Other XR knee RT 4V* [place] [address] No rt [employer] [facility] [employer] [facility] Other XR knee RT 4V* XRay Report [employer] Other XR knee RT 4V* Signed [employer] Other XR knee RT 4V* Patient: Sampson Qureshi MR#: [id number] [place] [employer] [facility] [employer] [facility] Other XR knee RT 4V* 5905 [employer] Other XR knee RT 4V* : 1970 Acct:[id number] [employer] Other XR knee RT 4V* Age/Sex: 52 / F ADM Date: 04/13/23 [employer] Other XR knee RT 4V* Loc: XDUCLY Room: [facility]: [facility] [employer] Other XR knee RT 4V* Attending Dr: Matilde ANGLIN [employer] Other XR knee RT 4V* Copies to: DERREK Head [employer] Other XR knee RT 4V* Ordering Provider: DERREK Head [employer] Other XR knee RT 4V* Date of Service: 04/13/23 [employer] Other XR knee RT 4V* XR/XR knee RT 4V*: Acute pain of right knee [employer] Other XR knee RT 4V* 4 views right knee plain film [employer] Other XR knee RT 4V* COMPARISON: None [facility] Other XR knee RT 4V* HISTORY: Right knee injury. Superior patellar pain. [employer] Other XR knee RT 4V* ACUTE FINDINGS: None [employer] Other XR knee RT 4V* DEGENERATIVE CHANGE: Moderate degeneration. [employer] Other XR knee RT 4V* SOFT TISSUE FINDINGS : Unremarkable [employer] Other XR knee RT 4V* JOINT EFFUSION: None [employer] Other XR knee RT 4V* POSTOP CHANGES: None [employer] Other XR knee RT 4V* BONE MINERALIZATION: Adequate [employer] Other XR knee RT 4V* XR/XR knee RT 4V* [employer] Other XR knee RT 4V* IMPRESSION: No acute findings [employer] Other XR knee RT 4V* Impression dictated by: Jose Moran M.D.04/13/2023 2:33 PM [employer] Other XR knee RT 4V* Dictation Location: [place] [address] [employer] Other XR knee RT 4V* Transcribed By: [facility] 04/13/23 [facility] [employer] Other XR knee RT 4V* Dictated By: Jose Moran DO 04/13/23 [facility] [employer] Other XR knee RT 4V* Signed By: [employer] Other XR knee RT 4V* 04/13/23 [facility]3 [employer] Other Ambulatory Visit Summaryon 0 02-01-2023 Ambulatory [...] RUSSELL MD Where: General Surgery Saima/Roberta Martinez [facility] General Surgery Office/Clini c Noteon 02-01-2023 General [...] Recorded influenza virus vaccine, inactivated 04/17/2020 Recorded [facility] Comment on above: Result Comment: Elec tronically Signed By: SAIMA MCQUEEN, Niall Tucker\.br\Date and Time Signed: 02/01/23 14:23 EDT Pre-Certification Formon Pre-Certification Form [id number] CD:127 [facility] Facesheeton 01-12-2023 Facesheet [id number] D:127 [facility] Ambulatory Visit Summaryon 0 01-11-2023 Ambulatory [...] Migraine Morbid obesity Nevus Pituitary adenoma Normal [facility] Physician Referralon 023 Physician Referral [id number] D:127 Normal [facility] MG MAMM SCREEN 3D HAYDEE CADon 03-21-2023 MG MAMM SCREEN 3D HAYDEE CAD Patient: FRED QURESHI Exam Date: 10/05/2022 : 1970 Gender:F Ordering : DR PAULETTE SANTANA . Admission #: [id number] Family : Order #: [id number] CLICK HERE TO VIEW EXAM RADIOLOGY REPORT [...] Treatments None Family Cancers None LOCATION: [facility] BREAST COMPOSITION: Scattered areas fibroglandular [...] M.D. on 10/05/2022 at 16:12 Normal [facility] FREE T3on 09-21-2022 FREE T3 2.22 pg/mlL Normal 2.18-3.98 [facility] Comment on above: Performed By: #### F T3, T4, TSH ####[facility] [address] [place], [place] [address]Zy. Jillian Jaime T4on 09-21-2022 T4 [Mass/Vol] 5.50 ug/dL Normal 4.80-13.90 [facility] Comment on above: Performed By: #### F T3, T4, TSH ####[facility] [address] [place], [place] [address]Uy. Jillian Jaime TSHon 09-21-2022 TSH 0.782 uIU/mL Normal 0.358-3.740 [facility] Comment on above: Performed By: #### F T3, T4, TSH ####[facility] [address] [place], [place] [address]Nh. Jillian Jaime [facility]on SARS-CoV-2 (COVID-19) RNA FLORENCIA+probe Ql (Unsp spec) Not detected Normal NOT DETECTED [facility] Comment on above: Result Comment: [...] for this test is supported by the [place] of Health and Human Service's declaration that [...] be used). Performed By: #### C VDTB ####[facility] [address] [place], [place] [address]Yg. Jillian Jaime XR WRIST LT MIN 3 Von 2021 XR WRIST LT MIN 3 V EXAM: XR WRIST LT KS N 3 V HISTORY: Unspecified fall , [...] ESSENCE MONTEMAYOR Date: 2022-07-02 17:36 Normal [facility] CBC AUTO DIFFon 04-28-2022 BASO # 0.0 103/ul Normal 0.0-0.1 [facility] Comment on above: Performed By: #### C BC ####[facility] [address] [place] [address]Dr. Jillian Jaime Basophils/100 WBC (Bld) 0.3 % Normal 0.2-2.0 [facility] Comment on above: Performed By: #### C BC ####[facility] [address] [place], [place] [address]Dr. Jillian Jaime EO # 0.1 103/ul Normal 0.0-0.7 [facility] Comment on above: Performed By: #### C BC ####[facility] Act[address] [place], [place] [address]Dr. Jillian Jaime Eosinophils/100 WBC (Bld) 1.3 % Normal 0.9-7.0 [facility] Comment on above: Performed By: #### C BC ####[facility] [address] [place] [address]Dr. Jillian Jaime Erythrocyte distribution width (RBC) [Ratio] 13.4 % Normal 11.0-15.0 [facility] Comment on above: Performed By: #### C BC ####[facility] [address] [place] [address]Dr. Britneyglenroy Jaime Hematocrit (Bld) [Volume fraction] 43.0 % Normal 36.0-48.0 [facility] Comment on above: Performed By: #### C BC ####[facility] [address] [place] [id number]. Jillian Jaime Hemoglobin (Bld) [Mass/Vol] 13.5 g/dL Normal 12.0-16.0 [facility] Comment on above: Performed By: #### C BC ####[facility] [address] [place] [address]Dr. Jillian Jaime IG # 0.05 10e3/ul Critically high 0.00-0.03 [facility] Comment on above: Performed By: #### C BC ####[facility] [address] [place] [address]Dr. Jillian Jaime IG % 0.5 % Normal 0.0-0.5 [facility] Comment on above: Performed By: #### C BC ####[facility] [address] [place] [address]Dr. Jillian Jaime LYMPH # 1.8 103/ul Normal 1.2-3.8 [facility] Comment on above: Performed By: #### C BC ####[facility] [address] [place], [place] [address]Dr. Jillian Jaime Lymphocytes/100 WBC (Bld) 18.3 % Critically low 20.5-60.0 [facility] Comment on above: Performed By: #### C BC ####[facility] [address] [place] [address]Dr. Jillian Jaime MANUAL DIFF REQ NO Normal [facility] Comment on above: Performed By: #### C BC ####[facility] [address] [place], [place] [address]Dr. Jillian Jaime MCH (RBC) [Entitic mass] 29.0 pg Normal 26.7-34.0 [facility] Comment on above: Performed By: #### C BC ####[facility] [address] [place], [place] [address]Dr. Jillian Jaime MCHC (RBC) [Mass/Vol] 31.4 g/dL Normal 29.9-35.2 [facility] Comment on above: Performed By: #### C BC ####[facility] [address] [place] [id number]. Jillian Jaime MCV (RBC) [Entitic vol] 92.5 fL Normal 81.0-99.0 [facility] Comment on above: Performed By: #### C BC ####[facility] [address] [place] [address]Dr. Jillian Jaime MONO # 0.5 103/ul Normal 0.3-0.8 [facility] Comment on above: Performed By: #### C BC ####[facility] [address] [place] [address]Dr. Jillian Jaime Monocytes/100 WBC (Bld) 5.1 % Normal 1.7-12.0 [facility] Comment on above: Performed By: #### C BC ####[facility] [address] [place] [address]Dr. Jillian Jaime NEUT # 7.2 103/ul Critically high 1.4-6.5 [facility] Comment on above: Performed By: #### C BC ####[facility] [address] [place], [place] [address]Dr. Jillian Jaime Neutrophils/100 WBC (Bld) 74.5 % Normal 43.0-75.0 [facility] Comment on above: Performed By: #### C BC ####[facility] [address] [place] [id number]. Jillian Jaime Platelet mean volume (Bld) [Entitic vol] 8.2 fL Critically low 9.5-13.5 [facility] Comment on above: Performed By: #### C BC ####[facility] [address] [place] [id number]. Jillian Jaime PLT 304 103/ul Normal 150-450 [facility] Comment on above: Performed By: #### C BC ####[facility] [address] [place], [place] [address]Dr. Jillian Addison RBC 4.65 106/ul Normal 4.20-5.40 [facility] Comment on above: Performed By: #### C BC ####[facility] [address] [place] [address]DrAaron Jaime WBC 9.7 103/ul Normal 4.0-11.0 [facility] Comment on above: Performed By: #### C BC ####[facility] [address] [place] [phone]. Jillian Jaime GLYCOHEMOGLOBIN A1Con 2021 ADA RECOMMENDATION SEE BELOW Normal [facility] Comment on above: Result Comment: ADA RECOMMENDED LIMIT 4.0 - 6.0 ADA THERAPEUTIC TARGET < 7.0 ACTION SUGGESTED > 7.0 Performed By: #### A 1C #### [facility] [address] [place] [address] [address] Jillian Jaime Glucose [Mass/Vol] 114 mg/dL Normal [facility] Comment on above: Performed By: #### A 1C #### [facility] [address] [place] [address] [address] Jillian Jaime HbA1c (Bld) [Mass fraction] 5.6 % Normal 4.5-6.2 [facility] Comment on above: Performed By: #### A 1C #### [facility] [address] [place] [address] [address] Jillian Jaime PROF 14(COMP METB)on 022 Albumin [Mass/Vol] 3.3 g/dL Critically low 3.4-5.0 [facility] Comment on above: Performed By: #### C MP ####[facility] [address] [place] [address]Dr. Jillian Jaime Albumin/Globulin [Mass ratio] 0.8 {ratio} Normal [facility] Comment on above: Performed By: #### C MP ####[facility] [address] [place] [phone] Jaime ALP [Catalytic activity/Vol] 155 U/L Critically high 46-116 [facility] Comment on above: Performed By: #### C MP ####[facility] [address] [place] [address]DrAaron Jaime ALT [Catalytic activity/Vol] 27 U/L Normal 14-59 [facility] Comment on above: Performed By: #### C MP ####[facility] [address] [place] [address]Dr. Jillian Jaime Anion gap [Moles/Vol] 9.5 mmol/L Normal [facility] Comment on above: Performed By: #### C MP ####[facility] [address] [place] [address]Dr. Jillian Jaime AST [Catalytic activity/Vol] 11 U/L Critically low 15-37 [facility] Comment on above: Performed By: #### C MP ####[facility] [address] [place] [address]Dr. Jillian Jaime Bilirubin [Mass/Vol] 0.3 mg/dL Normal 0.2-1.0 [facility] Comment on above: Performed By: #### C MP ####[facility] [address] [place], [place] [address]Dr. Jillian Jaime Calcium [Mass/Vol] 9.2 mg/dL Normal 8.5-10.1 [facility] Comment on above: Performed By: #### C MP ####[facility] [address] [place], [place] [address]Dr. Jillian Jaime Chloride [Moles/Vol] 104 mmol/L Normal 98-107 [facility] Comment on above: Performed By: #### C MP ####[facility] [address] [place], [place] [address]Dr. Jillian Jaime CO2 [Moles/Vol] 30.4 mmol/L Normal 21.0-32.0 [facility] Comment on above: Performed By: #### C MP ####[facility] [address] [place], [place] [address]Dr. Jillian Jaime Creatinine [Mass/Vol] 1.11 mg/dL Critically high 0.55-1.02 [facility] Comment on above: Performed By: #### C MP ####[facility] [address] [place], [place] [address]Dr. Jillian Addison EGFR-AF ERITREAN >60 Normal >=60 [facility] Comment on above: Performed By: #### C MP ####[facility] [address] [place] [phone]. Jillian Jaime EGFR-NON AF ERITREAN 52 mL/min/1.73m2 Critically low >=60 [facility] Comment on above: Performed By: #### C MP ####[facility] [address] [place] [address]Dr. Jillian Jaime Globulin (S) [Mass/Vol] 4.1 g/dL Normal [facility] Comment on above: Performed By: #### C MP ####[facility] [address] [place] [address]Dr. Jlilian Jaime Glucose [Mass/Vol] 152 mg/dL Critically high 74-106 [facility] Comment on above: Performed By: #### C MP ####[facility] [address] [place] [address]Dr. Jillian Jaime Potassium [Moles/Vol] 3.9 mmol/L Normal 3.5-5.1 [facility] Comment on above: Performed By: #### C MP ####[facility] [address] [place] [address]Dr. Jillian Jaime Protein [Mass/Vol] 7.4 g/dL Normal 6.4-8.2 [facility] Comment on above: Performed By: #### C MP ####[facility] [address] [place] [address]Dr. Jillian Jaime Sodium [Moles/Vol] 140 mmol/L Normal 136-145 [facility] Comment on above: Performed By: #### C MP ####[facility] [address] [place] [address]Dr. Jillian Jaime Urea nitrogen [Mass/Vol] 17.0 mg/dL Normal 7.0-18.0 [facility] Comment on above: Performed By: #### C MP ####[facility] [address] [place] [phone]. Jillian Jaime Urea nitrogen/Creatinine [Mass ratio] 15.3 mg/mg Normal [facility] Comment on above: Performed By: #### C MP ####[facility] [address] [place], [place] [address]CzDr. Jillian Jaime PROTIMEon 04-28-2022 INR Coag (PPP) [Relative time] 1.01 {INR} Normal [facility] Comment on above: Performed By: #### P TT, PT #### [facility] [address] [place], [place] [address] Dr. Jillian Jaime INR GUIDELINES SEE BELOW Normal [facility] Comment on above: Result Comment: ARIANNA RED INR: 2.0 - 3.0 CONDITIONS NOT LISTED BELOW 2.5 - 3.5 FOR PROSTHETIC HEART VALVE REPLACEMENT 2.5 - 3.5 RECURRENT THROMBOSIS Performed By: #### P TT, PT #### [facility] [address] [place] [address] [address] Jillian Jaime PT Coag (PPP) [Time] 10.9 s Normal 9.0-11.6 [facility] Comment on above: Performed By: #### P TT, PT #### [facility] [address] [place] [address] [address] Jillian Jaime PTTon 04-28-2022 aPTT Coag (Bld) [Time] 26.2 s Normal 22.3-36.2 [facility] Comment on above: Performed By: #### P TT, PT #### [facility] [address] [place] [id number] Jillian Jaime Cytologyon 12-25-2021 Cytology (NOTE) INTERPRETATION Cervical material, (ThinPrep vial, Imaging-assisted review): Specimen Adequacy: Satisfactory for evaluation. -Endocervical/transform ation zone component is absent. Descriptive Diagnosis: Negative for intraepithelial lesion or malignancy. 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 [place], [place] [address] Normal [facility] Comment on above: Performed By: #### P PPVP #### [facility] [address] [place], [place] [id number] Security Systems Integrator: Griffin Bonilla MD Covid-19 PCR ([facility])on 11-16 SARS-CoV-2 (COVID-19) RNA FLORENCIA+probe Ql (Unsp spec) Not detected Normal NOT DETECTED [facility] Comment on above: Result Comment: This test is not yet approved or cleared by the [place] FDA. When there are no FDA-approved or cleared tests available, and other criteria are met, FDA can make tests available under an emergency access mechanism called an Emergency Use Authorization (EUA). The EUA for this test is supported by the [place] of Health and Human Service's (HHS's) declaration [...] SARS-CoV-2. Performed By: #### C VDTB #### [facility] [address] [place] [address] Dr. Jillian Jaime SYMPTOMATIC COVID-19 ANTIGEN on 12-04-2021 EUA Statement SEE BELOW Normal [facility] Comment on above: Result Comment: This [...] revoked sooner. Performed By: #### C VDAGS ####[facility] [address] [place], [place] [address]Qm. Jillian Jaime SARS-CoV-2 (COVID-19) RNA FLORENCIA+probe Ql (Unsp spec) Negative Normal NEGATIVE [facility] Comment on above: Performed By: #### C VDAGS ####[facility] [address] [place], [place] [address]Vu. Jillian Jaime Vital Signs Date Time Vital Sign Value Performing Clinician Facility 04-13-2023 13:25-0400 Body height Matilde Carrillo Other [employer] Other 04-13-2023 13:25-0400 Body mass index (BMI) [Ratio] 57.79 kg/m2 Matilde Carrillo Other [employer] Other 04-13-2023 13:25-0400 Body temperature 97.5 [degF] Matilde Carrillo Other [employer] Other 04-13-2023 13:25-0400 Body weight 143.34 kg Matilde Carrillo Other [employer] Other 04-13-2023 13:25-0400 Diastolic blood pressure 96 mm[Hg] Matilde Carrillo Other [employer] Other 04-13-2023 13:25-0400 Respiratory rate 18 /min Matilde Carrillo Other [employer] Other 04-13-2023 13:25-0400 SaO2% (BldA) [Mass fraction] 96 % Matilde Carrillo Other [employer] Other 04-13-2023 13:25-0400 Systolic blood pressure 164 mm[Hg] Matilde Carrillo Other [employer] Other 01-11-2023 14:12-0400 Blood Pressure Location Niall NILL [facility] 01-11-2023 14:12-0400 Diastolic blood pressure 84 mm[Hg] Niall NILL [facility] 01-11-2023 14:12-0400 Heart rate 76 /min Niall NILL [facility] 01-11-2023 14:12-0400 Respiratory rate 16 /min Niall NILL [facility] 01-11-2023 14:12-0400 Systolic blood pressure 124 mm[Hg] Niall NILL [facility] Encounters Encounter Date Encounter Type Care Provider Facility Start: 04-16-2024 End: 04-16-2024 [facility] Start: 04-13-2023 End: 04-13-2023 ambulatory Matilde Carrillo Facility:[facility] Start: 04-13-2023 End: 04-13-2023 Patient encounter procedure [employer]C Matilde Carrillo Work Phone: [facility] Work Phone: Start: 04-13-2023 End: 04-13-2023 ambulatory [employer] Matilde Carrillo Work Phone: [facility] Work Phone: Start: 04-13-2023 Office outpatient ne w 20 minutes Matilde Carrillo [facility] Start: 02-08-2023 ambulatory Niall R NILL Facility :[facility] Start: 02-01-2023 End: 02-02-2023 ambulatory Niall R [...] Start: 12-25-2021 End: 12-26-2021 ambulatory [facility] [facility] Start: 12-25-2021 End: 12-25-2021 Patient encounter status Paulette Santana MD Work Phone: [facility] Start: 12-25-2021 End: 12-25-2021 Subsequent hospital visit by physician Paulette Santana MD Work Phone: [facility] Comment on above: Encounter for gyneco logical examination Start: 12-04-2021 End: 12-04-[address] PAULETTE SANTANA . Facility: Procedures Date Procedure Procedure Detail Performing Clinician Start: 04-13-2023 X-ray of right knee [employer]- C Matilde Carrillo Work Phone: Benign neoplasm of f sheldon (disorder) Niall GOMEZValerie Excision of ganglion of wrist, recurrent Niall SAIMA Ligation of fallopian tube Jose GOMEZValerie Reduction mammoplasty Shine doan SAIMA Plan of Treatment Date Care Activity Detail Author Start: 03-18-2022 Influenza vaccination Flu vacc ine (Season Ended) [facility] Start: 2019 Screening for malign ant neoplasm of breast Breast cancer screen [facility] Start: 2014 Screening for malign ant neoplasm of colon [facility] [employer] Start: 2009 Lipid panel Lipids [facility] [employer] Start: 1999 Screening for malign ant neoplasm of cervix [facility] [employer] Start: 1990 Screening for malign ant neoplasm of cervix Pap smear [facility] [employer] Start: 1988 DTaP/Tdap/Td vaccine (1 - Tdap) DTaP/Tdap/Td vaccine (1 - Tdap) [facility] [employer] Start: 1987 Hepatitis C screening Hepatitis C sc reen [facility] [employer] Start: 1984 HIV screening HIV screen [facility] [employer] Start: 1981 Depression Screen Depression Screen [facility] [employer] Start: 1974 COVID-19 Vaccine (1) COVID-19 Vaccin e (1) [facility] [employer] End: 12-25-2021 Cytopathology procedure, preparation of smear, genital source [facility] Routine Encounter for gynecological examination 1 Occurrences starting 12/25/2021 until 12/25/2021 [facility] [employer] Work Phone: Comment on above: 1 Occurrences starti ng 12/25/2021 until 12/25/2021 Immunizations Immunization Date Immunization Notes Care Provider Jennie garvey 05-10-2022 influenza virus vaccine, unspecified formulation Niall RUSSELL [facility] 12-17-2021 SARS-CoV-2 (COVID-19 ) mRNA-1273 vaccine Niall NILL [facility] 08-14-2021 SARS-CoV-2 (COVID-19 ) mRNA-1273 vaccine Niall NILL [facility] 01-04-2021 SARS-CoV-2 (COVID-19 ) mRNA-1273 vaccine Niall NILL [facility] 12-07-2020 SARS-CoV-2 (COVID-19 ) mRNA-1273 vaccine Niall NILL [facility] 04-17-2020 influenza virus vaccine, unspecified formulation Niall NILL [facility] Payers Date Payer Category Payer Unknown 2023 Self-pay 1970 Unknown [id number] 2.16.8 [id number] 1969 Unknown [id number] 2.16.84 0.1.051670.3.579.2.593 1969 Unknown [id number] 2.16.84 0.1.784125.3.579.2.593 1969 Unknown [id number] 2.16.84 0.1.530929.3.579.2.593 1969 Unknown [id number] 2.16.84 0.1.399280.3.579.2.593 1969 Unknown [id number] 2.16.84 0.1.617834.3.579.2.593 1969 Unknown [id number] 2.16.84 0.1.361050.3.579.2.593 1969 Unknown [id number] 2.16.84 0.1.306801.3.579.2.593 1969 Unknown [id number] 2.16.84 0.1.103686.3.579.2.593 1969 Unknown [id number] 2.16.84 0.1.081034.3.579.2.593 1969 Unknown [id number] 2.16.84 0.1.796995.3.579.2.593 1969 Unknown [id number] 2.16.8 40.1.003965.3.579.2.727 1969 Unknown [id number] 2.16.8 40.1.134459.3.579.2.727 1969 Unknown [id number] 2.16.8 40.1.778743.3.579.2.727 1969 Unknown [id number] 2.16. 840.1.696867.3.579.2.196 1959 Unknown [id number] 1. [id number] Unknown [id number] 2.16.8 40.1.774564.3.579.2.531 Social History Date Type Detail Facility Start: 12-25-2021 End: 01-11-2023 Tobacco smoking status IDIS Ex-smoker [employer] Start: 12-25-2021 Cigarettes smoked current (pack per day) - Reported 1 [employer] Phone: Start: 12-25-2021 Tobacco use and exposure Smokeless tobacco non-user [employer] Phone: Start: 12-25-2021 Alcohol intake Ex-drinker (finding) [employer] Phone: Start: 1970 Sex Assigned At Not on file B [facility] Phone: Tobacco smoking status Never [facility] Sex Assigned At Female [facility] Start: 1970 Sex Assigned At Female [facility] Functional Status Date Assessment Result Facility 01-11-2023 [...] the ER for worsening symptoms or concerns [employer] Other 06-27-2023 NoteChief Complaint consultation for nevus [...] 12/07/2020 Recorded influenza virus vaccine, inactivated 04/17/2020 [facility]:Result Comment: Electronically Signed By: SAIMA MCQUEEN, Niall Collier\Date and Time Signed: 01/11/23 14:31 [id number] NotePROCEDURE: XR KNEE RT 3V DATE: 11/01/2022 [...] Electronically authenticated by: JODI WEBER Date: 2022-11-01 12:17[facility]12-30-2022 NotePROCEDURE: XR HAND LT MIN 3V COMPARISON: [...] Electronically authenticated by: ADELAIDA LAO Date: 2022-07-16 07:43[facility]12-16-2022 NotePROCEDURE: XR FINGER MIN 2 VIEWS HISTORY: [...] Electronically authenticated by: ASHOK GRIER Date: 2022-07-02 17:45[facility]12-16-2022 NotePROCEDURE: XR HAND LT MIN 3V HISTORY: [...] Electronically authenticated by: ASHOK GRIER Date: 2022-07-02 17:43[facility]08-09-2022 NotePROCEDURE: XR KNEE RT 4V or > COMPARISON: None. HISTORY: Pain of right knee joint FINDINGS: BONES:No acute fracture or dislocation. Moderate osteoarthropathy and marginal osteophyte formation. SOFT TISSUES:Negative. No visible soft tissue swelling. EFFUSION:None visible. OTHER: Negative. IMPRESSION: Moderate tricompartmental osteoarthritis Electronically authenticated by: ADELAIDA LAO Date: 2022-02-23 19:01[facility]ments Appointment Date:02/01/2023 02:00:00 PM Scheduled Provider:Niall RUSSELL MD Location:[facility] Appointment Type: Procedure 30 [facility] Evaluation note* Diagnosis Encounter for gynecological examination documented in this encounter [facility] Work Phone: evaluation noteNo assessment information available [facility] Work Phone: Hiszwcl general Narrative - Reported* Type Description Date Medical History hypertension Medical History depression Medical History Hypothyroid Surgical History breast reduction Surgical History cyst removal, wrist Surgical History tubal ligation Hospitalization History see above [employer] Other Hospital course Narrative No data available for this section [facility] Discharge instructions No data available for this section [facility] Progress note No data available for this section [facility] Summary Purpose Family History No Family History Records FoundNo Family History Records FoundNo Family History Records FoundNo Family History Records FoundNo Family History Records Found Advance Directives No Advanced Directives Records FoundNo Advanced Directives Records FoundNo Advanced Directives Records FoundNo Advanced Directives Records FoundNo Advanced Directives Records Found Additional Source Comments Care Teams (unrecognized sec tion and content) 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 Relationship Specialty Start Date End Date Paulette Santana MD [address] [phone] PCP - General Family Medicine 12/25/21 Team Status: Inactive Member Role Status Dates DERREK Sanchez Attending Provider Active INFORMATION SOURCE (unrecogn ized section and content) DATE CREATED AUTHOR [facility]/01/2022 [facility] DATE CREATED AUTHOR AUTHOR'S ORGANIZ ATION 11/07/2022 [facility] DATE CREATED AUTHOR AUTHOR'S ORGANIZ ATION 02/02/2023 [facility] DATE CREATED AUTHOR AUTHOR'S ORGANIZ ATION 04/21/2023 [facility] DATE CREATED AUTHOR AUTHOR'S ORGANIZ ATION 04/20/2024 [facility] Goals (unrecognized section and content) Goals may [...] BE BASED ON THE PRIMARY CLINICAL RECORDS. [facility] [employer] [facility]. provides no warranty or guarantee of the accuracy or completeness of information in this document.
[2024-08-23 15:00] LABS: Lactate/Lactic Acid 1.3 mmol/L (0.4-2.0)
[2024-08-23] MEDS: VANCOMYCIN HCL 1,000 MG in 0.9 % SODIUM CHLORIDE 250 ML 250 MG IV (15:46)
--- OUTSIDE RECORDS SUMMARY | 2024-08-23 16:24 | XMS_ITS | CCD ---
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 Name Role Phone Paulette Santana MD Primary Care Provider [phone] JUAN BATISTA Referring Unavailable PAULETTE SANTANA [...] RUSSELL Attending Unavailable DERREK Carrillo Attending Provider [phone] Matilde Carrillo Unavailable Matilde Carrillo Attending Unavailable [...] 10/06/20 Status: Ordered take 1 capsule by [facility] every eight hours Diclofenac 35 MG 1 capsule as needed Ora lly Three times a day Active levothyroxine sodium 0.05 mg oral tablet (2 sources) l-Thyroxine Start: 12-29-2022 take 1 tablet by mouth once daily levothyroxine 50 mcg (0.05 mg) Tab 50 mcg = 1 tab(s), Oral, Daily, Refills(s) 0 Start Date: 12/29/22 Status: Ordered take 1 tablet by [facility] once daily in the morning Levothyroxine Sodium [...] Start: 10-06-2020 take 2 tablets by mo [facility] once daily at bedtime mirtazapine [...] 2 Episodic Other aftercare (1 source) 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; Translations: [OTH [facility] CURRENT DRUG THERAPY] Onset: 2 Episodic Other [...] RT 4V*on 04-13-2023 XR knee RT 4V* [facility] [place] [address] XRay Report Signed Patient: Fred Qureshi MR#: [id number] : 1970 Acct:[id number] Age/Sex: 52 / F ADM Date: 04/13/23 Loc: XDUC Room: Type: [facility] Attending Dr: Matilde ANGLIN Copies to: [...] Jose Moran M.D.04/13/2023 2:33 PM Dictation Location: [place] [address] Transcribed By: [facility] 04/13/23 143 Dictated By: Jose Moran DO 04/13/23 1432 Signed By: 04/13/23 143 [facility] XR knee RT 4V* [facility] [employer] Other XR knee RT 4V* [facility] Main [facility] [employer] Other XR knee RT 4V* [address] [facility] [employer] Other XR knee RT 4V* [place] [address] No rt [employer] Other XR knee RT 4V* XRay Report [employer] Other XR knee RT 4V* Signed [employer] Other XR knee RT 4V* Patient: Sampson Qureshi MR#: [id number] [place] [employer] Other XR knee RT 4V* 5905 [employer] Other XR knee RT 4V* : 1970 Acct:[id number] [employer] Other XR knee RT 4V* Age/Sex: 52 / F ADM Date: 04/13/23 [employer] Other XR knee RT 4V* Loc: XDUCLY [facility] [employer] Other XR knee RT 4V* Attending Dr: Matilde ANGLIN [employer] Other XR knee RT 4V* Copies to: DERREK Head [employer] Other XR knee RT 4V* Ordering Provider: DERREK Head [employer] Other XR knee RT 4V* Date of Service: 04/13/23 [employer] Other XR knee RT 4V* XR/XR knee RT 4V*: Acute pain of right knee [employer] Other XR knee RT 4V* 4 views right knee plain film [employer] Other XR knee RT 4V* COMPARISON: None Nort [employer] Other XR knee RT 4V* HISTORY: Right knee injury. Superior patellar pain. [employer] Other XR knee RT 4V* ACUTE FINDINGS: None [employer] Other XR knee RT 4V* DEGENERATIVE CHANGE: Moderate degeneration. [employer] Other XR knee RT 4V* SOFT TISSUE FINDINGS : Unremarkable [employer] Other XR knee RT 4V* JOINT EFFUSION: None [employer] Other XR knee RT 4V* POSTOP CHANGES: None [employer] Other XR knee RT 4V* BONE MINERALIZATION: Adequate [employer] Other XR knee RT 4V* XR/XR knee RT 4V* [employer] Other XR knee RT 4V* IMPRESSION: No acute findings [employer] Other XR knee RT 4V* Impression dictated by: Jose Moran M.D.04/13/2023 2:33 PM [employer] Other XR knee RT 4V* Dictation Location: [place] [address] [employer] Other XR knee RT 4V* Transcribed By: [facility] 04/13/23 [facility] [employer] Other XR knee RT 4V* Dictated By: Jose Moran DO 04/13/23 [facility] [employer] Other XR knee RT 4V* Signed By: [employer] Other XR knee RT 4V* 04/13/23 [facility]3 [employer] Other Ambulatory Visit Summaryon 0 02-01-2023 Ambulatory [...] General Surgery Saima/Roberta Martinez [facility] General Surgery Office/Clini c Noteon 02-01-2023 [...] Recorded influenza virus vaccine, inactivated 04/17/2020 Recorded [facility] Comment on above: Result Comment: Elec tronically Signed By: SAIMA MCQUEEN, Niall Tucker\.br\Date and Time Signed: 02/01/23 14:23 EDT Pre-Certification Formon Pre-Certification Form [id number] CD:127 [facility] Facesheeton 01-12-2023 Facesheet [id number] D:127 [facility] Ambulatory Visit Summaryon 0 01-11-2023 [...] Nevus Pituitary adenoma Normal [facility] Physician Referralon 023 Physician Referral [id number] D:[address] [facility] MG MAMM SCREEN 3D HAYDEE CADon 03-21-2023 MG MAMM SCREEN 3D HAYDEE CAD Patient: FRED QURESHI Exam Date: 10/05/2022 : 1970 Gender:F Ordering : DR PAULETTE SANTANA . Admission #: [id number] Family : Order #: [id number] CLICK HERE TO VIEW EXAM RADIOLOGY REPORT [...] Treatments None Family Cancers None LOCATION: [facility] BREAST COMPOSITION: Scattered areas fibroglandular density. [...] M.D. on 10/05/2022 at 16:12 Normal [facility] FREE T3on 09-21-2022 FREE T3 2.22 pg/mlL Normal 2.18-3.98 [facility] Comment on above: Performed By: #### F T3, T4, TSH ####[facility] [address] [place], [place] [address]Hp. Jillian Jaime T4on 09-21-2022 T4 [Mass/Vol] 5.50 ug/dL Normal 4.80-13.90 [facility] Comment on above: Performed By: #### F T3, T4, TSH ####[facility] [address] [place], [place] [address]Aq. Jillian Jaime TSHon 09-21-2022 TSH 0.782 uIU/mL Normal 0.358-3.740 [facility] Comment on above: Performed By: #### F T3, T4, TSH ####[facility] [address] [place], [place] [address]Aa. Jillian Jaime Covid-19 PCR ([facility])on SARS-CoV-2 (COVID-19) RNA FLORENCIA+probe Ql (Unsp spec) Not detected Normal NOT DETECTED [facility] Comment on above: Result Comment: When [...] for this test is supported by the [place] of Health and Human Service's declaration that [...] be used). Performed By: #### C VDTB ####[facility] [address] [place], [place] [address]Jt. Jillian Jaime XR WRIST LT MIN 3 Von 2021 XR WRIST LT MIN 3 V EXAM: XR WRIST LT NJ N 3 V HISTORY: Unspecified fall , [...] ESSENCE MONTEMAYOR Date: 2022-07-02 17:36 Normal [facility] CBC AUTO DIFFon 04-28-2022 BASO # 0.0 103/ul Normal 0.0-0.1 [facility] Comment on above: Performed By: #### C BC ####[facility] [address] [place] [address]Dr. Jillian Jaime Basophils/100 WBC (Bld) 0.3 % Normal 0.2-2.0 [facility] Comment on above: Performed By: #### C BC ####[facility] [address] [place], [place] [address]Dr. Jillian Jaime EO # 0.1 103/ul Normal 0.0-0.7 [facility] Comment on above: Performed By: #### C BC ####[facility] [address] [place], [place] [address]Dr. Jillian Jaime Eosinophils/100 WBC (Bld) 1.3 % Normal 0.9-7.0 [facility] Comment on above: Performed By: #### C BC ####[facility] [address] [place] [address]Dr. Jillian Jaime Erythrocyte distribution width (RBC) [Ratio] 13.4 % Normal 11.0-15.0 [facility] Comment on above: Performed By: #### C BC ####[facility] [address] [place] [address]Dr. Britneyglenroy Jaime Hematocrit (Bld) [Volume fraction] 43.0 % Normal 36.0-48.0 [facility] Comment on above: Performed By: #### C BC ####[facility] [address] [place] [address]Dr. Jillian Jaime Hemoglobin (Bld) [Mass/Vol] 13.5 g/dL Normal 12.0-16.0 [facility] Comment on above: Performed By: #### C BC ####[facility] [address] [place] [address]Dr. Jillian Jaime IG # 0.05 10e3/ul Critically high 0.00-0.03 [facility] Comment on above: Performed By: #### C BC ####[facility] [address] [place] [address]Dr. Jillian Jaime IG % 0.5 % Normal 0.0-0.5 [facility] Comment on above: Performed By: #### C BC ####[facility] [address] [place] [address]Dr. Jillian Jaime LYMPH # 1.8 103/ul Normal 1.2-3.8 [facility] Comment on above: Performed By: #### C BC ####[facility] [address] [place], [place] [address]Dr. Jillian Jaime Lymphocytes/100 WBC (Bld) 18.3 % Critically low 20.5-60.0 [facility] Comment on above: Performed By: #### C BC ####[facility] [address] [place] [address]Dr. Jillian Jaime MANUAL DIFF REQ NO Normal [facility] Comment on above: Performed By: #### C BC ####[facility] [address] [place], [place] [address]Dr. Jillian Jaime MCH (RBC) [Entitic mass] 29.0 pg Normal 26.7-34.0 [facility] Comment on above: Performed By: #### C BC ####[facility] [address] [place], [place] [address]Dr. Jillian Jaime MCHC (RBC) [Mass/Vol] 31.4 g/dL Normal 29.9-35.2 [facility] Comment on above: Performed By: #### C BC ####[facility] [address] [place] [address]Dr. Jillian Jaime MCV (RBC) [Entitic vol] 92.5 fL Normal 81.0-99.0 [facility] Comment on above: Performed By: #### C BC ####[facility] [address] [place] [address]Dr. Jillian Jaime MONO # 0.5 103/ul Normal 0.3-0.8 [facility] Comment on above: Performed By: #### C BC ####[facility] [address] [place] [address]Dr. Jillian Jaime Monocytes/100 WBC (Bld) 5.1 % Normal 1.7-12.0 [facility] Comment on above: Performed By: #### C BC ####[facility] [address] [place] [address]Dr. Jillian Jaime NEUT # 7.2 103/ul Critically high 1.4-6.5 [facility] Comment on above: Performed By: #### C BC ####[facility] [address] [place], [place] [address]Dr. Jillian Jaime Neutrophils/100 WBC (Bld) 74.5 % Normal 43.0-75.0 [facility] Comment on above: Performed By: #### C BC ####[facility] [address] [place] [address]Dr. Jillian Jaime Platelet mean volume (Bld) [Entitic vol] 8.2 fL Critically low 9.5-13.5 [facility] Comment on above: Performed By: #### C BC ####[facility] [address] [place] [address]Dr. Jillian Jaime PLT 304 103/ul Normal 150-450 [facility] Comment on above: Performed By: #### C BC ####[facility] [address] [place], [place] [address]Dr. Jillian Addison RBC 4.65 106/ul Normal 4.20-5.40 [facility] Comment on above: Performed By: #### C BC ####[facility] [address] [place] [address]DrAaron Jaime WBC 9.7 103/ul Normal 4.0-11.0 [facility] Comment on above: Performed By: #### C BC ####[facility] [address] [place] [id number]. Jillian Jaime GLYCOHEMOGLOBIN A1Con 2021 ADA RECOMMENDATION SEE BELOW Normal [facility] Comment on above: Result Comment: ADA RECOMMENDED LIMIT 4.0 - 6.0 ADA THERAPEUTIC TARGET < 7.0 ACTION SUGGESTED > 7.0 Performed By: #### A 1C #### [facility] [address] [place] [address] [address] Jillian Jaime Glucose [Mass/Vol] 114 mg/dL Normal [facility] Comment on above: Performed By: #### A 1C #### [facility] [address] [place] [address] [address] Jillian Jaime HbA1c (Bld) [Mass fraction] 5.6 % Normal 4.5-6.2 [facility] Comment on above: Performed By: #### A 1C #### [facility] [address] [place] [address] [address] Jillian Jaime PROF 14(COMP METB)on 022 Albumin [Mass/Vol] 3.3 g/dL Critically low 3.4-5.0 Th [facility] Comment on above: Performed By: #### C MP ####[facility] [address] [place] [address]Dr. Jillian Jaime Albumin/Globulin [Mass ratio] 0.8 {ratio} Normal [facility] Comment on above: Performed By: #### C MP ####[facility] [address] [place] [address]DrAaron Jaime ALP [Catalytic activity/Vol] 155 U/L Critically high 46-116 [facility] Comment on above: Performed By: #### C MP ####[facility] [address] [place] [address]DrAaron Jaime ALT [Catalytic activity/Vol] 27 U/L Normal 14-59 [facility] Comment on above: Performed By: #### C MP ####[facility] [address] [place] [address]Dr. Jillian Jaime Anion gap [Moles/Vol] 9.5 mmol/L Normal [facility] Comment on above: Performed By: #### C MP ####[facility] [address] [place] [address]Dr. Jillian Jaime AST [Catalytic activity/Vol] 11 U/L Critically low 15-37 [facility] Comment on above: Performed By: #### C MP ####[facility] [address] [place] [address]Dr. Jillian Jaime Bilirubin [Mass/Vol] 0.3 mg/dL Normal 0.2-1.0 [facility] Comment on above: Performed By: #### C MP ####[facility] [address] [place], [place] [address]Dr. Jillian Jaime Calcium [Mass/Vol] 9.2 mg/dL Normal 8.5-10.1 [facility] Comment on above: Performed By: #### C MP ####[facility] [address] [place], [place] [address]Dr. Jillian Jaime Chloride [Moles/Vol] 104 mmol/L Normal 98-107 [facility] Comment on above: Performed By: #### C MP ####[facility] [address] [place], [place] [address]Dr. Jillian Jaime CO2 [Moles/Vol] 30.4 mmol/L Normal 21.0-32.0 [facility] Comment on above: Performed By: #### C MP ####[facility] [address] [place], [place] [address]Dr. Jillian Jaime Creatinine [Mass/Vol] 1.11 mg/dL Critically high 0.55-1.02 [facility] Comment on above: Performed By: #### C MP ####[facility] [address] [place], [place] [address]Dr. Jillian Addison EGFR-AF P[place] >60 Normal >=60 [facility] Comment on above: Performed By: #### C MP ####[facility] [address] [place] [address]Dr. Jillian Jaime EGFR-NON AF [place] 52 mL/min/1.73m2 Critically low >=60 [facility] Comment on above: Performed By: #### C MP ####[facility] [address] [place] [address]Dr. Jillian Jaime Globulin (S) [Mass/Vol] 4.1 g/dL Normal [facility] Comment on above: Performed By: #### C MP ####[facility] [address] [place] [address]Dr. Jillian Jaime Glucose [Mass/Vol] 152 mg/dL Critically high 74-106 [facility] Comment on above: Performed By: #### C MP ####[facility] [address] [place] [address]Dr. Jillian Jaime Potassium [Moles/Vol] 3.9 mmol/L Normal 3.5-5.1 [facility] Comment on above: Performed By: #### C MP ####[facility] [address] [place] [address]Dr. Jillian Jaime Protein [Mass/Vol] 7.4 g/dL Normal 6.4-8.2 [facility] Comment on above: Performed By: #### C MP ####[facility] [address] [place] [address]Dr. Jillian Jaime Sodium [Moles/Vol] 140 mmol/L Normal 136-145 [facility] Comment on above: Performed By: #### C MP ####[facility] [address] [place] [address]Dr. Jillian Jaime Urea nitrogen [Mass/Vol] 17.0 mg/dL Normal 7.0-18.0 [facility] Comment on above: Performed By: #### C MP ####[facility] [address] [place] [address]Dr. Jillian Jaime Urea nitrogen/Creatinine [Mass ratio] 15.3 mg/mg Normal [facility] Comment on above: Performed By: #### C MP ####[facility] [address] [place], [place] [address]ZzDr. Jillian Jaime PROTIMEon 04-28-2022 INR Coag (PPP) [Relative time] 1.01 {INR} Normal [facility] Comment on above: Performed By: #### P TT, PT #### [facility] [address] [place], [place] [address] Dr. Jillian Jaime INR GUIDELINES SEE BELOW Normal [facility] Comment on above: Result Comment: ARIANNA RED INR: 2.0 - 3.0 CONDITIONS NOT LISTED BELOW 2.5 - 3.5 FOR PROSTHETIC HEART VALVE REPLACEMENT 2.5 - 3.5 RECURRENT THROMBOSIS Performed By: #### P TT, PT #### [facility] [address] [place] [address] [address] Jillian Jaime PT Coag (PPP) [Time] 10.9 s Normal 9.0-11.6 [facility] Comment on above: Performed By: #### P TT, PT #### [facility] [address] [place] [address] [address] Jillian Jaime PTTon 04-28-2022 aPTT Coag (Bld) [Time] 26.2 s Normal 22.3-36.2 [facility] Comment on above: Performed By: #### P TT, PT #### [facility] [address] [place] [id number] Jillian Jaime Cytologyon 12-25-2021 Cytology (NOTE) INTERPRETATION Cervical material, (ThinPrep vial, Imaging-assisted review): Specimen Adequacy: Satisfactory for evaluation. -Endocervical/transform ation zone component is absent. Descriptive Diagnosis: Negative for intraepithelial lesion or malignancy. Special Procedures Nurse: SILVIA VERDUGO(ASCP) Electronically Signed Out /12/31/2021 Source: A: Cervical material, (ThinPrep vial, Imaging-assisted review) Clinical History Z01.419 Routine palliative care coordinator exam without abnormal findings High risk HPV DNA testing is requested if the diagnosis is abnormal GYNECOLOGIC CYTOLOGY REPORT Patient Name: FRED QURESHI [facility] Rec: [id number] Path Number: [id number] [facility] ANATOMIC PATHOLOGY [address] [place] [address]. [place], [place] [address] Normal [facility] Comment on above: Performed By: #### P PPVP #### [facility] [address] [place], [place] [id number] [employer]ir[employer] Model: Griffin Bonilla MD Covid-19 PCR ([facility])on 11-16 SARS-CoV-2 (COVID-19) RNA FLORENCIA+probe Ql (Unsp spec) Not detected Normal NOT DETECTED [facility] Comment on above: Result Comment: This test is not yet approved or cleared by the [place] FDA. When there are no FDA-approved or cleared tests available, and other criteria are met, FDA can make tests available under an emergency access mechanism called an Emergency Use Authorization (EUA). The EUA for this test is supported by the [place] of Health and Human Service's (HHS's) declaration [...] SARS-CoV-2. Performed By: #### C VDTB #### [facility] [address] [place] [address] Dr. Jillian Jaime SYMPTOMATIC COVID-19 ANTIGEN on 12-04-2021 EUA Statement SEE BELOW Normal [facility] Comment on above: Result Comment: This [...] revoked sooner. Performed By: #### C VDAGS ####[facility] [address] [place], [place] [address]Ac. Jillian Jaime SARS-CoV-2 (COVID-19) RNA FLORENCIA+probe Ql (Unsp spec) Negative Normal NEGATIVE [facility] Comment on above: Performed By: #### C VDAGS ####[facility] [address] [place], [place] [address]Ra. Jillian Jaime Vital Signs Date Time Vital Sign Value Performing Clinician Facility 04-13-2023 13:25-0400 Body height Matilde Carrillo Other [facility] [employer] Other 04-13-2023 13:25-0400 Body mass index (BMI) [Ratio] 57.79 kg/m2 Matilde Carrillo Other [facility] [employer] Other 04-13-2023 13:25-0400 Body temperature 97.5 [degF] Matilde Carrillo Other [facility] Other 04-13-2023 13:25-0400 Body weight 143.34 kg Matilde Carrillo Other [facility] [employer] Other 04-13-2023 13:25-0400 Diastolic blood pressure 96 mm[Hg] Matilde Carrillo Other [facility] [employer] Other 04-13-2023 13:25-0400 Respiratory rate 18 /min Matilde Carrillo Other [facility] [employer] Other 04-13-2023 13:25-0400 SaO2% (BldA) [Mass fraction] 96 % Matilde Carrillo Other [facility] [employer] Other 04-13-2023 13:25-0400 Systolic blood pressure 164 mm[Hg] Matilde Carrillo Other [facility] [employer] Other 01-11-2023 14:12-0400 Blood Pressure Location Niall NILL [facility] [place] 01-11-2023 14:12-0400 Diastolic blood pressure 84 mm[Hg] Niall NILL [facility] [place] 01-11-2023 14:12-0400 Heart rate 76 /min Niall NILL [facility] [place] 01-11-2023 14:12-0400 Respiratory rate 16 /min Niall NILL [facility] [place] 01-11-2023 14:12-0400 Systolic blood pressure 124 mm[Hg] Niall NILL [facility] Encounters Encounter Date Encounter Type Care Provider Facility Start: 04-16-2024 End: 04-16-2024 [facility] Start: 04-13-2023 End: 04-13-2023 ambulatory Matilde Carrillo Facility:[facility] Start: 04-13-2023 End: 04-13-2023 Patient encounter procedure DELIVERY TABLE OPERATOR-C Matilde Carrillo Work Phone: [facility] Work Phone: Start: 04-13-2023 End: 04-13-2023 ambulatory DELIVERY TABLE OPERATOR-C Matilde Carrillo Work Phone: [facility] Work Phone: Start: 04-13-2023 Office outpatient ne w 20 minutes Matilde Carrillo [facility] Start: 02-08-2023 ambulatory Niall R NILL Facility :[facility] Start: 02-01-2023 End: 02-02-2023 ambulatory Niall [...] JUAN BATISTA [facility] Start: 12-25-2021 End: 12-25-2021 Patient encounter status Paulette Santana MD Work Phone: [facility] Start: 12-25-2021 End: 12-25-2021 Subsequent hospital visit by physician Paulette Santana MD Work Phone: [facility] Comment on above: Encounter for gyneco logical examination Start: 12-04-2021 End: 12-04-[address] PAULETTE SANTANA . Facility: Procedures Date Procedure Procedure Detail Performing Clinician Start: 04-13-2023 X-ray of right knee DELIVERY TABLE OPERATOR- C Matilde Carrillo Work Phone: Benign neoplasm of f sheldon (disorder) Niall GOMEZValerie Excision of ganglion of wrist, recurrent Niall SAIMA Ligation of fallopian tube Jose GOMEZValerie Reduction mammoplasty Shine doan SAIMA Plan of Treatment Date Care Activity Detail Author Start: 03-18-2022 Influenza vaccination Flu vacc ine (Season Ended[facility] Start: 2019 Screening for malign ant neoplasm of breast Breast [facility] Start: 2014 Screening for malign ant neoplasm of colon [facility] [employer] Start: 2009 Lipid panel Lipids [facility] [employer] Start: 1999 Screening for malign ant neoplasm of cervix [facility] [employer] Start: 1990 Screening for malign ant neoplasm of cervix Pap smear [facility] [employer] Start: 1988 DTaP/Tdap/Td vaccine (1 - Tdap) DTaP/Tdap/Td vaccine (1 - Tdap) [facility] [employer] Start: 1987 Hepatitis C screening Hepatitis C sc reen [facility] [employer] Start: 1984 HIV screening HIV screen [facility] [employer] Start: 1981 Depression Screen Depression Screen [facility] [employer] Start: 1974 COVID-19 Vaccine (1) COVID-19 [facility]in e (1) [facility] End: 12-25-2021 Cytopathology procedure, preparation of smear, genital source [facility] Lab Routine Encounter for gynecological examination 1 Occurrences starting 12/25/2021 until 12/25/2021 [facility] [employer] Work Phone: Comment on above: 1 Occurrences starti ng 12/25/2021 until 12/25/2021 Immunizations Immunization Date Immunization Notes Care Provider Jennie garvey 05-10-2022 influenza virus vaccine, unspecified formulation Niall RUSSELL [facility] [place] 12-17-2021 SARS-CoV-2 (COVID-19 ) mRNA-1273 vaccine Niall NILL [facility] 08-14-2021 SARS-CoV-2 (COVID-19 ) mRNA-1273 vaccine Niall NILL [facility] 01-04-2021 SARS-CoV-2 (COVID-19 ) mRNA-1273 vaccine Niall NILL [facility] 12-07-2020 SARS-CoV-2 (COVID-19 ) mRNA-1273 vaccine Niall NILL [facility] 04-17-2020 influenza virus vaccine, unspecified formulation Niall NILL [facility] [place] Payers Date Payer Category Payer Unknown 2023 Self-pay 1970 Unknown [id number] 2.16.8 [id number] 1970 Unknown [id number] 2.16.84 [id number] 1970 Unknown [id number] 2.16.84 0.1.962278.3.579.2.593 1970 Unknown [id number] 2.16.84 0.1.704293.3.579.2.593 1970 Unknown [id number] 2.16.84 0.1.953916.3.579.2.593 1970 Unknown [id number] 2.16.84 0.1.264380.3.579.2.593 1970 Unknown [id number] 2.16.84 0.1.025667.3.579.2.593 1970 Unknown [id number] 2.16.84 0.1.785434.3.579.2.593 1970 Unknown [id number] 2.16.84 0.1.223474.3.579.2.593 1970 Unknown [id number] 2.16.84 0.1.676328.3.579.2.593 1970 Unknown [id number] 2.16.84 0.1.616017.3.579.2.593 1970 Unknown [id number] 2.16.8 40.1.923044.3.579.2.727 1970 Unknown [id number] 2.16.8 40.1.486727.3.579.2.727 1970 Unknown [id number] 2.16.8 40.1.123623.3.579.2.727 1970 Unknown [id number] 2.16. 840.1.044723.3.579.2.196 1959 Unknown [id number] 1. [id number] Unknown [id number] 2.16.8 40.1.131328.3.579.2.531 Social History Date Type Detail Facility Start: 12-25-2021 End: 01-11-2023 Tobacco smoking status NMIS Ex-smoker [employer] Start: 12-25-2021 Cigarettes smoked current (pack per day) - Reported 1 [facility] Phone: Start: 12-25-2021 Tobacco use and exposure Smokeless tobacco non-user [employer] Phone: Start: 12-25-2021 Alcohol intake Ex-drinker (finding) [employer] Phone: Start: 1970 Sex Assigned At Not on file B ON [employer] Phone: Tobacco smoking status Never [facility] [place] Sex Assigned At Female [facility] Start: 1970 Sex Assigned At Female [facility] Functional Status Date Assessment Result [...] the ER for worsening symptoms or concerns [facility] Other 06-27-2023 NoteChief Complaint consultation for nevus [...] virus vaccine, inactivated 04/17/[address] [facility] on above:Result Comment: Electronically Signed By: SAIMA MCQUEEN, Niall Collier\Date and Time Signed: 01/11/23 14:31 [id number] NotePROCEDURE: XR KNEE RT 3V DATE: 11/01/2022 [...] on these images.. Electronically authenticated by: JODI WEBRE Date: 2022-11-01 12:17[facility]12-30-2022 NotePROCEDURE: XR HAND LT MIN 3V [...] Electronically authenticated by: ADELAIDA LAO Date: 2022-07-16 07:43[facility]12-16-2022 NotePROCEDURE: XR FINGER MIN 2 VIEWS [...] Electronically authenticated by: ASHOK GRIER Date: 2022-07-02 17:45[facility]12-16-2022 NotePROCEDURE: XR HAND LT MIN 3V [...] Electronically authenticated by: ASHOK GRIER Date: 2022-07-02 17:43[facility]08-09-2022 NotePROCEDURE: XR KNEE RT 4V or > COMPARISON: None. HISTORY: Pain of right knee joint FINDINGS: BONES:No acute fracture or dislocation. Moderate osteoarthropathy and marginal osteophyte formation. SOFT TISSUES:Negative. No visible soft tissue swelling. EFFUSION:None visible. OTHER: Negative. IMPRESSION: Moderate tricompartmental osteoarthritis Electronically authenticated by: ADELAIDA LAO Date: 2022-02-23 19:01[facility] [place] [facility] Future Appointments Appointment Date:02/01/2023 02:00:00 PM Scheduled Provider:Niall RUSSELL MD Location:[facility] Appointment Type: Procedure 30 [facility] [place] Evaluation note* Diagnosis Encounter for gynecological examination documented in this encounter [facility] Work Phone: evaluation noteNo assessment information available [facility] Work Phone: Histbzk general Narrative - Reported* Type Description Date Medical History hypertension Medical History depression Medical History Hypothyroid Surgical History breast reduction Surgical History cyst removal, wrist Surgical History tubal ligation Hospitalization History see above [facility] Other Hospital course Narrative No data available for this section [facility] [place] [facility] Discharge instructions No data available for this section [facility] [place] Progress note No data available for this section [facility] [place] Summary Purpose Family History No Family History Records FoundNo Family History Records FoundNo Family History Records FoundNo Family History Records FoundNo Family History Records Found Advance Directives No Advanced Directives Records FoundNo Advanced Directives Records FoundNo Advanced Directives Records FoundNo Advanced Directives Records FoundNo Advanced Directives Records Found Additional Source Comments Care Teams (unrecognized sec tion and content) 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 Specialty Start Date End Date Paulette Santana MD [address] [phone] PCP - General Family Medicine 12/25/21 Team Status: Inactive Member Role Status Dates DERREK Sanchez Attending Provider Active INFORMATION SOURCE (unrecogn ized section and content) DATE CREATED AUTHOR [facility]/01/2022 [facility] DATE CREATED AUTHOR AUTHOR'S ORGANIZ ATION 11/07/2022 [facility] DATE CREATED AUTHOR AUTHOR'S ORGANIZ ATION 02/02/2023 [facility] DATE CREATED AUTHOR AUTHOR'S ORGANIZ ATION 04/21/2023 [facility] DATE CREATED AUTHOR AUTHOR'S ORGANIZ ATION 04/20/[address] [facility] Goals (unrecognized section and content) Goals [...] BE BASED ON THE PRIMARY CLINICAL RECORDS. [facility] [employer] [facility]. provides no warranty or guarantee of the accuracy or completeness of information in this document.
[2024-08-23] MEDS: ACETAMINOPHEN 500 MG TABLET 1000 MG PO (18:20)
[2024-08-23] MEDS: HYDRALAZINE HCL 20 MG/ML VIAL 10 MG IVP (20:04)
[2024-08-23] MEDS: AMITRIPTYLINE HCL 50 MG TABLET 100 MG PO (21:33)
[2024-08-23] MEDS: DICLOFENAC SODIUM 25 MG TABLET.DR 75 MG PO (21:33)
[2024-08-23] MEDS: MIRTAZAPINE 15 MG TABLET 30 MG PO (21:34)
[2024-08-23] MEDS: LISINOPRIL 20 MG TABLET PO (21:42)
[2024-08-23] MEDS: ENOXAPARIN SODIUM 40 MG/0.4 ML SYRINGE SUBQ (21:42)
[2024-08-23] MEDS: risperiDONE 1 MG TABLET 2 MG PO (21:46)
[2024-08-23 22:26] LABS: Bilirubin Urine MODERATE (NEGATIVE); Blood Urine NEGATIVE (NEGATIVE); Clarity Urine SL CLOUDY (CLEAR); Color Urine YELLOW (YELLOW); Glucose Urine UA NEGATIVE (NEGATIVE); Ketones Urine 40 mg/dL (NEGATIVE); Leukocyte Esterase Urine NEGATIVE (NEGATIVE); Nitrite Urine NEGATIVE (NEGATIVE); Protein Urine TRACE mg/dL (NEG/TRACE); Specific Gravity Urine >=1.030 (1.005-1.025)
[2024-08-23 22:27] LABS: Urine Microscopic Indicated NO
[2024-08-23] MEDS: 0.9 % SODIUM CHLORIDE 250 ML 10 ML IV (23:12)
[2024-08-24] VITALS (8 sets, daily range): BP systolic 144–180; BP diastolic 67–80; PULSE 86–97; TEMP 36.4–36.8; O2SAT 91–94
--- NOTE | 2024-08-24 00:48 | PC.NURSE ---
Patient c/o dressing to right knee being to tight . Old dressing removed. Patient has a blackened scab to center of knee with blisters observed below the scab. No drainage observed on old dressing. Telfa pad placed over scabbed area and whole knee wrapped with kerlix.
[2024-08-24] MEDS: VANCOMYCIN HCL 1,250 MG in 0.9 % SODIUM CHLORIDE 250 ML 150 MG IV (03:21)
[2024-08-24] MEDS: LEVOTHYROXINE SODIUM 25 MCG TABLET 50 MCG PO (05:32)
[2024-08-24] MEDS: ACETAMINOPHEN 500 MG TABLET 1000 MG PO ×2 (05:34→15:47)
[2024-08-24 06:04] LABS: Basophils Percent Auto 0.3 % (0.2-2.0); Eosinophils Absolute Auto 0.3 10^3/uL (0.0-0.7); Eosinophils Percent Auto 2.9 % (0.9-7.0); Hematocrit 39.2 % (36.0-48.0); Hemoglobin 12.5 g/dL (12.0-16.0); Immature Granulocytes Abs Auto 0.07 10^3/uL (0.00-0.03); Immature Granulocytes Pct Auto 0.7 % (0.0-0.5); Lymphocytes Absolute Auto 1.8 10^3/uL (1.2-3.8); Lymphocytes Percent Auto 18.7 % (20.5-60.0); Mean Corpuscular HGB Conc 31.9 g/dL (29.9-35.2); Mean Corpuscular Hemoglobin 29.4 pg (26.7-34.0); Mean Corpuscular Volume 92.2 fL (81.0-99.0); Mean Platelet Volume 8.4 fL (9.5-13.5); Monocytes Percent Auto 9.9 % (1.7-12.0); Neutrophils Absolute Auto 6.4 10^3/uL (1.4-6.5); Neutrophils Percent Auto 67.5 % (43.0-75.0); Platelet Count 364 10^3/uL (150-450); Red Blood Count 4.25 10^6/uL (4.20-5.40); Red Cell Distribution Width 13.2 % (11.0-15.0); White Blood Count 9.6 10^3/uL (4.0-11.0)
[2024-08-24 06:24] LABS: Anion Gap 11.5; BUN Creatinine Ratio 12.6; C Reactive Protein 13.39 mg/dL (<=0.50); Calcium 9.2 mg/dL (8.5-10.1); Carbon Dioxide 29.6 mmol/L (21.0-32.0); Chloride 103 mmol/L (98-107); Estimated GFR (African America 57 (>=60 mL/min/1.73m^2); Estimated GFR (Non-African Ame 47 (>=60 mL/min/1.73m^2); Glucose 94 mg/dL (74-106); Potassium 4.1 mmol/L (3.5-5.1); Sodium 140 mmol/L (136-145)
--- NOTE | 2024-08-24 07:53 | P.PN_ITS ---
Progress Note: Subjective Subjective Interval history: Leg still feels tight, pain may be slightly better Exam Constitutional Vital Signs, click to edit/add: Last Vital Signs Temp 98 F 08/24/24 04:00 Pulse 86 08/24/24 04:00 Resp 18 08/24/24 04:00 BP 144/78 H 08/24/24 04:00 Pulse Ox 91 L 08/24/24 04:00 O2 Del Method Room Air 08/24/24 04:00 Documenting provider has reviewed patient's vital signs: yes Common normals: no apparent distress Chest Common normals: inspection of chest normal Respiratory Common normals: normal respiratory effort and no retractions GI Common normals: negative for Normal to inspection, nondistended, normoactive bowel sounds present (Obese) Extremity Common normals: abnormal to inspection (Erythema at the lower line, erythematous slightly above the upper line) Progress Note: Objective Labs Labs: Short CBC 08/23/24 08/24/24 Range/Units 14:23 05:02 WBC 11.7 H 9.6 (4.0-11.0) 10^3/uL Hgb 13.6 12.5 (12.0-16.0) g/dL Hct 42.0 39.2 (36.0-48.0) % Plt Count 366 364 (150-450) 10^3/uL BMP 08/23/24 08/24/24 14:23 05:02 Sodium 140 140 Potassium 4.0 4.1 Chloride 101 103 Carbon Dioxide 28.4 29.6 BUN 14.0 15.0 Creatinine 1.06 H 1.19 H Glucose 102 94 Calcium 9.5 9.2 Liver Function 08/23/24 Range/Units 14:23 Total Bilirubin 0.4 (0.2-1.0) mg/dL AST 26 (15-37) U/L ALT 30 (14-59) U/L Alkaline Phosphatase 135 H (46-116) U/L Albumin 3.1 L (3.4-5.0) g/dL Urine 08/23/24 Range/Units 22:08 Urine Color Yellow (YELLOW) Urine Clarity Sl cloudy (CLEAR) Urine pH 6.0 (5.0-9.0) Ur Specific Young >=1.030 A (1.005-1.025) Urine Protein Trace (NEG/TRACE) mg/dL Urine Glucose (UA) Negative (NEGATIVE) mg/dL Progress Note: A&P Assessment and Plan (1) Cellulitis: (2) Anxiety: (3) Hypothyroidism: (4) Hypertension: Plan Admission findings: Sinus tachycardia, uncontrolled hypertension, leukocytosis, right lower extremity cellulitis with worsening despite multiple outpatient oral medications as well as IV medications with recent hospitalization. At this point patient may need long prolonged therapy Cellulitis right lower extremity-progressive despite multiple oral antibiotics, levofloxacin, clindamycin, cephalexin. Continue with Zosyn and vancomycin., Place PICC line or midline, white blood cell count improved Uncontrolled hypertension-improved today Mild elevation in creatinine-up slightly continue to monitor especially in light of the vancomycin Hypothyroidism-continue with home medications Insomnia-continue with home medications Admission status: Patient has failed multiple outpatient oral antibiotics as well as recent observational status, with failing observational status will start patient off as inpatient as she likely needs 3 to 4-day IV antibiotics, blood cultures from initial admission are still pending ?
--- NOTE | 2024-08-24 07:57 | CT_ITS ---
[address] [address] Patient Name: FRED TREJO MRN: [id number] date: 1970 Sex: F Assigned Patient Location: [place] Current Patient Location: [place] Accession/Order Number: [id number] Exam Date: 08/24/2024 08:30 Report Date: 08/24/2024 09:18 At the request of: PAULETTE JAFFE Procedure: CT lower leg RT wo con Exam Type: CT RIGHT LOWER LEG Exam Date and Time: 08/24/2024 8:30 AM EST Indication: 54 years old Female with lower extremity redness and swelling Comparison: Radiographs 08/19/2024 TECHNIQUE: Axial CT images of the right lower leg were obtained without intravenous contrast. Coronal and sagittal reformatted images were obtained. Dose reduction techniques were achieved by using automated exposure control and/or adjustment of mA and/or kV according to patient size and/or use of iterative reconstruction technique. FINDINGS: No acute displaced fracture or dislocation is evident. Moderate to severe tricompartmental osteoarthritis is noted. Well-corticated ossific body along the posterior medial joint line. A definite joint effusion is not evident. No intra-articular gas is evident. The ankle appears congruent. Moderate mid and hindfoot osteoarthritis. Achilles tendinosis and Achilles enthesophytes. A definite tear is not evident. There is subcutaneous edema and skin thickening in the lower extremity. There is heterogeneous slightly hyperdense fluid within the subcutaneous tissues extending from the knee is out of the field of view extends distally at least 3.4 cm. There are varying degrees of density within this fluid collection. This favors to represent a hematoma. Possible soft tissue ulceration/boil is noted at the level of the tibial tuberosity measuring 3 cm in maximum dimension. No gas within the fluid collection is evident. No intramuscular myofascial edema or gas. CT/CT lower leg RT wo con IMPRESSION: 1. Suspect large subcutaneous hematoma given history. Abscess is considered less likely, however, not entirely excluded. 2. Degenerative changes without acute osseous abnormality. Electronically authenticated by: SUE MENDOZA Date: 08/24/2024 09:18
[2024-08-24] MEDS: LIOTHYRONINE SODIUM 5 MCG TABLET PO (08:45)
[2024-08-24] MEDS: DICLOFENAC SODIUM 25 MG TABLET.DR 75 MG PO ×2 (08:45→22:39)
[2024-08-24] MEDS: PIPERACILLIN SODIUM/TAZOBACTAM 3.375 GM in 0.9 % SODIUM CHLORIDE 50 ML IV ×3 (08:45→23:43)
[2024-08-24] MEDS: VANCOMYCIN HCL 1,250 MG in 0.9 % SODIUM CHLORIDE 250 ML 250 MG IV (15:47)
[2024-08-24] MEDS: MIRTAZAPINE 15 MG TABLET 30 MG PO (22:38)
[2024-08-24] MEDS: risperiDONE 1 MG TABLET 2 MG PO (22:38)
[2024-08-24] MEDS: LISINOPRIL 20 MG TABLET PO (22:38)
[2024-08-24] MEDS: AMITRIPTYLINE HCL 50 MG TABLET 100 MG PO (22:38)
[2024-08-24] MEDS: ENOXAPARIN SODIUM 40 MG/0.4 ML SYRINGE SUBQ (22:38)
[2024-08-25] VITALS (7 sets, daily range): BP systolic 144–172; BP diastolic 74–98; PULSE 90–107; TEMP 36.3–36.9; O2SAT 90–95
[2024-08-25] MEDS: ACETAMINOPHEN 500 MG TABLET 1000 MG PO ×2 (01:11→14:43)
[2024-08-25] MEDS: LEVOTHYROXINE SODIUM 25 MCG TABLET 50 MCG PO (06:17)
[2024-08-25] MEDS: VANCOMYCIN HCL 1,250 MG in 0.9 % SODIUM CHLORIDE 250 ML 166 MG IV (06:17)
[2024-08-25 07:07] LABS: Hematocrit 38.1 % (36.0-48.0); Hemoglobin 12.1 g/dL (12.0-16.0); Lymphocytes Percent Auto 17.6 % (20.5-60.0); Mean Corpuscular HGB Conc 31.8 g/dL (29.9-35.2); Mean Corpuscular Hemoglobin 29.6 pg (26.7-34.0); Mean Corpuscular Volume 93.2 fL (81.0-99.0); Mean Platelet Volume 8.3 fL (9.5-13.5); Neutrophils Percent Auto 70.1 % (43.0-75.0); Platelet Count 358 10^3/uL (150-450); Red Blood Count 4.09 10^6/uL (4.20-5.40); Red Cell Distribution Width 13.1 % (11.0-15.0); White Blood Count 9.7 10^3/uL (4.0-11.0)
[2024-08-25 07:08] LABS: Basophils Percent Auto 0.4 % (0.2-2.0); Eosinophils Absolute Auto 0.3 10^3/uL (0.0-0.7); Immature Granulocytes Abs Auto 0.06 10^3/uL (0.00-0.03); Immature Granulocytes Pct Auto 0.6 % (0.0-0.5); Lymphocytes Absolute Auto 1.7 10^3/uL (1.2-3.8); Monocytes Absolute Auto 0.8 10^3/uL (0.3-0.8); Monocytes Percent Auto 8.3 % (1.7-12.0); Neutrophils Absolute Auto 6.8 10^3/uL (1.4-6.5)
[2024-08-25 07:20] LABS: Anion Gap 12.5; BUN Creatinine Ratio 12.4; C Reactive Protein 9.56 mg/dL (<=0.50); Calcium 8.9 mg/dL (8.5-10.1); Carbon Dioxide 28.7 mmol/L (21.0-32.0); Chloride 105 mmol/L (98-107); Estimated GFR (African America >60 (>=60 mL/min/1.73m^2); Estimated GFR (Non-African Ame 50 (>=60 mL/min/1.73m^2); Glucose 99 mg/dL (74-106); Potassium 4.2 mmol/L (3.5-5.1); Sodium 142 mmol/L (136-145)
[2024-08-25] MEDS: LIOTHYRONINE SODIUM 5 MCG TABLET PO (08:41)
[2024-08-25] MEDS: PIPERACILLIN SODIUM/TAZOBACTAM 3.375 GM in 0.9 % SODIUM CHLORIDE 50 ML IV ×2 (08:41→16:33)
[2024-08-25] MEDS: DICLOFENAC SODIUM 25 MG TABLET.DR 75 MG PO ×2 (09:29→22:26)
--- NOTE | 2024-08-25 10:51 | P.PN_ITS ---
Progress Note: Subjective Subjective Interval history: Leg still feels tight, pain may be slightly better Exam Constitutional Vital Signs, click to edit/add: Last Vital Signs Temp 97.4 F L 08/25/24 08:30 Pulse 107 H 08/25/24 08:30 Resp 18 08/25/24 08:30 BP 172/74 H 08/25/24 08:30 Pulse Ox 93 L 08/25/24 08:30 O2 Del Method Room Air 08/25/24 08:30 Documenting provider has reviewed patient's vital signs: yes Common normals: no apparent distress Chest Common normals: inspection of chest normal Respiratory Common normals: normal respiratory effort and no retractions GI Common normals: negative for Normal to inspection, nondistended, normoactive bowel sounds present (Obese) Extremity Common normals: abnormal to inspection (erythema now inside the line of demarcatioon - still calor and dolor) Progress Note: Objective Labs Labs: Short CBC 08/25/24 Range/Units 06:27 WBC 9.7 (4.0-11.0) 10^3/uL Hgb 12.1 (12.0-16.0) g/dL Hct 38.1 (36.0-48.0) % Plt Count 358 (150-450) 10^3/uL BMP 08/25/24 06:27 Sodium 142 Potassium 4.2 Chloride 105 Carbon Dioxide 28.7 BUN 14.0 Creatinine 1.13 H Glucose 99 Calcium 8.9 Progress Note: A&P Assessment and Plan (1) Cellulitis: (2) Anxiety: (3) Hypothyroidism: (4) Hypertension: Plan Admission findings: Sinus tachycardia, uncontrolled hypertension, leukocytosis, right lower extremity cellulitis with worsening despite multiple outpatient oral medications as well as IV medications with recent hospitalization. At this point patient may need long prolonged therapy Cellulitis right lower extremity-progressive despite multiple oral antibiotics, levofloxacin, clindamycin, cephalexin. Continue with Zosyn and vancomycin., finally better today - first day in last 48 hours Uncontrolled hypertension-improved today Mild elevation in creatinine-up slightly continue to monitor especially in light of the vancomycin Hypothyroidism-continue with home medications Insomnia-continue with home medications Admission status: Patient has failed multiple outpatient oral antibiotics as well as recent observational status, with failing observational status will start patient off as inpatient as she likely needs 3 to 4-day IV antibiotics, blood cultures from initial admission are still pending ?
[2024-08-25 14:15] LABS: Vancomycin Trough 13.8 ug/mL (5.0-20.0)
[2024-08-25] MEDS: VANCOMYCIN HCL 1,250 MG in 0.9 % SODIUM CHLORIDE 250 ML 166.667 MG IV (16:32)
[2024-08-25] MEDS: 0.9 % SODIUM CHLORIDE 250 ML 10 ML IV (16:33)
[2024-08-25] MEDS: risperiDONE 1 MG TABLET 2 MG PO (22:22)
[2024-08-25] MEDS: AMITRIPTYLINE HCL 50 MG TABLET 100 MG PO (22:23)
[2024-08-25] MEDS: LISINOPRIL 20 MG TABLET PO (22:23)
[2024-08-25] MEDS: MIRTAZAPINE 15 MG TABLET 30 MG PO (22:23)
[2024-08-25] MEDS: ENOXAPARIN SODIUM 40 MG/0.4 ML SYRINGE SUBQ (22:23)
[2024-08-26] VITALS (12 sets, daily range): BP systolic 138–170; BP diastolic 73–89; PULSE 75–100; TEMP 36.3–36.8; O2SAT 91–95
[2024-08-26] MEDS: PIPERACILLIN SODIUM/TAZOBACTAM 3.375 GM in 0.9 % SODIUM CHLORIDE 50 ML IV ×2 (00:01→08:47)
[2024-08-26] MEDS: ACETAMINOPHEN 500 MG TABLET 1000 MG PO ×2 (00:01→21:04)
[2024-08-26] MEDS: VANCOMYCIN HCL 1,250 MG in 0.9 % SODIUM CHLORIDE 250 ML 166.66 MG IV (05:12)
[2024-08-26] MEDS: LEVOTHYROXINE SODIUM 25 MCG TABLET 50 MCG PO (05:55)
[2024-08-26 06:35] LABS: Basophils Absolute Auto 0.1 10^3/uL (0.0-0.1); Basophils Percent Auto 0.5 % (0.2-2.0); Eosinophils Absolute Auto 0.3 10^3/uL (0.0-0.7); Eosinophils Percent Auto 3.2 % (0.9-7.0); Hematocrit 37.1 % (36.0-48.0); Hemoglobin 11.9 g/dL (12.0-16.0); Immature Granulocytes Abs Auto 0.06 10^3/uL (0.00-0.03); Immature Granulocytes Pct Auto 0.6 % (0.0-0.5); Lymphocytes Percent Auto 19.1 % (20.5-60.0); Mean Corpuscular HGB Conc 32.1 g/dL (29.9-35.2); Mean Corpuscular Hemoglobin 29.4 pg (26.7-34.0); Mean Corpuscular Volume 91.6 fL (81.0-99.0); Mean Platelet Volume 8.1 fL (9.5-13.5); Monocytes Absolute Auto 0.9 10^3/uL (0.3-0.8); Monocytes Percent Auto 8.6 % (1.7-12.0); Platelet Count 322 10^3/uL (150-450); Red Blood Count 4.05 10^6/uL (4.20-5.40); Red Cell Distribution Width 13.1 % (11.0-15.0); White Blood Count 10.3 10^3/uL (4.0-11.0)
[2024-08-26 06:46] LABS: Anion Gap 13.4; BUN Creatinine Ratio 10.7; C Reactive Protein 7.14 mg/dL (<=0.50); Carbon Dioxide 26.6 mmol/L (21.0-32.0); Chloride 105 mmol/L (98-107); Estimated GFR (African America >60 (>=60 mL/min/1.73m^2); Estimated GFR (Non-African Ame 56 (>=60 mL/min/1.73m^2); Glucose 102 mg/dL (74-106); Sodium 141 mmol/L (136-145)
[2024-08-26] MEDS: DICLOFENAC SODIUM 25 MG TABLET.DR 75 MG PO ×2 (08:47→21:08)
[2024-08-26] MEDS: LISINOPRIL 20 MG TABLET PO ×2 (08:48→21:10)
[2024-08-26] MEDS: LIOTHYRONINE SODIUM 5 MCG TABLET PO (08:49)
--- NOTE | 2024-08-26 09:35 | P.PN_ITS ---
Progress Note: Subjective Subjective Interval history: Patient still feels pressure-like and pain with ambulation. No significant improvement from her perspective over the last 24 hours Exam Constitutional Vital Signs, click to edit/add: Last Vital Signs Temp 98.2 F 08/26/24 09:00 Pulse 94 H 08/26/24 09:00 Resp 16 08/26/24 09:00 BP 157/88 H 08/26/24 09:00 Pulse Ox 93 L 08/26/24 09:00 O2 Del Method Room Air 08/26/24 09:00 Documenting provider has reviewed patient's vital signs: yes Common normals: no apparent distress Chest Common normals: inspection of chest normal Respiratory Common normals: normal respiratory effort and no retractions GI Common normals: negative for Normal to inspection, nondistended, normoactive bowel sounds present (Obese) Extremity Common normals: abnormal to inspection (No improvement in erythema, appears spread towards posterior calf) General: abnormal exam (Outside the line of demarcation) Progress Note: Objective Labs Labs: Short CBC 08/26/24 Range/Units 06:19 WBC 10.3 (4.0-11.0) 10^3/uL Hgb 11.9 L (12.0-16.0) g/dL Hct 37.1 (36.0-48.0) % Plt Count 322 (150-450) 10^3/uL BMP 08/26/24 06:19 Sodium 141 Potassium 4.0 Chloride 105 Carbon Dioxide 26.6 BUN 11.0 Creatinine 1.03 H Glucose 102 Calcium 9.0 Progress Note: A&P Assessment and Plan (1) Cellulitis: (2) Anxiety: (3) Hypothyroidism: (4) Hypertension: Plan Admission findings: Sinus tachycardia, uncontrolled hypertension, leukocytosis, right lower extremity cellulitis with worsening despite multiple outpatient oral medications as well as IV medications with recent hospitalization. At this p oint patient may need long prolonged therapy Cellulitis right lower extremity-initially looked a little bit improved yesterday with the vancomycin and Zosyn, today he is not, currently outside the line of demarcation in the lower portion, consider repeat CT scan of knee tomorrow evaluating for the hematoma versus abscess, will adjust antibiotics today, Fortaz for Pseudomonas, gram-negative coverage, Flagyl for anaerobic coverage and linezolid for MRSA, CRP still 142 times normal Uncontrolled hypertension-elevated somewhat today, continue to monitor Mild elevation in creatinine-stable today, Hypothyroidism-continue with home medications Insomnia-continue with home medications Admission status: Patient has failed multiple outpatient oral antibiotics as well as recent observational status, with failing observational status will start patient off as inpatient as she likely needs 3 to 4-day IV antibiotics, blood cultures from initial admission are still pending ?
[2024-08-26] MEDS: CEFTAZIDIME 2,000 MG in 0.9 % SODIUM CHLORIDE 100 ML 200 MG IV ×2 (11:27→18:35)
[2024-08-26] MEDS: METRONIDAZOLE/SODIUM CHLORIDE 500 MG/100 ML PREMIX 100 MG IV ×3 (12:36→23:40)
[2024-08-26] MEDS: LINEZOLID IN DEXTROSE 5% 600 MG/300 ML PIGGYBACK 300 MG IV (12:36)
[2024-08-26] MEDS: ENOXAPARIN SODIUM 40 MG/0.4 ML SYRINGE SUBQ (21:04)
[2024-08-26] MEDS: MIRTAZAPINE 15 MG TABLET 30 MG PO (21:10)
[2024-08-26] MEDS: risperiDONE 1 MG TABLET 2 MG PO (21:10)
[2024-08-26] MEDS: AMITRIPTYLINE HCL 50 MG TABLET 100 MG PO (21:11)
[2024-08-27] MEDS: LINEZOLID IN DEXTROSE 5% 600 MG/300 ML PIGGYBACK 300 MG IV ×2 (00:47→12:15)
[2024-08-27] MEDS: CEFTAZIDIME 2,000 MG in 0.9 % SODIUM CHLORIDE 100 ML 200 MG IV ×3 (02:00→21:54)
[2024-08-27 04:00] VITALS: BP 119/78; PULSE 87; TEMP 36.6; O2SAT 93
[2024-08-27 04:14] LABS: Basophils Percent Auto 0.3 % (0.2-2.0); Eosinophils Absolute Auto 0.3 10^3/uL (0.0-0.7); Eosinophils Percent Auto 2.7 % (0.9-7.0); Hemoglobin 11.5 g/dL (12.0-16.0); Immature Granulocytes Abs Auto 0.11 10^3/uL (0.00-0.03); Lymphocytes Absolute Auto 1.9 10^3/uL (1.2-3.8); Lymphocytes Percent Auto 18.1 % (20.5-60.0); Mean Corpuscular HGB Conc 31.9 g/dL (29.9-35.2); Mean Corpuscular Hemoglobin 29.6 pg (26.7-34.0); Mean Corpuscular Volume 92.5 fL (81.0-99.0); Mean Platelet Volume 8.2 fL (9.5-13.5); Monocytes Absolute Auto 0.9 10^3/uL (0.3-0.8); Monocytes Percent Auto 8.3 % (1.7-12.0); Neutrophils Absolute Auto 7.4 10^3/uL (1.4-6.5); Neutrophils Percent Auto 69.6 % (43.0-75.0); Platelet Count 302 10^3/uL (150-450); Red Blood Count 3.89 10^6/uL (4.20-5.40); White Blood Count 10.6 10^3/uL (4.0-11.0)
[2024-08-27 04:27] LABS: Anion Gap 11.2; C Reactive Protein 5.64 mg/dL (<=0.50); Carbon Dioxide 29.5 mmol/L (21.0-32.0); Chloride 104 mmol/L (98-107); Estimated GFR (African America >60 (>=60 mL/min/1.73m^2); Estimated GFR (Non-African Ame 52 (>=60 mL/min/1.73m^2); Glucose 113 mg/dL (74-106); Potassium 3.7 mmol/L (3.5-5.1); Sodium 141 mmol/L (136-145)
[2024-08-27] MEDS: METRONIDAZOLE/SODIUM CHLORIDE 500 MG/100 ML PREMIX 100 MG IV ×4 (05:06→22:48)
[2024-08-27] MEDS: LEVOTHYROXINE SODIUM 25 MCG TABLET 50 MCG PO (06:01)
--- NOTE | 2024-08-27 06:52 | P.PN_ITS ---
Progress Note: Subjective Subjective Interval history: Leg still painful with ambulation Exam Constitutional Vital Signs, click to edit/add: Last Vital Signs Temp 98 F 08/27/24 04:00 Pulse 87 08/27/24 04:00 Resp 15 08/27/24 04:00 BP 119/78 08/27/24 04:00 Pulse Ox 93 L 08/27/24 04:00 O2 Del Method Room Air 08/27/24 04:00 Documenting provider has reviewed patient's vital signs: yes Common normals: no apparent distress Chest Common normals: inspection of chest normal Respiratory Common normals: normal respiratory effort and clear to auscultation bilaterally Cardio Common normals: regular rate GI Common normals: negative for Normal to inspection, nondistended, normoactive bowel sounds present (Obese) Extremity Common normals: abnormal to inspection (Fading erythema,now inside the line demarcation since change antibiotic 08/26) General: abnormal exam Progress Note: Objective Labs Labs: Short CBC 08/27/24 Range/Units 04:00 WBC 10.6 (4.0-11.0) 10^3/uL Hgb 11.5 L (12.0-16.0) g/dL Hct 36.0 (36.0-48.0) % Plt Count 302 (150-450) 10^3/uL BMP 08/26/24 08/27/24 06:19 04:00 Sodium 141 141 Potassium 4.0 3.7 Chloride 105 104 Carbon Dioxide 26.6 29.5 BUN 11.0 12.0 Creatinine 1.03 H 1.09 H Glucose 102 113 H Calcium 9.0 9.0 Progress Note: A&P Assessment and Plan (1) Cellulitis: (2) Anxiety: (3) Hypothyroidism: (4) Hypertension: Plan Admission findings: Sinus tachycardia, uncontrolled hypertension, leukocytosis, right lower extremity cellulitis with worsening despite multiple outpatient oral medications as well as IV medications with recent hospitalization. At this point patient may need long prolonged therapy Cellulitis right lower extremity-with erythema spread outside the line of demarcation yesterday, antibiotics were adjusted, now inside the line of demarcation with fading erythema, consult to orthopedics, repeat CT scan Uncontrolled hypertension-elevated somewhat today, continue to monitor Mild elevation in creatinine-stable today, Hypothyroidism-continue with home medications Insomnia-continue with home medications Admission status: Patient has failed multiple outpatient oral antibiotics as well as recent observational status, with failing observational status will start patient off as inpatient as she likely needs 3 to 4-day IV antibiotics, blood cultures from initial admission are still pending ?
--- NOTE | 2024-08-27 07:52 | CM.NOTE ---
Rounds made with Dr. Santana, redness to lower leg has improved. Dr. Osorio to consult today for further recommendations. No discharge today.
[2024-08-27] MEDS: ACETAMINOPHEN 500 MG TABLET 1000 MG PO ×2 (07:53→23:32)
[2024-08-27 07:58] VITALS: BP 144/85; PULSE 83; TEMP 36.7; O2SAT 94
[2024-08-27] MEDS: LIOTHYRONINE SODIUM 5 MCG TABLET PO (08:31)
[2024-08-27] MEDS: LISINOPRIL 20 MG TABLET PO ×2 (08:31→21:54)
--- NOTE | 2024-08-27 09:20 | CT_ITS ---
The [address] [address] Patient Name: FRED TREJO MRN: [id number] date: 1970 Sex: F Assigned Patient Location: [place] Current Patient Location: [place] Accession/Order Number: [id number] Exam Date: 08/27/2024 09:11 Report Date: 08/27/2024 09:57 At the request of: PAULETTE JAFFE Procedure: CT lower leg RT w con EXAMINATION: CT lower leg RT w con HISTORY: follow up COMPARISON: 08/24/2024 TECHNIQUE: Multi-planar CT images were created without IV contrast. Dose reduction techniques were achieved by using automated exposure control and/or adjustment of mA and/or kV according to patient size and/or use of iterative reconstruction technique. FINDINGS: BONES: No acute fracture or dislocation. Moderate to severe tricompartmental osteoarthritis of the knee. Moderate osteoarthritis of the visualized foot and ankle. Enthesopathic spurring of the calcaneus. SOFT TISSUES: Again demonstrated is a large low-density fluid collection measuring 12.2 x 2.7 cm axial image 46 with a density of 10 Hounsfield units. This appears relatively stable extending to the skin surface. There is slight progression of associated anterior lower leg skin thickening. No enhancement or evidence of acute hemorrhage is observed. EFFUSION: None visible. OTHER: Negative. CT/CT lower leg RT w con IMPRESSION: Stable anteriorly fluid collection, a hematoma is favored. No postcontrast enhancement to suggest abscess Slight increase in anterior lower leg skin thickening, nonspecific Electronically authenticated by: ADELAIDA LAO Date: 08/27/2024 09:57
[2024-08-27] MEDS: 0.9 % SODIUM CHLORIDE 250 ML 10 ML IV (09:59)
--- NOTE | 2024-08-27 14:27 | SWNOTE1 ---
Plan is for pt to get IV antibiotics at discharge. SW stopped in to speak with pt in regards to IV antibiotics. SW let her know we can do HH services and a nurse can come in and teach her how to do it and then come 1-2 a weeks to check. We could also set her up as an [facility] pt to come in and get the IV antibiotics at hospital. Pt voiced she has a dog that is not very nice and she would have to pen him up and he would bark the whole time. Pt is thinking she would like to come in to the hospital and get the antibiotics. SW did advise there is a chance it would be 2x a day. Pt is alright with this. CONNER updated the doctor.
--- NOTE | 2024-08-27 15:34 | PM.ORCN ---
History of Present Illness [facility] Consult date: 08/27/24 Requesting physician: Khris Santana Chief complaint: CELLULITUS, RLE Narrative: Patient is a 54-year-old female with a past medical history of hypertension and hypothyroid that had fallen directly onto her right knee on 08/07/24. She was still able to ambulate and had seen Dr. Marks on 08/13/2024 for bilateral knee osteoarthritis. At the time of the visit she only had ecchymosis to the knee with no signs of infection. She states on Tuesday08/19/24 she started developing erythema and swelling to the right knee and had presented to the ED and was given Unasyn and sent home with Augmentin. 2 days later on 08/21 she had return to the ED with complaints of increasing redness despite oral antibiotics. She was then admitted for IV antibiotics and started on Vanco/Zosyn, which was then changed to levofloxacin and clindamycin. She was readmitted on 08/23 after following up with her PCP with increased erythema, swelling, and draining wounds. A PICC line was ordered and IV Vanco and Zosyn were restarted. Patient's knee erythema persisted with a area of necrosis. Patient's antibiotics were changed and Ortho was consulted for evaluation. Patient states that she is not having much pain at rest, it is mostly when she is walking. [facility] Medical History (Updated 08/23/24 @ 15:00 by Pamela Mccain DO) Cellulitis ?L03.90 - Cellulitis, unspecified (ICD-10) Depression ?F32.A - Depression, unspecified (ICD-10) Anxiety ?F41.9 - Anxiety disorder, unspecified (ICD-10) Hypothyroidism ?E03.9 - Hypothyroidism, unspecified (ICD-10) Hypertension ?I10 - Essential (primary) hypertension (ICD-10) Surgical History (Updated 08/21/24 @ 13:42 by Lalita Mendoza) H/O right wrist surgery ?Z98.890 - Other specified postprocedural states (ICD-10) H/O bilateral breast reduction surgery ?Z98.890 - Other specified postprocedural states (ICD-10) H/O tubal ligation ?Z98.51 - Tubal ligation status (ICD-10) Family History (Updated 08/21/24 @ 13:46 by Lalita Mendoza) Mother Family history of CHF (congestive heart failure) Family history of diabetes mellitus Family history of hypertension Grandfather Family history of diabetes mellitus Family history of hypertension Grandmother Family history of diabetes mellitus Family history of hypertension Father Family history of myocardial infarction Social History (Updated 08/21/24 @ 13:55 by Lalita Mendoza) Within the past year, how often did you have a drink containing alcohol: monthly or less Within the past year, how often did you have six or more drinks on one occasion: never Smoking status: Former smoker Non-prescribed substance use: cannabis (any form) Highest level of school completed/degree received: high school graduate Are you now , , , , never or living with a partner: don't know In a typical week, how many times do you talk on the telephone with family, friends, or neighbors: 3 or more times per week How often do you get together with friends or relatives: 3 or more times per week How often do you attend religion or taoist services: never Do you belong to any clubs or organizations such as religion groups unions, [employer] or athletic groups, or school groups: no Total score: 1 Score interpretation: A score of less than or equal to 1 indicates the most socially isolated. Little interest or pleasure in doing things: several days Feeling down, depressed, or hopeless: several days Feel stressed/tense/nervous/anxious/difficulty sleeping: not at all Gender Identity: female Meds Home Medications and Allergies Home Medications ?Medication ?Instructions ?Recorded ?Confirmed ?Type amitriptyline 100 mg tablet 100 mg PO .qhs 04/16/24 08/23/24 History diclofenac sodium 75 mg 75 mg PO BID 04/16/24 08/23/24 History tablet,delayed release liothyronine 5 mcg tablet 5 mcg PO DAILY 04/16/24 08/23/24 History lisinopril 20 mg tablet 20 mg PO DAILY 04/16/24 08/23/24 History mirtazapine 30 mg tablet 30 mg PO .qhs 04/16/24 08/23/24 History risperidone 2 mg tablet 2 mg PO .qhs 04/16/24 08/23/24 History levothyroxine 50 mcg tablet 50 mcg PO .ACB 08/19/24 08/23/24 History phentermine 37.5 mg tablet 37.5 mg PO DAILY 08/21/24 08/23/24 History clindamycin HCl 300 mg capsule 300 mg PO Q6H 14 days #56 caps 08/22/24 08/23/24 Rx levofloxacin 750 mg tablet 750 mg PO Q24H 14 days #14 tabs 08/22/24 08/23/24 Rx Allergies Allergy/AdvReac Type Severity Reaction Status Date / Time No Known Drug Allergies Allergy Verified 08/22/24 21:24 Exam Narrative Exam Narrative: Patient is in no distress, sitting in chair, alert and oriented x 3. Patient is observed ambulating to the bathroom. Patient ambulates with antalgic gait and is utilizing a cane. On inspection of the right knee there is erythema starting at the distal thigh that projects down to just proximal to the ankle. There is an area of skin necrosis over the knee that is about 5 x 6 cm, inferior to this is a bullae that has ruptured with a small portion actively draining serosanguineous fluid. 0?120 knee ROM, about 10 degrees reduction as compared contralaterally. Knee is nontender with palpation. Right calf is nontender with palpation, no palpable cords, no erythema to the calf, negative Homans' sign. 5/5 strength distally with dorsiflexion/plantarflexion. 2+ radial pulse palpated. Sensation intact distally with light touch. Constitutional Vital Signs, click to edit/add: Last Vital Signs Temp 98.1 F 08/27/24 07:58 Pulse 83 08/27/24 07:58 Resp 20 08/27/24 07:58 BP 144/85 H 08/27/24 07:58 Pulse Ox 94 L 08/27/24 07:58 O2 Del Method Room Air 08/27/24 07:58 Results Labs Labs: Abnormal lab results 08/27/24 Range/Units 04:00 RBC 3.89 L (4.20-5.40) 10^6/uL Hgb 11.5 L (12.0-16.0) g/dL MPV 8.2 L (9.5-13.5) fL Lymph % (Auto) 18.1 L (20.5-60.0) % Neut # (Auto) 7.4 H (1.4-6.5) 10^3/uL [place] # (Auto) 0.9 H (0.3-0.8) 10^3/uL Abs Immat Gran (auto) 0.11 H (0.00-0.03) 10^3/uL Imm/Tot Granulo (auto) 1.0 H (0.0-0.5) % Creatinine 1.09 H (0.55-1.02) mg/dL Est GFR (Non-Af Amer) 52 L (>=60 mL/min/1.73m^2) Glucose 113 H (74-106) mg/dL C-Reactive Protein 5.64 H (<=0.50) mg/dL H & H 08/23/24 08/24/24 08/25/24 Range/Units 14:23 05:02 06:27 Hgb 13.6 12.5 12.1 (12.0-16.0) g/dL Hct 42.0 39.2 38.1 (36.0-48.0) % 08/26/24 08/27/24 Range/Units 06:19 04:00 Hgb 11.9 L 11.5 L (12.0-16.0) g/dL Hct 37.1 36.0 (36.0-48.0) % All other labs normal. Assessment and Plan Assessment and Plan (1) Cellulitis: (2) Anxiety: (3) Hypothyroidism: (4) Hypertension: Plan Given patient has tried and failed oral antibiotics, IV antibiotics and now with persistent erythema, swelling, and skin necrosis we discussed with patient we are recommending a surgical irrigation and debridement. Risks and benefits were discussed with patient and she wishes to proceed. -Blood cultures?no growth to date -WBC 10.6, patient afebrile, CRP 5.64 mg/dL -PICC line in place?current antibiotics Fortaz, Flagyl, Linezolid -NPO since this morning, planning on OR this evening.
[2024-08-27 15:43] VITALS: BP 141/70; PULSE 95; TEMP 36.7; O2SAT 95
[2024-08-27 20:03] VITALS: O2SAT 92
[2024-08-27] MEDS: AMITRIPTYLINE HCL 50 MG TABLET 100 MG PO (21:53)
[2024-08-27] MEDS: risperiDONE 1 MG TABLET 2 MG PO (21:54)
[2024-08-27] MEDS: MIRTAZAPINE 15 MG TABLET 30 MG PO (21:54)
[2024-08-27 22:00] VITALS: BP 135/76; PULSE 102; TEMP 36.5; O2SAT 94
[2024-08-27 23:45] VITALS: BP 114/69; PULSE 99; TEMP 36.8; O2SAT 91
[2024-08-28] VITALS (15 sets, daily range): BP systolic 110–139; BP diastolic 71–77; PULSE 89–102; TEMP 36.2–37; O2SAT 91–97
[2024-08-28] MEDS: LINEZOLID IN DEXTROSE 5% 600 MG/300 ML PIGGYBACK 300 MG IV ×2 (01:12→14:55)
[2024-08-28] MEDS: CEFTAZIDIME 2,000 MG in 0.9 % SODIUM CHLORIDE 100 ML 200 MG IV ×3 (04:22→21:48)
[2024-08-28 05:29] LABS: Basophils Absolute Auto 0.1 10^3/uL (0.0-0.1); Basophils Percent Auto 0.5 % (0.2-2.0); Eosinophils Absolute Auto 0.3 10^3/uL (0.0-0.7); Hematocrit 37.8 % (36.0-48.0); Immature Granulocytes Abs Auto 0.08 10^3/uL (0.00-0.03); Immature Granulocytes Pct Auto 0.8 % (0.0-0.5); Lymphocytes Percent Auto 20.6 % (20.5-60.0); Mean Corpuscular HGB Conc 31.7 g/dL (29.9-35.2); Mean Corpuscular Hemoglobin 29.1 pg (26.7-34.0); Mean Corpuscular Volume 91.5 fL (81.0-99.0); Mean Platelet Volume 8.3 fL (9.5-13.5); Monocytes Percent Auto 10.3 % (1.7-12.0); Neutrophils Absolute Auto 6.3 10^3/uL (1.4-6.5); Neutrophils Percent Auto 64.8 % (43.0-75.0); Platelet Count 333 10^3/uL (150-450); Red Blood Count 4.13 10^6/uL (4.20-5.40); Red Cell Distribution Width 13.1 % (11.0-15.0); White Blood Count 9.7 10^3/uL (4.0-11.0)
[2024-08-28] MEDS: METRONIDAZOLE/SODIUM CHLORIDE 500 MG/100 ML PREMIX 100 MG IV ×4 (05:41→23:01)
[2024-08-28] MEDS: LEVOTHYROXINE SODIUM 25 MCG TABLET 50 MCG PO (05:42)
[2024-08-28 05:44] LABS: BUN Creatinine Ratio 8.3; C Reactive Protein 4.18 mg/dL (<=0.50); Calcium 8.8 mg/dL (8.5-10.1); Carbon Dioxide 30.7 mmol/L (21.0-32.0); Chloride 105 mmol/L (98-107); Estimated GFR (African America >60 (>=60 mL/min/1.73m^2); Estimated GFR (Non-African Ame 53 (>=60 mL/min/1.73m^2); Glucose 106 mg/dL (74-106); Potassium 3.7 mmol/L (3.5-5.1); Sodium 143 mmol/L (136-145)
--- NOTE | 2024-08-28 05:53 | P.PN_ITS ---
Progress Note: Subjective Subjective Interval history: With pain in the leg but overall she feels better in the last 2 days when she did it from admission, was not improving prior to that Exam Constitutional Vital Signs, click to edit/add: Last Vital Signs Temp 98.4 F 08/28/24 04:47 Pulse 89 08/28/24 04:47 Resp 16 08/28/24 04:47 BP 120/76 08/28/24 04:47 Pulse Ox 92 L 08/28/24 04:47 O2 Del Method Room Air 08/28/24 04:47 Documenting provider has reviewed patient's vital signs: yes Common normals: no apparent distress Chest Common normals: inspection of chest normal Respiratory Common normals: normal respiratory effort and no use of accessory muscles Cardio Common normals: regular rate and regular rhythm GI Common normals: negative for Normal to inspection, nondistended, normoactive bowel sounds present (Obese) Extremity Common normals: abnormal to inspection (Change in antibiotics on 08/26-continues to fade with erythema) General: abnormal exam Progress Note: Objective Labs Labs: Short CBC 08/28/24 Range/Units 04:30 WBC 9.7 (4.0-11.0) 10^3/uL Hgb 12.0 (12.0-16.0) g/dL Hct 37.8 (36.0-48.0) % Plt Count 333 (150-450) 10^3/uL Progress Note: A&P Assessment and Plan (1) Cellulitis: (2) Anxiety: (3) Hypothyroidism: (4) Hypertension: Plan Admission findings: Sinus tachycardia, uncontrolled hypertension, leukocytosis, right lower extremity cellulitis with worsening despite multiple outpatient oral medications as well as IV medications with recent hospitalization. At this point patient may need long prolonged therapy Cellulitis right lower extremity-antibiotics were changed on 08/26-has been improving since that period of time, was not improving prior to that despite aggressive IV antibiotic therapy, currently on triple antibiotic therapy, surgery later today for knee abscess possibility versus hematoma, cultures from surgery may be beneficial Uncontrolled hypertension-elevated somewhat today, continue to monitor Mild elevation in creatinine-stable today, Hypothyroidism-continue with home medications Insomnia-continue with home medications Admission status: Patient has failed multiple outpatient oral antibiotics as well as recent observational status, with failing observational status will start patient off as inpatient as she likely needs 3 to 4-day IV antibiotics, blood cultures from initial admission are still pending ?
--- NOTE | 2024-08-28 07:04 | ECG_ITS ---
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
[2024-08-28] MEDS: LISINOPRIL 20 MG TABLET PO ×2 (08:36→21:49)
[2024-08-28] MEDS: LIOTHYRONINE SODIUM 5 MCG TABLET PO (08:36)
--- NOTE | 2024-08-28 08:36 | CM.NOTE ---
Rounds made with Dr. Santana. Dr. Santana reviews plan of care. NPO for surgery this afternoon. Understanding verbalized.
--- NOTE | 2024-08-28 09:49 | PM.ORPN ---
Progress Note: A&P Assessment and Plan (1) Cellulitis: (2) Anxiety: (3) Hypothyroidism: (4) Hypertension: (5) Traumatic hematoma of lower leg with infection: Assessment and Plan: Given patient has tried and failed oral antibiotics, IV antibiotics and now with persistent erythema, swelling, and skin necrosis we discussed with patient we are recommending a surgical irrigation and debridement. Risks and benefits were discussed with patient and she wishes to proceed. -Blood cultures?no growth to date -WBC 9.7, patient afebrile -PICC line in place?current antibiotics Fortaz, Flagyl, Linezolid -NPO, planning on OR this afternoon after was postponed yesterday. Subjective Subjective Interval history: Patient reports no change in her knee pain or condition overnight. Plan for I&D yesterday was postponed until today. Exam Narrative Exam Narrative: Patient is in no distress, sleeping in the bed but arouses easily to voice. On inspection of the right knee there is erythema starting at the distal thigh that projects down to just proximal to the ankle. There is an area of skin necrosis over the knee anteriorly that is about 5 x 6 cm, inferior to this is a bullae that has ruptured with a small portion actively draining serosanguineous fluid. 0?100 knee ROM. Knee is tender with palpation anteriorly. The lateral portion of the knee/ leg is indurated and the anterior portion around the necrosis is fluctuant. Right calf is nontender with palpation, no palpable cords, no erythema to the calf, negative Homans' sign. 5/5 strength distally with dorsiflexion/plantarflexion. 2+ radial pulse palpated. Sensation intact distally with light touch. Constitutional Vital Signs, click to edit/add: Last Vital Signs Temp 98.4 F 08/28/24 04:47 Pulse 89 08/28/24 04:47 Resp 16 08/28/24 04:47 BP 120/76 08/28/24 04:47 Pulse Ox 92 L 08/28/24 08:37 O2 Del Method Room Air 08/28/24 08:37
[2024-08-28] MEDS: 0.9 % SODIUM CHLORIDE 250 ML 10 ML IV (11:02)
--- NOTE | 2024-08-28 14:16 | PM.ORPRC ---
Procedure Note Date of procedure: 08/28/24 Pre-op diagnosis: Infected left knee hematoma with skin necrosis Post-op diagnosis: same as pre-op Procedure: Left knee irrigation and sharp excisional debridement of skin, fascia, subcutaneous tissue with intraoperative cultures and Hemovac wound placement Patient is a 54-year-old female that is admitted to the hospital with a infected right knee hematoma with skin necrosis. She sustained a fall a few weeks ago. Had increasing pain redness and swelling admitted to the hospital. Has been on IV antibiotics for a few days now. Patient seen evaluated noted to have a large subcutaneous abscess. There was also evidence of skin necrosis with eschar formation. Did discuss and recommend urgent irrigation and debridement or further decrease infectious burden as well as limit damage to soft tissue. I did discuss with patient that she is at risk for skin necrosis and potential of needing a Flap for coverage. I did discuss risk and benefits of the surgery in detail. Informed consent was obtained. No guarantees were made. Patient was then taken to the operative suite. She was transferred operative table. No anesthesia induction ovation without complications. Proceeded to isolate and prepped out the right lower extremity usual sterile fashion. We made a small 3 cm incision over the medial knee at the area of near a draining sinus. We did expose copious amounts of purulent fluid which was drained and cultured 3 times. We then used a knife to sharply debride the nonviable skin edges. We also sharply debrided the subcutaneous tissue and fascia with a knife and rongeur. We then continued to copiously irrigate numerous amounts of pus. We then made a small laterally based incision on the lateral side of the knee. Were able to express pus from this incision as well. It tunneled over to the medial incision. Following this we then proceeded to copiously irrigate this wound with normal saline and Irrisept solution. It was noted that the skin was very thin in this level and essentially all the subcutaneous tissue had been liquefied by the infection. We then placed a Hemovac vein to suction. Soft sterile dressings were applied. Patient was taken the PACU in stable condition. Postoperative plan will be for daily wound checks. Will consult wound care for evaluation. Will tentatively monitor her clinical picture. If wound breakdown noted patient will need transfer for plastic evaluation Anesthesia: General-ET Surgeon: Omar Marks Estimated blood loss (mL): 20 IV fluids (mL): 100 Urine output (mL): 0 Pathology: none sent Condition: stable Disposition: floor
--- NOTE | 2024-08-28 14:22 | PM.ORPN ---
Progress Note: A&P Assessment and Plan (1) Cellulitis: (2) Anxiety: (3) Hypothyroidism: (4) Hypertension: (5) Traumatic hematoma of lower leg with infection: Exam Narrative Exam Narrative: Patient is in no distress, sleeping in the bed but arouses easily to voice. On inspection of the right knee there is erythema starting at the distal thigh that projects down to just proximal to the ankle. There is an area of skin necrosis over the knee anteriorly that is about 5 x 6 cm, inferior to this is a bullae that has ruptured with a small portion actively draining serosanguineous fluid. 0?100 knee ROM. Knee is tender with palpation anteriorly. The lateral portion of the knee/ leg is indurated and the anterior portion around the necrosis is fluctuant. Right calf is nontender with palpation, no palpable cords, no erythema to the calf, negative Homans' sign. 5/5 strength distally with dorsiflexion/plantarflexion. 2+ radial pulse palpated. Sensation intact distally with light touch. Constitutional Vital Signs, click to edit/add: Last Vital Signs Temp 97.2 F L 08/28/24 14:04 Pulse 100 H 08/28/24 14:04 Resp 12 08/28/24 14:04 BP 119/74 08/28/24 14:04 Pulse Ox 91 L 08/28/24 14:04 O2 Del Method Nasal Cannula 08/28/24 14:19 O2 Flow Rate 3 08/28/24 14:19 Documenting provider has reviewed patient's vital signs: yes Common normals: no apparent distress Chest Common normals: inspection of chest normal Respiratory Common normals: normal respiratory effort, no retractions, no use of accessory muscles and clear to auscultation bilaterally Auscultation: clear to auscultation bilaterally Cardio Common normals: regular rate and regular rhythm Rate: regular rate Rhythm: regular rhythm GI Common normals: negative for Normal to inspection, nondistended, normoactive bowel sounds present (Obese) Extremity Common normals: abnormal to inspection (Change in antibiotics on 08/26-continues to fade with erythema) General: abnormal exam
--- NOTE | 2024-08-28 15:27 | W.PM.WC ---
Wound Consult Note Assessment and Plan (1) Cellulitis: (2) Anxiety: (3) Hypothyroidism: (4) Hypertension: (5) Traumatic hematoma of lower leg with infection: Reason for Consult: assess for wound care recommendations Assessment and Plan: Patient back in med/surg room after surgical procedure with Dr. Marks. Asked by Dr. Marks to evaluate patient's necrotic skin for best treatment. Patient currently with xeroform covering area as well as 2 incisions with sutures. Family and patient states swelling is much improved. Skin surrounding knee is bright red. Hemavac is in place and suction present. Discussed patient with Dr. Marks over the phone. Recommend allowing necrotic/bruised area to demarcate and then determine treatment plan over the next few days. Any direct debridement would likely be too aggressive at this time causing underlying structures to be compromised.
--- NOTE | 2024-08-28 16:09 | SWNOTE1 ---
Pt went to OR today, SW to stop back in tomorrow to discuss any further discharge needs.
[2024-08-28] MEDS: ENOXAPARIN SODIUM 40 MG/0.4 ML SYRINGE SUBQ (21:48)
[2024-08-28] MEDS: DICLOFENAC SODIUM 25 MG TABLET.DR 75 MG PO (21:48)
[2024-08-28] MEDS: risperiDONE 1 MG TABLET 2 MG PO (21:49)
[2024-08-28] MEDS: MIRTAZAPINE 15 MG TABLET 30 MG PO (21:49)
[2024-08-28] MEDS: ACETAMINOPHEN 500 MG TABLET 1000 MG PO (21:51)
[2024-08-28] MEDS: AMITRIPTYLINE HCL 50 MG TABLET 100 MG PO (21:51)
[2024-08-29] MEDS: LINEZOLID IN DEXTROSE 5% 600 MG/300 ML PIGGYBACK 300 MG IV ×2 (03:43→14:18)
[2024-08-29] MEDS: ACETAMINOPHEN 500 MG TABLET 1000 MG PO ×2 (03:59→22:34)
[2024-08-29 04:00] VITALS: BP 159/74; PULSE 96; TEMP 36.7; O2SAT 91; O2SAT 92
[2024-08-29 04:09] LABS: Basophils Percent Auto 0.4 % (0.2-2.0); Eosinophils Percent Auto 0.2 % (0.9-7.0); Hematocrit 40.3 % (36.0-48.0); Hemoglobin 12.9 g/dL (12.0-16.0); Immature Granulocytes Abs Auto 0.08 10^3/uL (0.00-0.03); Immature Granulocytes Pct Auto 0.7 % (0.0-0.5); Lymphocytes Absolute Auto 1.7 10^3/uL (1.2-3.8); Lymphocytes Percent Auto 14.8 % (20.5-60.0); Mean Corpuscular Hemoglobin 29.5 pg (26.7-34.0); Mean Platelet Volume 8.4 fL (9.5-13.5); Monocytes Absolute Auto 0.8 10^3/uL (0.3-0.8); Monocytes Percent Auto 7.2 % (1.7-12.0); Neutrophils Absolute Auto 8.7 10^3/uL (1.4-6.5); Neutrophils Percent Auto 76.7 % (43.0-75.0); Platelet Count 352 10^3/uL (150-450); Red Blood Count 4.38 10^6/uL (4.20-5.40); Red Cell Distribution Width 12.8 % (11.0-15.0); White Blood Count 11.3 10^3/uL (4.0-11.0)
[2024-08-29 04:20] LABS: Anion Gap 10.9; BUN Creatinine Ratio 8.5; C Reactive Protein 3.14 mg/dL (<=0.50); Calcium 9.1 mg/dL (8.5-10.1); Carbon Dioxide 31.1 mmol/L (21.0-32.0); Chloride 105 mmol/L (98-107); Estimated GFR (African America 52 (>=60 mL/min/1.73m^2); Estimated GFR (Non-African Ame 43 (>=60 mL/min/1.73m^2); Glucose 143 mg/dL (74-106); Sodium 143 mmol/L (136-145)
[2024-08-29] MEDS: CEFTAZIDIME 2,000 MG in 0.9 % SODIUM CHLORIDE 100 ML 200 MG IV ×3 (05:21→21:39)
--- NOTE | 2024-08-29 06:04 | P.PN_ITS ---
Progress Note: Subjective Subjective Interval history: No complaints of the may be increasing her pain, but she did have surgical intervention for her knee yesterday, did find an abscess, area was irrigated, cultures obtained, some concern for possible needing skin grafting as there is very thin skin underneath where the abscess was located liquefication of fat Exam Constitutional Vital Signs, click to edit/add: Last Vital Signs Temp 98.0 F 08/29/24 04:00 Pulse 96 H 08/29/24 04:00 Resp 18 08/29/24 04:00 BP 159/74 H 08/29/24 04:00 Pulse Ox 91 L 08/29/24 04:00 O2 Del Method Room Air 08/29/24 04:00 O2 Flow Rate 3 08/28/24 15:01 Documenting provider has reviewed patient's vital signs: yes Common normals: no apparent distress Chest Common normals: inspection of chest normal Respiratory Common normals: normal respiratory effort and no use of accessory muscles Cardio Common normals: regular rate and regular rhythm GI Common normals: negative for Normal to inspection, nondistended, normoactive bowel sounds present (Obese) Extremity Common normals: abnormal to inspection (Change in antibiotics on 08/26-again better today) General: abnormal exam Progress Note: Objective Labs Labs: Short CBC 08/29/24 Range/Units 04:00 WBC 11.3 H (4.0-11.0) 10^3/uL Hgb 12.9 (12.0-16.0) g/dL Hct 40.3 (36.0-48.0) % Plt Count 352 (150-450) 10^3/uL BMP 08/29/24 04:00 Sodium 143 Potassium 4.0 Chloride 105 Carbon Dioxide 31.1 BUN 11.0 Creatinine 1.30 H Glucose 143 H Calcium 9.1 Progress Note: A&P Assessment and Plan (1) Cellulitis: (2) Anxiety: (3) Hypothyroidism: (4) Hypertension: (5) Traumatic hematoma of lower leg with infection: Plan Admission findings: Sinus tachycardia, uncontrolled hypertension, leukocytosis, right lower extremity cellulitis with worsening despite multiple outpatient oral medications as well as IV medications with recent hospitalization. At this point patient may need long prolonged therapy Cellulitis right lower extremity-antibiotics were changed on 08/26-surgical intervention on 08/28-abscess found, cultures pending, white blood cell count elevated today consistent with likely surgical intervention yesterday. Continue with current antibiotics his overall the erythema is improved Uncontrolled hypertension-elevated somewhat today, continue to monitor Mild elevation in creatinine-stable today, Hypothyroidism-continue with home medications Insomnia-continue with home medications Admission status: Patient has failed multiple outpatient oral antibiotics as well as recent observational status, with failing observational status will start patient off as inpatient as she likely needs 3 to 4-day IV antibiotics, blood cultures from initial admission are still pending ?
[2024-08-29] MEDS: LEVOTHYROXINE SODIUM 25 MCG TABLET 50 MCG PO (06:19)
[2024-08-29] MEDS: METRONIDAZOLE/SODIUM CHLORIDE 500 MG/100 ML PREMIX 100 MG IV ×4 (06:19→23:54)
[2024-08-29 08:02] VITALS: BP 123/77; PULSE 84; TEMP 36.6; O2SAT 94
--- NOTE | 2024-08-29 08:37 | PM.ORPN ---
Progress Note: A&P Assessment and Plan (1) Cellulitis: (2) Traumatic hematoma of lower leg with infection: Onset Date: ~08/19/24 Assessment and Plan: POD #1 Left knee irrigation and sharp excisional debridement of skin, fascia, subcutaneous tissue with intraoperative cultures and Hemovac wound placement -Hemovac in place 35cc out overnight, will remove tomorrow if less than 30cc -Blood cultures?no growth to date, Wound cultures pending -Wound consulted-will wait for wound to demarcate -Broad spectrum abx until cultures result -WBC 11.3, patient afebrile -PICC line in place?current antibiotics Fortaz, Flagyl, Linezolid -Ortho following, if significant wound breakdown may need transfer for plastics consult Subjective Subjective Interval history: Pt is POD #1 S/P Right Knee I&D with skin debridement and hemovac placement. Patient states that her pain was controlled overnight. Exam Narrative Exam Narrative: Patient is in no distress, sleeping in the bed but arouses easily to voice. On inspection of the right knee there is erythema starting at the distal thigh that projects down to just proximal to the ankle. There is an area of skin necrosis over the knee anteriorly that is about 5 x 6 cm, sutures in place now at medial sided wound. . Knee is tender with palpation anteriorly.Hemovac in place laterally. Right calf is nontender with palpation, no palpable cords, no erythema to the calf, negative Homans' sign. 5/5 strength distally with dorsiflexion/plantarflexion. 2+ radial pulse palpated. Sensation intact distally with light touch Constitutional Vital Signs, click to edit/add: Last Vital Signs Temp 97.9 F 08/29/24 08:02 Pulse 84 08/29/24 08:02 Resp 17 08/29/24 08:02 BP 123/77 08/29/24 08:02 Pulse Ox 94 L 08/29/24 08:02 O2 Del Method Room Air 08/29/24 08:02 O2 Flow Rate 3 08/28/24 15:01
--- NOTE | 2024-08-29 08:49 | CM.NOTE ---
Rounds made with Dr. Santana, no discharge today. Pt will continue IV antibiotics and monitoring hemovac drain.
[2024-08-29] MEDS: LISINOPRIL 20 MG TABLET PO ×2 (10:06→21:40)
[2024-08-29] MEDS: LIOTHYRONINE SODIUM 5 MCG TABLET PO (10:06)
[2024-08-29] MEDS: DICLOFENAC SODIUM 25 MG TABLET.DR 75 MG PO ×2 (10:06→21:40)
[2024-08-29] MEDS: 0.9 % SODIUM CHLORIDE 1,000 ML 250 ML IV (10:07)
--- NOTE | 2024-08-29 12:04 | DIETREC ---
Recommend 30 mL PRO-stat BID and 1 packet Helder BID to aid wound healing. [place] Text to Dr. Santana @ 12:04.
[2024-08-29 12:11] VITALS: O2SAT 94
[2024-08-29 13:20] VITALS: BP 137/84; PULSE 86; TEMP 36.6; O2SAT 95
[2024-08-29 20:00] VITALS: BP 134/83; PULSE 102; TEMP 36.4; O2SAT 92
[2024-08-29 20:25] VITALS: O2SAT 96
[2024-08-29] MEDS: MIRTAZAPINE 15 MG TABLET 30 MG PO (21:39)
[2024-08-29] MEDS: ENOXAPARIN SODIUM 40 MG/0.4 ML SYRINGE SUBQ (21:39)
[2024-08-29] MEDS: risperiDONE 1 MG TABLET 2 MG PO (21:40)
[2024-08-29] MEDS: AMITRIPTYLINE HCL 50 MG TABLET 100 MG PO (21:40)
[2024-08-30] MEDS: CEFTAZIDIME 2,000 MG in 0.9 % SODIUM CHLORIDE 100 ML 200 MG IV ×2 (04:04→11:45)
[2024-08-30] MEDS: LINEZOLID IN DEXTROSE 5% 600 MG/300 ML PIGGYBACK 300 MG IV ×2 (04:04→14:16)
[2024-08-30 04:13] VITALS: BP 111/73; PULSE 91; TEMP 36.8; O2SAT 93
[2024-08-30 04:26] LABS: Basophils Absolute Auto 0.1 10^3/uL (0.0-0.1); Basophils Percent Auto 0.7 % (0.2-2.0); Eosinophils Absolute Auto 0.3 10^3/uL (0.0-0.7); Eosinophils Percent Auto 2.4 % (0.9-7.0); Hematocrit 35.4 % (36.0-48.0); Hemoglobin 11.2 g/dL (12.0-16.0); Immature Granulocytes Abs Auto 0.09 10^3/uL (0.00-0.03); Immature Granulocytes Pct Auto 0.9 % (0.0-0.5); Lymphocytes Absolute Auto 2.7 10^3/uL (1.2-3.8); Lymphocytes Percent Auto 26.2 % (20.5-60.0); Mean Corpuscular HGB Conc 31.6 g/dL (29.9-35.2); Mean Corpuscular Hemoglobin 29.6 pg (26.7-34.0); Mean Corpuscular Volume 93.7 fL (81.0-99.0); Mean Platelet Volume 8.5 fL (9.5-13.5); Monocytes Absolute Auto 0.9 10^3/uL (0.3-0.8); Monocytes Percent Auto 8.4 % (1.7-12.0); Neutrophils Absolute Auto 6.3 10^3/uL (1.4-6.5); Neutrophils Percent Auto 61.4 % (43.0-75.0); Platelet Count 305 10^3/uL (150-450); Red Blood Count 3.78 10^6/uL (4.20-5.40); Red Cell Distribution Width 13.1 % (11.0-15.0); White Blood Count 10.3 10^3/uL (4.0-11.0)
[2024-08-30 04:42] LABS: Anion Gap 11.6; BUN Creatinine Ratio 13.9; Calcium 8.5 mg/dL (8.5-10.1); Carbon Dioxide 29.9 mmol/L (21.0-32.0); Chloride 106 mmol/L (98-107); Estimated GFR (African America 59 (>=60 mL/min/1.73m^2); Estimated GFR (Non-African Ame 49 (>=60 mL/min/1.73m^2); Glucose 158 mg/dL (74-106); Potassium 3.5 mmol/L (3.5-5.1); Sodium 144 mmol/L (136-145)
[2024-08-30 05:10] VITALS: O2SAT 92
[2024-08-30] MEDS: METRONIDAZOLE/SODIUM CHLORIDE 500 MG/100 ML PREMIX 100 MG IV ×3 (05:36→17:08)
[2024-08-30] MEDS: LEVOTHYROXINE SODIUM 25 MCG TABLET 50 MCG PO (05:36)
--- NOTE | 2024-08-30 06:12 | P.PN_ITS ---
Progress Note: Subjective Subjective Interval history: Viewed orthopedic notes with patient, still waiting 1 more day, Hemovac is still in place, white blood cell count has trended down Exam Constitutional Vital Signs, click to edit/add: Last Vital Signs Temp 98.3 F 08/30/24 04:13 Pulse 91 H 08/30/24 04:13 Resp 16 08/30/24 04:13 BP 111/73 08/30/24 04:13 Pulse Ox 92 L 08/30/24 05:10 O2 Del Method Room Air 08/30/24 05:10 O2 Flow Rate 3 08/28/24 15:01 Documenting provider has reviewed patient's vital signs: yes Common normals: no apparent distress Chest Common normals: inspection of chest normal Respiratory Common normals: normal respiratory effort and no use of accessory muscles Cardio Common normals: regular rate and regular rhythm GI Common normals: negative for Normal to inspection, nondistended, normoactive bowel sounds present (Obese) Extremity Common normals: abnormal to inspection (On antibiotics for tonight, better but no significant change from yesterday) General: abnormal exam Progress Note: Objective Labs Labs: Short CBC 08/30/24 Range/Units 04:17 WBC 10.3 (4.0-11.0) 10^3/uL Hgb 11.2 L (12.0-16.0) g/dL Hct 35.4 L (36.0-48.0) % Plt Count 305 (150-450) 10^3/uL BMP 08/30/24 04:17 Sodium 144 Potassium 3.5 Chloride 106 Carbon Dioxide 29.9 BUN 16.0 Creatinine 1.15 H Glucose 158 H Calcium 8.5 Progress Note: A&P Assessment and Plan (1) Cellulitis: (2) Traumatic hematoma of lower leg with infection: Onset Date: ~08/19/24 (3) Anxiety: (4) Hypothyroidism: (5) Hypertension: Plan Admission findings: Sinus tachycardia, uncontrolled hypertension, leukocytosis, right lower extremity cellulitis with worsening despite multiple outpatient oral medications as well as IV medications with recent hospitalization. At this point patient may need long prolonged therapy Cellulitis right lower extremity-antibiotics were changed on 08/26-surgical int ervention on 08/28-abscess found, cultures pending, white blood cell count has returned to normal, no fevers, this morning, down to 3.2 times normal, maintain current treatment until cultures are returned Uncontrolled hypertension-elevated somewhat today, continue to monitor Mild elevation in creatinine-stable today, Hypothyroidism-continue with home medications Insomnia-continue with home medications Admission status: Patient has failed multiple outpatient oral antibiotics as well as recent observational status, with failing observational status will start patient off as inpatient as she likely needs 3 to 4-day IV antibiotics, blood cultures from initial admission are still pending ?
[2024-08-30 09:00] VITALS: BP 152/81; PULSE 85; TEMP 36.6; O2SAT 92
[2024-08-30] MEDS: LISINOPRIL 20 MG TABLET PO ×2 (09:01→21:46)
[2024-08-30] MEDS: DICLOFENAC SODIUM 25 MG TABLET.DR 75 MG PO ×2 (09:01→21:45)
[2024-08-30] MEDS: LIOTHYRONINE SODIUM 5 MCG TABLET PO (09:01)
--- NOTE | 2024-08-30 09:26 | CM.NOTE ---
Rounds made with Dr. Santana, redness to R leg showing improvement. No discharge today, continue IV antibiotics.
--- NOTE | 2024-08-30 10:38 | P.ORPN_ITS ---
Progress Note: A&P Assessment and Plan (1) Cellulitis: (2) Traumatic hematoma of lower leg with infection: Onset Date: ~08/19/24 Assessment and Plan: POD #2 Left knee irrigation and sharp excisional debridement of skin, fascia, subcutaneous tissue with intraoperative cultures and Hemovac wound placement -Hemovac in place, > 30cc in the last 24hrs, will keep until tomorrow -Blood cultures?no growth to date, Wound cultures pending -Wound consulted-will wait for wound to demarcate -Nutrition consulted-I discussed diet with patient and importance of protein requirements for wound healing -Broad spectrum abx until cultures result -Labs downtrending WBC 10.3, CRP 1.6mg/dL, patient afebrile -PICC line in place?current antibiotics Fortaz, Flagyl, Linezolid -Ortho following, if significant wound breakdown may need transfer for plastics consult Discussed with my Supervising Physician, Dr Marks. (3) Anxiety: (4) Hypothyroidism: (5) Hypertension: Subjective Subjective Interval history: Pt is POD #2 S/P Right Knee I&D with skin debridement and hemovac placement. No acute issues overnight, patient's pain is controlled. Exam Narrative Exam Narrative: Patient is in no distress, laying in the bed but arouses easily to voice. On inspection of the right knee there is erythema starting at the distal thigh that projects down to just proximal to the ankle that has decreased in intensity today. Swelling around the knee has also decreased. There is an area of skin necrosis over the knee anteriorly that is about 5 x 6 cm, sutures in place now at medial sided wound. Hemovac in place laterally. Right calf is nontender with palpation, no palpable cords, no erythema to the calf, negative Homans' sign. Increased swelling to foot today. 5/5 strength distally with dorsiflexion/plantarflexion. 2+ radial pulse palpated. Sensation intact distal ly with light touch Constitutional Vital Signs, click to edit/add: Last Vital Signs Temp 97.9 F 08/30/24 09:00 Pulse 85 08/30/24 09:00 Resp 18 08/30/24 09:00 BP 152/81 H 08/30/24 09:00 Pulse Ox 92 L 08/30/24 09:00 O2 Del Method Room Air 08/30/24 09:00 O2 Flow Rate 3 08/28/24 15:01
[2024-08-30 11:30] VITALS: O2SAT 94
[2024-08-30] MEDS: 0.9 % SODIUM CHLORIDE 250 ML 10 ML IV (11:45)
[2024-08-30] MEDS: CEFTAZIDIME 2,000 MG in 0.9 % SODIUM CHLORIDE 100 ML 150 MG IV (19:23)
[2024-08-30 19:56] VITALS: BP 177/109; PULSE 101; TEMP 36.4; O2SAT 94
[2024-08-30 20:11] VITALS: O2SAT 94
[2024-08-30] MEDS: ACETAMINOPHEN 500 MG TABLET 1000 MG PO (21:45)
[2024-08-30] MEDS: ENOXAPARIN SODIUM 40 MG/0.4 ML SYRINGE SUBQ (21:45)
[2024-08-30] MEDS: MIRTAZAPINE 15 MG TABLET 30 MG PO (21:46)
[2024-08-30] MEDS: risperiDONE 1 MG TABLET 2 MG PO (21:46)
[2024-08-30] MEDS: AMITRIPTYLINE HCL 50 MG TABLET 100 MG PO (21:46)
[2024-08-31] MEDS: METRONIDAZOLE/SODIUM CHLORIDE 500 MG/100 ML PREMIX 100 MG IV ×3 (00:04→11:39)
[2024-08-31] MEDS: LINEZOLID IN DEXTROSE 5% 600 MG/300 ML PIGGYBACK 300 MG IV ×2 (02:03→14:05)
[2024-08-31] MEDS: CEFTAZIDIME 2,000 MG in 0.9 % SODIUM CHLORIDE 100 ML 200 MG IV ×2 (03:18→11:39)
[2024-08-31 04:52] VITALS: BP 170/93; PULSE 91; TEMP 36.4; O2SAT 94
[2024-08-31] MEDS: LEVOTHYROXINE SODIUM 25 MCG TABLET 50 MCG PO (05:15)
[2024-08-31 05:47] LABS: Basophils Absolute Auto 0.1 10^3/uL (0.0-0.1); Basophils Percent Auto 0.5 % (0.2-2.0); Eosinophils Absolute Auto 0.3 10^3/uL (0.0-0.7); Eosinophils Percent Auto 2.5 % (0.9-7.0); Hematocrit 38.5 % (36.0-48.0); Hemoglobin 12.2 g/dL (12.0-16.0); Immature Granulocytes Abs Auto 0.07 10^3/uL (0.00-0.03); Immature Granulocytes Pct Auto 0.7 % (0.0-0.5); Lymphocytes Absolute Auto 2.6 10^3/uL (1.2-3.8); Lymphocytes Percent Auto 24.5 % (20.5-60.0); Mean Corpuscular HGB Conc 31.7 g/dL (29.9-35.2); Mean Corpuscular Hemoglobin 29.2 pg (26.7-34.0); Mean Corpuscular Volume 92.1 fL (81.0-99.0); Mean Platelet Volume 8.5 fL (9.5-13.5); Monocytes Absolute Auto 0.9 10^3/uL (0.3-0.8); Monocytes Percent Auto 8.4 % (1.7-12.0); Neutrophils Absolute Auto 6.7 10^3/uL (1.4-6.5); Neutrophils Percent Auto 63.4 % (43.0-75.0); Platelet Count 356 10^3/uL (150-450); Red Blood Count 4.18 10^6/uL (4.20-5.40); Red Cell Distribution Width 13.2 % (11.0-15.0); White Blood Count 10.5 10^3/uL (4.0-11.0)
--- NOTE | 2024-08-31 05:47 | P.PN_ITS ---
Progress Note: Subjective Subjective Interval history: Viewed orthopedic notes with patient, still waiting 1 more day, Hemovac is still in place, white blood cell count has trended down Exam Constitutional Vital Signs, click to edit/add: Last Vital Signs Temp 97.5 F L 08/31/24 04:52 Pulse 91 H 08/31/24 04:52 Resp 19 08/31/24 04:52 BP 170/93 H 08/31/24 04:52 Pulse Ox 94 L 08/31/24 04:52 O2 Del Method Room Air 08/31/24 04:52 O2 Flow Rate 3 08/28/24 15:01 Progress Note: A&P Assessment and Plan (1) Cellulitis: (2) Traumatic hematoma of lower leg with infection: Onset Date: ~08/19/24 (3) Anxiety: (4) Hypothyroidism: (5) Hypertension: Plan Admission findings: Sinus tachycardia, uncontrolled hypertension, leukocytosis, right lower extremity cellulitis with worsening despite multiple outpatient oral medications as well as IV medications with recent hospitalization. At this point patient may need long prolonged therapy Cellulitis right lower extremity-antibiotics were changed on 08/26-surgical intervention on 08/28-abscess found, cultures pending, white blood cell count has returned to normal, no fevers, this morning, down to 3.2 times normal, maintain current treatment until cultures are returned Uncontrolled hypertension-elevated somewhat today, continue to monitor Mild elevation in creatinine-stable today, Hypothyroidism-continue with home medications Insomnia-continue with home medications Admission status: Patient has failed multiple outpatient oral antibiotics as well as recent observational status, with failing observational status will start patient off as inpatient as she likely needs 3 to 4-day IV antibiotics, blood cultures from initial admission are still pending ?
[2024-08-31 06:08] LABS: Anion Gap 12.7; BUN Creatinine Ratio 11.7; C Reactive Protein 1.33 mg/dL (<=0.50); Calcium 9.1 mg/dL (8.5-10.1); Carbon Dioxide 28.5 mmol/L (21.0-32.0); Chloride 104 mmol/L (98-107); Estimated GFR (African America >60 (>=60 mL/min/1.73m^2); Estimated GFR (Non-African Ame 51 (>=60 mL/min/1.73m^2); Glucose 111 mg/dL (74-106); Potassium 4.2 mmol/L (3.5-5.1); Sodium 141 mmol/L (136-145)
--- NOTE | 2024-08-31 08:02 | P.DS_ITS ---
DS: Providers Provider Date of admission: 08/23/24 15:59 Primary care physician: Khris Santana MD Consults: 08/27/24 09:00 Consult to Orthopedic Surgery Routine Consulting Provider: Ashok Osorio Reason For Exam: Reason for consultation: knee hematoma Has provider been notified: No 08/30/24 Consult to Dietitian Routine Reason for consultation: wound healing DS: Diagnosis Discharge Diagnosis (1) Cellulitis: (2) Traumatic hematoma of lower leg with infection: Onset Date: ~08/19/24 (3) Anxiety: (4) Hypothyroidism: (5) Hypertension: Plan Admission findings: Sinus tachycardia, uncontrolled hypertension, leukocytosis, right lower extremity cellulitis with worsening despite multiple outpatient oral medications as well as IV medications with recent hospitalization. At this point patient may need long prolonged therapy Cellulitis right lower extremity-antibiotics were changed on 08/26-surgical intervention on 08/28-abscess found, cultures pending, white blood cell count has returned to normal, no fevers, this morning, down to 3.2 times normal, maintain current treatment until cultures are returned Uncontrolled hypertension-elevated somewhat today, continue to monitor Mild elevation in creatinine-stable today, Hypothyroidism-continue with home medications Insomnia-continue with home medications Admission status: Patient has failed multiple outpatient oral antibiotics as well as recent observational status, with failing observational status will start patient off as inpatient as she likely needs 3 to 4-day IV antibiotics, blood cultures from initial admission are still pending DS: Summary Hospital Course Hospital Course: Patient admitted for failed outpatient treatment of cellulitis, cellulitis originated from a fall, patient was started on initial course of broad-spectrum antibiotics but erythema progressed outside the line of demarcation antibiotics were adjusted, currently on linezolid, Fortaz, Flagyl. Erythema does appear to be fading although not as rapidly as I would have anticipated with the spectrum of coverage, she did have surgical intervention 2 days ago, cultures from that are still pending, with erythema improving, will arrange for outpatient IV antibiotics until final cultures have resulted which would likely be 3-4 more days. Any other alternate plan for orthopedics is greatly appreciated. Medications see list. See me in the office next week. Time Spent with Patient Time attestation: Total time spent providing and/or coordinating discharge services: Exam Constitutional Vital Signs, click to edit/add: Last Vital Signs Temp 97.5 F L 08/31/24 04:52 Pulse 91 H 08/31/24 04:52 Resp 19 08/31/24 04:52 BP 170/93 H 08/31/24 04:52 Pulse Ox 94 L 08/31/24 04:52 O2 Del Method Room Air 08/31/24 04:52 O2 Flow Rate 3 08/28/24 15:01 Documenting provider has reviewed patient's vital signs: yes Common normals: no apparent distress Chest Common normals: inspection of chest normal Respiratory Common normals: normal respiratory effort and no use of accessory muscles Cardio Common normals: regular rate and regular rhythm GI Common normals: negative for Normal to inspection, nondistended, normoactive bowel sounds present (Obese) Extremity Common normals: abnormal to inspection (Erythema does appear to be improved from the previous day which was not sig) General: abnormal exam (Improved from the day before) DS: Data Data Completed and Pending Labs on day of discharge: Labs from last 24 hours 08/31/24 05:00 WBC 10.5 RBC 4.18 L Hgb 12.2 Hct 38.5 MCV 92.1 MCH 29.2 MCHC 31.7 RDW 13.2 Plt Count 356 MPV 8.5 L Neut % (Auto) 63.4 Lymph % (Auto) 24.5 [place] % (Auto) 8.4 Eos % (Auto) 2.5 Baso % (Auto) 0.5 Neut # (Auto) 6.7 H Lymph # (Auto) 2.6 [place] # (Auto) 0.9 H Eos # (Auto) 0.3 Baso # (Auto) 0.1 Abs Immat Gran (auto) 0.07 H Imm/Tot Granulo (auto) 0.7 H Sodium 141 Potassium 4.2 Chloride 104 Carbon Dioxide 28.5 Anion Gap 12.7 BUN 13.0 Creatinine 1.11 H Est GFR ( Amer) >60 Est GFR (Non-Af Amer) 51 L BUN/Creatinine Ratio 11.7 Glucose 111 H Calcium 9.1 C-Reactive Protein 1.33 H Preliminary micro results at discharge 08/28/24 13:30 Aerobic Culture - Preliminary Abscess - Right 08/28/24 13:30 Aerobic Culture - Preliminary Abscess - Right 08/28/24 13:30 Aerobic Culture - Preliminary Abscess - Right Discharge Plan Discharge Disposition: Home, Self-Care Condition: Fair Discharge Medications: New linezolid in dextrose 5% 600 mg/300 mL Piggyback 600 mg IV Q12H Qty: 3000 0RF metronidazole 500 mg tablet 500 mg PO Q6H Qty: 40 0RF ceftazidime 2 gram recon soln 2 g IM Q12H Qty: 10 0RF Rx Instructions: if IM route required, administer doses >1 gram as 2 separate injections in separate sites Continued mirtazapine 30 mg tablet 30 mg PO .qhs risperidone 2 mg tablet 2 mg PO .qhs amitriptyline 100 mg tablet 100 mg PO .qhs lisinopril 20 mg tablet 20 mg PO DAILY diclofenac sodium 75 mg tablet,delayed release (DR/EC) 75 mg PO BID liothyronine 5 mcg tablet 5 mcg PO DAILY levothyroxine 50 mcg tablet 50 mcg PO .ACB phentermine 37.5 mg tablet 37.5 mg PO DAILY levofloxacin 750 mg tablet 750 mg PO Q24H 14 Days Qty: 14 0RF clindamycin HCl 300 mg capsule 300 mg PO Q6H 14 Days Qty: 56 0RF Print Language: Yoruba Forms: Portal Instructions Follow Up Appointments: Home Alexandra., 2024 at 11:00
[2024-08-31] MEDS: LISINOPRIL 20 MG TABLET PO (08:04)
[2024-08-31] MEDS: LIOTHYRONINE SODIUM 5 MCG TABLET PO (08:04)
[2024-08-31] MEDS: DICLOFENAC SODIUM 25 MG TABLET.DR 75 MG PO (08:04)
[2024-08-31 08:10] VITALS: BP 169/80; PULSE 91; TEMP 36.3; O2SAT 93
--- NOTE | 2024-08-31 08:53 | SWNOTE1 ---
Pt is discharging today as an [facility] patient, see case management note.
--- NOTE | 2024-08-31 08:57 | CM.NOTE ---
Rounds made with Dr. Santana. Potential discharge later today. To be set up for outpatient IV antibiotics in [facility]. Smiley verbalizes understanding.
--- NOTE | 2024-08-31 09:05 | CM.NOTE ---
Spoke with Smiley concerning discharge to home with outpatient IV antibiotics. [facility] to inform Smiley of times for appointments. Smiley verbalizes understanding. [facility] Form for IV antibiotics x10 days faxed to [facility]. Notified Tim in [facility] Sched[facility] of need for appointments starting tomorrow. Copy of [facility] faxed to [facility] and spoke with Di. Copy of [facility] form given to pharmacy.
--- NOTE | 2024-08-31 10:39 | W.PM.WC_ITS ---
<Statement entered by Kash Sapp RN - 08/31/24 10:40> This documentation has been reviewed and approved. Wound Consult Note Assessment and Plan (1) Cellulitis: (2) Traumatic hematoma of lower leg with infection: Reason for Consult: wound care treatment recommendations Onset Date: ~08/19/24 (3) Anxiety: (4) Hypothyroidism: (5) Hypertension: Plan Patient seen to determine discharge treatment plan for right knee. Patient continues to have hemavac in place. Drainage 30ml overnight per nursing. Lateral incision dry and intact. Medial incision moist/drainage noted. Sutures still intact. Necrotic tissue to knee is beginning to loosen from edges distally. Noted pink tissue with yellow marbled tissue noted. Central area of necrotic tissue is fluctuant and concave. Discussed treatment with patient that being too aggressive with debriding tissue could possibly compromise underlying structures and giving patient another week to see if she can fill in any tissue from under the necrosis. Patient would like to wait and see if any progress can be made before being more aggressive. Recommend: [place] with betadine, cover with gauze/ABD, kerlix. Secure with vamsi wrap. Change daily to every other day. Patient is to follow with Dr. Marks. Patient will have IV antibiotics for 10 days in [facility] clinic. Kash Sapp RN, CWON
[2024-08-31 10:44] VITALS: O2SAT 94
[2024-08-31] MEDS: HYOSCYAMINE SULFATE 0.125 MG TAB.SUBL SL (11:39)
[2024-08-31] MEDS: 0.9 % SODIUM CHLORIDE 250 ML 10 ML IV (11:39)
--- NOTE | 2024-08-31 15:09 | PM.ORPN ---
Progress Note: A&P Assessment and Plan (1) Cellulitis: (2) Traumatic hematoma of lower leg with infection: Onset Date: ~08/19/24 Assessment and Plan: POD #3 Left knee irrigation and sharp excisional debridement of skin, fascia, subcutaneous tissue with intraoperative cultures and Hemovac wound placement -Hemovac removed today without issue. -Blood cultures?no growth, Wound cultures pending -Wound consulted-will wait for wound to demarcate -Broad spectrum abx until cultures result -WBC 10.5, CRP continues to downtrend from 1.6 to 1.3mg/dL, patient afebrile -PICC line in place for discharge, [facility] set up for discharge, close follow up with Dr Santana for wound culture results -Follow up with me on Sunday 09/03 @ 11a, Dr Marks 09/10 Discussed with my Supervising Physician, Dr Marks. (3) Anxiety: (4) Hypothyroidism: (5) Hypertension: Subjective Subjective Interval history: Pt is POD #3 S/P Right Knee I&D with skin debridement and hemovac placement. No acute issues overnight, patient's pain is controlled. Exam Narrative Exam Narrative: Patient is in no distress, laying in the bed but arouses easily to voice. On inspection of the right knee the erythema is starting to regress down the distal thigh to the anterior lower leg and terminating at the ankle. The intensity of redness has decreased more today. Swelling around the knee has also decreased. There is an area of skin necrosis over the knee anteriorly that is about 5 x 6 cm, sutures in place now at medial sided wound. Right calf is nontender with palpation, no palpable cords, no erythema to the calf, negative Homans' sign. Swelling to the foot stable. 5/5 strength distally with dorsiflexion/plantarflexion. 2+ radial pulse palpated. Sensation intact distally with light touch Constitutional Vital Signs, click to edit/add: Last Vital Signs Temp 97.4 F L 08/31/24 08:10 Pulse 91 H 08/31/24 08:10 Resp 16 08/31/24 08:10 BP 169/80 H 08/31/24 08:10 Pulse Ox 94 L 08/31/24 10:44 O2 Del Method Room Air 08/31/24 10:44 O2 Flow Rate 3 08/28/24 15:01
[2024-08-31 15:53] VITALS: BMI 61.9
--- NOTE | 2024-09-04 15:20 | CM.DCFOLLOWU ---
Person spoke with: Smiley How are you feeling? Much better How is your pain? Much better Did you understand your discharge instructions? Yes Do you have any questions about your discharge instructions? No Were you given any prescriptions at discharge? Yes Were you able to get your prescriptions filled? Yes Do you understand how to take your medications as ordered? Yes Do you have any questions about your follow up appointment and do you plan to keep your follow up appointment? No questions I have gone to all my appointment but one that is Tuesday Is there anything else that you would like to discuss? No Questions/Comments/Concerns/Other:
== END 2024-08-31 16:15 | disposition home or self-care (01) | DRG 571 ==
LOC: ER 15:00 → MS 16:07
PROVIDERS: Student in an Organized Health Care Education/Training Program; Admitting Provider Family Medicine; Emergency Provider Emergency Medicine; PCP Family Medicine; Visit Provider Family Medicine
PROC: 0JBN0ZZ Excision of Right Lower Leg Subcutaneous Tissue and Fascia, Open Approach (ICD-10-PCS; principal; 2024-08-28 13:00)
DX: L03.115 Cellulitis of right lower limb (principal); I96 Gangrene, not elsewhere classified; Z68.44 Body mass index [BMI] 60.0-69.9, adult; E66.01 Morbid (severe) obesity due to excess calories; E03.9 Hypothyroidism, unspecified; I10 Essential (primary) hypertension; L02.415 Cutaneous abscess of right lower limb; F41.9 Anxiety disorder, unspecified; R00.0 Tachycardia, unspecified; G47.00 Insomnia, unspecified; S80.01XA Contusion of right knee, initial encounter; R79.89 Other specified abnormal findings of blood chemistry; Z98.51 Tubal ligation status; Z87.891 Personal history of nicotine dependence; M17.0 Bilateral primary osteoarthritis of knee; Z79.890 Hormone replacement therapy; W19.XXXA Unspecified fall, initial encounter
CPT/HCPCS: 36415; 36569; 36592; 73700; 73701; 80048; 80053; 80202; 81003; 83605; 85025; 86140; 87040; 87070; 87075; 93005; 94761; 96365; 96367; 99285; 99999; C1887; J0360; J0713; J1100; J1650; J1836; J2020; J2250; J2371; J2405; J2543; J2704; J3010; J3370; Q9967

== ENCOUNTER 2024-09-10 15:03 | Outpatient (OUT) | payer BC, SELFPAY ==
[2024-09-10 15:38] LABS: Erythrocyte Sedimentation Rate 61 mm/hr (<=30)
== END 2024-09-10 15:04 | disposition home or self-care (01) ==
LOC: LAB 15:05
PROVIDERS: Family Provider Family Medicine; PCP Family Medicine; Visit Provider Student in an Organized Health Care Education/Training Program
DX: L03.115 Cellulitis of right lower limb (principal)
CPT/HCPCS: 36415; 85652; 86140

== ENCOUNTER 2024-09-14 07:36 | Outpatient (RCR) | payer BC, SELFPAY ==
[2024-09-01 09:16] VITALS: BP 181/81; PULSE 99; TEMP 36.7; O2SAT 92
[2024-09-01] MEDS: CEFTAZIDIME 2,000 MG in 0.9 % SODIUM CHLORIDE 100 ML 200 MG IV (09:19)
[2024-09-01] MEDS: 0.9 % SODIUM CHLORIDE 250 ML 10 ML IV (09:19)
[2024-09-01] MEDS: LINEZOLID IN DEXTROSE 5% 600 MG/300 ML PIGGYBACK 300 MG IV ×2 (10:03→21:12)
[2024-09-01 20:59] VITALS: BP 169/95
[2024-09-01] MEDS: CEFTAZIDIME 2,000 MG in 0.9 % SODIUM CHLORIDE 100 ML 100 MG IV (21:12)
[2024-09-02 08:43] VITALS: BP 189/84; PULSE 95; TEMP 36.5; O2SAT 93
[2024-09-02] MEDS: 0.9 % SODIUM CHLORIDE 250 ML 10 ML IV (08:50)
[2024-09-02] MEDS: CEFTAZIDIME 2,000 MG in 0.9 % SODIUM CHLORIDE 100 ML 200 MG IV ×2 (08:50→20:45)
[2024-09-02] MEDS: LINEZOLID IN DEXTROSE 5% 600 MG/300 ML PIGGYBACK 300 MG IV ×2 (09:25→21:16)
[2024-09-02 20:56] VITALS: BP 179/98; PULSE 98; TEMP 36.7; O2SAT 95
[2024-09-03 08:39] VITALS: BP 161/81; PULSE 101; TEMP 36.6; O2SAT 93
[2024-09-03] MEDS: LINEZOLID IN DEXTROSE 5% 600 MG/300 ML PIGGYBACK 300 MG IV ×2 (08:50→20:36)
[2024-09-03] MEDS: CEFTAZIDIME 2,000 MG in 0.9 % SODIUM CHLORIDE 100 ML 200 MG IV (08:51)
[2024-09-03 10:33] LABS: Basophils Absolute Auto 0.1 10^3/uL (0.0-0.1); Basophils Percent Auto 0.6 % (0.2-2.0); Eosinophils Absolute Auto 0.2 10^3/uL (0.0-0.7); Eosinophils Percent Auto 2.6 % (0.9-7.0); Hemoglobin 11.7 g/dL (12.0-16.0); Immature Granulocytes Abs Auto 0.07 10^3/uL (0.00-0.03); Immature Granulocytes Pct Auto 0.8 % (0.0-0.5); Lymphocytes Absolute Auto 1.5 10^3/uL (1.2-3.8); Lymphocytes Percent Auto 17.6 % (20.5-60.0); Mean Corpuscular HGB Conc 32.5 g/dL (29.9-35.2); Mean Corpuscular Hemoglobin 29.8 pg (26.7-34.0); Mean Corpuscular Volume 91.6 fL (81.0-99.0); Mean Platelet Volume 8.5 fL (9.5-13.5); Monocytes Absolute Auto 0.7 10^3/uL (0.3-0.8); Neutrophils Percent Auto 70.4 % (43.0-75.0); Platelet Count 344 10^3/uL (150-450); Red Blood Count 3.93 10^6/uL (4.20-5.40); Red Cell Distribution Width 13.2 % (11.0-15.0); White Blood Count 8.5 10^3/uL (4.0-11.0)
[2024-09-03 10:54] LABS: Estimated Average Glucose 120 mg/dL; Glycohemoglobin A1C 5.8 % (4.5-6.2)
[2024-09-03 10:59] LABS: Alanine Aminotransferase 55 U/L (14-59); Albumin Globulin Ratio 0.8; Albumin Level 2.9 g/dL (3.4-5.0); Alkaline Phosphatase 99 U/L (46-116); Anion Gap 6.5; Aspartate Amino Transferase 32 U/L (15-37); BUN Creatinine Ratio 13.5; Bilirubin Total 0.2 mg/dL (0.2-1.0); Carbon Dioxide 32.4 mmol/L (21.0-32.0); Chloride 103 mmol/L (98-107); Chol HDL Ratio 2.8; Cholesterol 148 mg/dL (<=200); Estimated GFR (African America >60 (>=60 mL/min/1.73m^2); Estimated GFR (Non-African Ame 51 (>=60 mL/min/1.73m^2); Free T3 2.42 pg/mL (2.18-3.98); Globulin 3.6 g/dL; Glucose 139 mg/dL (74-106); HDL Cholesterol 53 mg/dL (40-60); LDL Cholesterol Calculated 78.4 mg/dL; Potassium 3.9 mmol/L (3.5-5.1); Sodium 138 mmol/L (136-145); Thyroid Stimulating Hormone 0.849 uIU/mL (0.358-3.740); Total Protein 6.5 g/dL (6.4-8.2); Triglycerides 83 mg/dL (<=150); VLDL CHOLESTEROL 16.6 mg/dL
[2024-09-03] MEDS: CEFTAZIDIME 2,000 MG in 0.9 % SODIUM CHLORIDE 100 ML 100 MG IV (20:36)
[2024-09-04 08:30] VITALS: BP 176/90; PULSE 104; TEMP 36.2; O2SAT 95
[2024-09-04] MEDS: LINEZOLID IN DEXTROSE 5% 600 MG/300 ML PIGGYBACK 300 MG IV ×2 (08:39→20:20)
[2024-09-04] MEDS: CEFTAZIDIME 2,000 MG in 0.9 % SODIUM CHLORIDE 100 ML 100 MG IV (08:39)
--- NOTE | 2024-09-04 12:39 | PC.NURSE ---
0955 rt upper arm picc dressing removed. Site clear. chloraprep used to cleanse skin, new stat lock and CHG dressing applied. 4 cm external length of catheter noted. patient tolerated well.
[2024-09-04] MEDS: CEFTAZIDIME 2,000 MG in 0.9 % SODIUM CHLORIDE 100 ML 200 MG IV (20:20)
[2024-09-04 20:30] VITALS: BP 174/92; PULSE 92; TEMP 36.2; O2SAT 95
[2024-09-05 08:10] VITALS: BP 181/76; PULSE 113; TEMP 36.2; O2SAT 94
[2024-09-05] MEDS: CEFTAZIDIME 2,000 MG in 0.9 % SODIUM CHLORIDE 100 ML 200 MG IV ×2 (08:15→20:34)
[2024-09-05] MEDS: LINEZOLID IN DEXTROSE 5% 600 MG/300 ML PIGGYBACK 300 MG IV ×2 (08:15→20:34)
[2024-09-05 20:40] VITALS: BP 177/81; PULSE 60; TEMP 36.5; O2SAT 97
[2024-09-05 21:44] VITALS: BP 178/91; PULSE 93
[2024-09-06 08:25] VITALS: BP 133/82; PULSE 108; TEMP 36.6; O2SAT 94
[2024-09-06] MEDS: CEFTAZIDIME 2,000 MG in 0.9 % SODIUM CHLORIDE 100 ML 200 MG IV ×2 (08:31→20:44)
[2024-09-06] MEDS: LINEZOLID IN DEXTROSE 5% 600 MG/300 ML PIGGYBACK 300 MG IV ×2 (08:31→20:44)
--- NOTE | 2024-09-06 08:35 | PC.NURSE ---
Pt. to [facility] amb. accompanied by 2 grandchildren. VSS. PICC line in place to right upper arm and without s&s of infection or infiltration. IV antibiotics initiated at this time. Denies needs or c/o.
[2024-09-06 20:47] VITALS: BP 179/95; PULSE 105; TEMP 37.2; O2SAT 94
[2024-09-07 08:55] VITALS: BP 165/94; PULSE 104; TEMP 36.5; O2SAT 94
[2024-09-07] MEDS: LINEZOLID IN DEXTROSE 5% 600 MG/300 ML PIGGYBACK 300 MG IV ×2 (09:00→20:39)
[2024-09-07] MEDS: CEFTAZIDIME 2,000 MG in 0.9 % SODIUM CHLORIDE 100 ML 200 MG IV ×2 (09:00→20:39)
[2024-09-07 20:41] VITALS: BP 174/95; PULSE 89; TEMP 36.6; O2SAT 98
[2024-09-08] MEDS: CEFTAZIDIME 2,000 MG in 0.9 % SODIUM CHLORIDE 100 ML 100 MG IV (08:52)
[2024-09-08] MEDS: LINEZOLID IN DEXTROSE 5% 600 MG/300 ML PIGGYBACK 300 MG IV ×2 (08:53→20:11)
[2024-09-08 09:05] VITALS: BP 164/86; PULSE 74; TEMP 36.8; O2SAT 94
[2024-09-08] MEDS: HEPARIN SODIUM (PORCINE) PF LOCK FLUSH 500 UNIT/5 ML SYRINGE IV (09:55)
[2024-09-08 20:05] VITALS: BP 181/84
[2024-09-08] MEDS: CEFTAZIDIME 2,000 MG in 0.9 % SODIUM CHLORIDE 100 ML 200 MG IV (20:11)
[2024-09-08 20:15] VITALS: PULSE 99; TEMP 36.6; O2SAT 98
[2024-09-09] MEDS: LINEZOLID IN DEXTROSE 5% 600 MG/300 ML PIGGYBACK 300 MG IV ×2 (08:00→20:35)
[2024-09-09] MEDS: HEPARIN SODIUM (PORCINE) PF LOCK FLUSH 500 UNIT/5 ML SYRINGE IV (08:01)
[2024-09-09] MEDS: CEFTAZIDIME 2,000 MG in 0.9 % SODIUM CHLORIDE 100 ML 100 MG IV (08:01)
[2024-09-09 08:06] VITALS: BP 186/94; PULSE 76; TEMP 36.6; O2SAT 95
[2024-09-09] MEDS: CEFTAZIDIME 2,000 MG in 0.9 % SODIUM CHLORIDE 100 ML 200 MG IV (20:35)
[2024-09-09 20:53] VITALS: BP 175/90; PULSE 104; TEMP 36.4; O2SAT 95
[2024-09-10 08:43] VITALS: BP 174/77; PULSE 96; TEMP 36.9; O2SAT 92
[2024-09-10] MEDS: CEFTAZIDIME 2,000 MG in 0.9 % SODIUM CHLORIDE 100 ML 200 MG IV ×2 (08:45→21:54)
[2024-09-10] MEDS: LINEZOLID IN DEXTROSE 5% 600 MG/300 ML PIGGYBACK 300 MG IV ×3 (08:53→21:52)
[2024-09-10 21:25] VITALS: BP 180/90; PULSE 92; TEMP 36.8; O2SAT 94
[2024-09-14] MEDS: CEFTAZIDIME 2,000 MG in 0.9 % SODIUM CHLORIDE 100 ML 200 MG IV ×2 (08:50→20:14)
[2024-09-14 08:52] VITALS: BP 155/92; PULSE 97; TEMP 36.1; O2SAT 94
--- NOTE | 2024-09-14 09:04 | PC.NURSE ---
PICC rt upper arm intact old dressing removed. new CHG dressing and stat lock applied. excellent blood return noted patient tolerated well
[2024-09-14 20:20] VITALS: BP 170/99; PULSE 97; TEMP 36.6; O2SAT 94
== END 2024-09-14 23:59 | disposition home or self-care (01) ==
LOC: INF 07:36
PROVIDERS: Family Provider Family Medicine; PCP Family Medicine; Visit Provider Family Medicine
DX: L03.115 Cellulitis of right lower limb (principal); R53.83 Other fatigue; E78.00 Pure hypercholesterolemia, unspecified; E03.9 Hypothyroidism, unspecified; R73.09 Other abnormal glucose; L02.415 Cutaneous abscess of right lower limb
CPT/HCPCS: 36415; 36592; 80053; 80061; 83036; 84436; 84443; 84481; 85025; 85652; 86140; 96365; 96366; 96367; 96368; J0713; J1642; J2020

== ENCOUNTER 2024-09-20 08:59 | Outpatient (OUT) | payer BC, SELFPAY ==
[2024-09-20 09:16] LABS: Basophils Percent Auto 0.5 % (0.2-2.0); Eosinophils Absolute Auto 0.4 10^3/uL (0.0-0.7); Eosinophils Percent Auto 4.6 % (0.9-7.0); Hematocrit 41.3 % (36.0-48.0); Hemoglobin 13.4 g/dL (12.0-16.0); Immature Granulocytes Abs Auto 0.04 10^3/uL (0.00-0.03); Immature Granulocytes Pct Auto 0.5 % (0.0-0.5); Lymphocytes Absolute Auto 1.7 10^3/uL (1.2-3.8); Lymphocytes Percent Auto 19.8 % (20.5-60.0); Mean Corpuscular HGB Conc 32.4 g/dL (29.9-35.2); Mean Corpuscular Hemoglobin 29.7 pg (26.7-34.0); Mean Corpuscular Volume 91.6 fL (81.0-99.0); Mean Platelet Volume 8.6 fL (9.5-13.5); Monocytes Absolute Auto 0.8 10^3/uL (0.3-0.8); Monocytes Percent Auto 8.5 % (1.7-12.0); Neutrophils Absolute Auto 5.8 10^3/uL (1.4-6.5); Neutrophils Percent Auto 66.1 % (43.0-75.0); Platelet Count 252 10^3/uL (150-450); Red Blood Count 4.51 10^6/uL (4.20-5.40); Red Cell Distribution Width 14.5 % (11.0-15.0); White Blood Count 8.8 10^3/uL (4.0-11.0)
[2024-09-20 09:29] LABS: Erythrocyte Sedimentation Rate 51 mm/hr (<=30)
[2024-09-20 10:03] LABS: Alanine Aminotransferase 19 U/L (14-59); Albumin Globulin Ratio 0.8; Albumin Level 3.2 g/dL (3.4-5.0); Alkaline Phosphatase 133 U/L (46-116); Aspartate Amino Transferase 15 U/L (15-37); BUN Creatinine Ratio 11.2; Bilirubin Total 0.3 mg/dL (0.2-1.0); C Reactive Protein 1.65 mg/dL (<=0.50); Calcium 9.3 mg/dL (8.5-10.1); Carbon Dioxide 28.3 mmol/L (21.0-32.0); Chloride 103 mmol/L (98-107); Estimated GFR (African America >60 (>=60 mL/min/1.73m^2); Estimated GFR (Non-African Ame 59 (>=60 mL/min/1.73m^2); Globulin 3.8 g/dL; Glucose 94 mg/dL (74-106); Potassium 4.3 mmol/L (3.5-5.1); Sodium 139 mmol/L (136-145)
== END 2024-09-20 09:00 | disposition home or self-care (01) ==
LOC: LAB 09:04
PROVIDERS: Family Provider Family Medicine; PCP Family Medicine; Visit Provider Family Medicine
DX: L03.90 Cellulitis, unspecified (principal)
CPT/HCPCS: 36415; 80053; 85025; 85652; 86140

== ENCOUNTER 2024-09-25 14:30 | Outpatient (RCR) | payer BC, SELFPAY ==
[2024-09-15] MEDS: CEFTAZIDIME 2,000 MG in 0.9 % SODIUM CHLORIDE 100 ML 200 MG IV ×2 (08:45→20:29)
[2024-09-15 08:54] VITALS: BP 164/89; PULSE 97; TEMP 36.4; O2SAT 91
[2024-09-15 20:33] VITALS: BP 177/99; PULSE 98; TEMP 36.7; O2SAT 93
[2024-09-16 08:26] VITALS: BP 187/101; PULSE 101; TEMP 36.4; O2SAT 93
[2024-09-16] MEDS: CEFTAZIDIME 2,000 MG in 0.9 % SODIUM CHLORIDE 100 ML 200 MG IV ×2 (08:32→20:24)
[2024-09-16 20:29] VITALS: BP 179/109; PULSE 100; TEMP 36.7; O2SAT 93
[2024-09-16 21:08] VITALS: BP 164/91; PULSE 101; O2SAT 94
[2024-09-17] MEDS: CEFTAZIDIME 2,000 MG in 0.9 % SODIUM CHLORIDE 100 ML 200 MG IV ×2 (08:15→20:23)
[2024-09-17 08:16] VITALS: BP 175/75; PULSE 96; TEMP 36.6; O2SAT 92
[2024-09-17 20:29] VITALS: BP 180/105; PULSE 94; TEMP 36.2; O2SAT 94
[2024-09-17 21:00] VITALS: BP 162/99
[2024-09-18 08:25] VITALS: BP 135/81; PULSE 94; TEMP 36.6; O2SAT 93
[2024-09-18] MEDS: CEFTAZIDIME 2,000 MG in 0.9 % SODIUM CHLORIDE 100 ML 200 MG IV ×2 (08:29→20:23)
[2024-09-18 20:18] VITALS: BP 173/98; PULSE 98; TEMP 36.6; O2SAT 98
[2024-09-18 20:57] VITALS: BP 170/92; PULSE 97; TEMP 36.6; O2SAT 99
[2024-09-19 08:30] VITALS: BP 149/88; PULSE 93; TEMP 36.4; O2SAT 91
[2024-09-19] MEDS: CEFTAZIDIME 2,000 MG in 0.9 % SODIUM CHLORIDE 100 ML 200 MG IV ×2 (08:40→20:17)
[2024-09-19 20:11] VITALS: BP 162/100; PULSE 99; TEMP 36.5; O2SAT 95
[2024-09-19 20:46] VITALS: BP 172/97; PULSE 96; TEMP 37.1; O2SAT 96
[2024-09-20] MEDS: CEFTAZIDIME 2,000 MG in 0.9 % SODIUM CHLORIDE 100 ML 200 MG IV (08:32)
[2024-09-20 08:41] VITALS: BP 172/98; PULSE 95; TEMP 36.5; O2SAT 95
[2024-09-20 20:29] VITALS: BP 192/96; PULSE 100; TEMP 36.5; O2SAT 94
--- NOTE | 2024-09-20 20:37 | PC.NURSE ---
Upon arrival for [facility] infusion of antibiotic, this RN noted one line of PICC did not have a cap on it. The line was clamped off. Port cleansed with alcohol wipe for 20 seconds to the end of the line. New cap applied and 6 ml of blood withdrawn from line, syringe removed and line flushed with 10 ml of normal saline. Line reclamped and cap applied. Patient states she had a bag on her arm earlier today to shower and she wonders if that is how the cap came off, she was unaware of missing cap until noticed by this RN.
[2024-09-21 20:38] VITALS: BP 163/78; PULSE 91; TEMP 36.6; O2SAT 95
[2024-09-21] MEDS: CEFTAZIDIME 2,000 MG in 0.9 % SODIUM CHLORIDE 100 ML 200 MG IV (20:38)
[2024-09-22 08:32] VITALS: BP 189/96; PULSE 94; O2SAT 94
[2024-09-22] MEDS: CEFTAZIDIME 2,000 MG in 0.9 % SODIUM CHLORIDE 100 ML 200 MG IV ×2 (08:35→20:20)
[2024-09-22 08:43] VITALS: BP 173/104; PULSE 92; TEMP 36.4; O2SAT 95
[2024-09-22 20:21] VITALS: BP 164/109
[2024-09-23] MEDS: CEFTAZIDIME 2,000 MG in 0.9 % SODIUM CHLORIDE 100 ML 200 MG IV ×2 (08:48→20:22)
[2024-09-23 20:24] VITALS: BP 160/105; PULSE 98; TEMP 36.4; O2SAT 94
[2024-09-24 08:42] VITALS: BP 175/104; PULSE 92; TEMP 36.6; O2SAT 92
[2024-09-24 20:30] VITALS: BP 160/84; PULSE 90; TEMP 36.5; O2SAT 93
[2024-09-24] MEDS: CEFTAZIDIME 2,000 MG in 0.9 % SODIUM CHLORIDE 100 ML 200 MG IV (20:30)
== END 2024-10-08 10:33 | disposition home or self-care (01) ==
LOC: INF 14:30
PROVIDERS: Family Provider Family Medicine; PCP Family Medicine; Visit Provider Family Medicine
DX: L03.90 Cellulitis, unspecified (principal)
CPT/HCPCS: 36415; 80053; 85025; 85652; 86140; 96365; 96366; J0713

== ENCOUNTER 2024-11-01 14:02 | Outpatient (OUT) | payer BC, SELFPAY ==
[2024-11-02 08:09] LABS: Measles Antibodies, IgG >300.0 AU/mL (Immune >16.4); Mumps Abs, IgG >300.0 AU/mL (Immune >10.9)
== END 2024-11-01 14:03 | disposition home or self-care (01) ==
LOC: LAB 14:03
PROVIDERS: Family Provider Family Medicine; PCP Family Medicine; Visit Provider Family Medicine
DX: M13.861 Other specified arthritis, right knee (principal)
CPT/HCPCS: 36415; 86735; 86762; 86765